=== PATIENT | male | born 1935 | race Caucasian/White ===

== ENCOUNTER 2018-02-06 12:35 | Inpatient (IN) | payer MEDICARE, OTHER ==
--- NOTE | 2018-02-06 12:55 | ED ---
HPI Chest Pain - HPI Summary HPI Summary: This patient is an 82 year old M brought in by ambulance with a chief complaint of non-radiating, mid-sternal CP since this morning following breakfast. Patient reports slight difficulties breathing, vomiting, nausea, SOB, and productive cough. When assisted into semi-fowlers by EMS, CP and SOB resolved, with O2Sat 89-92% on room air. 2L were applied via NC, O2 to 96%. The patient received 324 of ASA at home. The patient states that his CP lasted about 20 minutes. PMHX Diabetes, CO, and CVA. No PMHx COPD or other respiratory illness. SHX lives with at home. - History of Current Complaint Chief Complaint: EDChestPainROMI Time Seen by Provider: 02/06/18 12:43 Hx Obtained From: Patient, EMS Onset/Duration: Started Hours Ago Timing: Lasting Minutes - 20 Pain Intensity: 0 Chest Pain Location: Mid Sternal Chest Pain Radiates: No Associated Signs and Symptoms: Positive: Chest Pain, Shortness of Breath, Nausea , Cough, Productive Cough, Vomiting, Wheezing - Additional Pertinent History Primary Care Physician: [id number] - Allergy/Home Medications Allergies/Adverse Reactions: Allergies Allergy/AdvReac Type Severity Reaction Status Date / Time vancomycin Allergy Rash Verified 02/06/18 14:25 Home Medications: Home Medications Atorvastatin* [Lipitor 10 MG*] 10 mg PO BEDTIME 02/06/18 [History Confirmed 02/24] Metoprolol Succinate [Toprol Xl] 50 mg PO DAILY 02/06/18 [History Confirmed 02/24] Sertraline HCl [Zoloft] 25 mg PO DAILY 02/06/18 [History Confirmed 02/06/18] PMH/Surg Hx/FS Hx/Imm Hx Endocrine/Hematology History: Reports: Hx Diabetes Denies: Hx Thyroid Disease Cardiovascular History: Reports: Hx Angioplasty - several, Hx Coronary Artery Disease, Hx Hypertension, Hx Peripheral Vascular Disease, Hx Rheumatic Fever, Hx Valvular Heart Disease - Valve replacement, Other Cardiovascular Problems/ Disorders - PAD Denies: Hx Aneurysm, Hx Pacemaker/ICD Respiratory History: Denies: Hx Chronic Obstructive Pulmonary Disease (COPD) History: Reports: Other Problems/Disorders - baseline incontinence Denies: Hx Dialysis Musculoskeletal History: Reports: Hx Arthritis - KNEES, Other Musculoskeletal History - osteomyelitis Sensory History: Reports: Hx Contacts or Glasses - READING GLASSES Denies: Hx Hearing Aid Opthamlomology History: Reports: Hx Contacts or Glasses - READING GLASSES Neurological History: Reports: Hx Dementia, Hx Nerve Disease - peripheral neuropathy, Hx Transient Ischemic Attacks (TIA), Other Neuro Impairments/ Disorders - Parkinsons/dementia Denies: Hx Seizures Psychiatric History: Reports: Hx Substance Abuse - hx of alcoholism, not recent Denies: Hx Depression, Hx Panic Disorder - Cancer History Cancer Type, Location and Year: prostate - Surgical History Surgery Procedure, Year, and Place: 2-heart bypass, prostate, aortic valve replacement 2007, appy, left leg stent placed Hx Anesthesia Reactions: No Infectious Disease History: No Infectious Disease History: Reports: Hx of Known/Suspected MRSA Denies: Traveled Outside the [place] in Last 30 Days - Family History Known Family History: Positive: Cardiac Disease, Diabetes - Social History Alcohol Use: None Alcohol Amount: 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 Skin: The skin is warm and dry and skin color reflects adequate perfusion. HEENT: The head is normocephalic and atraumatic. The pupils are equal and reactive. The conjunctivae are clear and without drainage. Nares are patent and without drainage. Mouth reveals moist mucous membranes and the throat is without erythema and exudate. The external ears are intact. The ear canals are patent and without drainage. The tympanic membranes are intact. Neck: The neck is supple with full range of motion and non-tender. There are no carotid bruits. There is no neck vein distension. Respiratory: Chest is non-tender. Lungs are clear to auscultation. There are expiratory wheezes when coughing. Cardiovascular: Heart is regular rate and rhythm. There is no murmur or rub auscultated. There is no peripheral edema and pulses are symmetrical and equal. Abdomen: The abdomen is soft and non-tender. There are normal bowel sounds heard in all four quadrants and there is no organomegaly palpated. Musculoskeletal: There is no back tenderness noted. Extremities are non-tender with full range of motion. There is good capillary refill. There is no peripheral edema or calf tenderness elicited. There are amputations of his lower extremities. Neurological: Patient is alert and oriented to person, place and time. The patient has symmetrical motor strength in all four extremities. Cranial nerves are grossly intact. Deep tendon reflexes are symmetrical and equal in all four extremities. Psychiatric: The patient has an appropriate affect and does not exhibit any anxiety or depression. Triage Information Reviewed: Yes Vital Signs On Initial Exam: Initial Vitals Temp Pulse Resp BP Pulse Ox 97.5 F 89 18 150/80 96 02/06/18 12:36 02/06/18 12:36 02/06/18 12:36 02/06/18 12:36 02/06/18 12:36 Vital Signs Reviewed: Yes Diagnostics - Vital Signs Vital Signs Temp Pulse Resp BP Pulse Ox 02/06/18 12:36 97.5 F 89 18 150/80 96 - Laboratory Result Diagrams: 02/06/18 13:22 02/06/18 13:22 Lab Statement: Any lab studies that have been ordered have been reviewed, and results considered in the medical decision making process. - Radiology CXR Radiology Interpretation Completed By: Radiologist Summary of Radiographic Findings: NO ACTIVE CARDIOPULMONARY DISEASE. ED physician has reviewed this report - EKG 12:46 Cardiac Rate: NL - 88 bpm EKG Rhythm: Sinus Rhythm EKG Comparison: No Significant Change - 03/02/15 Summary of EKG Findings: left axis deviation Chest Pain Course/Dx - Course Course Of Treatment: Mr. Cedillo is a difficult historian secondary to dysphasia from Parkinson's disease. He had a short-lived episode of chest pain earlier today. He was accompanied by some shortness of breath and nausea. His initial workup including EKG, chest x-ray and labs with troponin and d-dimer were negative. He is awaiting a second troponin and I expect he would be discharged if this were negative. - Diagnoses Provider Diagnoses: Chest pain Discharge - Sign-Out/Discharge Documenting (check all that apply): Sign-Out Patient Signing out patient TO: Mihai Lyles - Discharge Plan Condition: Fair Disposition: ADMITTED TO [facility] Referrals: Jonny Gunn MD [Primary Care Provider] - - Billing Disposition and Condition Condition: FAIR Disposition: Admitted to [facility] - Attestation Statements Document Initiated by Socoibalice: Yes Documenting Scribe: Devan Cabrera Provider For Whom Sterling is Documenting (Include Credential): Mihai Chao MD Scribe Attestation: I, Devan Cabrera, scribed for Mihai Chao MD on 02/06/18 at 1745. Scribe Documentation Reviewed: Yes Provider Attestation: The documentation as recorded by the scribeDevan accurately reflects the service I personally performed and the decisions made by me, Mihai Chao MD Status of Scribe Document: Viewed
[2018-02-06 13:30] LABS: ABS Basophils 0.1 10^3/ul (0-0.2); ABS Eosinophils 0.5 10^3/ul (0-0.6); ABS Lymphocytes 1.2 10^3/ul (1.0-4.8); ABS Monocytes 0.6 10^3/ul (0-0.8); ABS Neutrophils 7.4 10^3/ul (1.5-7.7); ABS Nucleated RBC 0 10^3/ul; Eosinophil % 4.6 %; Hematocrit 40 % (42-52); Lymphocyte % 12.7 %; Mean Corpuscular HGB Conc 33 g/dl (31-36); Mean Corpuscular Hemoglobin 28 pg (27-31); Mean Corpuscular Volume 85 fL (80-94); Nucleated Red Blood Cells % 0; Platelet Count 211 10^3/ul (150-450); Red Blood Count 4.68 10^6/ul (4.00-5.40); Red Cell Distribution Width 14 % (10.5-15); White Blood Count 9.8 10^3/ul (3.5-10.8)
[2018-02-06 13:37] LABS: INR 0.93 (0.77-1.02)
[2018-02-06 13:48] LABS: Albumin 3.5 g/dL (3.2-5.2); Albumin/Globulin Ratio 1.3 (1-3); BUN/Creatinine Ratio 19.2 (8-20); Calcium 9.1 mg/dL (8.6-10.3); EGFR Non-African American 103.4 (>60); Globulin 2.6 g/dL (2-4); Potassium 4.4 mmol/L (3.5-5.0); Total Bilirubin 0.3 mg/dL (0.2-1.0); Total Protein 6.1 g/dL (6.4-8.9)
--- NOTE | 2018-02-06 14:11 | ED ---
Progress - Progress Note Progress Note: The patient was signed out by Dr. Chao to Dr. yLles, awaiting disposition. Course/Dx - Course Course Of Treatment: Test results with no significant abnormalities except for troponin .17 H and .167 H. In the ED course the patient was given Heparin. We discussed patient care with Dr. Kay and they recommended admission. - Diagnoses Provider Diagnoses: Chest pain, Non-ST elevation myocardial infarction (NSTEMI) - Provider Notifications Discussed Care Of Patient With: Aster Kay Time Discussed With Above Provider: 17:15 Instructed by Provider To: Admit As Inpatient - Critical Care Time Critical Care Time: 30-74 min - Elderly man with a bout of chest pain, positive troponins indicating non-STEMI, heparin ordered. Discharge - Sign-Out/Discharge Documenting (check all that apply): Patient Departure - admission, Receiving Sign-Out Receiving patient FROM: Mihai Chao - Discharge Plan Condition: Fair Disposition: ADMITTED TO [facility] - Billing Disposition and Condition Condition: FAIR Disposition: Admitted to [facility] - Attestation Statements Document Initiated by Sterling: Yes Documenting Socoibalice: Devan Cabrera Provider For Whom Sterling is Documenting (Include Credential): Mihai Lyles MD Scribe Attestation: Devan Sears, socoibed for Mihai Lyles MD on 02/06/18 at 1905. Scribe Documentation Reviewed: Yes Provider Attestation: The documentation as recorded by the Devan dodson accurately reflects the service I personally performed and the decisions made by me, Mihai Lyles MD Status of Scribe Document: Viewed
[2018-02-06 14:25] LABS: TSH (Thyroid Stimulating Horm) 0.77 mcIU/mL (0.34-5.60)
[2018-02-06] MEDS ORDERED: Al Hydrox/Mg Hydrox/Simet LIQ* 30 ML UDC PO PRN (17:54)
[2018-02-06] MEDS ORDERED: Aspirin EC TAB* 81 MG TAB.EC PO SCH (18:00)
[2018-02-06] MEDS: Heparin DRIP 25,000 UNITS(*) 25,000 UNITS/500 ML BAG IV SCH (18:25)
[2018-02-06] MEDS: Heparin VIAL(*) 5000 UNITS/ML VIAL (FIVE THOUSAND) IV SCH (18:25)
[2018-02-06] MEDS ORDERED: Nitroglycerin TAB 0.4 MG* 0.4 MG TAB SL PRN (18:26)
--- NOTE | 2018-02-06 19:44 | HP ---
ADDENDUM NOW INCLUDED ON THIS REPORT CC: Dr. Avendaño; Dr. Gunn * HISTORY AND PHYSICAL: DATE OF ADMISSION: 02/06/18 TIME OF ADMISSION: 6:00 p.m. CHIEF COMPLAINT: Chest pain. HISTORY OF PRESENT ILLNESS: This is an 82-year-old man with a significant history of coronary artery disease who has had 2 coronary artery bypass grafts in 2006 and 2011. He is a patient of Dr. Avendaño, but has not seen him for several years. He presents to the emergency department with an episode of chest pain that occurred after breakfast this morning. He states he had eaten a breakfast of Cheerios and was feeling in his usual state of health and after breakfast, was sitting at the table when he developed a sudden onset of midsternal chest pain. The pain was nonradiating. It was associated with nausea. He had no diaphoresis or shortness of breath. He does not walk, so he is unable to tell if the pain changed with exertion. He rested at the table until his called EMS approximately 1 hour later. He was instructed to take 325 mg of aspirin and he did so. In the ambulance, his chest pain resolved and he has had no further chest pain since that time. PAST MEDICAL HISTORY: 1. Parkinson's disease. 2. Vascular dementia. 3. Hypertension. 4. Coronary artery disease status post CABG. 5. Peripheral vascular disease status post right BKA and left TMA. 6. Type 2 diabetes. HOME MEDICATIONS: 1. Metformin 500 mg daily. 2. Vitamin C 500 mg daily. 3. Aspirin 81 mg daily. 4. Atorvastatin 10 mg q.h.s. 5. Baclofen 10 mg t.i.d. 6. Plavix 75 mg daily. 7. Aricept 5 mg q.h.s. 8. Toprol-XL 50 mg daily. 9. Zoloft 25 mg daily. SOCIAL HISTORY: He lives with his , Aaliyah at [place]. He does not smoke. He drinks alcohol, but is not forthcoming about how much he drinks. REVIEW OF SYSTEMS: He denies recent fevers, chills, cough, shortness of breath , palpitations, headache, weight loss or weight gain. Remainder of 14-point review of systems is negative except as per the HPI. PHYSICAL EXAMINATION GENERAL: Alert, nontoxic, elderly appearing man, in no distress. He is able to speak in full sentences. VITAL SIGNS: Temperature 97.5, heart rate 80, respiratory rate 21, pulse ox 96 % on 2 L, blood pressure 145/90. HEENT: Pupils equal, round and 2 mm bilaterally. Oral mucosa is moist. NECK: No JVP. No cervical adenopathy. LUNGS: Clear with no wheezes or rhonchi. CHEST: Regular rate and rhythm. PMI is nondisplaced. Old healed sternotomy incision is in place. ABDOMEN: Obese, soft, nontender, nondistended. A midline infrapubic incision is healed. He has no guarding or rebound. EXTREMITIES: He has a right lower extremity BKA and a left lower extremity TMA. He has no wounds, ulcers, or edema. LABORATORY DATA/DIAGNOSTIC STUDIES: Sodium 133, potassium 4.4, chloride 101, bicarb 26, creatinine 0.73, glucose 204. Troponin 0.17, 1.67. BNP 270. White blood cells 9.8, hemoglobin 13, platelets 211,000. Chest x-ray shows mild cardiomegaly, no edema, no effusions, no infiltrates, and sternotomy clips. EKG: Normal sinus rhythm with a first-degree A-V block, left axis deviation, ST elevation in lead 3 but not in 2 or aVF, no T wave changes. ASSESSMENT AND PLAN: This is an 82-year-old man with a long history of coronary artery disease who presents to the emergency room with chest pain and was found to have jei-EF-xtgmumemy myocardial infarction. 1. Acute coronary syndrome, stl-VG-yfovxkooz myocardial infarction. I am starting a heparin drip. He already took full dose aspirin prior to arrival. He is currently chest pain-free and needs to remain so. We will treat him with nitro p.r.n. in case he develops more chest pain. He is already on a beta- riccardo and I am continuing his Toprol. He is also already on atorvastatin; I am increasing the dose to make it a high potency statin. I am continuing his Plavix as recommended by Dr. De La Cruz. I have consulted with Dr. De La Cruz who agrees with trending his troponins, monitoring him on telemetry and he will evaluate him in the morning to consider further workup. 2. Parkinson's disease. He is not on any Parkinson's meds. He does take baclofen. 3. Diabetes. I am holding his metformin and putting him on a sliding scale. 4. Hypertension. I am continuing his metoprolol. He may benefit from an KARSON should his blood pressure needs improved control. 5. Peripheral vascular disease. Continue aspirin and statin and Plavix. 6. DVT prophylaxis. Contraindicated in the setting of therapeutic anticoagulation. 7. Diet. Carb control and n.p.o. after midnight for possible cardiology intervention. 8. Full code. TIME SPENT: 60 minutes were spent on this admission. ADDENDUM TO HISTORY AND PHYSICAL: A repeat troponin at 1807 is 2.36 and a repeat EKG shows new T-wave inversions in V5 and V6. Continue heparin drip and medical management as above with possible left heart cath in the morning. [id number]/[facility] #: [id number]/CPS #: [id number] WIL
--- NOTE | 2018-02-06 19:52 | HP ---
ADDENDUM TO HISTORY AND PHYSICAL: A repeat troponin at 1807 is 2.36 and a repeat EKG shows new T-wave inversions in V5 and V6. Continue heparin drip and medical management as above with possible left heart cath in the morning. [id number]/[facility] #: [id number] WIL
[2018-02-06] MEDS: Atorvastatin* 40 MG TAB PO SCH (21:24)
[2018-02-06] MEDS: Donepezil TAB* 5 MG PO SCH (21:24)
[2018-02-06] MEDS: Baclofen TAB* 10 MG PO SCH (21:24)
[2018-02-06] MEDS ORDERED: Dextrose 50% Syringe 50 ML* 25 GM/50 ML SYRINGE IV PUSH PRN (22:33)
[2018-02-07] MEDS: Heparin VIAL(*) 5000 UNITS/ML VIAL (FIVE THOUSAND) IV SCH (01:10)
[2018-02-07] MEDS: Acetaminophen TAB* 325 MG PO PRN (05:41)
[2018-02-07 07:02] LABS: ABS Basophils 0 10^3/ul (0-0.2); ABS Eosinophils 0.5 10^3/ul (0-0.6); ABS Lymphocytes 1.8 10^3/ul (1.0-4.8); ABS Monocytes 0.7 10^3/ul (0-0.8); ABS Neutrophils 5.8 10^3/ul (1.5-7.7); ABS Nucleated RBC 0 10^3/ul; Eosinophil % 5.4 %; Hematocrit 37 % (42-52); Hemoglobin 12.5 g/dl (14.0-18.0); Lymphocyte % 20.9 %; Mean Corpuscular HGB Conc 34 g/dl (31-36); Mean Corpuscular Hemoglobin 29 pg (27-31); Mean Corpuscular Volume 84 fL (80-94); Mean Platelet Volume 7.2 fL (7.4-10.4); Nucleated Red Blood Cells % 0.1; Platelet Count 199 10^3/ul (150-450); Red Blood Count 4.39 10^6/ul (4.00-5.40); Red Cell Distribution Width 14 % (10.5-15); White Blood Count 8.8 10^3/ul (3.5-10.8)
[2018-02-07] MEDS: Insulin LISPRO* 1 UNITS UNIT SUBCUT SCH ×3 (07:17→19:22)
[2018-02-07 07:36] LABS: BUN/Creatinine Ratio 17.6 (8-20); EGFR Non-African American 112.2 (>60); HDL Cholesterol 51.6 mg/dL; Potassium 4.4 mmol/L (3.5-5.0)
--- NOTE | 2018-02-07 07:54 | PN ---
Subjective Date of Service: 02/07/18 Interval History: No SOB, chest pain, cough. No new c/o. Objective Active Medications: Acetaminophen (Tylenol Tab*) 650 mg PO Q4H PRN PRN Reason: FEVER/PAIN Last Admin: 02/07/18 05:41 Dose: 650 mg Al Hydrox/Mg Hydrox/Simethicone (Maalox Plus*) 30 ml PO Q6H PRN PRN Reason: INDIGESTION Ascorbic Acid (Vitamin C Tab*) 500 mg PO DAILY [facility] Aspirin (Aspirin Ec Tab*) 81 mg PO DAILY [facility] Atorvastatin Calcium (Lipitor*) 40 mg PO BEDTIME [facility] Last Admin: 02/06/18 21:24 Dose: 40 mg Baclofen (Lioresal Tab*) 10 mg PO TID [facility] Last Admin: 02/06/18 21:24 Dose: 10 mg Clopidogrel Bisulfate (Plavix Tab*) 75 mg PO DAILY [facility] Dextrose (D50w Syringe 50 Ml*) 12.5 gm IV PUSH .FOR FS < 60 - SS PRN PRN Reason: FS < 60 Donepezil HCl (Aricept Tab*) 5 mg PO BEDTIME [facility] Last Admin: 02/06/18 21:24 Dose: 5 mg Heparin Sodium (Porcine) (Heparin Vial(*)) 0 units IV .PER PROTOCOL [facility] Last Admin: 02/07/18 01:10 Dose: 2,000 units Heparin Sodium/Dextrose (Heparin Drip 25,000 Units(*)) 25,000 units in 500 mls @ 0 mls/hr IV PER RATE [facility]; Protocol Last Admin: 02/06/18 18:25 Dose: 19 mls/hr Influenza Virus Vaccine (Fluarix *Quad* *) 0.5 ml IM .ONCE ONE Stop: 02/07/18 09:01 Insulin Human Lispro (Humalog*) 0 units SUBCUT AC [facility]; Protocol Last Admin: 02/07/18 07:17 Dose: Not Given Metoprolol Succinate (Toprol Xl Tab*) 50 mg PO DAILY [facility] Nitroglycerin (Nitroglycerin Tab 0.4 Mg*) 0.4 mg SL Q5M PRN PRN Reason: ANGINA Sertraline HCl (Zoloft*) 25 mg PO DAILY [facility] Vital Signs - 8 hr 02/07/18 02/07/18 02/07/18 03:14 07:19 07:40 Temperature 97.9 F 97.9 F Pulse Rate 83 82 Respiratory 16 20 20 Rate Blood Pressure 122/58 120/71 (mmHg) O2 Sat by Pulse 95 97 Oximetry Oxygen Devices in Use Now: Nasal Cannula Appearance: Alert, supine in bed. In good spirits. Looks comfortable. Eyes: No Scleral Icterus Neck: NL Appearance and Movements; NL JVP, No Thyroid Enlargement, Masses Respiratory: Clear to Auscultation, Clear to Percussion, Clear to Palpation Cardiovascular: NL Sounds; No Murmurs; No JVD, RRR, No Edema, - Extremities: No Edema, No Clubbing, Cyanosis, - - R BKA, L toes surgically absent Neurological: Alert and Oriented x 3, NL Sensation, - - Speech dysarthric, short sentences. Result Diagrams: 02/07/18 06:30 02/07/18 06:30 Microbiology and Other Data: Microbiology 02/06/18 19:54 Nasal Screen MRSA (PCR) - Final Nasal Mrsa Detected Assess/Plan/Problems-Billing Assessment: - Patient Problems (1) CAD (coronary artery disease) Current Visit: No Status: Chronic Code(s): I25.10 - ATHSCL HEART DISEASE OF [place] CORONARY ARTERY W/O ANG PCTRS SNOMED Code(s): 81590734 Comment: Acute non-ST elevation MN. Lateral wall T-wave inversions. Continue heparin, NPO. Dr. De La Cruz to see. Continue clopidogrel, ASA, metoprolol , increased dose atorvastatin. (2) Type 2 diabetes mellitus Current Visit: No Status: Chronic Comment: Continue lispro SSI coverage, hold metformin. (3) Dementia Current Visit: No Status: Chronic Code(s): F03.90 - UNSPECIFIED DEMENTIA WITHOUT BEHAVIORAL DISTURBANCE SNOMED Code(s): 34243117 Comment: Continue donepezil, sertraline. (4) Peripheral vascular disease Current Visit: No Status: Chronic Code(s): I73.9 - PERIPHERAL VASCULAR DISEASE, UNSPECIFIED SNOMED Code(s): 046591126 Comment: Unsuccessful angioplasty on 08/06/2015. Continue statin, clopidogrel , ASA.
[2018-02-07] MEDS: Ascorbic Acid TAB* 500 MG PO SCH (08:50)
[2018-02-07] MEDS: Clopidogrel TAB* 75 MG PO SCH (08:50)
[2018-02-07] MEDS: Sertraline* 25 MG TAB PO SCH (08:50)
[2018-02-07] MEDS: Baclofen TAB* 10 MG PO SCH ×4 (08:50→20:55)
[2018-02-07] MEDS: Metoprolol Succinate XL TAB* 50 MG PO SCH (08:50)
[2018-02-07] MEDS: Aspirin EC TAB* 81 MG TAB.EC PO SCH ×2 (08:50→09:01)
[2018-02-07] MEDS ORDERED: Perflutren Lipid Microsphere* 3 ML VIAL ONE (10:19)
--- NOTE | 2018-02-07 13:36 | ECHO ---
Patient: TYLER SOTO [facility] Rec#: [id number] : 1935 Date: 02/07/2018 Age: 82y Height: 180 cm / 70.9 in Weight: 89 kg / 196.2 lbs Sex: M BSA: 2.09 Room#: 431 Admit Date#: 02/06/2018 Type: Inpatient Referring: Laura Fowler Reading: Phoebe Reed MD [employer] Professional: Stacy Henderson RDCS,RDMS CC: Jonny Gunn Transthoracic Echocardiogram Indication: Myocardial Infarction BP: 120/71 HR: 64 Rhythm: NSR Findings History: CAD, CABG, AOV replacement, HTN, DM, PVD Technical Comments: The study is technically limited due to poor acoustic windows. Left Ventricle: The left ventricular chamber size is normal. Moderate to severe concentric left ventricular hypertrophy is observed. There is global hypokinesis of the left ventricle with minor regional variation. The estimated ejection fraction is 30-35%. Abnormal left ventricular diastolic filling is observed, consistent with impaired relaxation. The left ventricular diastolic filling pattern is consistent with elevated left ventricular end-diastolic pressure. Left Atrium: The left atrium is severely dilated. Right Ventricle: The right ventricular chamber size and systolic function are within normal limits. The right ventricle wall thickness is mildly increased. Right Atrium: The right atrium is mild to moderately dilated. Aortic Valve: The aortic valve structure is not well visualized. There is no evidence of aortic regurgitation. The mean gradient of the aortic valve is 14 mmHg. The aortic valve area, by VTI's, is calculated at 1 cm2. A bio-prosthetic aortic valve is present. Mitral Valve: The mitral valve structure is not well visualized. There is mitral annular calcification. The mitral valve leaflets are mildly thickened. There is a trace of mitral regurgitation. There is mild mitral stenosis. The mitral valve area, by pressure half time, is calculated at 2.1 cm2. Tricuspid Valve: The tricuspid valve leaflets are normal. There is no evidence of tricuspid valve regurgitation. Unable to estimate the right ventricular systolic pressure. Pulmonic Valve: There is no evidence of pulmonic valve thickening. There is no evidence of pulmonic regurgitation. Pericardium: There is no significant pericardial effusion. A pericardial fat pad is visualized. Aorta: The ascending aorta is not well visualized. There is no dilatation of the aortic arch. The aortic root is normal in size. Pulmonary Artery: The main pulmonary artery is not well visualized. Venous: The inferior vena cava is dilated. There is less than 50% respiratory change in the inferior vena cava dimension. Contrast: Definity was used to optimize study. A total of 4 ml was used. Conclusions Moderate to severe concentric left ventricular hypertrophy is observed. There is global hypokinesis of the left ventricle with minor regional variation. The estimated ejection fraction is 35%. Abnormal left ventricular diastolic filling is observed, consistent with impaired relaxation and with elevated left ventricular end-diastolic pressure. The right ventricular chamber size and systolic function are within normal limits with mild RVH. The left atrium is severely dilated. A bio-prosthetic aortic valve is present (#25 [place]). Mild to moderate prosthetic for type, size and location of AVR (low EF can lead to overestimation of valve area). -The mean gradient of the aortic valve is 14 mmHg, ROSEANNA 1.0 cm2, DI (VTI) 0.3, DI (peak adelina) is 0.34. There is mitral annular calcification. There is a trace of mitral regurgitation. There is mild mitral stenosis: MVA by pressure half time, is calculated at 2.1 cm2, mean gradient 3 mmHg. Unable to estimate the right ventricular systolic pressure. Compared with prior echo of 03/02/15, EF 50-55% previously, mean gradient previously 32 mmHg, ROSEANNA previously estimated at 1. cm2. MAC seen previosly, MVA previously estimated at 2.5 cm2. Measurements Name Value Normal Range RVIDd (AP) 2D 2.2 cm (0.9 - 2.6) RVDdMajor (2D) 3.5 cm (2.2 - 4.4) RAd ISD 4CH 5.8 cm (3.4 - 4.9) RA (A4C)W 4.7 cm (2.9 - 4.6) IVSd (2D) 1.9 cm (0.6 - 1) LVPWd (2D) 1.7 cm (0.6 - 1) LVIDd (2D) 4.9 cm (3.6 - 5.4) LVIDs (2D) 4.4 cm - LV FS (2D) 10 % (25 - 45) Aortic Annulus 2 cm (1.4 - 2.6) Ao root diameter (2D) 3.5 cm (2.1 - 3.5) Aortic arch 2.7 cm (1.8 - 3.4) LA dimension (AP) 2D 5.1 cm (2.3 - 3.8) LAd ISD 4CH 6.7 cm (2.9 - 5.3) LA ISD 4CH W 5.6 cm (2.5 - 4.5) Name Value Normal Range LA ESV BP (A/L) index 81 ml/m2 - Name Value Normal Range MV E-wave Vmax 1 m/sec - MV deceleration time 161 msec - MV A-wave Vmax 1.2 m/sec - MV E:A ratio 0.9 ratio - LV septal e' Vmax 0.03 m/sec - LV lateral e' Vmax 0.04 m/sec - LV E:e' septal ratio 33 ratio - LV E:e' lateral ratio 25 ratio - Name Value Normal Range AV Vmax 2.4 m/sec - AV VTI 55 cm - AV peak gradient 23 mmHg - AV mean gradient 14 mmHg - LVOT diameter 2 cm - LVOT Vmax 0.8 m/sec - LVOT VTI 17 cm - LVOT peak gradient 2.6 mmHg - LVOT mean gradient 2 mmHg - DOI (VTI) 0.3 ratio - ROSEANNA (continuity Vmax) 1 cm2 - ROSEANNA (continuity VTI) 1 cm2 - ALEXA Vmax 0.5 m/sec - Name Value Normal Range MV Vmax 1.2 m/sec - MV VTI 39 cm - MV peak gradient 6 mmHg - MV mean gradient 3 mmHg - MV PHT 106 msec - MVA (PHT) 2.1 cm2 - MVA (continuity VTI) 1.3 cm2 - Name Value Normal Range IVC diameter 2.3 cm - Name Value Normal Range PV Vmax 0.7 m/sec - PV peak gradient 2 mmHg -
--- NOTE | 2018-02-07 15:13 | CONS ---
CONSULTATION REPORT: DATE OF CONSULT: 02/07/18 ATTENDING PHYSICIAN: Dr. Phoebe Reed, Cardiology. PRIMARY TECHNICAL SERVICES REP: Formerly, Dr. Russ Avendaño. REASON FOR CONSULT: N-STEMI. CHIEF COMPLAINT: Substernal chest pain. HISTORY OF PRESENT ILLNESS: This is a pleasant 82-year-old male patient with a notable history of coronary artery disease, status post CABG x2 with bioprosthetic aortic valve replacement in 2006 in addition to peripheral arterial disease, type 2 diabetes, Parkinson's, and dysphagia. The patient presented to [facility] on 02/06/18 after developing substernal chest pain described as indigestion after eating breakfast at 11:00 yesterday morning. The patient states he became nauseous and vomited x1. Episode lasted 20 minutes. Pain did not radiate. He denies shortness of breath, dizziness, lightheadedness, palpitations, or sensation of heart racing. He denies taking medications to help alleviate pain such as nitroglycerin. His called 911. He was transferred to [facility] for further evaluation. On being evaluated in the emergency department, the patient had new lateral ST segment abnormalities compared to prior EKG. Initial troponin was elevated at 0.17. Subsequently, he was admitted to [address] [place] [address] for ACS and we were asked to see him in consultation. The patient denies any recurrent episodes of chest pain since yesterday, 11 a.m. He reports compliance with medications. He denies choking on breakfast or medications which he consumed at the time the chest pain developed. Unfortunately, he is not able to recall what his anginal equivalent is; however, he was able to state that he has not had any episodes of chest pain for the last 3 years. He was last seen in our practice on 03/02/14 and at that time, was doing well. He has otherwise been in his usual state of health. Denies any recent hospitalizations. Denies any recent cardiac stenting or intervention. PAST MEDICAL HISTORY: Includes: 1. Coronary artery disease. 2. Aortic valve disease. 3. Peripheral arterial disease. 4. Type 2 diabetes. 5. Parkinson's. 6. Dysphagia. 7. Carotid artery disease. PAST SURGICAL HISTORY: Includes: 1. Bioprosthetic aortic valve replacement, size 25 mosaic with CABG x2 in 2006 , THOMPSON to LAD, saphenous vein graft to OM. 2. Prostatectomy. 3. Right mkayg-dzy-befq amputation. 4. Left transmetatarsal amputation. 5. Right directional atherectomy and perineal artery. MEDICATIONS: Home medications include: 1. Sertraline 25 mg a day. 2. Toprol-XL 50 mg a day. 3. Metformin 500 mg p.o. daily. 4. Aricept 5 mg p.o. q.h.s. 5. Lipitor 10 mg p.o. q.h.s. 6. Vitamin C tablets as directed. 7. Plavix 75 mg p.o. daily. 8. Baclofen 10 mg p.o. t.i.d. 9. Aspirin 81 mg a day. ALLERGIES: No known drug allergies. Denies allergies to contrast dye or shellfish. FAMILY HISTORY: Noncontributory. SOCIAL HISTORY: The patient denies ever consuming tobacco products. He quit drinking alcohol a year ago. He states that he is wheelchair bound. He is . Lives at home with his . REVIEW OF SYSTEMS: All systems have been reviewed and otherwise negative except as above mentioned in the HPI. PHYSICAL EXAM: Temperature is 97.9, pulse 82, respirations 20, blood pressure 120/71, oxygenation 97% on 3 L nasal cannula. General: The patient is cooperative with exam, alert and oriented x3, appears in no apparent distress. He has difficulty articulating himself; however, his thought process is clear. HEENT: Head is atraumatic, normocephalic. Oral mucosa is moist. Tongue is midline. Neck: Supple. Trachea midline. No JVD. No thyromegaly. Cardiac: Normal S1, S2. Regular rate and rhythm. There is a grade 2/6 early systolic murmur auscultated across the left and right sternal border. No gallop or rub. Lungs: Auscultated posteriorly, clear throughout upon auscultation. Respirations are unlabored. Genitourinary/Gastrointestinal: Abdomen is soft, nontender, nondistended. Positive bowel sounds throughout. Extremities: No edema noted, 2+ right femoral pulse palpated, 2+ left posterior tibialis pulse palpated. Skin: Intact. No rashes, lesions, or ecchymosis appreciated. DIAGNOSTIC STUDIES/LAB DATA: Blood work obtained, 02/07/18, sodium 137, potassium 4.4, chloride 100, carbon dioxide 29, BUN is 12, creatinine 0.68, glucose of 103, white blood cell count is 8.8, hemoglobin 12.5, hematocrit 37, platelets 199. D- dimer was 221. Troponin plateaued at 2.3 today at 6:30 a.m. , LDL 49, triglycerides 72, cholesterol 115, BNP 270. EKG obtained 02/06/18, demonstrated normal sinus rhythm, rate [address] segment depression less than 1 mm with T-wave inversion noted in V4 through V6, aVL and in lead 1. Chest x-ray from 02/06/18, no apparent cardiopulmonary disease process. Echocardiogram pending. ASSESSMENT AND PLAN: 1. Non-ST segment elevation myocardial infarction: The patient had a 20- minute episode of substernal chest pain described as burning in nature, at 11 a.m. No provoking or relieving factors. Pain has not recurred. Troponin appears to have peaked at 2.3. Upon presentation, there was new lateral ST segment depression less than 1 mm with T-wave inversion noted in the V4 through 6, lead 1, and aVL. He is on IV heparin therapy, aspirin, Plavix, beta-riccardo, and statin therapy, which we would recommend to continue. He is currently agreeable to left heart catheterization after discussing it with his , whom I personally spoke with. His last cardiac catheterization was in 2011. At that time, he had patent left internal mammary artery to left anterior descending artery, saphenous vein to obtuse marginal graft. He had extensive 3-vessel coronary artery disease; however, nothing was absolutely amenable to angioplasty or stenting. Subsequently, medical therapy was recommended. Given this information, we will ask Dr. Gen Ewing, Interventional Cardiology, to review films and determine whether or not the patient would benefit from cardiac catheterization. We will make further recommendations after this occurs. 2. Bioprosthetic aortic valve: The patient has a 2/6 early systolic murmur present consistent with [id number] periprosthetic aortic stenosis. Echocardiogram was ordered to evaluate valve gradient. He is on aspirin therapy , appears compensated on exam. 3. History of mixed hyperlipidemia: LDL is at goal. Continue Lipitor therapy. 4. History of coronary artery disease: On aspirin, statin, beta-blockade therapy. Please refer to above #1. 5. Disposition: Pending course. The patient is full code. We will ask Dr. Ewing, Interventional Cardiology, to review prior cardiac catheterization films from 2011 to determine whether or not the patient would benefit from left heart catheterization. Given residual lesions at that time were not amenable to percutaneous coronary intervention. If left heart catheterization is recommended, he has extensive peripheral arterial disease, subsequently access will likely be radial. He does have a notable history of restless leg syndrome. Subsequently, he will need to be appropriately medicated for this if he does undergo left heart catheterization. Dr. Phoebe Reed agrees with the above assessment and plan. Thank you for this kind consultation. Please do not hesitate to contact our service for any future questions or concerns. RUBI JIMENEZ NP [id number]/[facility] #: [id number] WIL
--- NOTE | 2018-02-07 16:13 | CONSULT ---
Subjective Date of Service: 02/07/18 - CC: CP, n/v. Interval History: This note augments full consult done by Laura Moore GLASS INSTALLER TECHNICIAN. The patient presented to ED due to SS CP, N/V and diaphoresis after breakfast and meds 02/06/18. Preceding this the patient had been wheezy and coughing for several days. No history on increased activity, med changes, orthopnea or PND. PMHx: CABG THOMPSON to LAD and SVG to OM1) and AVR (tissue) 2006 Redo CABG 2011 (SVG to occluded RCA and SVG to OM2). see GLASS INSTALLER TECHNICIAN note Initial Vitals Temp Pulse Resp BP Pulse Ox 97.5 F 89 18 150/80 96 02/06/18 12:36 02/06/18 12:36 02/06/18 12:36 02/06/18 12:36 02/06/18 12:36 Obese, lying in bed 30 degrees, tachypnic talking. Audible wheezing talking to the patient. Diffusely diminished BS. S1S2 2/6 mid to late peaking SM RUSB with radiation. Midline sternotomy scar old, well healed. Posterior head and back sweaty. Very centripitally obese. No LE edema, L metatarsal amputation, R AKA amputation. Laboratory Last Values WBC 8.8 10^3/ul (3.5-10.8) 02/07/18 06:30 RBC 4.39 10^6/ul (4.00-5.40) 02/07/18 06:30 Hgb 12.5 g/dl (14.0-18.0) L 02/07/18 06:30 Hct 37 % (42-52) L 02/07/18 06:30 MCV 84 fL (80-94) 02/07/18 06:30 MCH 29 pg (27-31) 02/07/18 06:30 MCHC 34 g/dl (31-36) 02/07/18 06:30 RDW 14 % (10.5-15) 02/07/18 06:30 Plt Count 199 10^3/ul (150-450) 02/07/18 06:30 MPV 7.2 fL (7.4-10.4) L 02/07/18 06:30 Neut % (Auto) 65.4 % 02/07/18 06:30 Lymph % (Auto) 20.9 % 02/07/18 06:30 [place]igo % (Auto) 7.8 % 02/07/18 06:30 Eos % (Auto) 5.4 % 02/07/18 06:30 Baso % (Auto) 0.5 % 02/07/18 06:30 Absolute Neuts (auto) 5.8 10^3/ul (1.5-7.7) 02/07/18 06:30 Absolute Lymphs (auto) 1.8 10^3/ul (1.0-4.8) 02/07/18 06:30 Absolute Monos (auto) 0.7 10^3/ul (0-0.8) 02/07/18 06:30 Absolute Eos (auto) 0.5 10^3/ul (0-0.6) 02/07/18 06:30 Absolute Basos (auto) 0 10^3/ul (0-0.2) 02/07/18 06:30 Absolute Nucleated RBC 0 10^3/ul 02/07/18 06:30 Nucleated RBC % 0.1 02/07/18 06:30 INR (Anticoag Therapy) 0.93 (0.77-1.02) 02/06/18 13:22 APTT 51.7 seconds (26.0-36.3) H 02/07/18 12:39 D-Dimer, Quantitative 221 ng/mL (Less Than 230) 02/06/18 13:22 Sodium 137 mmol/L (135-145) 02/07/18 06:30 Potassium 4.4 mmol/L (3.5-5.0) 02/07/18 06:30 Chloride 100 mmol/L (101-111) L 02/07/18 06:30 Carbon Dioxide 29 mmol/L (22-32) 02/07/18 06:30 Anion Gap 8 mmol/L (2-11) 02/07/18 06:30 BUN 12 mg/dL (6-24) 02/07/18 06:30 Creatinine 0.68 mg/dL (0.67-1.17) 02/07/18 06:30 Est GFR ( Amer) 135.8 (>60) 02/07/18 06:30 Est GFR (Non-Af Amer) 112.2 (>60) 02/07/18 06:30 BUN/Creatinine Ratio 17.6 (8-20) 02/07/18 06:30 Glucose 133 mg/dL (70-100) H 02/07/18 06:30 POC Glucose (mg/dL) 137 mg/dL (70-100) H 02/07/18 11:38 Lactic Acid 1.5 mmol/L (0.5-2.0) 02/06/18 13:22 Calcium 9.0 mg/dL (8.6-10.3) 02/07/18 06:30 Total Bilirubin 0.30 mg/dL (0.2-1.0) 02/06/18 13:22 AST 16 U/L (13-39) 02/06/18 13:22 ALT 10 U/L (7-52) 02/06/18 13:22 Alkaline Phosphatase 75 U/L (34-104) 02/06/18 13:22 Troponin I 2.36 ng/mL (<0.04) H* 02/07/18 06:30 B-Natriuretic Peptide 270 pg/mL (<=100) H 02/06/18 13:22 Total Protein 6.1 g/dL (6.4-8.9) L 02/06/18 13:22 Albumin 3.5 g/dL (3.2-5.2) 02/06/18 13:22 Globulin 2.6 g/dL (2-4) 02/06/18 13:22 Albumin/Globulin Ratio 1.3 (1-3) 02/06/18 13:22 Triglycerides 72 mg/dL 02/07/18 06:30 Cholesterol 115 mg/dL 02/07/18 06:30 LDL Cholesterol 49 mg/dL 02/07/18 06:30 HDL Cholesterol 51.6 mg/dL 02/07/18 06:30 TSH 0.77 mcIU/mL (0.34-5.60) 02/06/18 13:22 ECG: NSR, mild ST depression lateral leads. CXR: NAD ECHO 02/07/18: EF 35%, marked LVH, prosthetic AV stenosis mild to moderate. Family History: Unchanged from Admission Social History: Unchanged from Admission Past Medical History: Unchanged from Admission - see my notes on redo CABG Medications Active Medications: Acetaminophen (Tylenol Tab*) 650 mg PO Q4H PRN PRN Reason: FEVER/PAIN Last Admin: 02/07/18 05:41 Dose: 650 mg Al Hydrox/Mg Hydrox/Simethicone (Maalox Plus*) 30 ml PO Q6H PRN PRN Reason: INDIGESTION Ascorbic Acid (Vitamin C Tab*) 500 mg PO DAILY [facility] Last Admin: 02/07/18 08:50 Dose: 500 mg Aspirin (Aspirin Ec Tab*) 81 mg PO DAILY [facility] Last Admin: 02/07/18 09:01 Dose: Not Given Atorvastatin Calcium (Lipitor*) 40 mg PO BEDTIME [facility] Last Admin: 02/06/18 21:24 Dose: 40 mg Baclofen (Lioresal Tab*) 10 mg PO TID [facility] Last Admin: 02/07/18 12:05 Dose: Not Given Clopidogrel Bisulfate (Plavix Tab*) 75 mg PO DAILY [facility] Last Admin: 02/07/18 08:50 Dose: 75 mg Dextrose (D50w Syringe 50 Ml*) 12.5 gm IV PUSH .FOR FS < 60 - SS PRN PRN Reason: FS < 60 Donepezil HCl (Aricept Tab*) 5 mg PO BEDTIME [facility] Last Admin: 02/06/18 21:24 Dose: 5 mg Heparin Sodium (Porcine) (Heparin Vial(*)) 0 units IV .PER PROTOCOL [facility] Last Admin: 02/07/18 01:10 Dose: 2,000 units Heparin Sodium/Dextrose (Heparin Drip 25,000 Units(*)) 25,000 units in 500 mls @ 0 mls/hr IV PER RATE [facility]; Protocol Last Admin: 02/06/18 18:25 Dose: 19 mls/hr Insulin Human Lispro (Humalog*) 0 units SUBCUT AC [facility]; Protocol Last Admin: 02/07/18 11:54 Dose: Not Given Metoprolol Succinate (Toprol Xl Tab*) 50 mg PO DAILY [facility] Last Admin: 02/07/18 08:50 Dose: 50 mg Nitroglycerin (Nitroglycerin Tab 0.4 Mg*) 0.4 mg SL Q5M PRN PRN Reason: ANGINA Ramipril (Altace Cap*) 5 mg PO DAILY [facility] Sertraline HCl (Zoloft*) 25 mg PO DAILY [facility] Last Admin: 02/07/18 08:50 Dose: 25 mg Home Medications: Aspirin EC TAB* [Ecotrin EC Low Dose 81 MG*] 81 mg PO DAILY 11/18/11 [History Confirmed 02/06/18] Donepezil TAB* [Aricept 5 MG TAB*] 5 mg PO BEDTIME 12/24/14 [History Confirmed 02/06/18] Clopidogrel TAB* [Plavix TAB*] 75 mg PO DAILY 05/06/15 [History Confirmed ] Metformin HCl [Metformin HCl ER] 500 mg PO DAILY 05/06/15 [History Confirmed 02/24] Baclofen TAB* [Lioresal TAB*] 10 mg PO TID tab 05/19/15 [Rx Confirmed 02/06/18] Ascorbic Acid TAB* [Vitamin C TAB*] 500 mg PO DAILY 06/12/15 [History Confirmed 02/06/18] Atorvastatin* [Lipitor 10 MG*] 10 mg PO BEDTIME 02/06/18 [History Confirmed 02/24] Metoprolol Succinate [Toprol Xl] 50 mg PO DAILY 02/06/18 [History Confirmed 02/24] Sertraline HCl [Zoloft] 25 mg PO DAILY 02/06/18 [History Confirmed 02/06/18] Review of Systems - Measurements Intake and Output: Intake and Output Last 24 Hours 02/05/18 02/06/18 02/07/18 02/08/18 04:59 04:59 04:59 04:59 Weight 173 lb - Review of Systems Review of Systems Statement: All other review of systems negative, unless stated above. Objective Vital Signs: Temp Pulse Resp BP Pulse Ox 96.8 F 65 16 95/58 99 02/07/18 15:18 02/07/18 15:18 02/07/18 15:18 02/07/18 15:18 02/07/18 15:18 Oxygen Devices in Use Now: Nasal Cannula Laboratory Results: 02/06/18 13:22 02/06/18 13:22 INR (Anticoag Therapy) 0.93 (0.77-1.02) 02/06/18 13:22 APTT 51.7 seconds (26.0-36.3) H 02/07/18 12:39 Total Bilirubin 0.30 mg/dL (0.2-1.0) 02/06/18 13:22 AST 16 U/L (13-39) 02/06/18 13:22 ALT 10 U/L (7-52) 02/06/18 13:22 Alkaline Phosphatase 75 U/L (34-104) 02/06/18 13:22 B-Natriuretic Peptide 270 pg/mL (<=100) H 02/06/18 13:22 Total Protein 6.1 g/dL (6.4-8.9) L 02/06/18 13:22 Albumin 3.5 g/dL (3.2-5.2) 02/06/18 13:22 Globulin 2.6 g/dL (2-4) 02/06/18 13:22 Albumin/Globulin Ratio 1.3 (1-3) 02/06/18 13:22 Triglycerides 72 mg/dL 02/07/18 06:30 Cholesterol 115 mg/dL 02/07/18 06:30 LDL Cholesterol 49 mg/dL 02/07/18 06:30 HDL Cholesterol 51.6 mg/dL 02/07/18 06:30 TSH 0.77 mcIU/mL (0.34-5.60) 02/06/18 13:22 02/06/18 02/06/18 13:22 16:34 Troponin I 0.17 H* 1.67 H* Assessment/Plan 82 yo with hx AVR 2006 and CABG, redo CABG 2011, lost to cardiology f/u since 2014, extensive PVD LE, orthopedic issues addressed [id number] now presenting with history c/w angina and preceding this several days of wheezing and coughing found to have ACS/NQMI with elevated troponins, a newly depressed EF, prosthetic (with low EF ROSEANNA could be overestimated), MS and his extensive problem list including HTN, DM, Obeisity, PVD LE with amputations, infections pre amputation. Hx excessive EtOH until a year ago. ACS/NQMI: I recommend catheterization in high risk individual unless felt to be too high risk by interventional cath. Differential of large vessel CAD/plaque destabilization vs. type 2/demand ischemia related to low EF. AVR+: Medical management for now, based on echo I don't feel redo AVR indicated at this time. Option of [place] in the future if better visualization of valves needed. Low EF: Differential of ischemic, EtOH, related to HTN/DM and more. Cath as above. Continue BB, added gentle ACEI, may need diuretic in the future. Home metformin has been held, agree. Consider replacing metformin with biologic DM med/ GLP This patient is high risk overall with extensive vascular disease and multiple commorbidities.
[2018-02-07] MEDS: Heparin DRIP 25,000 UNITS(*) 25,000 UNITS/500 ML BAG IV SCH (18:21)
[2018-02-07] MEDS: Donepezil TAB* 5 MG PO SCH (20:55)
[2018-02-07] MEDS: Atorvastatin* 40 MG TAB PO SCH (20:55)
[2018-02-08 06:50] LABS: ABS Basophils 0 10^3/ul (0-0.2); ABS Eosinophils 0.3 10^3/ul (0-0.6); ABS Lymphocytes 1.4 10^3/ul (1.0-4.8); ABS Monocytes 0.7 10^3/ul (0-0.8); ABS Neutrophils 7.5 10^3/ul (1.5-7.7); ABS Nucleated RBC 0 10^3/ul; Eosinophil % 2.8 %; Hematocrit 37 % (42-52); Hemoglobin 12.5 g/dl (14.0-18.0); Lymphocyte % 14.1 %; Mean Corpuscular HGB Conc 34 g/dl (31-36); Mean Corpuscular Hemoglobin 29 pg (27-31); Mean Corpuscular Volume 85 fL (80-94); Mean Platelet Volume 7.2 fL (7.4-10.4); Nucleated Red Blood Cells % 0; Platelet Count 195 10^3/ul (150-450); Red Blood Count 4.34 10^6/ul (4.00-5.40); Red Cell Distribution Width 14 % (10.5-15); White Blood Count 9.9 10^3/ul (3.5-10.8)
[2018-02-08] MEDS: Insulin LISPRO* 1 UNITS UNIT SUBCUT SCH ×3 (07:18→18:38)
[2018-02-08] MEDS: Heparin VIAL(*) 5000 UNITS/ML VIAL (FIVE THOUSAND) IV SCH (07:40)
[2018-02-08] MEDS: Ascorbic Acid TAB* 500 MG PO SCH (08:17)
[2018-02-08] MEDS: Baclofen TAB* 10 MG PO SCH ×3 (08:17→20:29)
[2018-02-08] MEDS: Sertraline* 25 MG TAB PO SCH (08:17)
[2018-02-08] MEDS: Aspirin EC TAB* 81 MG TAB.EC PO SCH (08:17)
[2018-02-08] MEDS: Clopidogrel TAB* 75 MG PO SCH (08:17)
[2018-02-08] MEDS ORDERED: Regadenoson* 0.4 MG/5 ML SYRINGE ONE (10:41)
[2018-02-08] MEDS ORDERED: Aminophylline IV* 25 MG/ML 10 ML VIAL ONE (10:41)
[2018-02-08] MEDS: Metoprolol Succinate XL TAB* 50 MG PO SCH (14:24)
--- NOTE | 2018-02-08 16:18 | PN ---
Subjective Date of Service: 02/08/18 Interval History: No chest pain, cough, SOB. No new c/o. Objective Active Medications: Acetaminophen (Tylenol Tab*) 650 mg PO Q4H PRN PRN Reason: FEVER/PAIN Last Admin: 02/07/18 05:41 Dose: 650 mg Al Hydrox/Mg Hydrox/Simethicone (Maalox Plus*) 30 ml PO Q6H PRN PRN Reason: INDIGESTION Ascorbic Acid (Vitamin C Tab*) 500 mg PO DAILY [facility] Last Admin: 02/08/18 08:17 Dose: 500 mg Aspirin (Aspirin Ec Tab*) 81 mg PO DAILY [facility] Last Admin: 02/08/18 08:17 Dose: 81 mg Atorvastatin Calcium (Lipitor*) 40 mg PO BEDTIME [facility] Last Admin: 02/07/18 20:55 Dose: 40 mg Baclofen (Lioresal Tab*) 10 mg PO TID [facility] Last Admin: 02/08/18 14:24 Dose: 10 mg Clopidogrel Bisulfate (Plavix Tab*) 75 mg PO DAILY [facility] Last Admin: 02/08/18 08:17 Dose: 75 mg Dextrose (D50w Syringe 50 Ml*) 12.5 gm IV PUSH .FOR FS < 60 - SS PRN PRN Reason: FS < 60 Donepezil HCl (Aricept Tab*) 5 mg PO BEDTIME [facility] Last Admin: 02/07/18 20:55 Dose: 5 mg Heparin Sodium (Porcine) (Heparin Vial(*)) 0 units IV .PER PROTOCOL [facility] Last Admin: 02/08/18 07:40 Dose: 4,000 units Heparin Sodium/Dextrose (Heparin Drip 25,000 Units(*)) 25,000 units in 500 mls @ 0 mls/hr IV PER RATE [facility]; Protocol Last Admin: 02/07/18 18:21 Dose: 22 mls/hr Insulin Human Lispro (Humalog*) 0 units SUBCUT AC [facility]; Protocol Last Admin: 02/08/18 11:44 Dose: Not Given Metoprolol Succinate (Toprol Xl Tab*) 50 mg PO DAILY [facility] Last Admin: 02/08/18 14:24 Dose: 50 mg Nitroglycerin (Nitroglycerin Tab 0.4 Mg*) 0.4 mg SL Q5M PRN PRN Reason: ANGINA Ramipril (Altace Cap*) 5 mg PO DAILY [facility] Sertraline HCl (Zoloft*) 25 mg PO DAILY [facility] Last Admin: 02/08/18 08:17 Dose: 25 mg Vital Signs - 8 hr 02/08/18 10:57 Temperature 98.1 F Pulse Rate 66 Respiratory 14 Rate Blood Pressure 119/64 (mmHg) O2 Sat by Pulse 98 Oximetry Oxygen Devices in Use Now: Nasal Cannula Appearance: Alert, sitting up in bed. In good spirits. Looks comfortable. Neck: NL Appearance and Movements; NL JVP, No Thyroid Enlargement, Masses Respiratory: Symmetrical Chest Expansion and Respiratory Effort, Clear to Auscultation, Clear to Percussion Cardiovascular: NL Sounds; No Murmurs; No JVD, RRR, No Edema, - Neurological: Alert and Oriented x 3, NL Sensation - mod expressive aphasia. cooperative. no tremor. Result Diagrams: 02/08/18 06:19 02/07/18 06:30 Microbiology and Other Data: Microbiology 02/06/18 19:54 Nasal Screen MRSA (PCR) - Final Nasal Mrsa Detected Assess/Plan/Problems-Billing Assessment: - Patient Problems (1) CAD (coronary artery disease) Current Visit: No Status: Chronic Code(s): I25.10 - ATHSCL HEART DISEASE OF [place] CORONARY ARTERY W/O ANG PCTRS SNOMED Code(s): 42715685 Comment: Acute non-ST elevation [place]. Lateral wall T-wave inversions. Continue heparin, NPO. Continue clopidogrel, ASA, metoprolol, increased dose atorvastatin. Discussed with Dr. Tiwari. Stress test showed LVEF 33%, large scar, minimal periinfarct ishcemia vs registaration artifact. Pt and will decide on invasive vs conservative management. (2) Type 2 diabetes mellitus Current Visit: No Status: Chronic Comment: Continue lispro SSI coverage, hold metformin. (3) Dementia Current Visit: No Status: Chronic Code(s): F03.90 - UNSPECIFIED DEMENTIA WITHOUT BEHAVIORAL DISTURBANCE SNOMED Code(s): 33693197 Comment: Continue donepezil, sertraline. (4) Peripheral vascular disease Current Visit: No Status: Chronic Code(s): I73.9 - PERIPHERAL VASCULAR DISEASE, UNSPECIFIED SNOMED Code(s): 098962629 Comment: Unsuccessful angioplasty on 08/06/2015. Continue statin, clopidogrel , ASA.
[2018-02-08] MEDS: Ramipril CAP* 5 MG PO SCH (20:29)
[2018-02-08] MEDS: Atorvastatin* 40 MG TAB PO SCH (20:29)
[2018-02-08] MEDS: Donepezil TAB* 5 MG PO SCH (20:29)
[2018-02-08] MEDS: Acetaminophen TAB* 325 MG PO PRN (20:29)
[2018-02-09 05:37] LABS: ABS Basophils 0 10^3/ul (0-0.2); ABS Eosinophils 0.3 10^3/ul (0-0.6); ABS Lymphocytes 1.7 10^3/ul (1.0-4.8); ABS Monocytes 0.7 10^3/ul (0-0.8); ABS Neutrophils 4.7 10^3/ul (1.5-7.7); ABS Nucleated RBC 0 10^3/ul; Eosinophil % 4.1 %; Hematocrit 35 % (42-52); Hemoglobin 11.8 g/dl (14.0-18.0); Mean Corpuscular HGB Conc 34 g/dl (31-36); Mean Corpuscular Hemoglobin 29 pg (27-31); Mean Corpuscular Volume 85 fL (80-94); Mean Platelet Volume 6.8 fL (7.4-10.4); Nucleated Red Blood Cells % 0; Platelet Count 186 10^3/ul (150-450); Red Blood Count 4.07 10^6/ul (4.00-5.40); Red Cell Distribution Width 14 % (10.5-15); White Blood Count 7.5 10^3/ul (3.5-10.8)
[2018-02-09] MEDS: Insulin LISPRO* 1 UNITS UNIT SUBCUT SCH ×3 (10:21→17:53)
[2018-02-09] MEDS: Ascorbic Acid TAB* 500 MG PO SCH (10:23)
[2018-02-09] MEDS: Aspirin EC TAB* 81 MG TAB.EC PO SCH (10:23)
[2018-02-09] MEDS: Ramipril CAP* 5 MG PO SCH (10:23)
[2018-02-09] MEDS: Metoprolol Succinate XL TAB* 50 MG PO SCH (10:23)
[2018-02-09] MEDS: Sertraline* 25 MG TAB PO SCH (10:23)
[2018-02-09] MEDS: Clopidogrel TAB* 75 MG PO SCH (10:23)
[2018-02-09] MEDS: Baclofen TAB* 10 MG PO SCH ×2 (10:26→14:29)
--- NOTE | 2018-02-09 12:14 | PN ---
Progress Note - Progress Note Date of Service: 02/09/18 Note: Time spent on discharge including exam of patient, discussion with patient, , nurse, CM, accepting physician, review of EMR and preparation of transfer documents 50 minutes.
--- NOTE | 2018-02-09 12:45 | TRS ---
CC: Dr. Jonny Gunn DATE OF ADMISSION: 02/06/2018. DATE OF TRANSFER: 02/09/2018. HISTORY: This 82-year-old man presented with chest pain. It occurred after breakfast on the day of admission. He is a very sedentary man with limited ability to ambulate. He was in the emergency room. He already had a slightly elevated troponin. He was felt to be having a eze-US-kxstcbatf myocardial infarction. He was started on a Heparin infusion. His home dose of M etoprolol Succinate was continued. His Atorvastatin dose was increased. Clopidogrel was added to his drug regimen. He was quite stable in this hospital. The chest pain went away. Transthoracic echocardiogram on 03/2018 showed an ejection fraction of 30 to 35 percent. There was global hypokinesis of the left simone tricle with minor regional variation. The bioprosthetic aortic valve was visualized. Calculated area was 1 cm2. Mean gradient was 14 mmHg. There was mild mitral stenosis. There was no evidence of tr icuspid regurgitation. The patient had a chemical stress test on 02/08/2018. It showed large fixed defects of the anterior and inferior natarajan. There is marginal reversibility of the polar maps which may reflect misregistrat ion artifact verses marginal ischemia. Cardiology consultation recommended catheterization at a high risk facility versus medical management . After discussion with the patient and the family, the patient has selected interventional therapy if indicated. He is being transferred to [facility] for high risk cardiac catheterizatio n if this is considered appropriate. FINAL DIAGNOSES: 1. Non-ST VA. 2. Vascular dementia. 3. Diabetes. 4. Peripheral vascular disease. MEDICATIONS ON TRANSFER: 1. Acetaminophen 650 mg every 4 hours prn. 2. Aluminum Hydroxide antacid 30 ml every 6 hours prn. 3. Ascorbic acid 500 mg daily. 4. Aspirin 81 mg daily. 5. Atorvastatin 40 mg at bedtime. 6. Baclofen 10 mg t.i.d. 7. Clopidogrel 75 mg daily. 8. Donepezil 5 mg at bedtime. 9. Heparin will be DC'd approximately 12:15 p.m. on the day of transfer. 10. Lispro by sliding scale. 11. Metoprolol Succinate 25 mg daily. Note: Patient received 50 mg on the day of discharge and was bradycardic and the dose was reduced subsequent to that. 12. Nitroglycerin 0.4 mg sublingual every 5 minutes prn. 13. Ramipril 5 mg daily. 14. Sertraline 25 mg daily. CONDITION ON DISCHARGE: Stable. DISPOSITION ON DISCHARGE: Transfer to [facility]. [id number]/[facility] #: [id number]
[2018-02-09 18:13] VITALS: BP 103/55
[2018-02-10] MEDS ORDERED: Metoprolol Succinate XL TAB* 25 MG PO SCH (09:00)
== END 2018-02-09 19:15 | disposition short-term general hospital (02) | DRG 281 ==
LOC: ED 12:35 → MEDTELE 17:54
PROVIDERS: ADMIT Internal Medicine; ATTEND Internal Medicine
PROC: 4A02XM4 Measurement of Cardiac Total Activity, External Approach (ICD-10-PCS; principal; 2018-02-08)
DX: I21.4 Non-ST elevation (NSTEMI) myocardial infarction (principal); T82.857A Stenosis of other cardiac prosthetic devices, implants and grafts, initial encounter; E11.42 Type 2 diabetes mellitus with diabetic polyneuropathy; I10 Essential (primary) hypertension; M17.0 Bilateral primary osteoarthritis of knee; G20 Parkinson's disease; I05.0 Rheumatic mitral stenosis; I44.0 Atrioventricular block, first degree; E66.9 Obesity, unspecified; Y71.2 Prosthetic and other implants, materials and accessory cardiovascular devices associated with adverse incidents; E78.2 Mixed hyperlipidemia; F02.80 Dementia in other diseases classified elsewhere, unspecified severity, without behavioral disturbance, psychotic disturbance, mood disturbance, and anxiety; F01.50 Vascular dementia, unspecified severity, without behavioral disturbance, psychotic disturbance, mood disturbance, and anxiety; E11.51 Type 2 diabetes mellitus with diabetic peripheral angiopathy without gangrene; I25.119 Atherosclerotic heart disease of native coronary artery with unspecified angina pectoris; Z95.1 Presence of aortocoronary bypass graft; Z82.49 Family history of ischemic heart disease and other diseases of the circulatory system; Z86.73 Personal history of transient ischemic attack (TIA), and cerebral infarction without residual deficits; Z88.1 Allergy status to other antibiotic agents; I25.2 Old myocardial infarction; Z95.2 Presence of prosthetic heart valve; Z86.14 Personal history of Methicillin resistant Staphylococcus aureus infection; Z85.46 Personal history of malignant neoplasm of prostate; Z83.3 Family history of diabetes mellitus; Z89.511 Acquired absence of right leg below knee; Z89.432 Acquired absence of left foot; Z23 Encounter for immunization; Z90.79 Acquired absence of other genital organ(s); Y92.9 Unspecified place or not applicable; Z68.27 Body mass index [BMI] 27.0-27.9, adult; Z79.82 Long term (current) use of aspirin; Z79.02 Long term (current) use of antithrombotics/antiplatelets
CPT/HCPCS: 36415; 71045; 78452; 80048; 80053; 80061; 83605; 83880; 84443; 84484; 85025; 85379; 85610; 85730; 87641; 90686; 93005; 93017; 93306; 99284; A9270-GY; A9502; C8929; J0280; J1644; J2785

== ENCOUNTER 2018-10-07 12:03 | Emergency (ER) | payer MEDICARE, OTHER ==
[2018-10-07 12:38] LABS: ABS Basophils 0.1 10^3/ul (0-0.2); ABS Eosinophils 0.4 10^3/ul (0-0.6); ABS Lymphocytes 1.1 10^3/ul (1.0-4.8); ABS Monocytes 0.6 10^3/ul (0-0.8); ABS Neutrophils 7.7 10^3/ul (1.5-7.7); Eosinophil % 4.1 %; Hematocrit 35 % (42-52); Hemoglobin 11.9 g/dL (14.0-18.0); Lymphocyte % 11.3 %; Mean Corpuscular HGB Conc 34 g/dL (31-36); Mean Corpuscular Hemoglobin 29 pg (27-31); Mean Corpuscular Volume 87 fL (80-94); Platelet Count 232 10^3/uL (150-450); Red Blood Count 4.07 10^6 /uL (4.18-5.48); Red Cell Distribution Width 14 % (10-15); White Blood Count 9.9 10^3/uL (3.5-10.8)
[2018-10-07 12:43] LABS: INR 1.03 (0.82-1.09)
--- NOTE | 2018-10-07 12:45 | ED ---
HPI Chest Pain - HPI Summary HPI Summary: This patient is an 83 year old M presenting to [facility] accompanied by with a chief complaint of resolved chest pain since 10:30 this morning. Pt had just finished eating breakfast, vomited and then the CP began. CP lasted 35-45 minutes. Patient reports nausea, vomiting, and fatigue. Patient denies diaphoresis. On night of 10/05/18 pt had coughing spells. Pt has a HX of DC, CABG x2, valve replacement, and strokes. No weakness due to strokes. Per triage , the patient rates the pain 3/10 in severity. - History of Current Complaint Chief Complaint: EDChestPainROMI Time Seen by Provider: 10/07/18 12:21 Hx Obtained From: Patient Onset/Duration: Started Hours Ago, Resolved Time of Onset: 10:30 Timing: Constant, Lasting Minutes Initial Severity: Mild Current Severity: Mild Pain Intensity: 3 Pain Scale Used: 0-10 Numeric Chest Pain Radiates: No Aggravating Factor(s): Nothing Alleviating Factor(s): Spontaneous Resolution Associated Signs and Symptoms: Positive: Chest Pain, Nausea, Cough, Vomiting, Other: - fatigue - Additional Pertinent History Primary Care Physician: ANILA - Allergy/Home Medications Allergies/Adverse Reactions: Allergies Allergy/AdvReac Type Severity Reaction Status Date / Time vancomycin Allergy Rash Verified 02/06/18 14:25 PMH/Surg Hx/FS Hx/Imm Hx Endocrine/Hematology History: Reports: Hx Diabetes Denies: Hx Thyroid Disease Cardiovascular History: Reports: Hx Angina, Hx Angioplasty - several, Hx Coronary Artery Disease, Hx Hypertension, Hx Peripheral Vascular Disease, Hx Rheumatic Fever, Hx Valvular Heart Disease - Valve replacement, Other Cardiovascular Problems/Disorders - PAD Denies: Hx Aneurysm, Hx Pacemaker/ICD Respiratory History: Denies: Hx Chronic Obstructive Pulmonary Disease (COPD) History: Reports: Other Problems/Disorders - baseline incontinence Denies: Hx Dialysis Musculoskeletal History: Reports: Hx Arthritis - KNEES, Other Musculoskeletal History - osteomyelitis Sensory History: Reports: Hx Contacts or Glasses Denies: Hx Hearing Aid Opthamlomology History: Reports: Hx Contacts or Glasses Neurological History: Reports: Hx Dementia, Hx Nerve Disease - peripheral neuropathy, Hx Transient Ischemic Attacks (TIA), Other Neuro Impairments/ Disorders - Parkinsons/dementia Denies: Hx Seizures Psychiatric History: Reports: Hx Substance Abuse - hx of alcoholism, not recent Denies: Hx Depression, Hx Panic Disorder - Cancer History Cancer Type, Location and Year: prostate - Surgical History Surgery Procedure, Year, and Place: 2-heart bypass, prostate, aortic valve replacement 2007, appy, left leg stent placed Hx Anesthesia Reactions: No Infectious Disease History: No Infectious Disease History: Reports: Hx of Known/Suspected MRSA Denies: Traveled Outside the [place] in Last 30 Days - Family History Known Family History: Positive: Cardiac Disease, Diabetes - Social History Alcohol Use: None Alcohol Amount: 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 Negative: Skin Diaphoresis Positive: Chest Pain Positive: Cough Positive: Vomiting, Nausea All Other Systems Reviewed And Are Negative: Yes Physical Exam - Summary Physical Exam Summary: Appearance: The patient is well-nourished in no acute distress and in no acute pain. Skin: The skin is warm and dry, and skin color reflects adequate perfusion. HEENT: The head is normocephalic and atraumatic. The pupils are equal and reactive. The conjunctivae are clear and without drainage. Nares are patent and without drainage. Mouth reveals moist mucous membranes, and the throat is without erythema and exudate. The external ears are intact. The ear canals are patent and without drainage. The tympanic membranes are intact. Neck: The neck is supple with full range of motion and non-tender. There are no carotid bruits. There is no neck vein distension. Respiratory: Chest is non-tender. Decreased breath sounds on the right. Cardiovascular: There is no peripheral edema and pulses are symmetrical and equal. Systolic ejection murmur Abdomen: The abdomen is soft and non-tender. There are normal bowel sounds heard in all four quadrants and there is no organomegaly palpated. Musculoskeletal: There is no back tenderness noted. Extremities are non-tender with full range of motion. There is good capillary refill. There is no peripheral edema or calf tenderness elicited. Neurological: Patient is alert and oriented to person, place and time. The patient has symmetrical motor strength in all four extremities. Cranial nerves are grossly intact. Deep tendon reflexes are symmetrical and equal in all four extremities. Psychiatric: The patient has an appropriate affect and does not exhibit any anxiety or depression. Triage Information Reviewed: Yes Vital Signs On Initial Exam: Initial Vitals Temp Pulse Resp BP Pulse Ox 97.4 F 81 16 114/44 91 10/07/18 12:11 10/07/18 12:11 10/07/18 12:11 10/07/18 12:11 10/07/18 12:11 Vital Signs Reviewed: Yes Diagnostics - Vital Signs Vital Signs Temp Pulse Resp BP Pulse Ox 10/07/18 12:11 97.4 F 81 16 114/44 91 - Laboratory Lab Results: Lab Results 10/07/18 Range/Units 12:25 WBC 9.9 (3.5-10.8) 10^3/uL RBC 4.07 L (4.18-5.48) 10^6 /uL Hgb 11.9 L (14.0-18.0) g/dL Hct 35 L (42-52) % MCV 87 (80-94) fL MCH 29 (27-31) pg MCHC 34 (31-36) g/dL RDW 14 (10-15) % Plt Count 232 (150-450) 10^3/uL MPV 7.0 L (7.4-10.4) fL Neut % (Auto) 77.6 % Lymph % (Auto) 11.3 % [place] % (Auto) 6.4 % Eos % (Auto) 4.1 % Baso % (Auto) 0.6 % Absolute Neuts (auto) 7.7 (1.5-7.7) 10^3/ul Absolute Lymphs (auto) 1.1 (1.0-4.8) 10^3/ul Absolute Monos (auto) 0.6 (0-0.8) 10^3/ul Absolute Eos (auto) 0.4 (0-0.6) 10^3/ul Absolute Basos (auto) 0.1 (0-0.2) 10^3/ul Absolute Nucleated RBC 0.0 10^3/ul Nucleated RBC % 0.0 Result Diagrams: 10/07/18 12:25 10/07/18 12:25 Lab Statement: Any lab studies that have been ordered have been reviewed, and results considered in the medical decision making process. - Radiology CXR Radiology Interpretation Completed By: Radiologist Summary of Radiographic Findings: CXR reveals, per radiologist, IMPRESSION: NO ACTIVE CARDIOPULMONARY DISEASE IS NOTED. ED physician has reviewed this radiology report. - EKG 1206 Cardiac Rate: NL - 82 bpm EKG Rhythm: Sinus Rhythm Summary of EKG Findings: An EKG at 1206 reveals normal sinus rhythm 82 bpm, left axis deviation probably secondary to old infarct. Chest Pain Course/Dx - Course Course Of Treatment: Mr. Cedillo presents with a history of significant coronary artery disease. He was eating dinner and got nauseated and vomited. Subsequent to the vomiting he had some anterior chest pain on accompanied by any other symptomatology. This gradually resolved over about 45 minutes. He has not had any pain since. He was kept on a monitor here and evaluated. His EKG was unchanged from previous. His initial troponin was 0.03, at 3 hours he was 0.04 and at 6 hours there was 0.05. This is now about 8 hours after he had pain. These values are within the margin of error of the test. This sounds like it was GI pain from the vomiting rather than a cardiac event. He is anxious to go home and also agrees that this was not like his previous cardiac episodes. - Diagnoses Provider Diagnoses: Chest pain Discharge ED - Sign-Out/Discharge Documenting (check all that apply): Patient Departure - Discharge Patient Received Moderate/Deep Sedation with Procedure: No - Discharge Plan Condition: Stable Disposition: HOME Patient Education Materials: Chest Pain (ED) Referrals: Jonny Gunn MD [Primary Care Provider] - 3 Days Additional Instructions: Follow up with Primary Care Physician in 2-3 days. RETURN TO THE ED FOR ANY NEW OR WORSENING SYMPTOMS. - Billing Disposition and Condition Condition: STABLE Disposition: Home - Attestation Statements Document Initiated by Sterling: Yes Documenting Scribe: Vera Arias Provider For Whom Sterling is Documenting (Include Credential): Dr. Mihai Chao MD Scribe Attestation: Vera Sears scribed for Dr. Mihai Chao MD on 10/08/18 at 0807. Scribe Documentation Reviewed: Yes Provider Attestation: The documentation as recorded by the Vera dodson accurately reflects the service I personally performed and the decisions made by me, Dr. Mihai Chao MD Status of Scribe Document: Viewed
[2018-10-07 12:50] LABS: Albumin 3.8 g/dL (3.2-5.2); Calcium 8.9 mg/dL (8.6-10.3); Potassium 4.3 mmol/L (3.5-5.0); Total Bilirubin 0.4 mg/dL (0.2-1.0)
[2018-10-07 12:53] LABS: Troponin I 0.03 ng/mL (<0.04)
[2018-10-07 12:56] LABS: Albumin/Globulin Ratio 1.5 (1-3); BUN/Creatinine Ratio 17.2 (8-20); EGFR African American 101.9 (>60); EGFR Non-African American 84.2 (>60); Globulin 2.6 g/dL (2-4); Total Protein 6.4 g/dL (6.4-8.9)
[2018-10-07 15:53] LABS: Troponin I 0.04 ng/mL (<0.04)
[2018-10-07 18:56] LABS: Troponin I 0.05 ng/mL (<0.04)
[2018-10-07 19:44] VITALS: BP 171/81
== END 2018-10-07 19:43 | disposition home or self-care (01) ==
LOC: ED 12:03
DX: R07.9 Chest pain, unspecified (principal); E11.9 Type 2 diabetes mellitus without complications; I25.10 Atherosclerotic heart disease of native coronary artery without angina pectoris; I10 Essential (primary) hypertension; I73.9 Peripheral vascular disease, unspecified; Z85.46 Personal history of malignant neoplasm of prostate; Z95.2 Presence of prosthetic heart valve; Z79.84 Long term (current) use of oral hypoglycemic drugs; Z79.01 Long term (current) use of anticoagulants; Z79.899 Other long term (current) drug therapy; Z86.73 Personal history of transient ischemic attack (TIA), and cerebral infarction without residual deficits
CPT/HCPCS: 36415; 71045; 80053; 83880; 84484; 85025; 85610; 93005; 99283

== ENCOUNTER 2018-11-28 11:47 | Inpatient (IN) | payer MEDICARE, OTHER ==
--- OUTSIDE RECORDS SUMMARY | 2018-11-28 12:18 | XMS REPORT | Continuity of Care Document ---
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 Onset: 06/20/2013 Pressure ulcer of left heel, stage 1 Maxwell Sheth M.D. Onset: 08/25/2015 Localized superficial swelling of skin Maxwell Sheth M.D. Onset: 12/08/2015 Social History Type Date Description Comments Sex Unknown Smokeless Tobacco Never Used Smokeless Tobacco ETOH Use Denies alcohol use Tobacco Use Start: Unknown Patient has never smoked Smoking Status Reviewed: 10/17/18 Patient has never smoked Exercise Type/Frequency Does not exercise Allergies, Adverse Reactions, Alerts Active Allergies Reaction Severity Comments Date NKDA 11/09/2011 "Anesthesia" Rash Severe 04/20/2015 Medications Active Medications SIG Qnty Indications Ordering Provider Date Wheelchair for daily use 1units Juliette Markham NP 11/21/2014 Misc Metoprolol Succinate 1 by mouth every 90tabs Russ Avendaño, 12/14/2012 ER day M.D. 50mg Tablets ER 24HR Aspirin 81 by mouth every Unknown 81mg Tablets day DR Multivitamins 1 capsule janessa;y 30caps Unknown Capsules Clopidogrel Bisulfate 1 by mouth every Unknown day 75mg Tablets Baclofen take 1 tab by Unknown 10mg Tablets mouth three times a day for muscle spasm Vitamin C 1 by mouth every Unknown 500mg Capsules day Vesicare 1 by mouth every Unknown 10mg Tablets day Aricept 1 by mouth every Unknown 5mg Tablets day Metformin HCL ER 1 by mouth every Unknown 500mg day Tablets ER 24HR Tylenol as needed Unknown 325mg Tablets Lipitor 1 by mouth every Unknown 10mg Tablets night at bedtime Ramipril 1 by mouth every Unknown 2.5mg Capsules day Medications Administered in Office Medication SIG Qnty Indications Ordering Provider Date Depomedrol 80MG Hilda Polk M.D. 06/21/2013 Injection Inj, Regadenoson, 0.1 MG Russ Avendaño M.D. 11/23/2011 Injection Technetium TC 99M Tetrofosmin, Russ Avendaño M.D. 11/23/2011 Per Unit Dose Up To 40 Millicuries Injection Immunizations CPT Code Status Date Vaccine Lot # [id number] Given 12/22/2014 Influenza Virus Vaccine, Quadrivalent, Split, Preservative Free Vital Signs Date Vital Result Comment 10/17/2018 2:21pm Height 72 inches 6'0" Weight 182.00 lb Heart Rate 78 /min BP Systolic Sitting 130 mmHg BP Diastolic Sitting 72 mmHg Respiratory Rate 18 /min BMI (Body Mass Index) 24.7 kg/m2 03/08/2017 2:12pm Height 72 inches 6'0" Weight 170.00 lb Heart Rate 74 /min BP Systolic Sitting 122 mmHg BP Diastolic Sitting 70 mmHg Respiratory Rate 16 /min BMI (Body Mass Index) 23.1 kg/m2 Results Description No Information Available Procedures Description No Information Available Medical Devices Description No Information Available Encounters Description No Information Available Assessments Date Code Description Provider 10/17/2018 I73.9 Peripheral vascular disease, unspecified Fabio Kurtz NP 10/17/2018 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 Fabio Kurtz NP Plan of Treatment Future Appointment(s):11/21/2018 2:30 pm - Fabio Kurtz NP at [facility]10/17/2018 - Fabio Kurtz, NPI73.9 Peripheral vascular disease, unspecifiedRecommendations:Discontinue Donepezil.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New Xrays:MRI Brain W/O, Ordered: 10/17/18Referral:Maxwell Donovan MA CCC/SP, Speech-Language PathFollow up:ONE MONTH Functional Status Description No Information Available Mental Status Description No Information Available Referrals Refer to Reason for Referral Status Appt Date Maxwell Donovan MA Has difficulty swallowing; episodes Created CCC/SP of dysphagia. [id number] [place] [phone]
[2018-11-28] MEDS ORDERED: Morphine 4 MG/ML VIAL (1 ml) 4 MG/ML VIAL IV ONE (15:16)
[2018-11-28] MEDS ORDERED: Clindamycin 600 MG/D5W BAG(*) 600 MG/50 ML BAG IV ONE (15:16)
[2018-11-28 15:52] LABS: ABS Basophils 0.1 10^3/ul (0-0.2); ABS Eosinophils 0.2 10^3/ul (0-0.6); ABS Lymphocytes 1.3 10^3/ul (1.0-4.8); ABS Monocytes 1.1 10^3/ul (0-0.8); ABS Neutrophils 12.5 10^3/ul (1.5-7.7); Eosinophil % 1.4 %; Hematocrit 35 % (42-52); Hemoglobin 11.5 g/dL (14.0-18.0); Lymphocyte % 8.6 %; Mean Corpuscular HGB Conc 33 g/dL (31-36); Mean Corpuscular Hemoglobin 29 pg (27-31); Mean Corpuscular Volume 86 fL (80-94); Mean Platelet Volume 7.1 fL (7.4-10.4); Platelet Count 252 10^3/uL (150-450); Red Cell Distribution Width 14 % (10-15); White Blood Count 15.2 10^3/uL (3.5-10.8)
[2018-11-28 16:02] LABS: Albumin 3.8 g/dL (3.2-5.2); Albumin/Globulin Ratio 1.1 (1-3); BUN/Creatinine Ratio 22.5 (8-20); C Reactive Protein 144.06 mg/L (<8.01); Calcium 9.1 mg/dL (8.6-10.3); EGFR African American 84.8 (>60); EGFR Non-African American 70.1 (>60); Globulin 3.6 g/dL (2-4); Total Bilirubin 0.4 mg/dL (0.2-1.0); Total Protein 7.4 g/dL (6.4-8.9)
[2018-11-28 16:07] LABS: Potassium 5.5 mmol/L (3.5-5.0)
--- NOTE | 2018-11-28 16:16 | ED ---
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 Patient is fairly bedbound, but gets along in a wheelchair during the day. is primary caregiver. says over the past 3 months, she has noticed a small ulcer to the left Achilles heel. She is been placing antibiotic ointment over the area and dressing the wound. Despite this, patient has been having an increase in size of the wound is now having exposing tendons. also endorses erythema and warmth to the dictated foot extending up the leg just below the knee. Patient has remained afebrile, and patient is denying any sweats or chills. - History of Current Complaint Chief Complaint: EDRashSkinAbscess Time Seen by Provider: 11/28/18 14:16 Stated Complaint: LEFT FOOT ULCER AND WOUND RIGHT LEG PER PT Hx Obtained From: Patient, Family/Relief Man Onset/Duration: Started Weeks Ago - 3 mos ago, Still Present, Worse Since - 1 week ago Skin Exposure Onset/Duration: Days Ago Timing: Constant Onset Severity: Moderate Current Severity: Moderate Pain Intensity: 3 Pain Scale Used: 0-10 Numeric Skin Location: Other: - achilles tendon Character: Pain, Redness, Painful Aggravating Symptom(s): Nothing Alleviating Symptom(s): Nothing Associated Signs & Symptoms: Tenderness, Red Streaks - Additional Pertinent History Primary Care Physician: [id number] - Allergy/Home Medications Allergies/Adverse Reactions: Allergies Allergy/AdvReac Type Severity Reaction Status Date / Time vancomycin Allergy Rash Verified 02/06/18 14:25 Home Medications: Home Medications Metoprolol Succinate XL TAB* [Toprol XL TAB*] 50 mg PO DAILY 11/28/18 [History Confirmed 11/28/18] Ramipril CAP* [Altace CAP*] 2.5 mg PO BID 11/28/18 [History Confirmed 11/28/18] Sertraline* [Zoloft*] 25 mg PO DAILY 11/28/18 [History Confirmed 11/28/18] metFORMIN* [Glucophage 500 MG TAB *] 500 mg PO DAILY 11/28/18 [History Confirmed 11/28/18] PMH/Surg Hx/FS Hx/Imm Hx Previously Healthy: No Endocrine/Hematology History: Reports: Hx Diabetes Denies: Hx Thyroid Disease Cardiovascular History: Reports: Hx Angina, Hx Angioplasty - several, Hx Coronary Artery Disease, Hx Hypertension, Hx Peripheral Vascular Disease, Hx Rheumatic Fever, Hx Valvular Heart Disease - Valve replacement, Other Cardiovascular Problems/Disorders - PAD Denies: Hx Aneurysm, Hx Pacemaker/ICD Respiratory History: Denies: Hx Chronic Obstructive Pulmonary Disease (COPD) History: Reports: Other Problems/Disorders - baseline incontinence Denies: Hx Dialysis Musculoskeletal History: Reports: Hx Arthritis - KNEES, Other Musculoskeletal History - osteomyelitis Sensory History: Reports: Hx Contacts or Glasses Denies: Hx Hearing Aid Opthamlomology History: Reports: Hx Contacts or Glasses Neurological History: Reports: Hx Dementia, Hx Nerve Disease - peripheral neuropathy, Hx Transient Ischemic Attacks (TIA), Other Neuro Impairments/ Disorders - Parkinsons/dementia Denies: Hx Seizures Psychiatric History: Reports: Hx Substance Abuse - hx of alcoholism, not recent Denies: Hx Depression, Hx Panic Disorder - Cancer History Cancer Type, Location and Year: prostate - Surgical History Surgery Procedure, Year, and Place: 2-heart bypass, prostate, aortic valve replacement 2006, appy, left leg stent [id number]-6 mm x 100 mm Terumo Misago self-expanding stent in the proximal to mid left superficial femoral artery ( CONDITIONAL 5- MUST BE SCANNED IN NORMAL MODE, MRI SAFETY INFO SCANNED INTO PT' S CHART), BELOW THE RT KNEE AMPUTATION, Hx Anesthesia Reactions: No - Immunization History Hx Pertussis Vaccination: No Immunizations Up to Date: Yes Infectious Disease History: No Infectious Disease History: Reports: Hx of Known/Suspected MRSA Denies: Traveled Outside the [place] in Last 30 Days - Family History Known Family History: Positive: Cardiac Disease, Diabetes - Social History Occupation: Unemployed Lives: With Family Alcohol Use: None Alcohol Amount: 6 YEARS AGO- RECOVERING ALCOHOLIC Hx Substance Use: No Substance Use Type: Reports: None Substance Use Comment - Amount & Last Used: Recovering Alcoholic Hx Tobacco Use: No Smoking Status (MU): Never Smoked Tobacco Review of Systems Negative: Fever, Chills, Fatigue, Skin Diaphoresis Negative: Palpitations, Chest Pain Negative: Abdominal Pain, Vomiting, Diarrhea, Nausea Genitourinary: Negative Positive: no symptoms reported, see HPI Negative: Arthralgia, Myalgia Positive: Other - large 2cm deep ulceration to the achilles -stage 4 ulcer Neurological: Negative All Other Systems Reviewed And Are Negative: Yes Physical Exam Triage Information Reviewed: Yes Vital Signs On Initial Exam: Initial Vitals Temp Pulse Resp BP Pulse Ox 97.9 F 74 14 132/72 94 11/28/18 11:53 11/28/18 11:53 11/28/18 11:53 11/28/18 11:53 11/28/18 11:53 Vital Signs Reviewed: Yes Appearance: Positive: Ill-Appearing Skin: Positive: Other - large 2cm deep ulceration to the achilles -stage 4 ulcer Head/Face: Positive: Normal Head/Face Inspection Eyes: Positive: EOMI, Conjunctiva Clear Neck: Positive: No Lymphadenopathy Respiratory/Lung Sounds: Positive: Clear to Auscultation, Breath Sounds Present Cardiovascular: Positive: RRR, Pulses are Symmetrical in both Upper and Lower Extremities Musculoskeletal: Positive: Pain @ - achilles Neurological: Positive: Speech Normal Psychiatric: Positive: Affect/Mood Appropriate AVPU Assessment: Alert Procedures - Sedation Patient Received Moderate/Deep Sedation with Procedure: No Diagnostics - Vital Signs Vital Signs Temp Pulse Resp BP Pulse Ox 11/28/18 16:00 77 20 94 11/28/18 15:52 16 11/28/18 15:51 79 25 95 11/28/18 15:23 86 29 146/86 95 11/28/18 13:32 99.2 F 71 16 122/71 96 11/28/18 11:53 97.9 F 74 14 132/72 94 - Laboratory Lab Results: Lab Results 11/28/18 11/28/18 11/28/18 Range/Units 15:28 15:28 15:29 WBC 15.2 H (3.5-10.8) 10^3/uL RBC 4.00 L (4.18-5.48) 10^6 /uL Hgb 11.5 L (14.0-18.0) g/dL Hct 35 L (42-52) % MCV 86 (80-94) fL MCH 29 (27-31) pg MCHC 33 (31-36) g/dL RDW 14 (10-15) % Plt Count 252 (150-450) 10^3/uL MPV 7.1 L (7.4-10.4) fL Neut % (Auto) 82.3 % Lymph % (Auto) 8.6 % [place] % (Auto) 7.2 % Eos % (Auto) 1.4 % Baso % (Auto) 0.5 % Absolute Neuts (auto) 12.5 H (1.5-7.7) 10^3/ul Absolute Lymphs (auto) 1.3 (1.0-4.8) 10^3/ul Absolute Monos (auto) 1.1 H (0-0.8) 10^3/ul Absolute Eos (auto) 0.2 (0-0.6) 10^3/ul Absolute Basos (auto) 0.1 (0-0.2) 10^3/ul Absolute Nucleated RBC 0.0 10^3/ul Nucleated RBC % 0.0 Sodium 136 (135-145) mmol/L Potassium 5.5 H (3.5-5.0) mmol/L Chloride 99 L (101-111) mmol/L Carbon Dioxide 31 (22-32) mmol/L Anion Gap 6 (2-11) mmol/L BUN 23 (6-24) mg/dL Creatinine 1.02 (0.67-1.17) mg/dL Est GFR ( Amer) 84.8 (>60) Est GFR (Non-Af Amer) 70.1 (>60) BUN/Creatinine Ratio 22.5 H (8-20) Glucose 225 H (70-100) mg/dL Lactic Acid 1.5 (0.5-2.0) mmol/L Calcium 9.1 (8.6-10.3) mg/dL Total Bilirubin 0.40 (0.2-1.0) mg/dL AST 18 (13-39) U/L ALT 17 (7-52) U/L Alkaline Phosphatase 82 (34-104) U/L C-Reactive Protein 144.06 H (<8.01) mg/L Total Protein 7.4 (6.4-8.9) g/dL Albumin 3.8 (3.2-5.2) g/dL Globulin 3.6 (2-4) g/dL Albumin/Globulin Ratio 1.1 (1-3) Result Diagrams: 11/28/18 15:28 11/28/18 15:29 Lab Statement: Any lab studies that have been ordered have been reviewed, and results considered in the medical decision making process. Course/Dx - Course Course Of Treatment: During his course of treatment, the patient is evaluated for Achilles ulcer. There is erythema just below the knee extending into the foot. There is a 2 cm in diameter stage IV ulcer to the Achilles tendon with tendon exposed. Labs obtained which show and 15,000 white count and a CRP of 122. He was placed on clindamycin 600 mg IV. Discussed this case with Dr. Conn who suggests admission for extensive ulceration and cellulitis. Discussed case with hospitalist who agrees to admit. Discussed this with patient who agrees for admission. - Diagnoses Provider Diagnoses: Stage 4 pressure ulcer, Cellulitis - Physician Notifications Discussed Care Of Patient With: Fransico Salazar Discharge ED - Sign-Out/Discharge Documenting (check all that apply): Patient Departure - Discharge Plan Condition: Fair Disposition: [facility] TO [facility] - Billing Disposition and Condition Condition: FAIR Disposition: [facility] - Attestation Statements Provider Attestation: I have seen the patient with the GERARD and agree with the plan and documentation below except as noted: 83-year-old male with deep ulceration of the ankle with exposed tendon, placed on clindamycin. Admit to hospital for wound care. Orthopedics consulted Lars Clinton MD
[2018-11-28] MEDS ORDERED: Albuterol 2.5 MG/3 ML NEB.SOL* (0.083%) INH PRN (17:00)
[2018-11-28] MEDS ORDERED: Ondansetron INJ* 2 MG/ML VIAL IV PRN (17:00)
[2018-11-28] MEDS ORDERED: Piperacillin/Tazobac ADVAN(*) 3.375 GM in NS 0.9% 100 ML* 100 ML IVPB ONE (17:06)
[2018-11-28] MEDS ORDERED: Dextrose 50% VIAL 50 ml IV PUSH PRN (17:10)
[2018-11-28] MEDS ORDERED: Zosyn per Pharmacy* NOTE FOLLOW UP SCH (18:00)
--- NOTE | 2018-11-28 19:08 | HP ---
CC: Dr. Jonny Gunn; Dr. Carlton * HISTORY AND PHYSICAL: DATE OF ADMISSION: 11/28/18 PRIMARY CARE PROVIDER: Dr. Jonny Gunn. NEUROLOGIST: Dr. Carlton. CHIEF COMPLAINT: Left foot ulcers and redness. SUBJECTIVE: This is an 83-year-old male with known pertinent past medical history significant for Parkinson disease; diabetes mellitus with peripheral vascular disease, status post right BKA and left transmetatarsal amputation; dementia; hypertension; coronary artery disease, who was brought into the emergency room accompanied by his secondary to left posterior heel ulcer started about 3 months ago, progressively getting worse. In the past few days, his noted increased redness and streaking into his mid leg with deep wound ulcers exposing down to his Achilles tendon. She decided to bring him to the ER to be evaluated. He has not seen any physician or he did not seek any medical attention for his ulcer in the past 3 months. The patient himself has severe advanced parkinsonism with old history of stroke and he follows with Dr. Carlton and the history was obtained mainly by his at bedside. She denies any documented fever. She did not take it, however. There was no nausea or vomiting and no change in his bowel habits. PAST MEDICAL HISTORY: 1. Parkinsonism. 2. Dementia. 3. Hypertension. 4. Coronary artery disease. 5. Peripheral vascular disease. 6. Right BKA. 7. Left transmetatarsal amputation. 8. Diabetes mellitus. MEDICATIONS: 1. Vitamin C. 2. Metformin 500 daily. 3. Ramipril 2.5 b.i.d. 4. Aspirin 81 daily. 5. Atorvastatin 10 at bedtime. 6. Baclofen 10 t.i.d. 7. Plavix 75 daily. 8. Aricept 5 at bedtime. 9. Toprol-XL 50 daily. 10. Zoloft 25 daily. ALLERGIES: VANCOMYCIN described as redness; whether it is red-man syndrome or true allergy, unable to further delineate. FAMILY HISTORY: Noncontributory. SOCIAL HISTORY: Does not smoke. Occasionally drinks. No drugs. Disabled. . REVIEW OF SYSTEMS: Limited to the HPI. PHYSICAL EXAMINATION GENERAL: He is awake, alert, oriented, follows simple commands. He does have profound dry oral mucosa and some mild expressive aphasia which is old and chronic as per his . VITAL SIGNS: Temperature 99.2, pulse 78, respiratory rate 20, saturation 93%. HEENT: Head and Neck: Normocephalic. Supple. Dry oral mucosa. Extraocular muscles intact. No carotid bruits appreciated. LUNGS: Clear to auscultation with exception of fine mild bibasilar expiratory wheezing. CARDIOVASCULAR: S1, S2. Regular rate and rhythm. ABDOMEN: Obese. Positive bowel sounds. Soft, nontender, nondistended. GENITALIA: Exam deferred. RECTAL: Exam deferred. EXTREMITIES: Right BKA. Lower extremities: Left heel ulcer, stage 4 with surrounding black eschar. DIAGNOSTIC STUDIES/LAB DATA: CBC shows white count 15,000, hemoglobin 11, hematocrit 35, platelets 252. Chemistry: Sodium 136, potassium 5.5, chloride 99, BUN 23, creatinine 1.0, glucose 225, lactic acid 1.5. CRP 144. AST 18, ALT 17. Imaging: Left foot x-ray shows no evidence of osteomyelitis, soft tissue edema. Chest x-ray: Cardiomegaly. IMPRESSION AND PLAN: This is an 83-year-old male comes in with left foot ulcer , with diabetes, will be admitted for diabetic foot ulcer which requires infectious disease consult, ortho consult and systemic antibiotics. 1. Left foot ulcer, with diabetes. He will be admitted. We will place him on Zosyn. We will do methicillin-resistant Staphylococcus aureus screen. If it comes back positive, we will put him on Zyvox as he is allergic to VANCOMYCIN. The patient will need ID consult in the morning. Orthopedic consult was already notified in the ER and Dr. Frederick will consult on the patient in the morning as per ER attending. Obtain blood cultures and hopefully we will have a specimen from the wound. 2. Hyperkalemia, potassium 5.5. I am going to hold his ramipril. Treat him with IV fluids. Repeat in the morning. 3. Diabetes mellitus. We will hold his metformin. Put him on insulin sliding scale. 4. Parkinsonism. The patient is on baclofen, we will continue. I do not see that he is on any Sinemet. 5. History of coronary artery disease. Continue his metoprolol and Plavix. [id number]/[facility] #: [id number] [facility]
[2018-11-28] MEDS: NS 0.9% 1000 ML** 1,000 ML IV SCH (20:35)
[2018-11-28] MEDS: ZOSYN 3.375 GM Q8H per EXTENDED INFUSION IVPB SCH ×2 (20:35)
[2018-11-28] MEDS: Baclofen TAB* 10 MG PO SCH (22:41)
[2018-11-28] MEDS: Donepezil TAB* 5 MG PO SCH (22:41)
[2018-11-28] MEDS: Atorvastatin* 10 MG TAB PO SCH (22:41)
[2018-11-28] MEDS: Insulin LISPRO* 1 UNITS UNIT SUBCUT SCH (22:42)
[2018-11-28] MEDS: Heparin VIAL(*) 5000 UNITS/ML VIAL (FIVE THOUSAND) SUBCUT SCH (22:44)
[2018-11-29] MEDS: ZOSYN 3.375 GM Q8H per EXTENDED INFUSION IVPB SCH ×6 (05:51→21:45)
[2018-11-29 06:24] LABS: ABS Basophils 0.1 10^3/ul (0-0.2); ABS Eosinophils 0.1 10^3/ul (0-0.6); ABS Lymphocytes 1.5 10^3/ul (1.0-4.8); ABS Monocytes 1.5 10^3/ul (0-0.8); ABS Neutrophils 19.6 10^3/ul (1.5-7.7); Eosinophil % 0.5 %; Hematocrit 32 % (42-52); Hemoglobin 10.5 g/dL (14.0-18.0); Lymphocyte % 6.5 %; Mean Corpuscular HGB Conc 33 g/dL (31-36); Mean Corpuscular Hemoglobin 29 pg (27-31); Mean Corpuscular Volume 87 fL (80-94); Mean Platelet Volume 7.2 fL (7.4-10.4); Platelet Count 225 10^3/uL (150-450); Red Blood Count 3.62 10^6 /uL (4.18-5.48); Red Cell Distribution Width 14 % (10-15); White Blood Count 22.7 10^3/uL (3.5-10.8)
[2018-11-29 06:44] LABS: BUN/Creatinine Ratio 21.4 (8-20); Calcium 8.4 mg/dL (8.6-10.3); EGFR African American 88.8 (>60); EGFR Non-African American 73.4 (>60); Phosphorus 3.2 mg/dL (2.5-5.0); Potassium 4.9 mmol/L (3.5-5.0)
[2018-11-29] MEDS: Heparin VIAL(*) 5000 UNITS/ML VIAL (FIVE THOUSAND) SUBCUT SCH ×3 (07:00→22:18)
[2018-11-29] MEDS ORDERED: Influenza VAC *QUAD* 2019-20* 0.5 ML SYRINGE IM ONE (09:00)
[2018-11-29] MEDS: NS 0.9% 1000 ML** 1,000 ML IV SCH (09:05)
[2018-11-29] MEDS: Aspirin EC TAB* 81 MG TAB.EC PO SCH (09:07)
[2018-11-29] MEDS: Insulin LISPRO* 1 UNITS UNIT SUBCUT SCH ×4 (09:10→22:14)
[2018-11-29] MEDS: Metoprolol Succinate XL TAB* 50 MG PO SCH (09:10)
[2018-11-29] MEDS: Baclofen TAB* 10 MG PO SCH ×3 (09:10→22:10)
[2018-11-29] MEDS: Clopidogrel TAB* 75 MG PO SCH (09:10)
[2018-11-29] MEDS: Sertraline* 25 MG TAB PO SCH (09:10)
--- NOTE | 2018-11-29 11:28 | CONS ---
CONSULTATION REPORT: DATE OF CONSULT: 11/29/18 REQUESTING PROVIDER: Shannon Fields NP CONSULTING SERVICE: Infectious Disease. REASON FOR CONSULTATION: Left foot ulcer and cellulitis. IMPRESSION: 1. Chronic left heel ulcer now with a cellulitis through the lower leg. He does not have pain with ankle range of motion or obvious effusion of the ankle. A wound culture on the calcaneus showed gram-positive cocci. A PCR is positive for Staph aureus, negative for MRSA. Cultures pending. 2. Leukocytosis of 22,000 up from 15,000 yesterday. He is afebrile. 3. Parkinson's dementia. 4. History of left transmetatarsal amputation and right below-knee amputation. 5. Vascular disease. 6. Diabetes with neuropathy. RECOMMENDATIONS: 1. Continue Zosyn for now. Once the culture is final, if there is no other organisms other than Staph aureus, we may switch to Ancef. 2. MRI to rule out osteomyelitis given the duration of the wound. HISTORY OF PRESENT ILLNESS: This is an 83-year-old man with Parkinson's dementia and a left foot wound, admitted for cellulitis. He cannot provide the history of his illness, which is obtained instead from review of the medical record. He was brought to the hospital by his with this wound which has been present for about 3 months and she had recently noticed redness spreading up his leg, so she brought him to the hospital. She did not note fevers or chills at home. On arrival yesterday, his white count was 15,000 and this morning was 22,000. His CRP is 144. He was started on Zosyn yesterday after a dose of clindamycin in the ER. He initially did have a swab of the left heel wound which showed a gram-positive cocci and a Gram stain and a PCR positive for Staph aureus. The culture is pending. Today, he denies fevers, chills, or sweats or diarrhea. Does not note any pain in his leg. PAST MEDICAL HISTORY: 1. Parkinson's disease with dementia. 2. Hypertension. 3. Coronary artery disease. 4. Peripheral vascular disease status post right [id number] amputation and left transmetatarsal amputation. 5. Diabetes with neuropathy. MEDICATIONS: 1. Tylenol. 2. Albuterol. 3. Aspirin. 4. Lipitor. 5. Baclofen. 6. Plavix. 7. Heparin subcutaneous injection. 8. Aricept. 9. Metoprolol. 10. Zosyn 3.375 grams every 8 hours by extended infusion. ALLERGIES: VANCOMYCIN caused rash. FAMILY HISTORY: Unobtainable. SOCIAL HISTORY: He is a nonsmoker. Rare alcohol. He is and lives with his . REVIEW OF SYSTEMS: All negative except as noted above to a 12-point review of systems. PHYSICAL EXAM: Vital Signs: Temperature is 37, heart rate 90, respiratory rate 20, blood pressure is 110/60, oxygen saturation is 95% on 2 L. General: He is awake, not in distress. Neurologic: He is oriented x2. Follows commands. Moves all extremities. Sensation is absent to light touch in his left foot. HEENT: There is no conjunctival hemorrhage. Oropharynx without lesions. Neck: Supple without mass. Heart: Regular rate and rhythm without murmurs, rubs, or gallops. Lungs are clear to auscultation bilaterally. Abdomen is soft, nontender, and nondistended. There is bowel sounds present. Skin: There is no rash or splinter hemorrhage. Musculoskeletal: The right [id number] amputation site has healed. There is a left transmetatarsal scar that is well healed. There is an ulcer over the left heel of about 1 cm with surrounding erythema extending up through his calf and anterior lower leg. There is no fluctuance or tenderness. There is no left ankle effusion or tenderness or pain with range of motion. DIAGNOSTIC STUDIES/LAB DATA: White blood cell count 22, hemoglobin 10, platelets 225, creatinine 0.9. Please see impressions and recommendations outlined above. Thanks for asking me to see Mr. Cedillo in consultation. [id number]/[facility] #: [id number] [facility]
[2018-11-29] MEDS: Acetaminophen TAB* 325 MG PO PRN (15:46)
--- NOTE | 2018-11-29 18:04 | PN ---
Subjective Date of Service: 11/29/18 Interval History: Patient seen and examined. Can answer most questions appropriately but is a poor historian. Denies pain, no SOB or chest pain. States he has had a cough "for months" but has no other complaints. Chart and labs reviewed. Objective Active Medications: Acetaminophen (Tylenol Tab*) 650 mg PO Q4H PRN PRN Reason: MILD PAIN or TEMP > 100.4 Last Admin: 11/29/18 15:46 Dose: 650 mg Albuterol (Ventolin 2.5 Mg/3 Ml Neb.Vale*) 2.5 mg INH [id number] AWAKE PRN PRN Reason: sob/wheezing Aspirin (Aspirin Ec Tab*) 81 mg PO DAILY [facility] Last Admin: 11/29/18 09:07 Dose: 81 mg Atorvastatin Calcium (Lipitor*) 10 mg PO BEDTIME [facility] Last Admin: 11/28/18 22:41 Dose: 10 mg Baclofen (Lioresal Tab*) 10 mg PO TID [facility] Last Admin: 11/29/18 13:05 Dose: 10 mg Clopidogrel Bisulfate (Plavix Tab*) 75 mg PO DAILY [facility] Last Admin: 11/29/18 09:10 Dose: 75 mg Dextrose (Dextrose 50% Vial 50 Ml*) 25 ml IV PUSH .FOR FS < 60 - SS PRN PRN Reason: FS < 60 Donepezil HCl (Aricept Tab*) 5 mg PO BEDTIME [facility] Last Admin: 11/28/18 22:41 Dose: 5 mg Heparin Sodium (Porcine) (Heparin Vial(*)) 5,000 units SUBCUT Q8HR [facility] Last Admin: 11/29/18 13:05 Dose: 5,000 units Piperacillin Sod/Tazobactam (Sod 3.375 gm/ Sodium Chloride) 100 mls @ 25 mls/ hr IVPB Q8H [facility] Last Admin: 11/29/18 14:59 Dose: 25 mls/hr Insulin Human Lispro (Humalog*) 0 units SUBCUT ACHS [facility]; Protocol Last Admin: 11/29/18 13:05 Dose: 6 units Metoprolol Succinate (Toprol Xl Tab*) 50 mg PO DAILY [facility] Last Admin: 11/29/18 09:10 Dose: 50 mg Ondansetron HCl (Zofran Inj*) 4 mg IV Q4H PRN PRN Reason: NAUSEA/VOMITING Pharmacy Consult (Zosyn Per Pharmacy*) 1 note FOLLOW UP .ZOSYN PER PHARMACY [facility] Sertraline HCl (Zoloft*) 25 mg PO DAILY [facility] Last Admin: 11/29/18 09:10 Dose: 25 mg Vital Signs - 8 hr 11/29/18 11/29/18 10:38 15:15 Temperature 98.9 F 100.1 F Pulse Rate 90 94 Respiratory 20 28 Rate Blood Pressure 100/45 108/57 (mmHg) O2 Sat by Pulse 93 100 Oximetry Oxygen Devices in Use Now: Nasal Cannula Appearance: alert, NAD Eyes: PERRLA Ears/Nose/Mouth/Throat: NL Teeth, Lips, Gums Neck: NL Appearance and Movements; NL JVP, Trachea Midline Respiratory: Symmetrical Chest Expansion and Respiratory Effort, - - mild scattered rhonchi, no wheeze Cardiovascular: NL Sounds; No Murmurs; No JVD, No Edema Abdominal: NL Sounds; No Tenderness; No Distention Extremities: - - left foot and heel dressing CDI, betadine with wet to dry Neurological: - - alert, confused at baseline Nutrition: Taking PO's Result Diagrams: 11/29/18 06:08 11/29/18 06:08 Additional Lab and Data: Lab Results 11/28/18 11/28/18 11/28/18 Range/Units 15:28 15:28 15:29 WBC 15.2 H (3.5-10.8) 10^3/uL RBC 4.00 L (4.18-5.48) 10^6 /uL Hgb 11.5 L (14.0-18.0) g/dL Hct 35 L (42-52) % MCV 86 (80-94) fL MCH 29 (27-31) pg MCHC 33 (31-36) g/dL RDW 14 (10-15) % Plt Count 252 (150-450) 10^3/uL MPV 7.1 L (7.4-10.4) fL Neut % (Auto) 82.3 % Lymph % (Auto) 8.6 % [place] % (Auto) 7.2 % Eos % (Auto) 1.4 % Baso % (Auto) 0.5 % Absolute Neuts (auto) 12.5 H (1.5-7.7) 10^3/ul Absolute Lymphs (auto) 1.3 (1.0-4.8) 10^3/ul Absolute Monos (auto) 1.1 H (0-0.8) 10^3/ul Absolute Eos (auto) 0.2 (0-0.6) 10^3/ul Absolute Basos (auto) 0.1 (0-0.2) 10^3/ul Absolute Nucleated RBC 0.0 10^3/ul Nucleated RBC % 0.0 Sodium 136 (135-145) mmol/L Potassium 5.5 H (3.5-5.0) mmol/L Chloride 99 L (101-111) mmol/L Carbon Dioxide 31 (22-32) mmol/L Anion Gap 6 (2-11) mmol/L BUN 23 (6-24) mg/dL Creatinine 1.02 (0.67-1.17) mg/dL Est GFR ( Amer) 84.8 (>60) Est GFR (Non-Af Amer) 70.1 (>60) BUN/Creatinine Ratio 22.5 H (8-20) Glucose 225 H (70-100) mg/dL Lactic Acid 1.5 (0.5-2.0) mmol/L Calcium 9.1 (8.6-10.3) mg/dL Total Bilirubin 0.40 (0.2-1.0) mg/dL AST 18 (13-39) U/L ALT 17 (7-52) U/L Alkaline Phosphatase 82 (34-104) U/L C-Reactive Protein 144.06 H (<8.01) mg/L Total Protein 7.4 (6.4-8.9) g/dL Albumin 3.8 (3.2-5.2) g/dL Globulin 3.6 (2-4) g/dL Albumin/Globulin Ratio 1.1 (1-3) Microbiology and Other Data: Microbiology 11/28/18 22:00 Skin and Soft Tissue MRSA/MSSA (PCR - Final Ankle Left Mrsa Not Detected S.aureus Positive Gram Stain - Final Wound Culture - Preliminary Staphylococcus Aureus 11/28/18 17:45 Nasal Screen MRSA (PCR) - Final Nasal Mrsa Detected Assess/Plan/Problems-Billing Assessment: This is an 83 year old male with history of parkinsons, dementia, PVD and non- healing wounds that presents to the ED with his with complaints of left heel ulcer. - Patient Problems (1) Non healing left heel wound Code(s): S91.302A - UNSPECIFIED OPEN WOUND, LEFT FOOT, INITIAL ENCOUNTER SNOMED Code(s): 188381456 Comment: - With exposure of left achilles tendon - Initial wound culture with staph - ID and ortho consulted - continue zosyn - DC IVF, chest with some mild congestion, does not appear septic - MRI pending (2) Peripheral vascular disease Code(s): I73.9 - PERIPHERAL VASCULAR DISEASE, UNSPECIFIED SNOMED Code(s): 164321968 Comment: - Hx of unsuccessful angioplasty on in 2016 - Continue statin, clopidogrel, ASA - Continues with non healing wounds (3) Dementia Code(s): F03.90 - UNSPECIFIED DEMENTIA WITHOUT BEHAVIORAL DISTURBANCE SNOMED Code(s): 44085272 Comment: - Continue donepezil, sertraline (4) Hypertension Code(s): I10 - ESSENTIAL (PRIMARY) HYPERTENSION SNOMED Code(s): 19654330 Comment: - BP low but stable, continue metoprolol with hold parameters (5) Parkinson disease Code(s): G20 - PARKINSON'S DISEASE SNOMED Code(s): 93937433 Comment: - On baclofen, no sinemet - Supportive care (6) Type 2 diabetes mellitus Comment: - Continue lispro SSI coverage, hold metformin. (7) DVT prophylaxis Code(s): DXE3045 - SNOMED Code(s): 343852450 Comment: - Heparin SQ (8) Full code status Code(s): Z78.9 - OTHER SPECIFIED HEALTH STATUS SNOMED Code(s): 067106793 Status and Disposition: Inpatient, dispo TBD.
--- NOTE | 2018-11-29 18:41 | CONSULT ---
Consult Consult: Orthopedic Surgery Consultation Date: 11/29/2018 Requesting Service: Hospitalist Chief Complaint: Achilles tendon ulceration History:This patient is an 83-year-old male with a history of gangrene, osteomyelitis, left metatarsal foot amputation, right BTK amputation as complications secondary to diabetes type 2 with severe stage IV achilles wound ulcer. Patient is fairly bedbound, but gets along in a wheelchair during the day. is primary caregiver. The pt today states that he has had this for a while. He is not able to give an amount of time but per the ED note it seems he has had this for about 3 months according to his . She is been placing antibiotic ointment over the area and dressing the wound. Despite this, patient has been having an increase in size of the wound is now having exposing tendons. There was erythema and warmth present on the leg to just below the knee.. Patient has remained afebrile, and patient is denying any sweats or chills. Review of Systems: Negative for fever, recent visual changes, difficulty swallowing, chest pain, shortness of breath, abdominal pain, hematuria, easy bruising, diffuse weakness or lack of coordination, and diffuse rash. PMH: 1.Diabetes 2.Angina 3.Coronary Artery Disease 4. Hypertension 5. Peripheral Vascular Disease 6.baseline incontinence 7. Dementia 8. peripheral neuropathy 9. Hx of TIA PSH: 1. 2-heart bypass 2. prostate 3.aortic valve replacement 2006 4. appendectomy 5. left leg stent [id number] mm x 100 mm Terumo Misago self-expanding stent in the proximal to mid left superficial femoral artery (CONDITIONAL 5- MUST BE SCANNED IN NORMAL MODE, MRI SAFETY INFO SCANNED INTO PT'S CHART) 6. BELOW THE RT KNEE AMPUTATION 7. Left transmetatarsal amputation Acetaminophen (Tylenol Tab*) 650 mg PO Q4H PRN PRN Reason: MILD PAIN or TEMP > 100.4 Last Admin: 11/29/18 15:46 Dose: 650 mg Albuterol (Ventolin 2.5 Mg/3 Ml Neb.Vale*) 2.5 mg INH [id number] AWAKE PRN PRN Reason: sob/wheezing Aspirin (Aspirin Ec Tab*) 81 mg PO DAILY [facility] Last Admin: 11/29/18 09:07 Dose: 81 mg Atorvastatin Calcium (Lipitor*) 10 mg PO BEDTIME [facility] Last Admin: 11/28/18 22:41 Dose: 10 mg Baclofen (Lioresal Tab*) 10 mg PO TID [facility] Last Admin: 11/29/18 13:05 Dose: 10 mg Clopidogrel Bisulfate (Plavix Tab*) 75 mg PO DAILY [facility] Last Admin: 11/29/18 09:10 Dose: 75 mg Dextrose (Dextrose 50% Vial 50 Ml*) 25 ml IV PUSH .FOR FS < 60 - SS PRN PRN Reason: FS < 60 Donepezil HCl (Aricept Tab*) 5 mg PO BEDTIME [facility] Last Admin: 11/28/18 22:41 Dose: 5 mg Heparin Sodium (Porcine) (Heparin Vial(*)) 5,000 units SUBCUT Q8HR [facility] Last Admin: 11/29/18 13:05 Dose: 5,000 units Piperacillin Sod/Tazobactam (Sod 3.375 gm/ Sodium Chloride) 100 mls @ 25 mls/ hr IVPB Q8H [facility] Last Admin: 11/29/18 14:59 Dose: 25 mls/hr Insulin Human Lispro (Humalog*) 0 units SUBCUT ACHS [facility]; Protocol Last Admin: 11/29/18 18:18 Dose: 6 units Metoprolol Succinate (Toprol Xl Tab*) 50 mg PO DAILY [facility] Last Admin: 11/29/18 09:10 Dose: 50 mg Ondansetron HCl (Zofran Inj*) 4 mg IV Q4H PRN PRN Reason: NAUSEA/VOMITING Pharmacy Consult (Zosyn Per Pharmacy*) 1 note FOLLOW UP .ZOSYN PER PHARMACY [facility] Sertraline HCl (Zoloft*) 25 mg PO DAILY [facility] Last Admin: 11/29/18 09:10 Dose: 25 mg Allergies Allergy/AdvReac Type Severity Reaction Status Date / Time vancomycin Allergy Rash Verified 02/06/18 14:25 SH:Lives with . 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 Physical Examination: Constitutional: General appearance is healthy and non-septic in no acute distress. Cardiovascular: Pulse examination demonstrates [ ] pedal pulses with brisk capillary refill. There are no varicosities. Heart with a regular rate and rhythm. Lung sounds clear bilaterally. Abdomen: Soft and nontender Lymphatic: No lymphadenopathy appreciated. Skin: Bilateral upper and lower extremity examination demonstrates no ulcerative lesions aside from those of the involved extremity detailed below, if present. Psychiatric / Neurological: Appropriate affect. Alert and oriented to person, place and time. There is no significant abnormality in coordination appreciated. Normoreflexive deep tendon reflex of the affected extremity. Musculoskeletal: Bilateral upper extremities and contralateral lower extremity show full range of motion with no evidence of instability and no tenderness with palpation and 5/5 strength. There is no gross deformity. There is a large 2cm deep ulceration present over the Achilles tendon insertion. The tendon is easily visible and dusky in appearance. There is no drainage present from the ulceration actively although there is dry drainage on the dressing. There is 5/5 motor strength and impaired light touch sensation. Swelling/edema - Mild swelling Associated erythema - present up the calf. There are markings present to show the extent of the erythema and it seems that the erythema has improved. Associated drainage - None. Labs: WBC: 22.7 HCT: 32 Platelets: 225 Cr:0.98 Impression and Plan: Deep ulcer of the Achilles tendon with visible tendon of the left heel. The plan at this point will be to obtain an MRI of the left ankle to further assess for infection. We will review the MRI, discuss surgical options with his when she is present and will plan on bringing him to the OR for a debridement, washout and wound vac placement on Monday with Dr. Garcia. Appreciate medical clearance.
[2018-11-29] MEDS: Atorvastatin* 10 MG TAB PO SCH (22:11)
[2018-11-29] MEDS: Donepezil TAB* 5 MG PO SCH (22:11)
[2018-11-30] MEDS: Acetaminophen TAB* 325 MG PO PRN ×2 (04:25→17:21)
[2018-11-30] MEDS: Heparin VIAL(*) 5000 UNITS/ML VIAL (FIVE THOUSAND) SUBCUT SCH ×3 (05:51→21:24)
[2018-11-30] MEDS: ZOSYN 3.375 GM Q8H per EXTENDED INFUSION IVPB SCH ×2 (05:51)
[2018-11-30] MEDS: Aspirin EC TAB* 81 MG TAB.EC PO SCH (08:37)
[2018-11-30] MEDS: Sertraline* 25 MG TAB PO SCH (08:37)
[2018-11-30] MEDS: Metoprolol Succinate XL TAB* 50 MG PO SCH (08:37)
[2018-11-30] MEDS: Clopidogrel TAB* 75 MG PO SCH (08:37)
[2018-11-30] MEDS: Baclofen TAB* 10 MG PO SCH ×3 (08:37→21:24)
[2018-11-30] MEDS: Insulin LISPRO* 1 UNITS UNIT SUBCUT SCH ×4 (08:38→21:18)
[2018-11-30] MEDS: Insulin GLARGINE(*) 1 UNITS UNIT SUBCUT SCH (11:08)
--- NOTE | 2018-11-30 11:55 | PN ---
Progress Note - Progress Note Date of Service: 11/30/18 SOAP: Subjective: CC: Left foot cellulitis and ulcer HPI: Ms. Cedillo is an 83 yo male with PMH significant for Parkinson's disease with dementia, HTN, CAD, PVD s/p right BKA and left TMA, DM2 with neuropathy; who was admitted to the hospital for left foot wound and cellulitis. Denies fever, chills, nausea, vomiting, or diarrhea. States his appetite is ok. Objective: Vital Signs - 8 hr 11/30/18 11/30/18 08:00 11:15 Temperature 97.3 F Pulse Rate 92 Respiratory 19 20 Rate Blood Pressure 111/70 (mmHg) O2 Sat by Pulse 95 Oximetry Physical Exam: General: NAD, laying in bed Neurological: Drowsy and oriented to self HEENT: Moist MM, no thrush Cardiovascular: Heart rate Respiratory: Lung sounds clear Abdominal: Bowel sounds; ABD soft, non tender, non distended, and soft MSK: No effusion in the left ankle and full ROM. Right BKA. Skin: Posterior left heel/ankle with an ulcer with black eschar, there is erythema extending up the leg. Laboratory Last Values WBC 22.7 10^3/uL (3.5-10.8) H 11/29/18 06:08 RBC 3.62 10^6 /uL (4.18-5.48) L 11/29/18 06:08 Hgb 10.5 g/dL (14.0-18.0) L 11/29/18 06:08 Hct 32 % (42-52) L 11/29/18 06:08 MCV 87 fL (80-94) 11/29/18 06:08 MCH 29 pg (27-31) 11/29/18 06:08 MCHC 33 g/dL (31-36) 11/29/18 06:08 RDW 14 % (10-15) 11/29/18 06:08 Plt Count 225 10^3/uL (150-450) 11/29/18 06:08 MPV 7.2 fL (7.4-10.4) L 11/29/18 06:08 Neut % (Auto) 86.2 % 11/29/18 06:08 Lymph % (Auto) 6.5 % 11/29/18 06:08 [place] % (Auto) 6.4 % 11/29/18 06:08 Eos % (Auto) 0.5 % 11/29/18 06:08 Baso % (Auto) 0.4 % 11/29/18 06:08 Absolute Neuts (auto) 19.6 10^3/ul (1.5-7.7) H 11/29/18 06:08 Absolute Lymphs (auto) 1.5 10^3/ul (1.0-4.8) 11/29/18 06:08 Absolute Monos (auto) 1.5 10^3/ul (0-0.8) H 11/29/18 06:08 Absolute Eos (auto) 0.1 10^3/ul (0-0.6) 11/29/18 06:08 Absolute Basos (auto) 0.1 10^3/ul (0-0.2) 11/29/18 06:08 Absolute Nucleated RBC 0.0 10^3/ul 11/29/18 06:08 Nucleated RBC % 0.0 11/29/18 06:08 Sodium 138 mmol/L (135-145) 11/29/18 06:08 Potassium 4.9 mmol/L (3.5-5.0) 11/29/18 06:08 Chloride 104 mmol/L (101-111) 11/29/18 06:08 Carbon Dioxide 26 mmol/L (22-32) 11/29/18 06:08 Anion Gap 8 mmol/L (2-11) 11/29/18 06:08 BUN 21 mg/dL (6-24) 11/29/18 06:08 Creatinine 0.98 mg/dL (0.67-1.17) 11/29/18 06:08 Est GFR ( Amer) 88.8 (>60) 11/29/18 06:08 Est GFR (Non-Af Amer) 73.4 (>60) 11/29/18 06:08 BUN/Creatinine Ratio 21.4 (8-20) H 11/29/18 06:08 Glucose 173 mg/dL (70-100) H 11/29/18 06:08 POC Glucose (mg/dL) 262 mg/dL (70-100) H 11/30/18 07:14 Lactic Acid 1.5 mmol/L (0.5-2.0) 11/28/18 15:28 Calcium 8.4 mg/dL (8.6-10.3) L 11/29/18 06:08 Phosphorus 3.2 mg/dL (2.5-5.0) 11/29/18 06:08 Magnesium 2.0 mg/dL (1.9-2.7) 11/29/18 06:08 Total Bilirubin 0.40 mg/dL (0.2-1.0) 11/28/18 15:29 AST 18 U/L (13-39) 11/28/18 15:29 ALT 17 U/L (7-52) 11/28/18 15:29 Alkaline Phosphatase 82 U/L (34-104) 11/28/18 15:29 C-Reactive Protein 144.06 mg/L (<8.01) H 11/28/18 15:29 Total Protein 7.4 g/dL (6.4-8.9) 11/28/18 15:29 Albumin 3.8 g/dL (3.2-5.2) 11/28/18 15:29 Globulin 3.6 g/dL (2-4) 11/28/18 15:29 Albumin/Globulin Ratio 1.1 (1-3) 11/28/18 15:29 Microbiology 11/28/18 18:20 Aerobic Blood Culture - Preliminary Blood Venous No Growth Day 1 Anaerobic Blood Culture - Preliminary No Growth Day 1 11/28/18 18:20 Aerobic Blood Culture - Preliminary Blood Venous No Growth Day 1 Anaerobic Blood Culture - Preliminary No Growth Day 1 11/28/18 22:00 Skin and Soft Tissue MRSA/MSSA (PCR - Final Ankle Left Mrsa Not Detected S.aureus Positive Gram Stain - Final Wound Culture - Preliminary Staphylococcus Aureus 11/28/18 17:45 Nasal Screen MRSA (PCR) - Final Nasal Mrsa Detected Assessment: 1. Chronic left heel ulcer and cellulitis. Wound culture with staph aureus. MRI with no signs of osteomyelitis. Fever 101.5 earlier today. Leukocytosis on labs from yesterday, not checked today. 2. Parkinson's disease with dementia. 3. DM2 with peripheral neuropathy. 4. 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 Plan: Discontinue Zosyn and change to Ancef 2gm IV Q8H.
[2018-11-30 12:33] LABS: Hematocrit 32 % (42-52); Hemoglobin 10.3 g/dL (14.0-18.0); Mean Corpuscular HGB Conc 32 g/dL (31-36); Mean Corpuscular Hemoglobin 28 pg (27-31); Mean Corpuscular Volume 88 fL (80-94); Mean Platelet Volume 7.1 fL (7.4-10.4); Platelet Count 221 10^3/uL (150-450); Red Blood Count 3.63 10^6 /uL (4.18-5.48); Red Cell Distribution Width 14 % (10-15); White Blood Count 24.7 10^3/uL (3.5-10.8)
[2018-11-30 12:51] LABS: BUN/Creatinine Ratio 22.6 (8-20); Calcium 8.7 mg/dL (8.6-10.3); EGFR African American 73.9 (>60); Potassium 4.8 mmol/L (3.5-5.0)
[2018-11-30 12:58] LABS: ABS Basophils 0.1 10^3/ul (0-0.2); ABS Lymphocytes 0.9 10^3/ul (1.0-4.8); ABS Monocytes 0.9 10^3/ul (0-0.8); ABS Neutrophils 22.7 10^3/ul (1.5-7.7); Eosinophil % 0.1 %; Lymphocyte % 3.8 %
[2018-11-30] MEDS ORDERED: Buffered Lidocaine 1% SYRIN* 1 ML/SYRINGE INTRADERM ONE (14:35)
--- NOTE | 2018-11-30 15:33 | PN ---
Progress Note - Progress Note Date of Service: 11/30/18 SOAP: Subjective: [The pt was seen in bed. He denies any chest pain, SOB, fevers, chills. He does not have any pain. ] Objective: [General: Pt is alert and oriented x 3. NAD. MSK, LLE: Inspection of the left foot reveals a TMA healed. There is a 2cm ulcer present over the insertion of the Achilles tendon. The tendon is visible and dusky. No pain when this area is manipulated. Erythema present up the leg extending to just below the previous markings. ] Vital Signs Temp 97.3 F 11/30/18 11:15 Pulse 92 11/30/18 11:15 Resp 20 11/30/18 11:15 BP 111/70 11/30/18 11:15 Pulse Ox 95 11/30/18 11:15 Intake & Output 11/29/18 11/30/18 11/30/18 18:59 06:59 18:59 Intake Total 2380 110 2780 Balance 2380 110 2780 Weight 207 lb Intake: IV Fluids 1000 1850 ABX - ZOSYN 100 NS (0.9%) 900 1850 IVPB 450 ABX - ZOSYN 450 Oral 1380 110 480 Other: Estimated Void Medium Medium Medium # Bowel Movements 0 Estimated Stool Amount Medium # Voids 1 Assessment: [Deep ulcer of the Achilles tendon with visible tendon of the left heel.] Plan: [To the OR on Monday for debridement and vac placement. Continue with current dressing changes daily. Pain meds as needed. Continue with abx.]
--- NOTE | 2018-11-30 18:33 | PN ---
Subjective Date of Service: 11/30/18 Interval History: Patient seen and examined. States he has no pain in his foot. Complaint of cough , but no fevers or chills today. Asked if his was here today and we discussed plans for surgery Monday. Objective Active Medications: Acetaminophen (Tylenol Tab*) 650 mg PO Q4H PRN PRN Reason: MILD PAIN or TEMP > 100.4 Last Admin: 11/30/18 17:21 Dose: 650 mg Albuterol (Ventolin 2.5 Mg/3 Ml Neb.Vael*) 2.5 mg INH [id number] AWAKE PRN PRN Reason: sob/wheezing Aspirin (Aspirin Ec Tab*) 81 mg PO DAILY [facility] Last Admin: 11/30/18 08:37 Dose: 81 mg Atorvastatin Calcium (Lipitor*) 10 mg PO BEDTIME [facility] Last Admin: 11/29/18 22:11 Dose: 10 mg Baclofen (Lioresal Tab*) 10 mg PO TID [facility] Last Admin: 11/30/18 13:02 Dose: 10 mg Clopidogrel Bisulfate (Plavix Tab*) 75 mg PO DAILY [facility] Last Admin: 11/30/18 08:37 Dose: 75 mg Dextrose (Dextrose 50% Vial 50 Ml*) 25 ml IV PUSH .FOR FS < 60 - SS PRN PRN Reason: FS < 60 Donepezil HCl (Aricept Tab*) 5 mg PO BEDTIME [facility] Last Admin: 11/29/18 22:11 Dose: 5 mg Heparin Sodium (Porcine) (Heparin Vial(*)) 5,000 units SUBCUT Q8HR [facility] Last Admin: 11/30/18 13:00 Dose: 5,000 units Cefazolin Sodium/Dextrose (Kefzol 2 Gm Premix In Ors(*)) 2 gm in 50 mls @ 100 mls/hr IVPB Q8H [facility] Lactated Ringer's (Lactated Ringers 1000 Ml Bag*) 1,000 mls @ 125 mls/hr IV PER RATE [facility] Insulin Glargine (Lantus(*)) 15 units SUBCUT Q24H [facility] Last Admin: 11/30/18 11:08 Dose: 15 units Insulin Human Lispro (Humalog*) 0 units SUBCUT ACHS [facility]; Protocol Last Admin: 11/30/18 17:18 Dose: 10 units Metoprolol Succinate (Toprol Xl Tab*) 50 mg PO DAILY [facility] Last Admin: 11/30/18 08:37 Dose: 50 mg Ondansetron HCl (Zofran Inj*) 4 mg IV Q4H PRN PRN Reason: NAUSEA/VOMITING Pharmacy Consult (Zosyn Per Pharmacy*) 1 note FOLLOW UP .ZOSYN PER PHARMACY [facility] Sertraline HCl (Zoloft*) 25 mg PO DAILY [facility] Last Admin: 11/30/18 08:37 Dose: 25 mg Vital Signs - 8 hr 11/30/18 11/30/18 11:15 15:15 Temperature 97.3 F 100.1 F Pulse Rate 92 114 Respiratory 20 24 Rate Blood Pressure 111/70 119/69 (mmHg) O2 Sat by Pulse 95 93 Oximetry Oxygen Devices in Use Now: Nasal Cannula Appearance: alert, NAD Eyes: PERRLA Ears/Nose/Mouth/Throat: NL Teeth, Lips, Gums, Mucous Membranes Moist Neck: NL Appearance and Movements; NL JVP, Trachea Midline Respiratory: Symmetrical Chest Expansion and Respiratory Effort, - - rhonchi that clears with cough Cardiovascular: NL Sounds; No Murmurs; No JVD, RRR, No Edema Abdominal: NL Sounds; No Tenderness; No Distention Extremities: No Edema, No Clubbing, Cyanosis Skin: - - left foot dressed, CDI Neurological: - - alert to person Nutrition: Taking PO's Result Diagrams: 11/30/18 12:26 11/30/18 12:26 Additional Lab and Data: Lab Results 11/28/18 11/28/18 11/28/18 Range/Units 15:28 15:28 15:29 WBC 15.2 H (3.5-10.8) 10^3/uL RBC 4.00 L (4.18-5.48) 10^6 /uL Hgb 11.5 L (14.0-18.0) g/dL Hct 35 L (42-52) % MCV 86 (80-94) fL MCH 29 (27-31) pg MCHC 33 (31-36) g/dL RDW 14 (10-15) % Plt Count 252 (150-450) 10^3/uL MPV 7.1 L (7.4-10.4) fL Neut % (Auto) 82.3 % Lymph % (Auto) 8.6 % [place] % (Auto) 7.2 % Eos % (Auto) 1.4 % Baso % (Auto) 0.5 % Absolute Neuts (auto) 12.5 H (1.5-7.7) 10^3/ul Absolute Lymphs (auto) 1.3 (1.0-4.8) 10^3/ul Absolute Monos (auto) 1.1 H (0-0.8) 10^3/ul Absolute Eos (auto) 0.2 (0-0.6) 10^3/ul Absolute Basos (auto) 0.1 (0-0.2) 10^3/ul Absolute Nucleated RBC 0.0 10^3/ul Nucleated RBC % 0.0 Sodium 136 (135-145) mmol/L Potassium 5.5 H (3.5-5.0) mmol/L Chloride 99 L (101-111) mmol/L Carbon Dioxide 31 (22-32) mmol/L Anion Gap 6 (2-11) mmol/L BUN 23 (6-24) mg/dL Creatinine 1.02 (0.67-1.17) mg/dL Est GFR ( Amer) 84.8 (>60) Est GFR (Non-Af Amer) 70.1 (>60) BUN/Creatinine Ratio 22.5 H (8-20) Glucose 225 H (70-100) mg/dL Lactic Acid 1.5 (0.5-2.0) mmol/L Calcium 9.1 (8.6-10.3) mg/dL Total Bilirubin 0.40 (0.2-1.0) mg/dL AST 18 (13-39) U/L ALT 17 (7-52) U/L Alkaline Phosphatase 82 (34-104) U/L C-Reactive Protein 144.06 H (<8.01) mg/L Total Protein 7.4 (6.4-8.9) g/dL Albumin 3.8 (3.2-5.2) g/dL Globulin 3.6 (2-4) g/dL Albumin/Globulin Ratio 1.1 (1-3) Microbiology and Other Data: Microbiology 11/28/18 22:00 Skin and Soft Tissue MRSA/MSSA (PCR - Final Ankle Left Mrsa Not Detected S.aureus Positive Gram Stain - Final Wound Culture - Preliminary Staphylococcus Aureus 11/28/18 17:45 Nasal Screen MRSA (PCR) - Final Nasal Mrsa Detected Assess/Plan/Problems-Billing Assessment: This is an 83 year old male with history of parkinsons, dementia, PVD and non- healing wounds that presents to the ED with his with complaints of left heel ulcer. - Patient Problems (1) Non healing left heel wound Code(s): S91.302A - UNSPECIFIED OPEN WOUND, LEFT FOOT, INITIAL ENCOUNTER SNOMED Code(s): 374923067 Comment: - With exposure of left achilles tendon - Initial wound culture with staph - ID and ortho following - Atbx changed to cefazolin as per ID - MRI without osteo, plan for debridement and wound vac on monday with orthopedics - continue wet to dry dressings (2) Peripheral vascular disease Code(s): I73.9 - PERIPHERAL VASCULAR DISEASE, UNSPECIFIED SNOMED Code(s): 519147526 Comment: - Hx of unsuccessful angioplasty on in 2015 - Continue statin, clopidogrel, ASA - Continues with non healing wounds (3) Dementia Code(s): F03.90 - UNSPECIFIED DEMENTIA WITHOUT BEHAVIORAL DISTURBANCE SNOMED Code(s): 36230662 Comment: - Continue donepezil, sertraline (4) Hypertension Code(s): I10 - ESSENTIAL (PRIMARY) HYPERTENSION SNOMED Code(s): 63033289 Comment: - BP low but stable, continue metoprolol with hold parameters (5) Parkinson disease Code(s): G20 - PARKINSON'S DISEASE SNOMED Code(s): 37129106 Comment: - On baclofen, no sinemet - Supportive care (6) Type 2 diabetes mellitus Comment: - Continue lispro SSI coverage, lantus added for elevated sugars - A1c 8.4 today, continue close monitoring while actively infected (7) DVT prophylaxis Code(s): EAU8120 - SNOMED Code(s): 419875457 Comment: - Heparin SQ (8) Full code status Code(s): Z78.9 - OTHER SPECIFIED HEALTH STATUS SNOMED Code(s): 509304760 Status and Disposition: Inpatient, dispo TBD.
[2018-11-30] MEDS: ceFAZolin 2 GM PREMIX in ORs 2 GM/50 ML BAG IVPB SCH (19:39)
[2018-11-30] MEDS: Donepezil TAB* 5 MG PO SCH (21:24)
[2018-11-30] MEDS: Atorvastatin* 10 MG TAB PO SCH (21:24)
[2018-12-01] MEDS: ceFAZolin 2 GM PREMIX in ORs 2 GM/50 ML BAG IVPB SCH ×2 (04:04→12:37)
[2018-12-01] MEDS: Heparin VIAL(*) 5000 UNITS/ML VIAL (FIVE THOUSAND) SUBCUT SCH ×3 (06:35→21:57)
[2018-12-01] MEDS: Insulin LISPRO* 1 UNITS UNIT SUBCUT SCH ×4 (07:46→19:49)
[2018-12-01] MEDS: Insulin GLARGINE(*) 1 UNITS UNIT SUBCUT SCH (07:48)
[2018-12-01] MEDS: Baclofen TAB* 10 MG PO SCH ×3 (07:49→19:49)
[2018-12-01] MEDS: Aspirin EC TAB* 81 MG TAB.EC PO SCH (07:49)
[2018-12-01] MEDS: Metoprolol Succinate XL TAB* 50 MG PO SCH (07:49)
[2018-12-01] MEDS: Clopidogrel TAB* 75 MG PO SCH (07:49)
[2018-12-01] MEDS: Sertraline* 25 MG TAB PO SCH (07:49)
--- NOTE | 2018-12-01 15:00 | PN ---
Subjective Date of Service: 12/01/18 Interval History: Mr. Cedillo denies complaint. He is tolerating oral intake well. He is aware that we are awaiting surgery for Monday. Objective Active Medications: Acetaminophen (Tylenol Tab*) 650 mg PO Q4H PRN Albuterol (Ventolin 2.5 Mg/3 Ml Neb.Vale*) 2.5 mg INH [id number] AWAKE PRN Aspirin (Aspirin Ec Tab*) 81 mg PO DAILY [facility] Atorvastatin Calcium (Lipitor*) 10 mg PO BEDTIME [facility] Baclofen (Lioresal Tab*) 10 mg PO TID [facility] Clopidogrel Bisulfate (Plavix Tab*) 75 mg PO DAILY [facility] Dextrose (Dextrose 50% Vial 50 Ml*) 25 ml IV PUSH .FOR FS < 60 - SS PRN Donepezil HCl (Aricept Tab*) 5 mg PO BEDTIME [facility] Heparin Sodium (Porcine) (Heparin Vial(*)) 5,000 units SUBCUT Q8HR [facility] Cefazolin Sodium/Dextrose (Kefzol 2 Gm Premix In Ors(*)) 2 gm in 50 mls @ 100 mls/hr IVPB Q8H [facility] Lactated Ringer's (Lactated Ringers 1000 Ml Bag*) 1,000 mls @ 125 mls/hr IV PER RATE [facility] Cefazolin Sodium 2 gm/ Sodium (Chloride) 100 mls @ 200 mls/hr IVPB Q8H [facility] Insulin Glargine (Lantus(*)) 15 units SUBCUT Q24H [facility] Insulin Human Lispro (Humalog*) 0 units SUBCUT ACHS [facility]; Protocol Metoprolol Succinate (Toprol Xl Tab*) 50 mg PO DAILY [facility] Ondansetron HCl (Zofran Inj*) 4 mg IV Q4H PRN Sertraline HCl (Zoloft*) 25 mg PO DAILY [facility] Vital Signs: Temp Pulse Resp BP Pulse Ox 98.0 F 93 22 109/58 93 12/01/18 11:15 12/01/18 11:15 12/01/18 11:15 12/01/18 11:15 12/01/18 11:15 Oxygen Devices in Use Now: Nasal Cannula Appearance: Male lying in bed in NAD Eyes: No Scleral Icterus Ears/Nose/Mouth/Throat: Mucous Membranes Moist Neck: Trachea Midline Respiratory: Symmetrical Chest Expansion and Respiratory Effort, Clear to Auscultation Cardiovascular: NL Sounds; No Murmurs; No JVD, No Edema Abdominal: NL Sounds; No Tenderness; No Distention Extremities: No Edema Skin: No Rash or Ulcers Neurological: - - Alert, speech mostly garbled, interacts appropriately Nutrition: Taking PO's Result Diagrams: 11/30/18 12:26 11/30/18 12:26 Additional Lab and Data: . Microbiology and Other Data: . Assess/Plan/Problems-Billing Assessment: Mr. Cedillo is an 83 year old male with history of Parkinsons, dementia, PVD and non- healing wounds that presents to the ED with his with complaints of left heel ulcer. - Patient Problems (1) Non healing left heel wound Comment: - With exposure of left achilles tendon - Initial wound culture with staph - ID and ortho following - Atbx changed to cefazolin as per ID - MRI without osteo, plan for debridement and wound vac on monday with orthopedics - continue wet to dry dressings (2) Type 2 diabetes mellitus Comment: - Complicated by hyperglycemia and foot ulcer - Continue lispro SSI coverage, lantus increased to 20 units daily for elevated sugars - A1c 8.4, continue close monitoring while actively infected (3) Peripheral vascular disease Comment: - Hx of unsuccessful angioplasty on in 2015 - Continue statin, clopidogrel, ASA - Continues with non healing wounds (4) CAD (coronary artery disease) Comment: - Asymptomatic - Acute NSTEMI in February - Continue metoprolol (5) Hypertension Comment: - BP stable, continue metoprolol with hold parameters (6) Parkinson disease Comment: - On baclofen, no sinemet - Supportive care (7) Dementia Comment: - Continue donepezil, sertraline (8) DVT prophylaxis Comment: - Heparin SQ (9) Full code status Comment: Status and Disposition: Inpatient, dispo TBD.
[2018-12-01] MEDS: ceFAZolin* 2 GM in NS 100 MLS Q8H (Pharmacy Admix) IVPB SCH (19:43)
[2018-12-01] MEDS: Donepezil TAB* 5 MG PO SCH (19:49)
[2018-12-01] MEDS: Atorvastatin* 10 MG TAB PO SCH (19:49)
[2018-12-02] MEDS: ceFAZolin* 2 GM in NS 100 MLS Q8H (Pharmacy Admix) IVPB SCH ×3 (03:42→20:25)
[2018-12-02] MEDS: Acetaminophen TAB* 325 MG PO PRN (03:43)
[2018-12-02] MEDS: Heparin VIAL(*) 5000 UNITS/ML VIAL (FIVE THOUSAND) SUBCUT SCH (05:38)
[2018-12-02] MEDS: Sertraline* 25 MG TAB PO SCH (09:34)
[2018-12-02] MEDS: Aspirin EC TAB* 81 MG TAB.EC PO SCH (09:34)
[2018-12-02] MEDS: Clopidogrel TAB* 75 MG PO SCH (09:34)
[2018-12-02] MEDS: Metoprolol Succinate XL TAB* 50 MG PO SCH (09:35)
[2018-12-02] MEDS: Insulin GLARGINE(*) 1 UNITS UNIT SUBCUT SCH ×2 (09:35→21:47)
[2018-12-02] MEDS: Insulin LISPRO* 1 UNITS UNIT SUBCUT SCH ×4 (09:35→21:47)
[2018-12-02] MEDS: Baclofen TAB* 10 MG PO SCH ×3 (09:35→21:47)
--- NOTE | 2018-12-02 09:58 | PN ---
Subjective Date of Service: 12/02/18 Interval History: Mr. Cedillo complains about his food but otherwise says that he is doing ok. Nursing staff called early in the morning to report an irregular heart rate. EKG found afib. Heparin gtt started. He is requiring 2L NC to maintiain an SpO2 > 90%. He has denied shortness of breath and cough. He was initially chest pain free but then later in the day, Mr. Cedillo complained of a brief bout of chest pain, now resolved. Trop checked and was elevated at 1.3. Patient already on heparin gtt, aspirin, statin, and beta riccardo. Ortho (Dr Polk) updated, surgery on hold. Objective Active Medications: Acetaminophen (Tylenol Tab*) 650 mg PO Q4H PRN Albuterol (Ventolin 2.5 Mg/3 Ml Neb.Vale*) 2.5 mg INH [id number] AWAKE PRN Aspirin (Aspirin Ec Tab*) 81 mg PO DAILY [facility] Atorvastatin Calcium (Lipitor*) 10 mg PO BEDTIME [facility] Baclofen (Lioresal Tab*) 10 mg PO TID [facility] Clopidogrel Bisulfate (Plavix Tab*) 75 mg PO DAILY [facility] Dextrose (Dextrose 50% Vial 50 Ml*) 25 ml IV PUSH .FOR FS < 60 - SS PRN Donepezil HCl (Aricept Tab*) 5 mg PO BEDTIME [facility] Heparin Sodium (Porcine) (Heparin Vial(*)) 5,000 units SUBCUT Q8HR [facility] Lactated Ringer's (Lactated Ringers 1000 Ml Bag*) 1,000 mls @ 125 mls/hr IV PER RATE [facility] Cefazolin Sodium 2 gm/ Sodium (Chloride) 100 mls @ 200 mls/hr IVPB Q8H [facility] Insulin Glargine (Lantus(*)) 20 units SUBCUT QAM [facility] Insulin Glargine (Lantus(*)) 10 units SUBCUT 2100 [facility] Insulin Human Lispro (Humalog*) 0 units SUBCUT ACHS [facility]; Protocol Metoprolol Succinate (Toprol Xl Tab*) 50 mg PO DAILY [facility] Ondansetron HCl (Zofran Inj*) 4 mg IV Q4H PRN Sertraline HCl (Zoloft*) 25 mg PO DAILY [facility] Vital Signs: Temp Pulse Resp BP Pulse Ox 97.3 F 81 20 114/68 91 12/02/18 07:15 12/02/18 07:15 12/02/18 08:00 12/02/18 07:15 12/02/18 07:15 Oxygen Devices in Use Now: Nasal Cannula Appearance: Male sitting up in bed in NAD Eyes: No Scleral Icterus Respiratory: Symmetrical Chest Expansion and Respiratory Effort, - - Crackles in bases Cardiovascular: NL Sounds; No Murmurs; No JVD, - - Irrregular Abdominal: NL Sounds; No Tenderness; No Distention Skin: - - Large dry ulcer to achilles tendon area, no erythema. Neurological: Alert and Oriented x 3, - - Dysphasia Nutrition: Taking PO's Result Diagrams: 12/02/18 13:08 12/02/18 13:08 Additional Lab and Data: . Microbiology and Other Data: . Assess/Plan/Problems-Billing Assessment: Mr. Cedillo is an 83 year old male with history of Parkinsons, dementia, PVD and non- healing wounds that presents to the ED with his with complaints of left heel ulcer, now with new onset afib, NSTEMI, and acute on chronic CHF. - Patient Problems (1) NSTEMI (non-ST elevated myocardial infarction) Comment: - Chest pain free - Trop 1.3, serial trops ordered - Initial EKG without evidence of acute ischemia, awaiting repeat. - Already on hep gtt, asa, statin, and beta riccardo - Had CABG 2006 and 2011. Had stress test in February 2018 showing large fixed defects only, transferred to [facility] for consideration of high risk catheterization, but plan ultimately for medical therapy only. Follows with Dr Sharp outpatient, consult from July 2018 in [facility]. (2) Acute on chronic systolic CHF (congestive heart failure) Comment: - Mild hypoxia, on 2L NC - Chest xray with mild interstitial edema - Plan to monitor for now given active infection, hyperglycemia, and elevated BUN (3) Afib Comment: - Rate controlled - No documented history of afib found - Started hep gtt (4) Non healing left heel wound Comment: - Recommending to hold surgery due to new onset afib, NSTEMI, and need for wash out of plavix (last dose 12/02), Dr Polk aware - With exposure of left achilles tendon, WBC down but CRP slightly increased - Initial wound culture with staph - Appreciate ID consult, continue cefazolin - Appreciate ortho consult - MRI without osteo - Continue wet to dry dressings (5) Type 2 diabetes mellitus Comment: - Complicated by hyperglycemia and foot ulcer - Increased lispro SSI coverage, lantus increased to 20 units AM, 10 units in PM for elevated sugars - A1c 8.4 (6) Peripheral vascular disease Comment: - Hx of unsuccessful angioplasty on in 2016 - Continue statin, ASA. Plavix stopped. On Hep gtt for afib - Continues with non healing wounds (7) Hypertension Comment: - BP stable, continue metoprolol with hold parameters (8) Parkinson disease Comment: - On baclofen, no sinemet - Supportive care (9) Dementia Comment: - Continue donepezil, sertraline (10) DVT prophylaxis Comment: - Heparin SQ (11) Full code status Comment: Status and Disposition: Inpatient, dispo TBD. Left a message with to discuss multiple updates. Have not heard back from her yet.
--- NOTE | 2018-12-02 10:10 | PN ---
Progress Note - Progress Note Date of Service: 12/02/18 SOAP: Subjective: [Pt reports minimal pain L heel while not moving/touched. Denies CP, SOB, CP. Per nursing - family would like surgeon other than Dr. Garcia to perform surgery. No family available this morning for me to discuss.] Objective: [A and O x 3, NAD LLE - L foot/heel dressing c/d/i - wet to dry dressing changes . wet to dry dressing changes being performed by nursing daily. Vital Signs: Temp Pulse Resp BP Pulse Ox 97.3 F 81 20 114/68 91 12/02/18 07:15 12/02/18 07:15 12/02/18 08:00 12/02/18 07:15 12/02/18 07:15 Laboratory Results - last 24 hr 12/01/18 12/01/18 12/01/18 11:30 17:16 19:31 POC Glucose (mg/dL) 281 H 349 H 371 H ] Assessment: [L heel ulcer, exposure of Achilles tendon] Plan: [To OR on Monday for I and D, placement of wound vac Con't IV cefazolin per ID Con't daily wet to dry dressing changes Monitor O2 sat - possible repeat CXR Medicine following]
[2018-12-02 13:25] LABS: ABS Eosinophils 0.4 10^3/ul (0-0.6); ABS Monocytes 0.7 10^3/ul (0-0.8); ABS Neutrophils 11.4 10^3/ul (1.5-7.7); Eosinophil % 2.6 %; Hematocrit 31 % (42-52); Hemoglobin 10.1 g/dL (14.0-18.0); Lymphocyte % 7.2 %; Mean Corpuscular HGB Conc 33 g/dL (31-36); Mean Corpuscular Hemoglobin 29 pg (27-31); Mean Corpuscular Volume 87 fL (80-94); Mean Platelet Volume 7.1 fL (7.4-10.4); Platelet Count 258 10^3/uL (150-450); Red Blood Count 3.49 10^6 /uL (4.18-5.48); Red Cell Distribution Width 15 % (10-15); White Blood Count 13.5 10^3/uL (3.5-10.8)
[2018-12-02 13:41] LABS: BUN/Creatinine Ratio 34.7 (8-20); C Reactive Protein 156.23 mg/L (<8.01); Calcium 8.8 mg/dL (8.6-10.3); EGFR African American 85.8 (>60); EGFR Non-African American 70.9 (>60); Potassium 4.7 mmol/L (3.5-5.0)
[2018-12-02] MEDS ORDERED: NS 0.9% 500 ML* 500 ML IV SCH (14:00)
[2018-12-02 14:54] LABS: Troponin I 1.35 ng/mL (<0.04)
[2018-12-02] MEDS: Heparin VIAL(*) 5000 UNITS/ML VIAL (FIVE THOUSAND) IV PRN (15:32)
[2018-12-02] MEDS: Heparin DRIP 25,000 UNITS(*) 25,000 UNITS/500 ML BAG IV SCH (15:32)
[2018-12-02 18:08] LABS: Troponin I 1.65 ng/mL (<0.04)
[2018-12-02] MEDS ORDERED: Metoprolol Tartrate TAB* 25 MG PO ONE (18:13)
[2018-12-02 20:54] LABS: Troponin I 1.45 ng/mL (<0.04)
[2018-12-02] MEDS: Atorvastatin* 10 MG TAB PO SCH (21:47)
[2018-12-02] MEDS: Donepezil TAB* 5 MG PO SCH (21:47)
--- NOTE | 2018-12-03 00:28 | PN ---
Hospitalist Progress Note Date of Service: 12/03/18 HOSPITALIST ADDENDUM Called by RN because patient had 5 beats of Vtach while lying in bed, asymptomatic. Admitted with NSTEMI, with known CAD, already on medical management. Potassium and magnesium are normal. Will give Metoprolol 25mg x 1 now, and will s/o to day team to consider increasing Metoprolol dose.
[2018-12-03 01:06] LABS: BUN/Creatinine Ratio 33.3 (8-20); Calcium 8.4 mg/dL (8.6-10.3); EGFR African American 84.8 (>60); EGFR Non-African American 70.1 (>60); Magnesium 2.3 mg/dL (1.9-2.7); Potassium 4.5 mmol/L (3.5-5.0)
[2018-12-03] MEDS ORDERED: Metoprolol Tartrate TAB* 25 MG PO ONE (01:40)
[2018-12-03] MEDS: ceFAZolin* 2 GM in NS 100 MLS Q8H (Pharmacy Admix) IVPB SCH (03:59)
[2018-12-03 05:05] LABS: ABS Basophils 0.1 10^3/ul (0-0.2); ABS Eosinophils 0.5 10^3/ul (0-0.6); ABS Lymphocytes 1.2 10^3/ul (1.0-4.8); ABS Monocytes 0.8 10^3/ul (0-0.8); ABS Neutrophils 10.7 10^3/ul (1.5-7.7); Eosinophil % 3.6 %; Hematocrit 28 % (42-52); Hemoglobin 9.3 g/dL (14.0-18.0); Lymphocyte % 9.1 %; Mean Corpuscular HGB Conc 33 g/dL (31-36); Mean Corpuscular Hemoglobin 29 pg (27-31); Mean Corpuscular Volume 88 fL (80-94); Mean Platelet Volume 7.2 fL (7.4-10.4); Platelet Count 241 10^3/uL (150-450); Red Blood Count 3.21 10^6 /uL (4.18-5.48); Red Cell Distribution Width 15 % (10-15); White Blood Count 13.2 10^3/uL (3.5-10.8)
[2018-12-03 05:21] LABS: BUN/Creatinine Ratio 32.7 (8-20); Calcium 8.5 mg/dL (8.6-10.3); EGFR African American 88.8 (>60); EGFR Non-African American 73.4 (>60); Potassium 4.5 mmol/L (3.5-5.0)
[2018-12-03] MEDS ORDERED: Lactated Ringers 1000 ML Bag* 1,000 ML IV SCH (06:00)
[2018-12-03] MEDS: Insulin LISPRO* 1 UNITS UNIT SUBCUT SCH ×4 (09:13→22:11)
[2018-12-03] MEDS: Baclofen TAB* 10 MG PO SCH ×3 (09:13→22:11)
[2018-12-03] MEDS: Sertraline* 25 MG TAB PO SCH (09:13)
[2018-12-03] MEDS: Insulin GLARGINE(*) 1 UNITS UNIT SUBCUT SCH ×2 (09:13→22:11)
[2018-12-03] MEDS: Aspirin EC TAB* 81 MG TAB.EC PO SCH (09:13)
[2018-12-03] MEDS: Metoprolol Tartrate TAB* 50 mg PO SCH ×2 (09:16→20:40)
[2018-12-03] MEDS ORDERED: Perflutren Lipid Microsphere* 3 ML VIAL ONE (09:46)
--- NOTE | 2018-12-03 10:08 | PN ---
Progress Note - Progress Note Date of Service: 12/03/18 SOAP: Subjective: CC: left foot ulcer HPI: 83 year old man with left heel ulcer and cellulitis; redness is improving. He has no pain. He otherwise feels ok, no fever, rash, or diarrhea. Appetite is fair. Objective: Vital Signs Temp 36.4 C 12/03/18 07:15 Pulse 73 12/03/18 07:15 Resp 20 12/03/18 07:15 BP 96/51 12/03/18 07:15 Pulse Ox 92 12/03/18 07:15 Intake & Output 12/02/18 12/03/18 12/03/18 18:59 06:59 18:59 Intake Total 605 900 480 Output Total 0 Balance 605 900 480 Intake: IV Fluids 30 420 NS (0.9%) 30 cefazolin 420 IVPB 100 cefazolin 100 Heparin 75 Oral 400 480 480 Output: Urine 0 Other: Estimated Void Large # Bowel Movements 1 Estimated Stool Amount Medium # Voids 1 Gen:awake, no distress HEENT: no thrush Heart:RRR no murmur Lungs:CTA BL Abd:+BS NTND soft Skin: no rash MSK: L heel ulcer, slight surrounding erythema and edema, no tenderness; TMA site healed Neuor: sensation absent to light touch in left foot Laboratory Results - last 24 hr 12/02/18 12/02/18 12/02/18 07:49 12:00 13:08 WBC 13.5 H RBC 3.49 L Hgb 10.1 L Hct 31 L MCV 87 MCH 29 MCHC 33 RDW 15 Plt Count 258 MPV 7.1 L Neut % (Auto) 84.5 Lymph % (Auto) 7.2 [place] % (Auto) 5.4 Eos % (Auto) 2.6 Baso % (Auto) 0.3 Absolute Neuts (auto) 11.4 H Absolute Lymphs (auto) 1.0 Absolute Monos (auto) 0.7 Absolute Eos (auto) 0.4 Absolute Basos (auto) 0.0 Absolute Nucleated RBC 0.0 Nucleated RBC % 0.0 APTT Sodium Potassium Chloride Carbon Dioxide Anion Gap BUN Creatinine Est GFR ( Amer) Est GFR (Non-Af Amer) BUN/Creatinine Ratio Glucose POC Glucose (mg/dL) 212 H 222 H Calcium Magnesium Troponin I C-Reactive Protein 12/02/18 12/02/18 12/02/18 13:08 14:23 14:23 WBC RBC Hgb Hct MCV MCH MCHC RDW Plt Count MPV Neut % (Auto) Lymph % (Auto) [place] % (Auto) Eos % (Auto) Baso % (Auto) Absolute Neuts (auto) Absolute Lymphs (auto) Absolute Monos (auto) Absolute Eos (auto) Absolute Basos (auto) Absolute Nucleated RBC Nucleated RBC % APTT 35.0 Sodium 136 Potassium 4.7 Chloride 105 Carbon Dioxide 26 Anion Gap 5 BUN 35 H Creatinine 1.01 Est GFR ( Amer) 85.8 Est GFR (Non-Af Amer) 70.9 BUN/Creatinine Ratio 34.7 H Glucose 257 H POC Glucose (mg/dL) Calcium 8.8 Magnesium Troponin I 1.35 H* C-Reactive Protein 156.23 H 12/02/18 12/02/18 12/02/18 16:48 17:37 20:24 WBC RBC Hgb Hct MCV MCH MCHC RDW Plt Count MPV Neut % (Auto) Lymph % (Auto) [place] % (Auto) Eos % (Auto) Baso % (Auto) Absolute Neuts (auto) Absolute Lymphs (auto) Absolute Monos (auto) Absolute Eos (auto) Absolute Basos (auto) Absolute Nucleated RBC Nucleated RBC % APTT Sodium Potassium Chloride Carbon Dioxide Anion Gap BUN Creatinine Est GFR ( Amer) Est GFR (Non-Af Amer) BUN/Creatinine Ratio Glucose POC Glucose (mg/dL) 218 H Calcium Magnesium Troponin I 1.65 H* 1.45 H* C-Reactive Protein 12/02/18 12/02/18 12/03/18 20:24 20:24 00:41 WBC RBC Hgb Hct MCV MCH MCHC RDW Plt Count MPV Neut % (Auto) Lymph % (Auto) [place] % (Auto) Eos % (Auto) Baso % (Auto) Absolute Neuts (auto) Absolute Lymphs (auto) Absolute Monos (auto) Absolute Eos (auto) Absolute Basos (auto) Absolute Nucleated RBC Nucleated RBC % APTT 80.7 H Sodium 139 Potassium 4.5 Chloride 107 Carbon Dioxide 26 Anion Gap 6 BUN 34 H Creatinine 1.02 Est GFR ( Amer) 84.8 Est GFR (Non-Af Amer) 70.1 BUN/Creatinine Ratio 33.3 H Glucose 112 H POC Glucose (mg/dL) 235 H Calcium 8.4 L Magnesium 2.3 Troponin I C-Reactive Protein 12/03/18 12/03/18 12/03/18 04:59 04:59 04:59 WBC 13.2 H RBC 3.21 L Hgb 9.3 L Hct 28 L MCV 88 MCH 29 MCHC 33 RDW 15 Plt Count 241 MPV 7.2 L Neut % (Auto) 80.7 Lymph % (Auto) 9.1 [place] % (Auto) 6.2 Eos % (Auto) 3.6 Baso % (Auto) 0.4 Absolute Neuts (auto) 10.7 H Absolute Lymphs (auto) 1.2 Absolute Monos (auto) 0.8 Absolute Eos (auto) 0.5 Absolute Basos (auto) 0.1 Absolute Nucleated RBC 0.0 Nucleated RBC % 0.0 APTT 57.1 H Sodium 139 Potassium 4.5 Chloride 108 Carbon Dioxide 26 Anion Gap 5 BUN 32 H Creatinine 0.98 Est GFR ( Amer) 88.8 Est GFR (Non-Af Amer) 73.4 BUN/Creatinine Ratio 32.7 H Glucose 116 H POC Glucose (mg/dL) Calcium 8.5 L Magnesium Troponin I C-Reactive Protein 12/03/18 07:20 WBC RBC Hgb Hct MCV MCH MCHC RDW Plt Count MPV Neut % (Auto) Lymph % (Auto) [place] % (Auto) Eos % (Auto) Baso % (Auto) Absolute Neuts (auto) Absolute Lymphs (auto) Absolute Monos (auto) Absolute Eos (auto) Absolute Basos (auto) Absolute Nucleated RBC Nucleated RBC % APTT Sodium Potassium Chloride Carbon Dioxide Anion Gap BUN Creatinine Est GFR ( Amer) Est GFR (Non-Af Amer) BUN/Creatinine Ratio Glucose POC Glucose (mg/dL) 143 H Calcium Magnesium Troponin I C-Reactive Protein Assessment: 1. Left foot wound with cellulitis; improving 2.PAD 3. Diabetes with neuropathy Plan: 1. will change ancef to keflex to complete 14 day course
--- NOTE | 2018-12-03 11:52 | ECHO ---
*[facility]* [place] [address] Fax #: [phone] Transthoracic Echocardiogram Patient: Jaime Cedillo : 1935 Study Date: 12/03/2018 Age: 83 Gender: M HR: 90 bpm Height: 69 in /175.3 cm BSA: 2.1 m^2 Weight: 206.6 lb /93.9 kg BMI: 30.6 kg/m^2 *Glost Tile Sorter: * Stacy Del Toro RDCS *Referring Physician: * Edith TheodoreReading Physician: * Russ Avendaño MD Indications: Myocardial Infarction (new). History: Coronary artery disease. Risk factors: Hypertension. Conclusions Summary: - Left ventricle: Systolic function is moderately reduced. The estimated ejection fraction is 30-35%. Moderate diffuse hypokinesis. - Mitral valve: The findings are consistent with mild stenosis. There is mild to moderate regurgitation. - Aortic valve: There is a bioprosthetic valve. The findings are consistent with mild stenosis. For this type to AVR. There is no significant regurgitation. - Tricuspid valve: There is mild regurgitation. - Compared to study of 02/07/18,there is little change. Study data: Transthoracic echocardiogram. Procedure: Transthoracic echocardiography was performed. Image quality was suboptimal. The study was technically limited due to restricted patient mobility and body habitus. Intravenous Definity , 4 mlswas administered. Image enhancement administered by Complete 2D, spectral Doppler, and color flow Doppler. Patient status: Inpatient. Patient room number: 433. Rhythm: Atrial fibrillation. Findings Left ventricle: The cavity size is mildly dilated. Wall thickness is mildly increased. Systolic function is moderately reduced. The estimated ejection fraction is 30-35%. Moderate diffuse hypokinesis. Left ventricular diastolic function parameters are normal for the patient's age. Right ventricle: Poorly visualized. Systolic function is mildly reduced. Ventricular septum: Well visualized. The ventricular septum is normal. Left atrium: Poorly visualized. The atrium is moderately dilated. Right atrium: Not well visualized. Atrial septum: Well visualized. Mitral valve: Not well visualized. The leaflets are mildly thickened. No echocardiographic evidence for prolapse. The findings are consistent with mild stenosis. There is mild to moderate regurgitation. Aortic valve: There is a bioprosthetic valve. The findings are consistent with mild stenosis. For this type to AVR. There is no significant regurgitation. Tricuspid valve: Not well visualized. There is mild regurgitation. Pulmonic valve: Not well visualized. There is no evidence of stenosis. There is no significant regurgitation. Aorta: The aorta is well visualized and normal size. Pericardium: There is no pericardial effusion. No evidence of pleural fluid accumulation. Pulmonary arteries: Not well visualized. Systemic veins: Not well visualized. Pulmonary veins: Visualization of the pulmonary venous anatomy is incomplete, but a significant abnormality is unlikely. Measurements Left ventricle Value Ref Aortic valve continued Value Ref IQRA, LAX 5.4 cm 4.2 - Silvestre diam/bsa, ED 1.1 cm/m^2 ----- 5.8 Peak v, S 2.87 m/sec ----- ESD, LAX (H) 5.0 cm 2.5 - VTI, S 59.0 cm ----- 4.0 Mean grad, S 19.0 mm Hg ----- FS, LAX (L) 7 % 25 - 43 Peak grad, S 33.0 mm Hg ----- PW, ED, LAX (H) 1.2 cm 0.6 - LVOT/AV, VTI ratio 0.2 ----- 1.0 ROSEANNA, VTI 0.50 cm^2 ----- FS (L) 7 % 25 - 43 ROSEANNA, Vmax 0.60 cm^2 ----- PW, ED (H) 1.2 cm 0.6 - 1.0 Mitral valve Value Ref PW/ID, ED 0.22 ------- Peak E 1.8 m/sec ----- E', lat silvestre, TDI (L) 7.7 cm/sec >=10.0 Decel time 275 ms ----- E/e', lat silvestre, 23 ------- PHT 65 ms --- -- TDI Mean grad, D 4.0 mm Hg ----- E', med silvestre, TDI (L) 4.3 cm/sec >=7.0 Peak grad, D 13.0 mm Hg ----- E/e', med silvestre, 42 ------- MVA, PHT 3.0 cm^2 --- -- TDI E', avg, TDI 6.0 cm/sec ------- Pulmonic valve Value Ref E/e', avg, TDI (H) 30 <=14 Peak v, S 0.77 m/sec ----- Peak grad, S 2.0 mm Hg ----- LVOT Value Ref Diam, S 1.80 cm ------- Tricuspid valve Value Ref Area 2.5 cm^2 ------- TR peak v (H) 2.83 m/sec <=2.8 Peak adelina, S 0.68 m/sec ------- Peak RV-RA grad, S 32 mm Hg ----- VTI, S 11.6 cm ------- Max TR adelina 2.84 m/sec ----- Mean grad, S 1 mm Hg ------- SV 29 ml ------- Aortic root Value Ref Root diam 3.1 cm <4.2 Ventricular septum Value Ref Root max diam, ED 3.1 cm <4.2 IVS, ED (H) 1.1 cm 0.6 - 1.0 Ascending aorta Value Ref AAo AP diam, S 3.3 cm ----- Right ventricle Value Ref AAo AP diam/bsa, S 1.6 cm/m^2 ----- IQRA, LAX 4.1 cm ------- Aortic arch Value Ref Left atrium Value Ref Arch diam 3.0 cm ----- ML dim, A4C 4.9 cm ------- SI dim, A4C 7.5 cm ------- Decending aorta Value Ref Martha peak adelina 0.4 m/sec ----- Right atrium Value Ref SI dim, ES (H) 7.5 cm 3.4 - 5.3 ML dim, ES, A4C (H) 4.9 cm 2.6 - 4.4 SI dim, ES, A4C (H) 7.5 cm 3.4 - 5.3 Aortic valve Value Ref Silvestre diam, ED 2.2 cm ------- Legend: (L) and (H) alli values outside specified reference range. Prepared and electronically signed by Russ Avendaño MD 12/03/2018 11:52
[2018-12-03] MEDS: Heparin DRIP 25,000 UNITS(*) 25,000 UNITS/500 ML BAG IV SCH (12:23)
--- NOTE | 2018-12-03 12:29 | PN ---
Subjective Date of Service: 12/03/18 Interval History: Episode of Vtach overnight as documented by Dr. Mckoy, asymptomatic. Tells me he feels tired today but overall has no complaints. is at bedside. Denies chest pain, neck/jaw/arm pain, difficulty breathing, fever/ chills, abd pain, nausea. Objective Active Medications: Acetaminophen (Tylenol Tab*) 650 mg PO Q4H PRN PRN Reason: MILD PAIN or TEMP > 100.4 Last Admin: 12/02/18 03:43 Dose: 650 mg Albuterol (Ventolin 2.5 Mg/3 Ml Neb.Vale*) 2.5 mg INH RT.[id number] AWAKE PRN PRN Reason: sob/wheezing Aspirin (Aspirin Ec Tab*) 81 mg PO DAILY [facility] Last Admin: 12/03/18 09:13 Dose: 81 mg Atorvastatin Calcium (Lipitor*) 10 mg PO BEDTIME [facility] Last Admin: 12/02/18 21:47 Dose: 10 mg Baclofen (Lioresal Tab*) 10 mg PO TID [facility] Last Admin: 12/03/18 09:13 Dose: 10 mg Cephalexin HCl (Keflex Cap*) 500 mg PO TID [facility] Dextrose (Dextrose 50% Vial 50 Ml*) 25 ml IV PUSH .FOR FS < 60 - SS PRN PRN Reason: FS < 60 Donepezil HCl (Aricept Tab*) 5 mg PO BEDTIME [facility] Last Admin: 12/02/18 21:47 Dose: 5 mg Heparin Sodium (Porcine) (Heparin Vial(*)) 0 units IV .BOLUS PRN PRN Reason: PER HEPARIN DRIP PROTOCOL Last Admin: 12/02/18 15:32 Dose: 6,600 units Heparin Sodium/Dextrose (Heparin Drip 25,000 Units(*)) 25,000 units in 500 mls @ 0 mls/hr IV PER RATE [facility]; Protocol Last Admin: 12/03/18 12:23 Dose: 24 mls/hr Insulin Glargine (Lantus(*)) 20 units SUBCUT QAM [facility] Last Admin: 12/03/18 09:13 Dose: 20 unit Insulin Glargine (Lantus(*)) 10 units SUBCUT 2100 [facility] Last Admin: 12/02/18 21:47 Dose: 10 unit Insulin Human Lispro (Humalog*) 0 units SUBCUT ACHS [facility]; Protocol Last Admin: 12/03/18 12:23 Dose: 9 units Metoprolol Tartrate (Lopressor Tab*) 50 mg PO BID [facility] Last Admin: 12/03/18 09:16 Dose: Not Given Ondansetron HCl (Zofran Inj*) 4 mg IV Q4H PRN PRN Reason: NAUSEA/VOMITING Sertraline HCl (Zoloft*) 25 mg PO DAILY [facility] Last Admin: 12/03/18 09:13 Dose: 25 mg Vital Signs - 8 hr 12/03/18 12/03/18 12/03/18 07:15 08:00 11:15 Temperature 97.5 F 98.3 F Pulse Rate 73 86 Respiratory 20 20 20 Rate Blood Pressure 96/51 112/64 (mmHg) O2 Sat by Pulse 92 99 Oximetry Oxygen Devices in Use Now: None Appearance: Elderly white male laying in bed, appearing in NAD Eyes: No Scleral Icterus, - - PERRL Ears/Nose/Mouth/Throat: Mucous Membranes Moist Neck: NL Appearance and Movements; NL JVP Respiratory: Symmetrical Chest Expansion and Respiratory Effort, Clear to Auscultation Cardiovascular: NL Sounds; No Murmurs; No JVD, - - irregularly irregular rhythm Abdominal: - - abd soft, nontender, nondistended Extremities: No Edema, No Clubbing, Cyanosis, - - 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 Microbiology and Other Data: . Assess/Plan/Problems-Billing Assessment: Mr. Cedillo is an 83 year old male with history of Parkinsons, dementia, PVD and non- healing wounds that presents to the ED with his with complaints of left heel ulcer, now with new onset afib, NSTEMI, and acute on chronic CHF. - Patient Problems (1) Non healing left heel wound Current Visit: Yes Status: Acute Code(s): S91.302A - UNSPECIFIED OPEN WOUND , LEFT FOOT, INITIAL ENCOUNTER SNOMED Code(s): 850026457 Comment: - Recommending to hold surgery due to new onset afib, NSTEMI, and need for wash out of plavix (last dose 12/02), Dr. Polk aware - With exposure of left achilles tendon, WBC down but CRP slightly increased - Initial wound culture with staph - Appreciate ID consult. Changed to po Keflex today - Appreciate ortho consult. Will discuss tomorrow about when is appropriate time to proceed with surgery considering heparin drip - MRI without osteo - Continue wet to dry dressings (2) NSTEMI (non-ST elevated myocardial infarction) Current Visit: Yes Status: Acute Code(s): I21.4 - NON-ST ELEVATION (NSTEMI) MYOCARDIAL INFARCTION SNOMED Code(s): 90004032 Comment: - Remains without anginal sxs today - Trop peaked 1.65, downtrended to 1.45, EKGs without ischemic changes - Continue hep gtt, asa, statin, and beta riccardo - TTE today without significant changes from echo in 2019 - Had CABG 2006 and 2011. Had stress test in February 2018 showing large fixed defects only, transferred to [facility] for consideration of high risk catheterization, but plan ultimately for medical therapy only. Follows with Dr. Sharp outpatient, consult from July 2018 in [facility]. - Appreciate cardiology consult (3) Afib Current Visit: Yes Status: Acute Code(s): I48.91 - UNSPECIFIED ATRIAL FIBRILLATION SNOMED Code(s): 55481152 Comment: - Prior history of mobitz II AV block - Overall rate controlled, though there was one episode of asymptomatic 5 beats Vtach overnight. Continue metoprolo at same dose per cardiology. - New diagnosis during this hospitalization. No previously documented history of afib found - Started hep gtt - [id number] score of 8. Will benefit from long-term AC on discharge (4) Acute on chronic systolic CHF (congestive heart failure) Current Visit: Yes Status: Acute Code(s): I50.23 - ACUTE ON CHRONIC SYSTOLIC (CONGESTIVE) HEART FAILURE SNOMED Code(s): 347750769 Comment: - Appears overall euvolemic today. Hypoxia resolved, no longer requiring oxygen - Chest xray with mild interstitial edema - Plan to monitor for now given active infection, hyperglycemia, and elevated BUN - EF 30-35% - Not on diuretics, continue metoprolol (5) Hypertension Current Visit: No Status: Chronic Code(s): I10 - ESSENTIAL (PRIMARY) HYPERTENSION SNOMED Code(s): 14845306 Comment: - BP stable, continue metoprolol with hold parameters (6) Type 2 diabetes mellitus Current Visit: No Status: Chronic Comment: - Complicated by hyperglycemia and foot ulcer - Increased lispro SSI coverage, lantus increased to 20 units AM, 10 units in PM for elevated sugars - A1c 8.4 (7) Peripheral vascular disease Current Visit: No Status: Chronic Code(s): I73.9 - PERIPHERAL VASCULAR DISEASE, UNSPECIFIED SNOMED Code(s): 881720280 Comment: - Hx of unsuccessful angioplasty on in 2015 - Continue statin, ASA. Plavix stopped. On Hep gtt for NSTEMI - Continues with non healing wounds (8) Parkinson disease Current Visit: No Status: Chronic Priority: Medium Onset Date: 01/29/15 Code(s): G20 - PARKINSON'S DISEASE SNOMED Code(s): 40299574 Comment: - On baclofen, no sinemet - Supportive care (9) Dementia Current Visit: No Status: Chronic Code(s): F03.90 - UNSPECIFIED DEMENTIA WITHOUT BEHAVIORAL DISTURBANCE SNOMED Code(s): 44315197 Comment: - Continue donepezil, sertraline (10) Full code status Current Visit: No Status: Acute Code(s): Z78.9 - OTHER SPECIFIED HEALTH STATUS SNOMED Code(s): 387914024 Comment: (11) DVT prophylaxis Current Visit: No Status: Acute Priority: Medium Code(s): PNB3951 - SNOMED Code(s): 367909050 Comment: - Heparin gtt Status and Disposition: Inpatient, dispo TBD. Hopeful for debridement possibly Monday
[2018-12-03] MEDS: Cephalexin CAP* 500 MG PO SCH ×2 (14:06→22:11)
--- NOTE | 2018-12-03 16:28 | CONS ---
CONSULTATION REPORT: DATE OF CONSULT: 12/03/18 ATTENDING PHYSICIAN: Dr. Russ Avendaño, Cardiology.* (DICTATED BY RUBI JIMENEZ NP) REASON FOR CONSULTATION: NSTEMI, newly diagnosed AFib. PRIMARY CERTIFIED NUCLEAR MEDICINE TECHNOLOGIST: Dr. Cihn Campbell. CHIEF COMPLIANT: According to emergency room medical record, non-healing left Achilles heel ulceration. HISTORY OF PRESENT ILLNESS: This is an 82-year-old male patient with a notable history of coronary artery disease status post CABG x2 with bioprosthetic aortic valve replacement in 2006 in addition to peripheral atrial disease, type 2 diabetes mellitus, Parkinson's and dysphagia. The patient presented to [facility] on 11/28/18 due to nonhealing left Achilles tendon ulceration. Basic blood work was updated. Troponin was noted to be elevated at 1.35 and peaked at 1.65 on 12/02/18. It was also noted that he was in AFib. Cardiology was asked to see the patient in consultation. He denies chest pain, shortness of breath, dizziness or palpitations. I spoke to his , Aaliyah, who is at his bedside, who states that he has otherwise been well, but she has noticing increased erythema and swelling involving the left lower extremity. The patient was recently admitted in February for an NSTEMI. He underwent Lexiscan nuclear stress test. At that time , LVEF had reduced from 45% to 30%, 35%. There was a large fixed defect involving anterior inferior wall suggestive of previous infarct. There was marginal reversibility on the polar maps which per report may reflect misregistration artifact versus marginal ischemia. He was sent to [facility] for possible cardiac catheterization. According to his , he did not undergo cardiac catheterization. We did request records from his primary housekeeping director and according to Dr. Harmeet Campbell on 08/02/18 because of no reversible ischemia, the patient opted for medical therapy. He apparently also suffered from intermittent Mobitz II heart block during his hospitalization, but it resolved prior to discharge at [facility]. It was recommended that he continue aspirin and Plavix therapy given NSTEMI in February for at least 12 months, but probably indefinitely if able to tolerate. At this current time, he is asymptomatic and offers no complaints. Last echocardiogram 02/07/18 per report; LVEF 30% to 35%, marked severe left ventricular hypertrophy, severe left atrial dilatation, mean aortic valve gradient is 14, ynin-dz-egcnempl right atrial dilatation, mild mitral stenosis, global hypokinesis of the left ventricle with minor regional variation. Last ischemic evaluation according to our medical records was via Lexiscan nuclear stress test, 02/08/18; per report LVEF 33%, TID 1.06. There was diffuse hypokinesis. Large fixed defect of the anterior and inferior wall. There was marginal reversibility on the polar maps, which per report may reflect misregistration artifact versus marginal ischemia. PAST MEDICAL HISTORY: 1. Coronary artery disease. 2. Aortic valve disease. 3. Peripheral arterial disease. 4. Type 2 diabetes. 5. Parkinson's. 6. Dysphagia. 7. Carotid artery disease. 8. Ischemic cardiomyopathy. 9. Intermittent Mobitz type II heart block from July [address] Campbell. 10. Vascular dementia. PAST SURGICAL HISTORY: Includes: 1. CABG x2 in 2006 which included THOMPSON to LAD, saphenous vein graft to OM. 2. Size 25 Mosaic aortic valve replacement, 2006. 3. 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 5. Right directional atherectomy of peroneal artery. MEDICATIONS: Home medications according to admission med rec: 1. Sertraline 25 mg a day. 2. Toprol 25 mg a day. 3. Metformin 500 mg p.o. daily. 4. Aricept 5 mg p.o. q.h.s. 5. Lipitor 10 mg p.o. q.h.s. 6. Vitamin C as directed. 7. Plavix 75 mg p.o. daily. 8. Aspirin 81 mg a day. 9. Ramipril 2.5 mg a day. ALLERGIES: No known drug allergies listed. SOCIAL HISTORY: The patient is , resides at home with his , Aaliyah. He is predominantly wheelchair bound. The patient's denies frequent falls at home. He quit drinking alcohol approximately 18 months ago. He denies ever consuming tobacco products. REVIEW OF SYSTEMS: All systems have been reviewed and otherwise negative except as above mentioned in the HPI. PHYSICAL EXAMINATION: Temperature is 97.5, pulse 73, respirations 20, oxygenation is 92% on 2 L nasal cannula, blood pressure 96/51. General: The patient is sitting up right in bed, eating breakfast upon on entering room. He is in no apparent distress. He is alert to self, not place or time. He is cooperative and pleasant. HEENT: Head is atraumatic, normocephalic. Oral mucosa is moist. Tongue is midline. Neck: Supple. Trachea midline. Positive left carotid bruits. No thyromegaly appreciated. Unable to assess JVD due to body habitus. Cardiac: Normal S1 and S2. Irregular rate and rhythm. Positive diastolic aortic murmur auscultated, otherwise no gallop or rub noted. Lungs: Auscultated anteriorly. Clear throughout. Upon auscultation, no evidence of adventitious breath sounds. Respirations are unlabored. /GI: Abdomen is obese. Nontender. Normoactive bowel sounds x4. Extremities: The patient's left foot and ankle is wrapped in an KARSON wrap. There is erythema extending to his pretibial surface that is warm to the touch and red. He has 2+ posterior tibialis pulse palpated, 2+ right femoral pulse palpated. The patient has had kclvb-[id number] amputation involving the right lower extremity. Skin: The patient appears to have erythematous rash involving his left foot extending to his pretibial surface, otherwise, appears intact. DIAGNOSTIC STUDIES/LAB DATA: Blood work white count is 13.2, hemoglobin 9.3, hematocrit 28, platelets are 241. Sodium 139, potassium 4.5, chloride 108, carbon dioxide 26, BUN is 32, creatinine 0.98, glucose is 116. Troponin peaked at 1.65 on 12/02/18. Microbiology: Culture of left ankle was S. aureus positive, MRSA was not detected. There was no growth involving aerobic blood culture. ECG from 12/02/18 reviewed, AFib, rate [address] segment depression or elevation appreciated. There is no specific intraventricular conduction delay noted. Echocardiogram from 12/03/18 is currently pending. Telemetry reviewed, AFib, rate 70 to 80. The patient had a 60 count of nonsustained VT last night at midnight, apparently was asymptomatic. ASSESSMENT AND PLAN: 1. Troponinemia. Troponin peaked at 1.65 and is trending down. The patient denies chest pain. No ischemic ECG changes appreciated. Echocardiogram is pending at this time. He most recently suffered from an NSTEMI, February 2018. There was no reversible defect noted on myocardial perfusion imaging. He was transferred to [facility] where medical therapy was recommended according to the patient's . His primary housekeeping director, Dr. Harmeet Campbell, had recommended 12 months of dual antiplatelet therapy for NSTEMI from February 2018. He is currently on aspirin therapy. Plavix was discontinued in preparation for orthopedic surgical intervention involving left Achilles tendon infection. Again, he is chest pain free. The patient will be high risk for any surgical procedure given his history of NSTEMI, coronary disease, transient ischemic attacks, atrial fibrillation. Would recommend continuing aspirin perioperatively, checking postoperative ECG and troponin, monitor fluid status closely if needed. We will follow the patient and await echocardiogram result to assess for wall motion abnormality and LVEF. 2. History of ischemic cardiomyopathy. LVEF 30% to 35% in February 2018. He appears compensated on physical examination. Echocardiogram is currently pending at this time. He is on Lopressor therapy. Blood pressure is currently 96/51, thus would not recommend KARSON inhibitor at this time. Monitor fluid status closely. 3. Newly diagnosed paroxysmal atrial fibrillation; the patient is asymptomatic , rates are controlled on Lopressor therapy. His CHADs VASC is 8. Thus recommend anticoagulation. He is currently on IV heparin therapy. Please note that according to Dr. Campbell's progress note from July 2018, prior to leaving [facility], the patient had Mobitz II heart block that resolved prior to discharge. Thus, we would monitor the patient closely on AV angelica agents. 4. History of bioprosthetic aortic valve replacement. Mean gradient on echocardiogram in February 2018 was 14. He is on aspirin therapy. Today's echocardiogram is pending. We will reassess gradients after echo report is complete. 5. Disposition: Pending course. 6. The patient is full code. Dr. Avendaño has personally seen and examined the patient and agrees with the above assessment and plan. Thank you for this kind consultation. Any future questions or concerns, please do not hesitate to contact our practice. We will await echocardiogram and follow closely. RUBI JIMENEZ NP [id number] #: [id number] [facility]
--- NOTE | 2018-12-03 16:34 | PN ---
Progress Note - Progress Note Date of Service: 12/03/18 SOAP: Subjective: []Pt seen at bedside. His L foot is not painful, has no complaints today. Objective: []Gen: NAD, nontoxic appearing LLE: s/p previous midfoot amp. dressing c/d/i. ulcer of posterior ankle with exposed achilles tendon, no purulence. Anterior ankle with blistering. Able to f /e ankle without pain. Minimal erythema of ankle and lower leg. Betadine wet to dry dressing changed. Assessment: []L heel ulcer, exposure of Achilles tendon] Plan: [] Discussed patient with medicine, due to NSTEMI, optimal to wait 3 days before OR and holding heparin drip. High risk for OR regardless IV abx per ID Con't daily wet to dry dressing changes Discussed with Dr Frederick who will see the patient tomorrow for surgical planning, anticipate OR if medically optimized Vital Signs Temp 98.3 F 12/03/18 11:15 Pulse 86 12/03/18 11:15 Resp 20 12/03/18 11:15 BP 112/64 12/03/18 11:15 Pulse Ox 99 12/03/18 11:15 Intake & Output 12/02/18 12/03/18 12/03/18 18:59 06:59 18:59 Intake Total 228 513 1954 Output Total 0 0 Balance 485 476 7980 Intake: IV Fluids 30 420 0 NS (0.9%) 30 0 cefazolin 420 IVPB 100 cefazolin 100 Heparin 75 401 Oral 400 480 720 Output: Urine 0 0 Other: Estimated Void Large # Bowel Movements 1 Estimated Stool Amount Medium # Voids 1 Laboratory Last Values WBC 13.2 10^3/uL (3.5-10.8) H 12/03/18 04:59 RBC 3.21 10^6 /uL (4.18-5.48) L 12/03/18 04:59 Hgb 9.3 g/dL (14.0-18.0) L 12/03/18 04:59 Hct 28 % (42-52) L 12/03/18 04:59 MCV 88 fL (80-94) 12/03/18 04:59 MCH 29 pg (27-31) 12/03/18 04:59 MCHC 33 g/dL (31-36) 12/03/18 04:59 RDW 15 % (10-15) 12/03/18 04:59 Plt Count 241 10^3/uL (150-450) 12/03/18 04:59 MPV 7.2 fL (7.4-10.4) L 12/03/18 04:59 Neut % (Auto) 80.7 % 12/03/18 04:59 Lymph % (Auto) 9.1 % 12/03/18 04:59 Gates % (Auto) 6.2 % 12/03/18 04:59 Eos % (Auto) 3.6 % 12/03/18 04:59 Baso % (Auto) 0.4 % 12/03/18 04:59 Absolute Neuts (auto) 10.7 10^3/ul (1.5-7.7) H 12/03/18 04:59 Absolute Lymphs (auto) 1.2 10^3/ul (1.0-4.8) 12/03/18 04:59 Absolute Monos (auto) 0.8 10^3/ul (0-0.8) 12/03/18 04:59 Absolute Eos (auto) 0.5 10^3/ul (0-0.6) 12/03/18 04:59 Absolute Basos (auto) 0.1 10^3/ul (0-0.2) 12/03/18 04:59 Absolute Nucleated RBC 0.0 10^3/ul 12/03/18 04:59 Nucleated RBC % 0.0 12/03/18 04:59 APTT 57.1 seconds (26.0-38.0) H 12/03/18 04:59 Sodium 139 mmol/L (135-145) 12/03/18 04:59 Potassium 4.5 mmol/L (3.5-5.0) 12/03/18 04:59 Chloride 108 mmol/L (101-111) 12/03/18 04:59 Carbon Dioxide 26 mmol/L (22-32) 12/03/18 04:59 Anion Gap 5 mmol/L (2-11) 12/03/18 04:59 BUN 32 mg/dL (6-24) H 12/03/18 04:59 Creatinine 0.98 mg/dL (0.67-1.17) 12/03/18 04:59 Est GFR ( Amer) 88.8 (>60) 12/03/18 04:59 Est GFR (Non-Af Amer) 73.4 (>60) 12/03/18 04:59 BUN/Creatinine Ratio 32.7 (8-20) H 12/03/18 04:59 Glucose 116 mg/dL (70-100) H 12/03/18 04:59 POC Glucose (mg/dL) 249 mg/dL (70-100) H 12/03/18 16:18 Glucose Meter Confirm 386 mg/dL (70-100) H 11/30/18 12:26 Hemoglobin A1c 8.4 % (4.0-5.6) H 11/30/18 12:26 Lactic Acid 1.5 mmol/L (0.5-2.0) 11/28/18 15:28 Calcium 8.5 mg/dL (8.6-10.3) L 12/03/18 04:59 Phosphorus 3.2 mg/dL (2.5-5.0) 11/29/18 06:08 Magnesium 2.3 mg/dL (1.9-2.7) 12/03/18 00:41 Total Bilirubin 0.40 mg/dL (0.2-1.0) 11/28/18 15:29 AST 18 U/L (13-39) 11/28/18 15:29 ALT 17 U/L (7-52) 11/28/18 15:29 Alkaline Phosphatase 82 U/L (34-104) 11/28/18 15:29 Troponin I 1.45 ng/mL (<0.04) H* 12/02/18 20:24 C-Reactive Protein 156.23 mg/L (<8.01) H 12/02/18 13:08 Total Protein 7.4 g/dL (6.4-8.9) 11/28/18 15:29 Albumin 3.8 g/dL (3.2-5.2) 11/28/18 15:29 Globulin 3.6 g/dL (2-4) 11/28/18 15:29 Albumin/Globulin Ratio 1.1 (1-3) 11/28/18 15:29
[2018-12-03] MEDS: Atorvastatin* 10 MG TAB PO SCH (22:11)
[2018-12-03] MEDS: Donepezil TAB* 5 MG PO SCH (22:11)
[2018-12-04] MEDS: Metoprolol Tartrate TAB* 50 mg PO SCH ×2 (09:17→21:42)
[2018-12-04] MEDS: Baclofen TAB* 10 MG PO SCH ×3 (09:17→21:44)
[2018-12-04] MEDS: Insulin LISPRO* 1 UNITS UNIT SUBCUT SCH ×4 (09:17→21:43)
[2018-12-04] MEDS: Sertraline* 25 MG TAB PO SCH (09:17)
[2018-12-04] MEDS: Cephalexin CAP* 500 MG PO SCH ×3 (09:17→21:41)
[2018-12-04] MEDS: Aspirin EC TAB* 81 MG TAB.EC PO SCH (09:17)
[2018-12-04] MEDS: Insulin GLARGINE(*) 1 UNITS UNIT SUBCUT SCH ×2 (09:17→21:43)
--- NOTE | 2018-12-04 09:55 | PN ---
Subjective Date of Service: 12/04/18 - Troponin elevation, CHF Interval History: No events last night. Patient currently getting labs drawn. Denies chest pain, sob, dizziness or palpitations. surgery planned for 12/05/2018 Medications Active Medications: Acetaminophen (Tylenol Tab*) 650 mg PO Q4H PRN PRN Reason: MILD PAIN or TEMP > 100.4 Last Admin: 12/02/18 03:43 Dose: 650 mg Albuterol (Ventolin 2.5 Mg/3 Ml Neb.Vale*) 2.5 mg INH [id number] AWAKE PRN PRN Reason: sob/wheezing Aspirin (Aspirin Ec Tab*) 81 mg PO DAILY [facility] Last Admin: 12/04/18 09:17 Dose: 81 mg Atorvastatin Calcium (Lipitor*) 10 mg PO BEDTIME [facility] Last Admin: 12/03/18 22:11 Dose: 10 mg Baclofen (Lioresal Tab*) 10 mg PO TID [facility] Last Admin: 12/04/18 09:17 Dose: 10 mg Cephalexin HCl (Keflex Cap*) 500 mg PO TID [facility] Last Admin: 12/04/18 09:17 Dose: 500 mg Dextrose (Dextrose 50% Vial 50 Ml*) 25 ml IV PUSH .FOR FS < 60 - SS PRN PRN Reason: FS < 60 Donepezil HCl (Aricept Tab*) 5 mg PO BEDTIME [facility] Last Admin: 12/03/18 22:11 Dose: 5 mg Heparin Sodium (Porcine) (Heparin Vial(*)) 0 units IV .BOLUS PRN PRN Reason: PER HEPARIN DRIP PROTOCOL Last Admin: 12/02/18 15:32 Dose: 6,600 units Heparin Sodium/Dextrose (Heparin Drip 25,000 Units(*)) 25,000 units in 500 mls @ 0 mls/hr IV PER RATE [facility]; Protocol Last Admin: 12/03/18 12:23 Dose: 24 mls/hr Insulin Glargine (Lantus(*)) 20 units SUBCUT QAM [facility] Last Admin: 12/04/18 09:17 Dose: 20 unit Insulin Glargine (Lantus(*)) 10 units SUBCUT 2100 [facility] Last Admin: 12/03/18 22:11 Dose: 10 unit Insulin Human Lispro (Humalog*) 0 units SUBCUT ACHS [facility]; Protocol Last Admin: 12/04/18 09:17 Dose: 2 units Metoprolol Tartrate (Lopressor Tab*) 50 mg PO BID [facility] Last Admin: 12/04/18 09:17 Dose: 50 mg Ondansetron HCl (Zofran Inj*) 4 mg IV Q4H PRN PRN Reason: NAUSEA/VOMITING Sertraline HCl (Zoloft*) 25 mg PO DAILY [facility] Last Admin: 12/04/18 09:17 Dose: 25 mg Objective Vital Signs: Temp Pulse Resp BP Pulse Ox 97.2 F 89 16 118/55 91 12/04/18 04:00 12/04/18 04:00 12/04/18 04:00 12/04/18 04:00 12/04/18 04:00 Oxygen Devices in Use Now: None Appearance: lying in bed, getting labs drawn, NAD, A+O x3 Ears/Nose/Mouth/Throat: NL Teeth, Lips, Gums, Clear Oropharnyx, Mucous Membranes Moist Neck: NL Appearance and Movements; NL JVP, Trachea Midline, - - not able to assess JVD due to neck girth. Respiratory: Symmetrical Chest Expansion and Respiratory Effort, Clear to Auscultation Cardiovascular: - - Normal S1, S2, irregular rate and rythm. 2/5 diastolic murmur auscultated at left sternal border. Extremities: No Edema Skin: - - + right BTK prior amputation. left foot wrapped in ivan wrap. + erythema noted on pretibial suface Neurological: Alert and Oriented x 3, - Lines/Tubes/Other Access: Clean, Dry and Intact Peripheral IV Laboratory Results: 12/03/18 04:59 12/03/18 04:59 APTT 44.6 seconds (26.0-38.0) H 12/04/18 05:22 Total Bilirubin 0.40 mg/dL (0.2-1.0) 11/28/18 15:29 AST 18 U/L (13-39) 11/28/18 15:29 ALT 17 U/L (7-52) 11/28/18 15:29 Alkaline Phosphatase 82 U/L (34-104) 11/28/18 15:29 Total Protein 7.4 g/dL (6.4-8.9) 11/28/18 15:29 Albumin 3.8 g/dL (3.2-5.2) 11/28/18 15:29 Globulin 3.6 g/dL (2-4) 11/28/18 15:29 Albumin/Globulin Ratio 1.1 (1-3) 11/28/18 15:29 12/02/18 12/02/18 12/02/18 14:23 17:37 20:24 Troponin I 1.35 H* 1.65 H* 1.45 H* Laboratory Results - last 24 hr 12/03/18 12/03/18 12/03/18 11:52 16:18 20:46 APTT POC Glucose (mg/dL) 252 H 249 H 236 H 12/04/18 12/04/18 05:22 07:26 APTT 44.6 H POC Glucose (mg/dL) 148 H Diagnostic Imaging: *[facility]* [place] [address] Fax #: [phone] Transthoracic Echocardiogram Patient: Jaime Cedillo : 1935 Study Date: 12/03/2018 Age: 83 Gender: M HR: 90 bpm Height: 69 in /175.3 cm BSA: 2.1 m^2 Weight: 206.6 lb /93.9 kg BMI: 30.6 kg/m^2 *Project Control Analyst: * Stacy Del Toro [facility] *Referring Physician: * Edith Theodroe *Reading Physician: * Russ Avendaño MD Indications: Myocardial Infarction (new). History: Coronary artery disease. Risk factors: Hypertension. Conclusions Summary: - Left ventricle: Systolic function is moderately reduced. The estimated ejection fraction is 30-35%. Moderate diffuse hypokinesis. - Mitral valve: The findings are consistent with mild stenosis. There is mild to moderate regurgitation. - Aortic valve: There is a bioprosthetic valve. The findings are consistent with mild stenosis. For this type to AVR. There is no significant regurgitation. - Tricuspid valve: There is mild regurgitation. - Compared to study of 02/07/18,there is little change. Study data: Transthoracic echocardiogram. Procedure: Transthoracic echocardiography was performed. Image quality was suboptimal. The study was technically limited due to restricted patient mobility and body habitus. Intravenous Definity , 4 mlswas administered. Image enhancement administered by Complete 2D, This report is only to be considered final once signed by the Provider(s) as displayed in the "<Electronically Signed by >" field (s). Absence of a signature indicates the report is in a draft status and still needs to be finalized. In the event this document was created by someone other than the signing Provider, the individual initiating the document will be listed in the "Entered by:" or "Dictated by:" evans. EKG Data: 12/02/2018 ECG; Afib rate [address] elevation or depression noted. telemetry reviewed; Afib rate 90-105 with rare PVCs. Assessment/Plan #1 Troponinemia; Troponin peaked at 1.65 12/02/2018. No WMA noted on yesterday' s echo. Denies chest pain. On ASA, statin and bblocker therapy. In the past he had no reversible ischemia on MPI report in 02/2018. Opted for medical therapy at that per primary hot box operator note from July 2018. No further evaluation at this time. #2 h/o ICM; LVEF 30-35%. Appears compensated on exam. On bblocker therapy. ACEI on hold due to periods of hypotension. would resume once able to do so. f/u with primary hot box operator for consideration of AICD outpatient. #3 Left heel ulcer; orhto following. He has known h/o extensive PAD. Im not sure when JOHANA was last updated however, patient may benefit from re evaluation to optimize would heeling. Surgery planned for 12/05/2018. Recommend checking post op troponin and ECG. Monitor fluid status closely. Continue ASA postoperatively and resume Plavix as soon as possible. #4 h/o bioprosthetic AVR; gradients stable with mild santi prosthetic . #5 Newly Diagnosed AF; Chads Vasc 8 on IV heparin. rates are labile however, he is not symptomatic and he has an underlying infection thus would not adjust bblocker. #6 disposition pending course, patient full code will d/w Dr. Avendaño. Attending: Russ Avendaño
[2018-12-04] MEDS: Heparin DRIP 25,000 UNITS(*) 25,000 UNITS/500 ML BAG IV SCH (10:17)
[2018-12-04 12:11] LABS: ABS Basophils 0.1 10^3/ul (0-0.2); ABS Eosinophils 0.3 10^3/ul (0-0.6); ABS Lymphocytes 0.6 10^3/ul (1.0-4.8); ABS Monocytes 0.7 10^3/ul (0-0.8); ABS Neutrophils 10.4 10^3/ul (1.5-7.7); Eosinophil % 2.8 %; Hematocrit 31 % (42-52); Hemoglobin 10.3 g/dL (14.0-18.0); Lymphocyte % 4.7 %; Mean Corpuscular HGB Conc 34 g/dL (31-36); Mean Corpuscular Hemoglobin 29 pg (27-31); Mean Corpuscular Volume 87 fL (80-94); Mean Platelet Volume 7.4 fL (7.4-10.4); Platelet Count 304 10^3/uL (150-450); Red Blood Count 3.54 10^6 /uL (4.18-5.48); Red Cell Distribution Width 15 % (10-15)
[2018-12-04] MEDS: Heparin VIAL(*) 5000 UNITS/ML VIAL (FIVE THOUSAND) IV PRN (13:37)
--- NOTE | 2018-12-04 14:59 | PN ---
Progress Note - Progress Note Date of Service: 12/04/18 SOAP: Subjective: Subjective: Pt seen at bedside with Dr. Frederick for his left posterior ankle ulcer. Foot is not painful, has no complaints today. Objective: Vital Signs: Temp Pulse Resp BP Pulse Ox 97.3 F 84 18 108/60 95 12/04/18 11:15 12/04/18 11:15 12/04/18 11:15 12/04/18 11:15 12/04/18 11:15 Gen: Alert, NAD, nontoxic appearing LLE: S/p previous midfoot amp. Ulcer of posterior ankle with exposed achilles tendon, no purulence. Anterior ankle with blistering. Able to f/e ankle without pain. Minimal erythema of ankle and lower leg. Assessment: Left heel ulcer, exposure of Achilles tendon Plan: Discussed plan with pt and at bedside, recommend at least wound debridment with VAC placement to help give wound a chance to heal. Possible that pt may need BKA in future if wound healing becomes too prolonged. Will plan to take to OR Continue IV abx per ID Xeroform dressing applied, will change daily
[2018-12-04] MEDS ORDERED: Furosemide IV* 10 MG/ML 2 ML VIAL (20 MG) IV ONE (15:23)
--- NOTE | 2018-12-04 16:08 | PN ---
Progress Note - Progress Note Date of Service: 12/04/18 Note: I saw and examined to Jaime today. Please see prior ortho notes for full history and details. He has a posterior left heel ulcer with exposed and necrotic Achilles tendon and other necrotic tissue. He has surrounding cellulitis. He is a brittle diabetic with peripheral neuropathy and peripheral vascular disease. We did discuss the diagnosis and treatment options. I think this wound is unlikely to heal with simple wound care, given the necrotic tissue and exposed tendon. We did discuss an I&D and wound VAC to try and get the wound to heal. We also discussed a below the knee amputation if he would like to try and avoid prolonged wound healing issues. 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 He would like to think about it further, but is leaning towards an I&D and wound VAC. If so, we will plan on doing this . All of their questions were answered. Delroy Frederick MD
--- NOTE | 2018-12-04 17:07 | PN ---
Subjective Date of Service: 12/04/18 Interval History: Patient tells me he feels short of breath today. He was hypoxic overnight and has been on 2L since that point. Does not require oxygen at home. He denies extremity pain, chest pain, fever/chills, abd pain. He endorses a cough. Discussed with WIRE TINNER, who is advancing liquid diet from nectar thick to thin liquid Objective Active Medications: Acetaminophen (Tylenol Tab*) 650 mg PO Q4H PRN PRN Reason: MILD PAIN or TEMP > 100.4 Last Admin: 12/02/18 03:43 Dose: 650 mg Albuterol (Ventolin 2.5 Mg/3 Ml Neb.Vale*) 2.5 mg INH RT.[id number] AWAKE PRN PRN Reason: sob/wheezing Aspirin (Aspirin Ec Tab*) 81 mg PO DAILY [facility] Last Admin: 12/04/18 09:17 Dose: 81 mg Atorvastatin Calcium (Lipitor*) 10 mg PO BEDTIME [facility] Last Admin: 12/03/18 22:11 Dose: 10 mg Baclofen (Lioresal Tab*) 10 mg PO TID [facility] Last Admin: 12/04/18 13:06 Dose: 10 mg Cephalexin HCl (Keflex Cap*) 500 mg PO TID [facility] Last Admin: 12/04/18 13:06 Dose: 500 mg Dextrose (Dextrose 50% Vial 50 Ml*) 25 ml IV PUSH .FOR FS < 60 - SS PRN PRN Reason: FS < 60 Donepezil HCl (Aricept Tab*) 5 mg PO BEDTIME [facility] Last Admin: 12/03/18 22:11 Dose: 5 mg Furosemide (Lasix Iv*) 20 mg IV DAILY ONE Stop: 12/05/18 06:01 Heparin Sodium (Porcine) (Heparin Vial(*)) 0 units IV .BOLUS PRN PRN Reason: PER HEPARIN DRIP PROTOCOL Last Admin: 12/04/18 13:37 Dose: 6,600 units Heparin Sodium/Dextrose (Heparin Drip 25,000 Units(*)) 25,000 units in 500 mls @ 0 mls/hr IV PER RATE [facility]; Protocol Last Admin: 12/04/18 10:17 Dose: 24 mls/hr Insulin Glargine (Lantus(*)) [facility] Last Admin: 12/04/18 09:17 Dose: 20 unit Insulin Glargine (Lantus(*)) 10 units SUBCUT 2100 [facility] Last Admin: 12/03/18 22:11 Dose: 10 unit Insulin Human Lispro (Humalog*) 0 units SUBCUT ACHS [facility]; Protocol Last Admin: 12/04/18 13:06 Dose: 6 units Metoprolol Tartrate (Lopressor Tab*) 50 mg PO BID [facility] Last Admin: 12/04/18 09:17 Dose: 50 mg Ondansetron HCl (Zofran Inj*) 4 mg IV Q4H PRN PRN Reason: NAUSEA/VOMITING Sertraline HCl (Zoloft*) 25 mg PO DAILY [facility] Last Admin: 12/04/18 09:17 Dose: 25 mg Vital Signs - 8 hr 12/04/18 12/04/18 11:15 15:15 Temperature 97.3 F 97.1 F Pulse Rate 84 83 Respiratory 18 16 Rate Blood Pressure 108/60 109/53 (mmHg) O2 Sat by Pulse 95 99 Oximetry Oxygen Devices in Use Now: None Appearance: Elderly white male, laying upright in bed, in NAD Eyes: No Scleral Icterus, - - PERRL Ears/Nose/Mouth/Throat: Mucous Membranes Moist Neck: NL Appearance and Movements; NL JVP Respiratory: Symmetrical Chest Expansion and Respiratory Effort, - - crackles in bilateral lower lung evans; minimally dyspneic at times Cardiovascular: NL Sounds; No Murmurs; No JVD, RRR Abdominal: - - abd soft, nontender, nondistended Extremities: No Edema, No Clubbing, Cyanosis, - - left foot with KARSON wrap to wound, ecchymosis to dorsum of left foot Skin: - - skin warm, dry Neurological: Alert and Oriented x 3, NL Muscle Strength and Tone Result Diagrams: 12/04/18 11:40 12/03/18 04:59 Additional Lab and Data: . Microbiology and Other Data: . Assess/Plan/Problems-Billing Assessment: Mr. Cedillo is an 83 year old male with history of Parkinsons, dementia, PVD and non- healing wounds that presents to the ED with his with complaints of left heel ulcer, now with new onset afib, NSTEMI, and acute on chronic CHF. - Patient Problems (1) Non healing left heel wound Current Visit: Yes Status: Acute Code(s): S91.302A - UNSPECIFIED OPEN WOUND , LEFT FOOT, INITIAL ENCOUNTER SNOMED Code(s): 287731163 Comment: - With exposure of left achilles tendon - Initial wound culture with staph - Appreciate ID consult. Changed to po Keflex - Appreciate ortho consult. Plan for I&D on (12/06/18). Will discontinue heparin gtt tomorrow and this will not be an issue intraoperatively per orthopedics - MRI without osteo - Continue wet to dry dressings (2) NSTEMI (non-ST elevated myocardial infarction) Current Visit: Yes Status: Acute Code(s): I21.4 - NON-ST ELEVATION (NSTEMI) MYOCARDIAL INFARCTION SNOMED Code(s): 49343121 Comment: - Remains without anginal sxs today - Trop peaked 1.65, downtrended to 1.45, EKGs without ischemic changes - Continue hep gtt, asa, statin, and beta riccardo - TTE without significant changes from echo in 2019 - Had CABG 2006 and 2011. Had stress test in February 2018 showing large fixed defects only, transferred to [facility] for consideration of high risk catheterization, but plan ultimately for medical therapy only. Follows with Dr. Sharp outpatient, consult from July 2018 in [facility]. - Appreciate cardiology consult - Discontinuing heparin drip tomorrow 1300, after total of 72 hours of tx (3) Afib Current Visit: Yes Status: Acute Code(s): I48.91 - UNSPECIFIED ATRIAL FIBRILLATION SNOMED Code(s): 54820617 Comment: - New diagnosis during this hospitalization. No previously documented history of afib found. Prior history of mobitz II AV block - Continue metoprolol - Continue hep gtt - [id number] score of 8. Will benefit from alf AC on discharge. Will discuss with orthopedics after wound I&D when is a good time to start, considering patient will possibly need amputation depending on how wound healing goes. Perhaps lovenox in the interim will be preferred. (4) Acute on chronic systolic CHF (congestive heart failure) Current Visit: Yes Status: Acute Code(s): I50.23 - ACUTE ON CHRONIC SYSTOLIC (CONGESTIVE) HEART FAILURE SNOMED Code(s): 882460967 Comment: - Lungs have crackles again and patient requiring oxygen again. - Chest xray with mild interstitial edema earlier in hospitalization - EF 30-35% - continue metoprolol - restarting IV lasix. Patient should be on po diuretics daily because without one day of diuretics he returned to this state. Awaiting BMP prior to administration (5) Hypertension Current Visit: No Status: Chronic Code(s): I10 - ESSENTIAL (PRIMARY) HYPERTENSION SNOMED Code(s): 33184930 Comment: - BP stable, continue metoprolol with hold parameters (6) Type 2 diabetes mellitus Current Visit: No Status: Chronic Comment: - Complicated by hyperglycemia and foot ulcer - Continue lispro SSI coverage, lantus 20 units AM. Increase PM lantus to 15 units - A1c 8.4 (7) Peripheral vascular disease Current Visit: No Status: Chronic Code(s): I73.9 - PERIPHERAL VASCULAR DISEASE, UNSPECIFIED SNOMED Code(s): 697097919 Comment: - Hx of unsuccessful angioplasty on in 2016 - Continue statin, ASA. Plavix stopped. On Hep gtt for NSTEMI - Continues with non healing wounds (8) Parkinson disease Current Visit: No Status: Chronic Priority: Medium Onset Date: 01/29/15 Code(s): G20 - PARKINSON'S DISEASE SNOMED Code(s): 69735131 Comment: - On baclofen, no sinemet - Supportive care (9) Dementia Current Visit: No Status: Chronic Code(s): F03.90 - UNSPECIFIED DEMENTIA WITHOUT BEHAVIORAL DISTURBANCE SNOMED Code(s): 21732998 Comment: - Continue donepezil, sertraline (10) Full code status Current Visit: No Status: Acute Code(s): Z78.9 - OTHER SPECIFIED HEALTH STATUS SNOMED Code(s): 920045746 Comment: (11) DVT prophylaxis Current Visit: No Status: Acute Priority: Medium Code(s): OKI8708 - SNOMED Code(s): 143605425 Comment: - Heparin gtt Status and Disposition: Inpatient, dispo TBD. Plan for OR 12/06/18
[2018-12-04] MEDS ORDERED: Labetalol IV* 5 MG/ML 20 ML VIAL IV PUSH PRN (17:13)
[2018-12-04 17:48] LABS: BUN/Creatinine Ratio 29.4 (8-20); Calcium 8.3 mg/dL (8.6-10.3); EGFR African American 104.7 (>60); EGFR Non-African American 86.5 (>60); Potassium 4.7 mmol/L (3.5-5.0)
[2018-12-04 18:45] LABS: Activated Partial Thrombo Time 111.1 seconds (26.0-38.0)
[2018-12-04 19:11] LABS: Albumin 3.1 g/dL (3.2-5.2); Albumin/Globulin Ratio 0.9 (1-3); Globulin 3.4 g/dL (2-4); Indirect Bilirubin 0.2 mg/dL (0.3-1.0); Total Bilirubin 0.3 mg/dL (0.2-1.0); Total Protein 6.5 g/dL (6.4-8.9)
[2018-12-04 19:23] LABS: INR 1.48 (0.82-1.09)
[2018-12-04] MEDS: Donepezil TAB* 5 MG PO SCH (21:41)
[2018-12-04] MEDS: Atorvastatin* 10 MG TAB PO SCH (21:42)
[2018-12-05] MEDS: Heparin VIAL(*) 5000 UNITS/ML VIAL (FIVE THOUSAND) IV PRN (01:25)
[2018-12-05] MEDS: Heparin DRIP 25,000 UNITS(*) 25,000 UNITS/500 ML BAG IV SCH (04:46)
[2018-12-05] MEDS ORDERED: Furosemide IV* 10 MG/ML 2 ML VIAL (20 MG) IV ONE (06:00)
[2018-12-05] MEDS ORDERED: Furosemide IV* 10 MG/ML VIAL (40 MG) IV ONE (09:16)
[2018-12-05] MEDS: Insulin LISPRO* 1 UNITS UNIT SUBCUT SCH ×4 (09:22→22:31)
[2018-12-05] MEDS: Aspirin EC TAB* 81 MG TAB.EC PO SCH (09:59)
[2018-12-05] MEDS: Cephalexin CAP* 500 MG PO SCH ×3 (10:01→22:26)
[2018-12-05] MEDS: Sertraline* 25 MG TAB PO SCH (10:06)
[2018-12-05] MEDS: Metoprolol Tartrate TAB* 50 mg PO SCH ×2 (10:06→22:24)
[2018-12-05] MEDS: Baclofen TAB* 10 MG PO SCH ×3 (10:07→22:25)
[2018-12-05] MEDS: guaiFENesin ER TAB 600 MG PO SCH ×2 (10:08→22:24)
--- NOTE | 2018-12-05 10:41 | PN ---
Progress Note - Progress Note Date of Service: 12/05/18 SOAP: Subjective: CC: Left foot cellulitis and ulcer HPI: Ms. 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 Denies fever, chills, nausea, vomiting, or diarrhea. Reports discomfort in the left ankle. Objective: Vital Signs - 8 hr 12/05/18 12/05/18 12/05/18 03:21 07:15 07:33 Temperature 97.9 F 97.2 F Pulse Rate 81 68 Respiratory 21 16 16 Rate Blood Pressure 116/61 108/56 (mmHg) O2 Sat by Pulse 94 95 Oximetry Physical Exam: General: NAD, sitting up in bed Neurological: Alert and Oriented to person and place HEENT: Moist MM, no thrush Cardiovascular: Heart rate regular Respiratory: Lung sounds Abdominal: Bowel sounds present; ABD soft, non tender and non distended MSK: Able to move left ankle. Right BKA Skin: There is a deep tissue injury to the left heel, there is an area of black eschar and tendon exposed to the achilles area. Slight erythema to the posterior ankle and heel on the left. Blister to the top of the left foot, ruptured Laboratory Results - last 24 hr 12/04/18 12/04/18 12/04/18 11:40 12:03 16:31 WBC 12.0 H RBC 3.54 L Hgb 10.3 L Hct 31 L MCV 87 MCH 29 MCHC 34 RDW 15 Plt Count 304 MPV 7.4 Neut % (Auto) 86.2 Lymph % (Auto) 4.7 [place] % (Auto) 5.7 Eos % (Auto) 2.8 Baso % (Auto) 0.6 Absolute Neuts (auto) 10.4 H Absolute Lymphs (auto) 0.6 L Absolute Monos (auto) 0.7 Absolute Eos (auto) 0.3 Absolute Basos (auto) 0.1 Absolute Nucleated RBC 0.0 Nucleated RBC % 0.0 BUN/Creatinine Ratio POC Glucose (mg/dL) 242 H 261 H 12/04/18 12/04/18 12/04/18 17:28 18:04 20:19 INR (Anticoag Therapy) 1.48 H APTT 111.1 H* Sodium 137 Potassium 4.7 Chloride 104 Carbon Dioxide 28 Anion Gap 5 BUN 25 H Creatinine 0.85 Est GFR ( Amer) 104.7 Est GFR (Non-Af Amer) 86.5 BUN/Creatinine Ratio 29.4 H Glucose 204 H POC Glucose (mg/dL) 184 H Calcium 8.3 L Total Bilirubin 0.30 Direct Bilirubin 0.10 Indirect Bilirubin 0.2 L AST 22 ALT 10 Alkaline Phosphatase 72 Total Protein 6.5 Albumin 3.1 L Globulin 3.4 Albumin/Globulin Ratio 0.9 L Microbiology 11/28/18 18:20 Aerobic Blood Culture - Final Blood Venous No Growth Day 5 Anaerobic Blood Culture - Final No Growth Day 5 11/28/18 18:20 Aerobic Blood Culture - Final Blood Venous No Growth Day 5 Anaerobic Blood Culture - Final No Growth Day 5 11/28/18 22:00 Skin and Soft Tissue MRSA/MSSA (PCR - Final Ankle Left Mrsa Not Detected S.aureus Positive Gram Stain - Final Wound Culture - Final Staphylococcus Aureus 11/28/18 17:45 Nasal Screen MRSA (PCR) - Final Nasal Mrsa Detected Assessment: 1. Chronic left heel ulcer with cellulitis. Blood cultures with no growth to date. Wound culture with staph aureus. MRI with no signs of osteomyelitis. Afebrile and continues to have leukocytosis, that is improving. 2. Parkinson's disease with dementia. 3. DM2 with peripheral neuropathy. 4. 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 Plan: Continue Ancef 2gm IV Q8H. Plan for him to go to the OR tomorrow. Further recommendation will be made based on the surgery and cultures/findings in the OR.
[2018-12-05] MEDS: Insulin GLARGINE(*) 1 UNITS UNIT SUBCUT SCH ×2 (11:07→22:30)
--- NOTE | 2018-12-05 14:47 | PN ---
Progress Note - Progress Note Date of Service: 12/05/18 SOAP: Subjective: []Pt seen at bedside today. He has no complaints. Expressed desires for I&D with vac placement of LLE as opposed to BKA which he does not desire at this time. Objective: []Gen: NAD, nontoxic appearing LLE: s/p previous midfoot amp. dressing c/d/i. ulcer of posterior ankle with exposed achilles tendon, no purulence. Anterior ankle with blistering. Able to f /e ankle without pain. Minimal erythema of ankle and lower leg. xeroform, 4x4s, kerlix, ivan placed. Assessment: []L heel ulcer, exposure of Achilles tendon] Plan: [] IV abx per ID OR tomorrow for I&D, wound vac placement LLE. Patient is agreeable to this as is his who I talked with by phone. She will be present for consent tomorrow as well. Tentative OR time 1500 NPO at midnight. Heparin drip was stopped already Vital Signs Temp 98.2 F 12/05/18 11:15 Pulse 77 12/05/18 11:15 Resp 20 12/05/18 11:15 BP 96/52 12/05/18 11:15 Pulse Ox 100 12/05/18 11:15 Intake & Output 12/04/18 12/05/18 12/05/18 18:59 06:59 18:59 Intake Total 475 793 166 Balance 475 793 166 Intake: Heparin 793 166 Oral 475 0 0 Other: Estimated Void Large Laboratory Last Values WBC 12.0 10^3/uL (3.5-10.8) H 12/04/18 11:40 RBC 3.54 10^6 /uL (4.18-5.48) L 12/04/18 11:40 Hgb 10.3 g/dL (14.0-18.0) L 12/04/18 11:40 Hct 31 % (42-52) L 12/04/18 11:40 MCV 87 fL (80-94) 12/04/18 11:40 MCH 29 pg (27-31) 12/04/18 11:40 MCHC 34 g/dL (31-36) 12/04/18 11:40 RDW 15 % (10-15) 12/04/18 11:40 Plt Count 304 10^3/uL (150-450) 12/04/18 11:40 MPV 7.4 fL (7.4-10.4) 12/04/18 11:40 Neut % (Auto) 86.2 % 12/04/18 11:40 Lymph % (Auto) 4.7 % 12/04/18 11:40 Bradley % (Auto) 5.7 % 12/04/18 11:40 Eos % (Auto) 2.8 % 12/04/18 11:40 Baso % (Auto) 0.6 % 12/04/18 11:40 Absolute Neuts (auto) 10.4 10^3/ul (1.5-7.7) H 12/04/18 11:40 Absolute Lymphs (auto) 0.6 10^3/ul (1.0-4.8) L 12/04/18 11:40 Absolute Monos (auto) 0.7 10^3/ul (0-0.8) 12/04/18 11:40 Absolute Eos (auto) 0.3 10^3/ul (0-0.6) 12/04/18 11:40 Absolute Basos (auto) 0.1 10^3/ul (0-0.2) 12/04/18 11:40 Absolute Nucleated RBC 0.0 10^3/ul 12/04/18 11:40 Nucleated RBC % 0.0 12/04/18 11:40 INR (Anticoag Therapy) 1.48 (0.82-1.09) H 12/04/18 18:04 APTT 107.7 seconds (26.0-38.0) H* 12/05/18 07:38 Sodium 137 mmol/L (135-145) 12/04/18 17:28 Potassium 4.7 mmol/L (3.5-5.0) 12/04/18 17:28 Chloride 104 mmol/L (101-111) 12/04/18 17:28 Carbon Dioxide 28 mmol/L (22-32) 12/04/18 17:28 Anion Gap 5 mmol/L (2-11) 12/04/18 17:28 BUN 25 mg/dL (6-24) H 12/04/18 17:28 Creatinine 0.85 mg/dL (0.67-1.17) 12/04/18 17:28 Est GFR ( Amer) 104.7 (>60) 12/04/18 17:28 Est GFR (Non-Af Amer) 86.5 (>60) 12/04/18 17:28 BUN/Creatinine Ratio 29.4 (8-20) H 12/04/18 17:28 Glucose 204 mg/dL (70-100) H 12/04/18 17:28 POC Glucose (mg/dL) 135 mg/dL (70-100) H 12/05/18 12:06 Glucose Meter Confirm 386 mg/dL (70-100) H 11/30/18 12:26 Hemoglobin A1c 8.4 % (4.0-5.6) H 11/30/18 12:26 Lactic Acid 1.5 mmol/L (0.5-2.0) 11/28/18 15:28 Calcium 8.3 mg/dL (8.6-10.3) L 12/04/18 17:28 Phosphorus 3.2 mg/dL (2.5-5.0) 11/29/18 06:08 Magnesium 2.3 mg/dL (1.9-2.7) 12/03/18 00:41 Total Bilirubin 0.30 mg/dL (0.2-1.0) 12/04/18 17:28 Direct Bilirubin 0.10 mg/dL (0.03-0.18) 12/04/18 17:28 Indirect Bilirubin 0.2 mg/dL (0.3-1.0) L 12/04/18 17:28 AST 22 U/L (13-39) 12/04/18 17:28 ALT 10 U/L (7-52) 12/04/18 17:28 Alkaline Phosphatase 72 U/L (34-104) 12/04/18 17:28 Troponin I 1.45 ng/mL (<0.04) H* 12/02/18 20:24 C-Reactive Protein 156.23 mg/L (<8.01) H 12/02/18 13:08 Total Protein 6.5 g/dL (6.4-8.9) 12/04/18 17:28 Albumin 3.1 g/dL (3.2-5.2) L 12/04/18 17:28 Globulin 3.4 g/dL (2-4) 12/04/18 17:28 Albumin/Globulin Ratio 0.9 (1-3) L 12/04/18 17:28
[2018-12-05] MEDS ORDERED: Atropine 1% (ORAL/SL)* 15 ML BTL SL PRN (16:57)
--- NOTE | 2018-12-05 17:08 | PN ---
Subjective Date of Service: 12/05/18 Interval History: Patient has had multiple episodes of coughing, appearing to be poorly maintaining oral secretions, per nursing. These episodes are not occurring while drinking/eating. Patient tells me his shortness of breath is unchanged from yesterday. Denies fever/chills, chest pain, leg pain, abd pain. Productive cough continues. Objective Active Medications: Acetaminophen (Tylenol Tab*) 650 mg PO Q4H PRN PRN Reason: MILD PAIN or TEMP > 100.4 Last Admin: 12/02/18 03:43 Dose: 650 mg Albuterol (Ventolin 2.5 Mg/3 Ml Neb.Vale*) 2.5 mg INH [id number] AWAKE PRN PRN Reason: sob/wheezing Aspirin (Aspirin Ec Tab*) 81 mg PO DAILY [facility] Last Admin: 12/05/18 09:59 Dose: 81 mg Atorvastatin Calcium (Lipitor*) 10 mg PO BEDTIME [facility] Last Admin: 12/04/18 21:42 Dose: 10 mg Atropine Sulfate (Atropine 1% (Oral/Sl)*) 2 drop SL Q2H PRN PRN Reason: unresolved airway secretion Baclofen (Lioresal Tab*) 10 mg PO TID [facility] Last Admin: 12/05/18 14:39 Dose: 10 mg Cephalexin HCl (Keflex Cap*) 500 mg PO TID [facility] Last Admin: 12/05/18 14:39 Dose: 500 mg Dextrose (Dextrose 50% Vial 50 Ml*) 25 ml IV PUSH .FOR FS < 60 - SS PRN PRN Reason: FS < 60 Donepezil HCl (Aricept Tab*) 5 mg PO BEDTIME [facility] Last Admin: 12/04/18 21:41 Dose: 5 mg Guaifenesin (Mucinex*) 1,200 mg PO BID [facility] Last Admin: 12/05/18 10:08 Dose: 1,200 mg Heparin Sodium (Porcine) (Heparin Vial(*)) 0 units IV .BOLUS PRN PRN Reason: PER HEPARIN DRIP PROTOCOL Last Admin: 12/05/18 01:25 Dose: 6,600 units Insulin Glargine (Lantus(*)) 20 units SUBCUT QAM [facility] Last Admin: 12/05/18 11:07 Dose: 20 unit Insulin Glargine (Lantus(*)) 15 units SUBCUT 2100 [facility] Last Admin: 12/04/18 21:43 Dose: 15 units Insulin Human Lispro (Humalog*) 0 units SUBCUT ACHS [facility]; Protocol Last Admin: 12/05/18 14:38 Dose: 2 units Metoprolol Tartrate (Lopressor Tab*) 50 mg PO BID [facility] Last Admin: 12/05/18 10:06 Dose: 50 mg Ondansetron HCl (Zofran Inj*) 4 mg IV Q4H PRN PRN Reason: NAUSEA/VOMITING Sertraline HCl (Zoloft*) 25 mg PO DAILY [facility] Last Admin: 12/05/18 10:06 Dose: 25 mg Vital Signs - 8 hr 12/05/18 11:15 Temperature 98.2 F Pulse Rate 77 Respiratory 20 Rate Blood Pressure 96/52 (mmHg) O2 Sat by Pulse 100 Oximetry Oxygen Devices in Use Now: Nasal Cannula Appearance: Elderly white male, laying upright in hospital bed, appearing in NAD Eyes: No Scleral Icterus, - - PERRL Ears/Nose/Mouth/Throat: Mucous Membranes Moist Neck: NL Appearance and Movements; NL JVP Respiratory: Symmetrical Chest Expansion and Respiratory Effort, Clear to Auscultation Cardiovascular: NL Sounds; No Murmurs; No JVD, - - irregularly irregular Abdominal: - - abd soft, nontender, nondistended Extremities: No Edema, No Clubbing, Cyanosis, - - left heel wound in KARSON wraps Skin: No Rash or Ulcers Neurological: - - alert and oriented to self and location Result Diagrams: 12/04/18 11:40 12/04/18 17:28 Additional Lab and Data: . Microbiology and Other Data: . Assess/Plan/Problems-Billing Assessment: Mr. Cedillo is an 83 year old male with history of Parkinsons, dementia, PVD and non- healing wounds that presents to the ED with his with complaints of left heel ulcer, now with new onset afib, NSTEMI, and acute on chronic CHF. - Patient Problems (1) Non healing left heel wound Current Visit: Yes Status: Acute Code(s): S91.302A - UNSPECIFIED OPEN WOUND , LEFT FOOT, INITIAL ENCOUNTER SNOMED Code(s): 713802849 Comment: - With exposure of left achilles tendon - Initial wound culture with staph - Appreciate ID consult. Changed to po Keflex - Appreciate ortho consult. Plan for I&D tomorrow (12/06/18). Heparin discontinued today - MRI without osteo - Continue wet to dry dressings (2) NSTEMI (non-ST elevated myocardial infarction) Current Visit: Yes Status: Acute Code(s): I21.4 - NON-ST ELEVATION (NSTEMI) MYOCARDIAL INFARCTION SNOMED Code(s): 03315944 Comment: - Remains without anginal sxs today - Trop peaked 1.65, downtrended to 1.45, EKGs without ischemic changes - Continue asa, statin, and beta riccardo - Heparin drip ran for 72 hours, d/c today - TTE without significant changes from echo in 2019 - Had CABG 2006 and 2011. Had stress test in February 2018 showing large fixed defects only, transferred to [facility] for consideration of high risk catheterization, but plan ultimately for medical therapy only. Follows with Dr. Sharp outpatient, consult from July 2018 in [facility]. - Appreciate cardiology consult (3) Afib Current Visit: Yes Status: Acute Code(s): I48.91 - UNSPECIFIED ATRIAL FIBRILLATION SNOMED Code(s): 71208249 Comment: - New diagnosis during this hospitalization. No previously documented history of afib found. Prior history of mobitz II AV block - Continue metoprolol - [id number] score of 8. Will benefit from half-way AC on discharge. Will discuss with orthopedics after wound I&D when is a good time to start, considering patient will possibly need amputation depending on how wound healing goes. Perhaps lovenox in the interim will be preferred. (4) Acute on chronic systolic CHF (congestive heart failure) Current Visit: Yes Status: Acute Code(s): I50.23 - ACUTE ON CHRONIC SYSTOLIC (CONGESTIVE) HEART FAILURE SNOMED Code(s): 982352005 Comment: - Lungs sound more clear but patient is garbling oral secretions and productive cough. Will attempt to wean O2. - Chest xray with mild interstitial edema earlier in hospitalization - EF 30-35% - continue metoprolol - Continue IV lasix. Starting prn atropine SL (5) Hypertension Current Visit: No Status: Chronic Code(s): I10 - ESSENTIAL (PRIMARY) HYPERTENSION SNOMED Code(s): 56842200 Comment: - somewhat hypotensive today but MAP >60 - continue metoprolol with hold parameters (6) Type 2 diabetes mellitus Current Visit: No Status: Chronic Comment: - Complicated by hyperglycemia and foot ulcer - Continue lispro SSI coverage, lantus 20 units AM, lantus 15 units PM - A1c 8.4 (7) Peripheral vascular disease Current Visit: No Status: Chronic Code(s): I73.9 - PERIPHERAL VASCULAR DISEASE, UNSPECIFIED SNOMED Code(s): 002603111 Comment: - Hx of unsuccessful angioplasty on in 2016 - Continue statin, ASA. - Continues with non healing wounds (8) Parkinson disease Current Visit: No Status: Chronic Priority: Medium Onset Date: 01/29/15 Code(s): G20 - PARKINSON'S DISEASE SNOMED Code(s): 89916079 Comment: - On baclofen, no sinemet - Supportive care (9) Dementia Current Visit: No Status: Chronic Code(s): F03.90 - UNSPECIFIED DEMENTIA WITHOUT BEHAVIORAL DISTURBANCE SNOMED Code(s): 00095375 Comment: - Continue donepezil, sertraline (10) Full code status Current Visit: No Status: Acute Code(s): Z78.9 - OTHER SPECIFIED HEALTH STATUS SNOMED Code(s): 662491937 Comment: (11) DVT prophylaxis Current Visit: No Status: Acute Priority: Medium Code(s): RLG8024 - SNOMED Code(s): 877209964 Comment: - Heparin gtt stopped today, will give one HSQ dose tonight Status and Disposition: Inpatient, dispo TBD. Plan for OR 12/06/18
[2018-12-05] MEDS ORDERED: Heparin VIAL(*) 5000 UNITS/ML VIAL (FIVE THOUSAND) SUBCUT ONE (21:00)
[2018-12-05] MEDS: Donepezil TAB* 5 MG PO SCH (22:23)
[2018-12-05] MEDS: Atorvastatin* 10 MG TAB PO SCH (22:25)
[2018-12-06 06:24] LABS: ABS Eosinophils 0.4 10^3/ul (0-0.6); ABS Lymphocytes 0.9 10^3/ul (1.0-4.8); ABS Monocytes 0.7 10^3/ul (0-0.8); ABS Neutrophils 8.7 10^3/ul (1.5-7.7); Eosinophil % 3.8 %; Hematocrit 28 % (42-52); Hemoglobin 9.5 g/dL (14.0-18.0); Lymphocyte % 8.1 %; Mean Corpuscular HGB Conc 34 g/dL (31-36); Mean Corpuscular Hemoglobin 30 pg (27-31); Mean Corpuscular Volume 88 fL (80-94); Mean Platelet Volume 7.2 fL (7.4-10.4); Nucleated Red Blood Cells % 0.1; Platelet Count 308 10^3/uL (150-450); Red Blood Count 3.21 10^6 /uL (4.18-5.48); Red Cell Distribution Width 15 % (10-15); White Blood Count 10.7 10^3/uL (3.5-10.8)
[2018-12-06 06:39] LABS: BUN/Creatinine Ratio 30.5 (8-20); Calcium 8.3 mg/dL (8.6-10.3); EGFR African American 109.1 (>60); EGFR Non-African American 90.2 (>60); Potassium 4.5 mmol/L (3.5-5.0)
[2018-12-06] MEDS ORDERED: Acetaminophen TAB* 325 MG PO ONE (07:12)
[2018-12-06] MEDS ORDERED: Buffered Lidocaine 1% SYRIN* 1 ML/SYRINGE INTRADERM ONE (07:12)
[2018-12-06] MEDS ORDERED: Lactated Ringers 1000 ML Bag* 1,000 ML IV SCH (08:00)
[2018-12-06] MEDS ORDERED: Furosemide IV* 10 MG/ML VIAL (40 MG) IV SCH (09:00)
[2018-12-06] MEDS: Insulin LISPRO* 1 UNITS UNIT SUBCUT SCH ×4 (09:36→21:31)
[2018-12-06] MEDS: Aspirin EC TAB* 81 MG TAB.EC PO SCH (10:30)
[2018-12-06] MEDS: Sertraline* 25 MG TAB PO SCH (10:30)
[2018-12-06] MEDS: Cephalexin CAP* 500 MG PO SCH ×3 (10:30→21:23)
[2018-12-06] MEDS: Metoprolol Tartrate TAB* 50 mg PO SCH ×2 (10:30→21:24)
[2018-12-06] MEDS: Baclofen TAB* 10 MG PO SCH ×3 (10:30→21:23)
[2018-12-06] MEDS: Insulin GLARGINE(*) 1 UNITS UNIT SUBCUT SCH ×2 (10:46→21:32)
--- NOTE | 2018-12-06 10:47 | PN ---
Subjective Date of Service: 12/06/18 Interval History: c/o back itching during exam. Cough improved per nursing. Able to handle oral secretions better. Otherwise denies difficulty breathing, chest pain, fever/ chills, pain in heel, abd pain. Objective Active Medications: Acetaminophen (Tylenol Tab*) 650 mg PO Q4H PRN PRN Reason: MILD PAIN or TEMP > 100.4 Last Admin: 12/02/18 03:43 Dose: 650 mg Albuterol (Ventolin 2.5 Mg/3 Ml Neb.Vale*) 2.5 mg INH [id number] AWAKE PRN PRN Reason: sob/wheezing Aspirin (Aspirin Ec Tab*) 81 mg PO DAILY [facility] Last Admin: 12/05/18 09:59 Dose: 81 mg Atorvastatin Calcium (Lipitor*) 10 mg PO BEDTIME [facility] Last Admin: 12/05/18 22:25 Dose: 10 mg Atropine Sulfate (Atropine 1% (Oral/Sl)*) 2 drop SL Q2H PRN PRN Reason: unresolved airway secretion Last Admin: 12/06/18 01:41 Dose: 2 drp Baclofen (Lioresal Tab*) 10 mg PO TID [facility] Last Admin: 12/05/18 22:25 Dose: 10 mg Cephalexin HCl (Keflex Cap*) 500 mg PO TID [facility] Last Admin: 12/05/18 22:26 Dose: 500 mg Dextrose (Dextrose 50% Vial 50 Ml*) 25 ml IV PUSH .FOR FS < 60 - SS PRN PRN Reason: FS < 60 Donepezil HCl (Aricept Tab*) 5 mg PO BEDTIME [facility] Last Admin: 12/05/18 22:23 Dose: 5 mg Furosemide (Lasix Tab*) 40 mg PO DAILY [facility] Guaifenesin (Mucinex*) 1,200 mg PO BID [facility] Last Admin: 12/05/18 22:24 Dose: 1,200 mg Hydrocortisone (Hytone Cream 1%*) 1 applic TOPICAL TID [facility] Lactated Ringer's (Lactated Ringers 1000 Ml Bag*) 1,000 mls @ 125 mls/hr IV PER RATE [facility] Insulin Glargine (Lantus(*)) 20 units SUBCUT QAM [facility] Last Admin: 12/05/18 11:07 Dose: 20 unit Insulin Glargine (Lantus(*)) 15 units SUBCUT 2100 [facility] Last Admin: 12/05/18 22:30 Dose: 15 units Insulin Human Lispro (Humalog*) 0 units SUBCUT ACHS [facility]; Protocol Last Admin: 12/06/18 09:36 Dose: Not Given Metoprolol Tartrate (Lopressor Tab*) 50 mg PO BID [facility] Last Admin: 12/05/18 22:24 Dose: 50 mg Ondansetron HCl (Zofran Inj*) 4 mg IV Q4H PRN PRN Reason: NAUSEA/VOMITING Sertraline HCl (Zoloft*) 25 mg PO DAILY [facility] Last Admin: 12/05/18 10:06 Dose: 25 mg Vital Signs - 8 hr 12/06/18 12/06/18 03:15 07:15 Temperature 97.9 F 97.5 F Pulse Rate 79 118 Respiratory 20 20 Rate Blood Pressure 116/60 118/51 (mmHg) O2 Sat by Pulse 95 94 Oximetry Oxygen Devices in Use Now: Nasal Cannula Appearance: Elderly white male, laying upright, appearing in NAD Eyes: No Scleral Icterus Neck: NL Appearance and Movements; NL JVP Respiratory: Symmetrical Chest Expansion and Respiratory Effort, Clear to Auscultation Cardiovascular: NL Sounds; No Murmurs; No JVD, - - irregularly irregular Abdominal: - - abd soft, nontender, nondistended Extremities: No Edema, No Clubbing, Cyanosis, - - R BKA; left heel wound with bandages Skin: - - large wheals disseminated through back, and not noted on other skin areas Neurological: NL Muscle Strength and Tone, - - alert and oriented to self Result Diagrams: 12/06/18 05:26 12/06/18 05:26 Additional Lab and Data: . Microbiology and Other Data: . Assess/Plan/Problems-Billing Assessment: Mr. Cedillo is an 83 year old male with history of Parkinsons, dementia, PVD and non- healing wounds that presents to the ED with his with complaints of left heel ulcer, now with new onset afib, NSTEMI, and acute on chronic CHF. - Patient Problems (1) Non healing left heel wound Current Visit: Yes Status: Acute Code(s): S91.302A - UNSPECIFIED OPEN WOUND , LEFT FOOT, INITIAL ENCOUNTER SNOMED Code(s): 696482493 Comment: - With exposure of left achilles tendon - Initial wound culture with staph - Appreciate ID consult. Changed to po Keflex - Appreciate ortho consult. S/p I&D today. Plan for wound vac change Monday (12/10/18) per ortho. Orthopedics may need to proceed with additional surgery at that point. - MRI without osteo - Continue wet to dry dressings (2) NSTEMI (non-ST elevated myocardial infarction) Current Visit: Yes Status: Acute Code(s): I21.4 - NON-ST ELEVATION (NSTEMI) MYOCARDIAL INFARCTION SNOMED Code(s): 67719744 Comment: - Remains without anginal sxs today - Trop peaked 1.65, downtrended to 1.45, EKGs without ischemic changes - Continue asa, statin, and beta riccardo - Heparin drip ran for 72 hours, has since been d/c - TTE without significant changes from echo in 2019 - Had CABG 2006 and 2011. Had stress test in February 2018 showing large fixed defects only, transferred to [facility] for consideration of high risk catheterization, but plan ultimately for medical therapy only. Follows with Dr. Sharp outpatient, consult from July 2018 in [facility]. - Appreciate cardiology consult (3) Afib Current Visit: Yes Status: Acute Code(s): I48.91 - UNSPECIFIED ATRIAL FIBRILLATION SNOMED Code(s): 78366498 Comment: - New diagnosis during this hospitalization. No previously documented history of afib found. Prior history of mobitz II AV block - Continue metoprolol - [id number] score of 8. Will benefit from halfway AC, but oral AC is not preferred at this point in hospital stay as further orthopedic surgery may be necessary. Starting BID lovenox in the interim. (4) Contact dermatitis Current Visit: Yes Status: Acute Code(s): L25.9 - UNSPECIFIED CONTACT DERMATITIS, UNSPECIFIED CAUSE SNOMED Code(s): 09719294 Comment: -c/o itching on back, noted scattered large wheals -likely contact dermatitis to bedsheets -linens are already triple washed, discussed additional linen change today with nursing -ordered TID hydrocoritsone cream (5) Acute on chronic systolic CHF (congestive heart failure) Current Visit: Yes Status: Acute Code(s): I50.23 - ACUTE ON CHRONIC SYSTOLIC (CONGESTIVE) HEART FAILURE SNOMED Code(s): 193463703 Comment: - Lungs sound clear today. Will attempt to wean O2. - Chest xray with mild interstitial edema earlier in hospitalization - EF 30-35% - continue metoprolol - starting po lasix 40mg daily (6) Hypertension Current Visit: No Status: Chronic Code(s): I10 - ESSENTIAL (PRIMARY) HYPERTENSION SNOMED Code(s): 69677918 Comment: - normotensive - continue metoprolol with hold parameters (7) Type 2 diabetes mellitus Current Visit: No Status: Chronic Comment: - Complicated by hyperglycemia and foot ulcer - Continue lispro SSI coverage, lantus 20 units AM, lantus 15 units PM - A1c 8.4 - will not adjust today due to NPO status for surgery (8) Peripheral vascular disease Current Visit: No Status: Chronic Code(s): I73.9 - PERIPHERAL VASCULAR DISEASE, UNSPECIFIED SNOMED Code(s): 531362367 Comment: - Hx of unsuccessful angioplasty on in 2015 - Continue statin, ASA. - Continues with non healing wounds (9) Parkinson disease Current Visit: No Status: Chronic Priority: Medium Onset Date: 01/29/15 Code(s): G20 - PARKINSON'S DISEASE SNOMED Code(s): 21677148 Comment: - On baclofen, no sinemet - Supportive care (10) Dementia Current Visit: No Status: Chronic Code(s): F03.90 - UNSPECIFIED DEMENTIA WITHOUT BEHAVIORAL DISTURBANCE SNOMED Code(s): 78451406 Comment: - Continue donepezil, sertraline (11) Full code status Current Visit: No Status: Acute Code(s): Z78.9 - OTHER SPECIFIED HEALTH STATUS SNOMED Code(s): 805850481 Comment: (12) DVT prophylaxis Current Visit: No Status: Acute Priority: Medium Code(s): OLO4396 - SNOMED Code(s): 457772082 Comment: - Heparin gtt stopped today, will give one HSQ dose tonight Status and Disposition: Inpatient, dispo TBD. Pending wound healing
[2018-12-06] MEDS: guaiFENesin ER TAB 600 MG PO SCH (11:54)
[2018-12-06] MEDS ORDERED: Midazolam* 1 MG/ML 2 ML VIAL (2 MG) ONE (15:52)
[2018-12-06] MEDS ORDERED: KETAMINE HCL* 50 MG/ML 10 ML VIAL ONE (16:04)
[2018-12-06] MEDS ORDERED: fentaNYL* 50 MCG/ML 2 ML VIAL (100 MCG VIAL) ONE (16:05)
[2018-12-06] MEDS ORDERED: fentaNYL* 50 MCG/ML 2 ML VIAL (100 MCG VIAL) IV PRN (16:19)
[2018-12-06] MEDS ORDERED: Naloxone* 0.4 MG/ML 1 ML VIAL IV PRN (16:19)
--- NOTE | 2018-12-06 16:40 | OP ---
Operative Report - Blank - Operative Report Date of Operation: 12/06/18 Note: PATIENT: Jaime Cedillo DATE OF : 1935 DATE OF SURGERY: 12/06/2018 SURGEON: Delroy Frederick MD ORGAN BUILDER: MADY Cox, whos assistance was necessary for positioning, retraction, help with instrumentation, and closure. ANESTHESIOLOGIST: Dr. Castaneda PREOPERATIVE DIAGNOSIS: Left necrotic posterior ankle and heel ulcer and cellulitis POSTOPERATIVE DIAGNOSIS: Left necrotic posterior ankle and heel ulcer and cellulitis OPERATION: Left lower extremity irrigation and debridement, saucerization of the calcaneus and placement of a wound VAC ANESTHESIA: MAC IMPLANTS: none TOURNIQUET TIME: Less than 1 hour with a well-padded thigh calf tourniquet at 225mmHg SPECIMENS: Culture swabs to micro ESTIMATED BLOOD LOSS: minimal COMPLICATIONS: none STATUS: Stable from the operating room to the recovery room. INDICATIONS FOR PROCEDURE: Jaime has a necrotic posterior ankle and heel ulcer and cellulitis. Both operative and non-operative treatment alternatives were reviewed. Surgically we did discuss I&D vs. BKA and they elected for I&D. Further, the nature and risks of surgery were reviewed in careful detail. Our discussions regarding the risks of surgery included, but were not limited to, persistent or worsening infection , wound problems, persistent symptoms, blood clot, need for further surgery, failure of the surgery, and even the remote chance of catastrophic complication. DESCRIPTION OF PROCEDURE: The patient was seen in the preoperative holding unit and informed written consent was obtained. The appropriate extremity was marked. The patient was then brought to the operating room and carefully positioned on the operating room table. Anesthesia was induced. All bony prominences were padded with great care. A chlorhexidine based pre-scrub was performed followed by a chloraprep prep and drape in standard sterile fashion. A surgical safety pause was then conducted in which we confirmed the appropriate patient, extremity, planned procedure, availability of equipment, indication and administration of prophylactic antibiotics, and DVT prophylaxis in the form of a compression boot on the non-surgical extremity. I began with a gravity exsanguination of the limb and inflated the tourniquet. A Jihan 15 blade scalpel to sharply excise the necrotic edges of the skin. I then excised the exposed and desiccated Achilles tendon. All other necrotic and nonviable appearing tissue was then sharply excised with a 15 blade scalpel. This included the skin, subcutaneous, tendon, fascial, muscle, periosteum, and down to the layer of bone. The posterior aspect of the calcaneus was resected with an osteotome. Deep culture swabs were taken. The wound was then thoroughly irrigated with sterile saline. The wound measured 11 cm in length by 3 cm in width by 1 cm in depth. I decided to place a wound VAC. This was placed with good suction. The patient was then awakened from anesthesia and transferred to the recovery room in stable condition. There were no complications. All needle and sponge counts were correct at the end of the case. ATTESTATION: I attest I was present and scrubbed and performed the critical portions of the procedure myself. POSTOPERATIVE PLAN: We will plan on VAC changes every 3 days. Antibiotics as guided by the infectious disease service.
[2018-12-06] MEDS: Hydrocortisone 1% CREAM* 30 GM TUBE TOPICAL SCH ×2 (18:55→21:36)
[2018-12-06] MEDS: Donepezil TAB* 5 MG PO SCH (21:23)
[2018-12-06] MEDS: Atorvastatin* 10 MG TAB PO SCH (21:24)
[2018-12-06] MEDS: Enoxaparin(*) 100 MG/ML SYR SUBCUT SCH (21:31)
[2018-12-07] MEDS: Acetaminophen TAB* 325 MG PO PRN ×2 (04:03→08:36)
[2018-12-07] MEDS: traMADol TAB* 50 MG PO PRN (06:16)
[2018-12-07] MEDS: ceFAZolin* 2 GM in NS 100 MLS Q8H (Pharmacy Admix) IVPB SCH ×3 (06:19→21:32)
[2018-12-07] MEDS: Insulin LISPRO* 1 UNITS UNIT SUBCUT SCH ×4 (07:51→21:26)
[2018-12-07] MEDS: Insulin GLARGINE(*) 1 UNITS UNIT SUBCUT SCH ×2 (08:33→21:26)
[2018-12-07] MEDS: Furosemide TAB* 40 MG PO SCH (08:38)
[2018-12-07] MEDS: Aspirin 81 mg CHEW TAB* 81 MG TAB.CHEW PO SCH (08:38)
[2018-12-07] MEDS: Baclofen TAB* 10 MG PO SCH ×3 (08:40→21:25)
[2018-12-07] MEDS: Sertraline* 25 MG TAB PO SCH (08:40)
[2018-12-07] MEDS: Metoprolol Tartrate TAB* 50 mg PO SCH ×2 (08:41→21:25)
[2018-12-07] MEDS: guaiFENesin ER TAB 600 MG PO SCH ×2 (08:41→21:24)
[2018-12-07 08:44] LABS: ABS Eosinophils 0.3 10^3/ul (0-0.6); ABS Lymphocytes 1.1 10^3/ul (1.0-4.8); ABS Monocytes 0.8 10^3/ul (0-0.8); ABS Neutrophils 6.8 10^3/ul (1.5-7.7); Eosinophil % 3.7 %; Hematocrit 29 % (42-52); Hemoglobin 9.4 g/dL (14.0-18.0); Lymphocyte % 12.1 %; Mean Corpuscular HGB Conc 33 g/dL (31-36); Mean Corpuscular Hemoglobin 29 pg (27-31); Mean Corpuscular Volume 88 fL (80-94); Mean Platelet Volume 7.3 fL (7.4-10.4); Platelet Count 351 10^3/uL (150-450); Red Blood Count 3.28 10^6 /uL (4.18-5.48); Red Cell Distribution Width 15 % (10-15); White Blood Count 9.1 10^3/uL (3.5-10.8)
[2018-12-07] MEDS: Enoxaparin(*) 100 MG/ML SYR SUBCUT SCH ×2 (08:44→21:25)
[2018-12-07 09:05] LABS: BUN/Creatinine Ratio 27.8 (8-20); Calcium 8.5 mg/dL (8.6-10.3); EGFR African American 113.9 (>60); EGFR Non-African American 94.1 (>60); Potassium 4.5 mmol/L (3.5-5.0)
--- NOTE | 2018-12-07 09:54 | PN ---
Progress Note - Progress Note Date of Service: 12/07/18 SOAP: Subjective: OOB to chair with Fawn lift, no complaints of calf pain/SOB; pain moderate Left foot Objective: Vital Signs Temp Pulse Resp BP Pulse Ox 97 F 64 20 116/53 94 12/07/18 07:15 12/07/18 07:15 12/07/18 08:35 12/07/18 07:15 12/07/18 08:00 Laboratory Last Values WBC 9.1 10^3/uL (3.5-10.8) 12/07/18 07:49 RBC 3.28 10^6 /uL (4.18-5.48) L 12/07/18 07:49 Hgb 9.4 g/dL (14.0-18.0) L 12/07/18 07:49 Hct 29 % (42-52) L 12/07/18 07:49 MCV 88 fL (80-94) 12/07/18 07:49 MCH 29 pg (27-31) 12/07/18 07:49 MCHC 33 g/dL (31-36) 12/07/18 07:49 RDW 15 % (10-15) 12/07/18 07:49 Plt Count 351 10^3/uL (150-450) 12/07/18 07:49 MPV 7.3 fL (7.4-10.4) L 12/07/18 07:49 Neut % (Auto) 74.7 % 12/07/18 07:49 Lymph % (Auto) 12.1 % 12/07/18 07:49 [place] % (Auto) 9.0 % 12/07/18 07:49 Eos % (Auto) 3.7 % 12/07/18 07:49 Baso % (Auto) 0.5 % 12/07/18 07:49 Absolute Neuts (auto) 6.8 10^3/ul (1.5-7.7) 12/07/18 07:49 Absolute Lymphs (auto) 1.1 10^3/ul (1.0-4.8) 12/07/18 07:49 Absolute Monos (auto) 0.8 10^3/ul (0-0.8) 12/07/18 07:49 Absolute Eos (auto) 0.3 10^3/ul (0-0.6) 12/07/18 07:49 Absolute Basos (auto) 0.0 10^3/ul (0-0.2) 12/07/18 07:49 Absolute Nucleated RBC 0.0 10^3/ul 12/07/18 07:49 Nucleated RBC % 0.0 12/07/18 07:49 INR (Anticoag Therapy) 1.48 (0.82-1.09) H 12/04/18 18:04 APTT 34.6 seconds (26.0-38.0) 12/06/18 05:26 Sodium 141 mmol/L (135-145) 12/07/18 07:49 Potassium 4.5 mmol/L (3.5-5.0) 12/07/18 07:49 Chloride 105 mmol/L (101-111) 12/07/18 07:49 Carbon Dioxide 30 mmol/L (22-32) 12/07/18 07:49 Anion Gap 6 mmol/L (2-11) 12/07/18 07:49 BUN 22 mg/dL (6-24) 12/07/18 07:49 Creatinine 0.79 mg/dL (0.67-1.17) 12/07/18 07:49 Est GFR ( Amer) 113.9 (>60) 12/07/18 07:49 Est GFR (Non-Af Amer) 94.1 (>60) 12/07/18 07:49 BUN/Creatinine Ratio 27.8 (8-20) H 12/07/18 07:49 Glucose 111 mg/dL (70-100) H 12/07/18 07:49 POC Glucose (mg/dL) 125 mg/dL (70-100) H 12/07/18 06:24 Glucose Meter Confirm 386 mg/dL (70-100) H 11/30/18 12:26 Hemoglobin A1c 8.4 % (4.0-5.6) H 11/30/18 12:26 Lactic Acid 1.5 mmol/L (0.5-2.0) 11/28/18 15:28 Calcium 8.5 mg/dL (8.6-10.3) L 12/07/18 07:49 Phosphorus 3.2 mg/dL (2.5-5.0) 11/29/18 06:08 Magnesium 2.3 mg/dL (1.9-2.7) 12/03/18 00:41 Total Bilirubin 0.30 mg/dL (0.2-1.0) 12/04/18 17:28 Direct Bilirubin 0.10 mg/dL (0.03-0.18) 12/04/18 17:28 Indirect Bilirubin 0.2 mg/dL (0.3-1.0) L 12/04/18 17:28 AST 22 U/L (13-39) 12/04/18 17:28 ALT 10 U/L (7-52) 12/04/18 17:28 Alkaline Phosphatase 72 U/L (34-104) 12/04/18 17:28 Troponin I 1.45 ng/mL (<0.04) H* 12/02/18 20:24 C-Reactive Protein 156.23 mg/L (<8.01) H 12/02/18 13:08 Total Protein 6.5 g/dL (6.4-8.9) 12/04/18 17:28 Albumin 3.1 g/dL (3.2-5.2) L 12/04/18 17:28 Globulin 3.4 g/dL (2-4) 12/04/18 17:28 Albumin/Globulin Ratio 0.9 (1-3) L 12/04/18 17:28 incision: wound vac in place with good suction PE: calf soft/NT/ND; NVI Assessment: s/p LLE I&D with wound vac placement Plan: 1) continue Lovenox/ASA for DVT prophylaxis 2) Hospitalist co-managing 3) will continue wound vac and watch closely to make sure it holds suction 4) Likely needs BKA next week
[2018-12-07] MEDS: Hydrocortisone 1% CREAM* 30 GM TUBE TOPICAL SCH (11:01)
--- NOTE | 2018-12-07 11:13 | PN ---
Subjective Date of Service: 12/07/18 Interval History: When asking patient how he feels, he says terrible. Then indicates that he wants the volume turned up on the TV. When probed further, he says he does not feel terrible and says he feels adequate. He endorses feeling tired. Denies fever/chills, difficulty breathing, chest pain, abd pain, nausea, pain at surgical site of left heel. Objective Active Medications: Acetaminophen (Tylenol Tab*) 650 mg PO Q4H PRN PRN Reason: MILD PAIN or TEMP > 100.4 Last Admin: 12/07/18 08:36 Dose: 650 mg Albuterol (Ventolin 2.5 Mg/3 Ml Neb.Vale*) 2.5 mg INH [id number] AWAKE PRN PRN Reason: sob/wheezing Aspirin (Aspirin 81 Mg Chew Tab*) 81 mg PO DAILY [facility] Last Admin: 12/07/18 08:38 Dose: 81 mg Atorvastatin Calcium (Lipitor*) 10 mg PO BEDTIME [facility] Last Admin: 12/06/18 21:24 Dose: 10 mg Atropine Sulfate (Atropine 1% (Oral/Sl)*) 2 drop SL Q2H PRN PRN Reason: unresolved airway secretion Last Admin: 12/06/18 01:41 Dose: 2 drp Baclofen (Lioresal Tab*) 10 mg PO TID [facility] Last Admin: 12/07/18 08:40 Dose: 10 mg Dextrose (Dextrose 50% Vial 50 Ml*) 25 ml IV PUSH .FOR FS < 60 - SS PRN PRN Reason: FS < 60 Donepezil HCl (Aricept Tab*) 5 mg PO BEDTIME [facility] Last Admin: 12/06/18 21:23 Dose: 5 mg Enoxaparin Sodium (Lovenox(*)) 90 mg SUBCUT Q12H [facility] Last Admin: 12/07/18 08:44 Dose: 90 mg Furosemide (Lasix Tab*) 40 mg PO DAILY [facility] Last Admin: 12/07/18 08:38 Dose: 40 mg Guaifenesin (Mucinex*) 1,200 mg PO BID [facility] Last Admin: 12/07/18 08:41 Dose: 1,200 mg Hydrocortisone (Hytone Cream 1%*) 1 applic TOPICAL TID [facility] Last Admin: 12/07/18 11:01 Dose: Not Given Cefazolin Sodium 2 gm/ Sodium (Chloride) 100 mls @ 200 mls/hr IVPB Q8H [facility] Last Admin: 12/07/18 06:19 Dose: 200 mls/hr Insulin Glargine (Lantus(*)) 20 units SUBCUT QAM [facility] Last Admin: 12/07/18 08:33 Dose: 20 unit Insulin Glargine (Lantus(*)) 15 units SUBCUT 2100 [facility] Last Admin: 12/06/18 21:32 Dose: 15 units Insulin Human Lispro (Humalog*) 0 units SUBCUT ACHS [facility]; Protocol Last Admin: 12/07/18 07:51 Dose: Not Given Metoprolol Tartrate (Lopressor Tab*) 50 mg PO BID [facility] Last Admin: 12/07/18 08:41 Dose: 50 mg Ondansetron HCl (Zofran Inj*) 4 mg IV Q4H PRN PRN Reason: NAUSEA/VOMITING Sertraline HCl (Zoloft*) 25 mg PO DAILY [facility] Last Admin: 12/07/18 08:40 Dose: 25 mg Tramadol HCl (Ultram*) 50 mg PO Q6H PRN PRN Reason: PAIN - MODERATE Last Admin: 12/07/18 06:16 Dose: 50 mg Vital Signs - 8 hr 12/07/18 12/07/18 12/07/18 03:15 06:05 06:16 Temperature 97.6 F 97.3 F Pulse Rate 60 65 Respiratory 20 20 20 Rate Blood Pressure 110/50 116/50 (mmHg) O2 Sat by Pulse 93 98 Oximetry 12/07/18 12/07/18 12/07/18 07:15 08:00 08:35 Temperature 97 F Pulse Rate 64 Respiratory 20 20 20 Rate Blood Pressure 116/53 (mmHg) O2 Sat by Pulse 94 94 Oximetry Oxygen Devices in Use Now: Nasal Cannula Appearance: Elderly white male, sitting in chair, in NAD Eyes: No Scleral Icterus, - - PERRL Ears/Nose/Mouth/Throat: Mucous Membranes Moist Neck: - - neck supple Respiratory: Symmetrical Chest Expansion and Respiratory Effort, Clear to Auscultation, - - no cough during exam Cardiovascular: NL Sounds; No Murmurs; No JVD, - - irregularly irregular rhythm consistent with afib Abdominal: - - abd soft ,nontender, nondistended Extremities: No Clubbing, Cyanosis, - - trace edema to left hindfoot at TMA stump; wound vac in place on left heel Skin: No Rash or Ulcers, - - wheals on back no longer present Neurological: NL Muscle Strength and Tone, - - alert and oriented x3, tells me he is in the hospital but unsure of which, but knows he is in [place], [place] Result Diagrams: 12/07/18 07:49 12/07/18 07:49 Additional Lab and Data: . Microbiology and Other Data: . Assess/Plan/Problems-Billing Assessment: Mr. Cedillo is an 83 year old male with history of Parkinsons, dementia, PVD and non- healing wounds that presents to the ED with his with complaints of left heel ulcer, now with new onset afib, NSTEMI, and acute on chronic CHF. - Patient Problems (1) Non healing left heel wound Current Visit: Yes Status: Acute Code(s): S91.302A - UNSPECIFIED OPEN WOUND , LEFT FOOT, INITIAL ENCOUNTER SNOMED Code(s): 116726528 Comment: - With exposure of left achilles tendon at presentation - Initial wound culture with staph - Appreciate ID consult. Previously changed to po keflex per ID rec. Now on IV cefazolin - Appreciate ortho consult. S/p I&D and calcaneous saucerization with Dr. Frederick 12/06/18. Plan for wound vac change Monday (12/10/18) per ortho. Orthopedics may need to proceed with additional surgery at that point depending on progression, would likely need BKA - MRI without osteo - Wound VAC in place (2) NSTEMI (non-ST elevated myocardial infarction) Current Visit: Yes Status: Acute Code(s): I21.4 - NON-ST ELEVATION (NSTEMI) MYOCARDIAL INFARCTION SNOMED Code(s): 11904522 Comment: - Remains without anginal sxs today - Trop peaked 1.65, downtrended to 1.45, EKGs without ischemic changes - Continue asa, statin, and beta riccardo - Heparin drip ran for 72 hours, has since been d/c - TTE without significant changes from echo in 2019 - Had CABG 2006 and 2011. Had stress test in February 2018 showing large fixed defects only, transferred to [facility] for consideration of high risk catheterization, but plan ultimately for medical therapy only. Follows with Dr. Sharp outpatient, consult from July 2018 in [facility]. - Appreciate cardiology consult (3) Afib Current Visit: Yes Status: Acute Code(s): I48.91 - UNSPECIFIED ATRIAL FIBRILLATION SNOMED Code(s): 97211364 Comment: - New diagnosis during this hospitalization. No previously documented history of afib found. Prior history of mobitz II AV block - Continue metoprolol - [id number] score of 8. Will benefit from fci AC, but oral AC is not preferred at this point in hospital stay as further orthopedic surgery may be necessary. Starting BID lovenox in the interim. (4) Contact dermatitis Current Visit: Yes Status: Acute Code(s): L25.9 - UNSPECIFIED CONTACT DERMATITIS, UNSPECIFIED CAUSE SNOMED Code(s): 62061985 Comment: -c/o itching on back, noted scattered large wheals. Resolved today -likely contact dermatitis to bedsheets -linens are already triple washed, discussed additional linen change today with nursing -ordered TID hydrocoritsone cream, changing to prn (5) Acute on chronic systolic CHF (congestive heart failure) Current Visit: Yes Status: Acute Code(s): I50.23 - ACUTE ON CHRONIC SYSTOLIC (CONGESTIVE) HEART FAILURE SNOMED Code(s): 810095732 Comment: - Lungs sound clear today. Will attempt to wean O2. - Chest xray with mild interstitial edema earlier in hospitalization - EF 30-35% - continue metoprolol, lasix (6) Hypertension Current Visit: No Status: Chronic Code(s): I10 - ESSENTIAL (PRIMARY) HYPERTENSION SNOMED Code(s): 13940967 Comment: - normotensive - continue metoprolol with hold parameters (7) Type 2 diabetes mellitus Current Visit: No Status: Chronic Comment: - Complicated by hyperglycemia and foot ulcer - Continue lispro SSI coverage, lantus 20 units AM, lantus 15 units PM - A1c 8.4 - will monitor BGs today and perhaps adjust insulin dosing (8) Peripheral vascular disease Current Visit: No Status: Chronic Code(s): I73.9 - PERIPHERAL VASCULAR DISEASE, UNSPECIFIED SNOMED Code(s): 464378525 Comment: - Hx of unsuccessful angioplasty on in 2016 - Continue statin, ASA. (9) Parkinson disease Current Visit: No Status: Chronic Priority: Medium Onset Date: 01/29/15 Code(s): G20 - PARKINSON'S DISEASE SNOMED Code(s): 37914243 Comment: - On baclofen, no sinemet - Supportive care (10) Dementia Current Visit: No Status: Chronic Code(s): F03.90 - UNSPECIFIED DEMENTIA WITHOUT BEHAVIORAL DISTURBANCE SNOMED Code(s): 32488398 Comment: - Continue donepezil, sertraline (11) Full code status Current Visit: No Status: Acute Code(s): Z78.9 - OTHER SPECIFIED HEALTH STATUS SNOMED Code(s): 014658232 Comment: (12) DVT prophylaxis Current Visit: No Status: Acute Priority: Medium Code(s): LZE7374 - SNOMED Code(s): 275764687 Comment: - BID lovenox for afib Status and Disposition: Inpatient, dispo TBD. Pending wound healing and may need amputation
[2018-12-07] MEDS ORDERED: Hydrocortisone 1% CREAM* 30 GM TUBE TOPICAL PRN (11:16)
[2018-12-07] MEDS: Donepezil TAB* 5 MG PO SCH (21:25)
[2018-12-07] MEDS: Atorvastatin* 10 MG TAB PO SCH (21:25)
[2018-12-08] MEDS: ceFAZolin* 2 GM in NS 100 MLS Q8H (Pharmacy Admix) IVPB SCH ×3 (05:33→22:50)
--- NOTE | 2018-12-08 08:59 | PN ---
Progress Note - Progress Note Date of Service: 12/08/18 SOAP: Subjective: no complaints, pain well controlled Objective: Vital Signs Temp Pulse Resp BP Pulse Ox 96.9 F 65 16 110/52 94 12/08/18 07:15 12/08/18 07:15 12/08/18 07:15 12/08/18 07:15 12/08/18 07:15 Laboratory Last Values WBC 9.1 10^3/uL (3.5-10.8) 12/07/18 07:49 RBC 3.28 10^6 /uL (4.18-5.48) L 12/07/18 07:49 Hgb 9.4 g/dL (14.0-18.0) L 12/07/18 07:49 Hct 29 % (42-52) L 12/07/18 07:49 MCV 88 fL (80-94) 12/07/18 07:49 MCH 29 pg (27-31) 12/07/18 07:49 MCHC 33 g/dL (31-36) 12/07/18 07:49 RDW 15 % (10-15) 12/07/18 07:49 Plt Count 351 10^3/uL (150-450) 12/07/18 07:49 MPV 7.3 fL (7.4-10.4) L 12/07/18 07:49 Neut % (Auto) 74.7 % 12/07/18 07:49 Lymph % (Auto) 12.1 % 12/07/18 07:49 [place] % (Auto) 9.0 % 12/07/18 07:49 Eos % (Auto) 3.7 % 12/07/18 07:49 Baso % (Auto) 0.5 % 12/07/18 07:49 Absolute Neuts (auto) 6.8 10^3/ul (1.5-7.7) 12/07/18 07:49 Absolute Lymphs (auto) 1.1 10^3/ul (1.0-4.8) 12/07/18 07:49 Absolute Monos (auto) 0.8 10^3/ul (0-0.8) 12/07/18 07:49 Absolute Eos (auto) 0.3 10^3/ul (0-0.6) 12/07/18 07:49 Absolute Basos (auto) 0.0 10^3/ul (0-0.2) 12/07/18 07:49 Absolute Nucleated RBC 0.0 10^3/ul 12/07/18 07:49 Nucleated RBC % 0.0 12/07/18 07:49 INR (Anticoag Therapy) 1.48 (0.82-1.09) H 12/04/18 18:04 APTT 34.6 seconds (26.0-38.0) 12/06/18 05:26 Sodium 141 mmol/L (135-145) 12/07/18 07:49 Potassium 4.5 mmol/L (3.5-5.0) 12/07/18 07:49 Chloride 105 mmol/L (101-111) 12/07/18 07:49 Carbon Dioxide 30 mmol/L (22-32) 12/07/18 07:49 Anion Gap 6 mmol/L (2-11) 12/07/18 07:49 BUN 22 mg/dL (6-24) 12/07/18 07:49 Creatinine 0.79 mg/dL (0.67-1.17) 12/07/18 07:49 Est GFR ( Amer) 113.9 (>60) 12/07/18 07:49 Est GFR (Non-Af Amer) 94.1 (>60) 12/07/18 07:49 BUN/Creatinine Ratio 27.8 (8-20) H 12/07/18 07:49 Glucose 111 mg/dL (70-100) H 12/07/18 07:49 POC Glucose (mg/dL) 231 mg/dL (70-100) H 12/07/18 19:46 Glucose Meter Confirm 386 mg/dL (70-100) H 11/30/18 12:26 Hemoglobin A1c 8.4 % (4.0-5.6) H 11/30/18 12:26 Lactic Acid 1.5 mmol/L (0.5-2.0) 11/28/18 15:28 Calcium 8.5 mg/dL (8.6-10.3) L 12/07/18 07:49 Ionized Calcium 1.19 mmol/L (1.16-1.32) 12/07/18 11:40 Phosphorus 3.2 mg/dL (2.5-5.0) 11/29/18 06:08 Magnesium 2.3 mg/dL (1.9-2.7) 12/03/18 00:41 Total Bilirubin 0.30 mg/dL (0.2-1.0) 12/04/18 17:28 Direct Bilirubin 0.10 mg/dL (0.03-0.18) 12/04/18 17:28 Indirect Bilirubin 0.2 mg/dL (0.3-1.0) L 12/04/18 17:28 AST 22 U/L (13-39) 12/04/18 17:28 ALT 10 U/L (7-52) 12/04/18 17:28 Alkaline Phosphatase 72 U/L (34-104) 12/04/18 17:28 Troponin I 1.45 ng/mL (<0.04) H* 12/02/18 20:24 C-Reactive Protein 156.23 mg/L (<8.01) H 12/02/18 13:08 Total Protein 6.5 g/dL (6.4-8.9) 12/04/18 17:28 Albumin 3.1 g/dL (3.2-5.2) L 12/04/18 17:28 Globulin 3.4 g/dL (2-4) 12/04/18 17:28 Albumin/Globulin Ratio 0.9 (1-3) L 12/04/18 17:[address] with good suction Assessment: LLE I&D with wound vac placement Plan: 1) continue Abx 2) continue wound vac- will continue to monitor closely 3) NWB LLE 4)hospitalist co-managing
[2018-12-08] MEDS: Insulin GLARGINE(*) 1 UNITS UNIT SUBCUT SCH ×2 (09:15→21:57)
[2018-12-08] MEDS: Insulin LISPRO* 1 UNITS UNIT SUBCUT SCH ×4 (09:16→21:57)
[2018-12-08] MEDS: Furosemide TAB* 40 MG PO SCH (09:16)
[2018-12-08] MEDS: Baclofen TAB* 10 MG PO SCH ×3 (09:16→21:57)
[2018-12-08] MEDS: guaiFENesin ER TAB 600 MG PO SCH ×2 (09:16→21:57)
[2018-12-08] MEDS: Sertraline* 25 MG TAB PO SCH (09:16)
[2018-12-08] MEDS: Aspirin 81 mg CHEW TAB* 81 MG TAB.CHEW PO SCH (09:16)
[2018-12-08] MEDS: Metoprolol Tartrate TAB* 50 mg PO SCH ×3 (09:17→21:57)
[2018-12-08] MEDS: Enoxaparin(*) 100 MG/ML SYR SUBCUT SCH ×2 (15:10→22:50)
--- NOTE | 2018-12-08 15:40 | PN ---
Subjective Date of Service: 12/08/18 Interval History: Patient c/o feeling tired but otherwise says he feels good. Denies cough, difficulty breathing, chest pain, abd pain, LE pain, fever/chills. Objective Active Medications: Acetaminophen (Tylenol Tab*) 650 mg PO Q4H PRN PRN Reason: MILD PAIN or TEMP > 100.4 Last Admin: 12/07/18 08:36 Dose: 650 mg Albuterol (Ventolin 2.5 Mg/3 Ml Neb.Vale*) 2.5 mg INH [id number] AWAKE PRN PRN Reason: sob/wheezing Aspirin (Aspirin 81 Mg Chew Tab*) 81 mg PO DAILY [facility] Last Admin: 12/08/18 09:16 Dose: 81 mg Atorvastatin Calcium (Lipitor*) 10 mg PO BEDTIME [facility] Last Admin: 12/07/18 21:25 Dose: 10 mg Atropine Sulfate (Atropine 1% (Oral/Sl)*) 2 drop SL Q2H PRN PRN Reason: unresolved airway secretion Last Admin: 12/06/18 01:41 Dose: 2 drp Baclofen (Lioresal Tab*) 10 mg PO TID [facility] Last Admin: 12/08/18 15:10 Dose: 10 mg Dextrose (Dextrose 50% Vial 50 Ml*) 25 ml IV PUSH .FOR FS < 60 - SS PRN PRN Reason: FS < 60 Donepezil HCl (Aricept Tab*) 5 mg PO BEDTIME [facility] Last Admin: 12/07/18 21:25 Dose: 5 mg Enoxaparin Sodium (Lovenox(*)) 90 mg SUBCUT Q12H [facility] Last Admin: 12/08/18 15:10 Dose: 90 mg Furosemide (Lasix Tab*) 40 mg PO DAILY [facility] Last Admin: 12/08/18 09:16 Dose: 40 mg Guaifenesin (Mucinex*) 1,200 mg PO BID [facility] Last Admin: 12/08/18 09:16 Dose: 600 mg Hydrocortisone (Hytone Cream 1%*) 1 applic TOPICAL TID PRN PRN Reason: RASH Cefazolin Sodium 2 gm/ Sodium (Chloride) 100 mls @ 200 mls/hr IVPB Q8H [facility] Last Admin: 12/08/18 15:10 Dose: 200 mls/hr Insulin Glargine (Lantus(*)) 20 units SUBCUT QAM [facility] Last Admin: 12/08/18 09:15 Dose: 20 unit Insulin Glargine (Lantus(*)) 15 units SUBCUT 2100 [facility] Last Admin: 12/07/18 21:26 Dose: 15 units Insulin Human Lispro (Humalog*) 0 units SUBCUT ACHS [facility]; Protocol Last Admin: 12/08/18 12:59 Dose: Not Given Metoprolol Tartrate (Lopressor Tab*) 50 mg PO BID [facility] Last Admin: 12/08/18 09:20 Dose: 50 mg Ondansetron HCl (Zofran Inj*) 4 mg IV Q4H PRN PRN Reason: NAUSEA/VOMITING Sertraline HCl (Zoloft*) 25 mg PO DAILY [facility] Last Admin: 12/08/18 09:16 Dose: 25 mg Tramadol HCl (Ultram*) 50 mg PO Q6H PRN PRN Reason: PAIN - MODERATE Last Admin: 12/07/18 06:16 Dose: 50 mg Vital Signs - 8 hr 12/08/18 11:15 Temperature 98 F Pulse Rate 61 Respiratory 20 Rate Blood Pressure 94/57 (mmHg) O2 Sat by Pulse 98 Oximetry Oxygen Devices in Use Now: Nasal Cannula Appearance: Elderly white male, laying upright in bed, appearing in NAD; at bedside Eyes: No Scleral Icterus, - - PERRL Ears/Nose/Mouth/Throat: Mucous Membranes Moist Neck: - - neck supple Respiratory: Symmetrical Chest Expansion and Respiratory Effort, Clear to Auscultation Cardiovascular: NL Sounds; No Murmurs; No JVD, - - irregularly irregular rhythm consistent with afib Abdominal: - - abd soft, nontender, nondistended Extremities: No Edema, No Clubbing, Cyanosis, - - left heel with wound vac; R BKA, left TMA Skin: No Rash or Ulcers Neurological: - - alert and oriented to self Result Diagrams: 12/07/18 07:49 12/07/18 07:49 Additional Lab and Data: . Microbiology and Other Data: . Assess/Plan/Problems-Billing Assessment: Mr. Cedillo is an 83 year old male with history of Parkinsons, dementia, PVD and non- healing wounds that presents to the ED with his with complaints of left heel ulcer, now with new onset afib, NSTEMI, and acute on chronic CHF. - Patient Problems (1) Non healing left heel wound Current Visit: Yes Status: Acute Code(s): S91.302A - UNSPECIFIED OPEN WOUND , LEFT FOOT, INITIAL ENCOUNTER SNOMED Code(s): 097704662 Comment: - With exposure of left achilles tendon at presentation - Initial wound culture with staph - Appreciate ID consult. Previously changed to po keflex per ID rec. Now on IV cefazolin - Appreciate ortho consult. S/p I&D and calcaneous saucerization with Dr. Frederick 12/06/18. Plan for wound vac change Monday (12/10/18) per ortho. Orthopedics may need to proceed with additional surgery at that point depending on progression, would likely need BKA - MRI without osteo - Wound VAC in place (2) NSTEMI (non-ST elevated myocardial infarction) Current Visit: Yes Status: Acute Code(s): I21.4 - NON-ST ELEVATION (NSTEMI) MYOCARDIAL INFARCTION SNOMED Code(s): 45993356 Comment: - Remains without anginal sxs today - Trop peaked 1.65, downtrended to 1.45, EKGs without ischemic changes - Continue asa, statin, and beta riccardo - Heparin drip ran for 72 hours, has since been d/c - TTE without significant changes from echo in 2019 - Had CABG 2006 and 2011. Had stress test in February 2018 showing large fixed defects only, transferred to [facility] for consideration of high risk catheterization, but plan ultimately for medical therapy only. Follows with Dr. Sharp outpatient, consult from July 2018 in [facility]. - Appreciate cardiology consult (3) Afib Current Visit: Yes Status: Acute Code(s): I48.91 - UNSPECIFIED ATRIAL FIBRILLATION SNOMED Code(s): 13646063 Comment: - New diagnosis during this hospitalization. No previously documented history of afib found. Prior history of mobitz II AV block - Continue metoprolol - [id number] score of 8. Will benefit from senior living AC, but oral AC is not preferred at this point in hospital stay as further orthopedic surgery may be necessary. Starting BID lovenox in the interim. Discussed risk/benefits with so she can consider AC on discharge. He may be a greater fall risk by end of this hospitalization of L BKA is needed (4) Acute on chronic systolic CHF (congestive heart failure) Current Visit: Yes Status: Acute Code(s): I50.23 - ACUTE ON CHRONIC SYSTOLIC (CONGESTIVE) HEART FAILURE SNOMED Code(s): 129287064 Comment: - Lungs sound clear today. Will attempt to wean O2. - Chest xray today with worsened interstitial edema compared to CXR earlier in hospitalization. - EF 30-35% - continue metoprolol - changing po lasix to IV as hypoxia has persisted and given CXR findings (5) Hypertension Current Visit: No Status: Chronic Code(s): I10 - ESSENTIAL (PRIMARY) HYPERTENSION SNOMED Code(s): 09315207 Comment: - normotensive - continue metoprolol with hold parameters (6) Type 2 diabetes mellitus Current Visit: No Status: Chronic Comment: - Complicated by hyperglycemia and foot ulcer - Continue lispro SSI coverage, lantus 20 units AM, lantus 15 units PM - A1c 8.4 - BGs overall in good range today - holding home metformin (7) Contact dermatitis Current Visit: Yes Status: Acute Code(s): L25.9 - UNSPECIFIED CONTACT DERMATITIS, UNSPECIFIED CAUSE SNOMED Code(s): 70427435 Comment: -c/o itching on back, noted scattered large wheals. Resolved today -likely contact dermatitis to bedsheets -linens are already triple washed -ordered TID hydrocoritsone cream, will only need prn (8) Peripheral vascular disease Current Visit: No Status: Chronic Code(s): I73.9 - PERIPHERAL VASCULAR DISEASE, UNSPECIFIED SNOMED Code(s): 503048397 Comment: - Hx of unsuccessful angioplasty on in 2016 - Continue statin, ASA. (9) Parkinson disease Current Visit: No Status: Chronic Priority: Medium Onset Date: 01/29/15 Code(s): G20 - PARKINSON'S DISEASE SNOMED Code(s): 58835559 Comment: - On baclofen, no sinemet - Supportive care (10) Dementia Current Visit: No Status: Chronic Code(s): F03.90 - UNSPECIFIED DEMENTIA WITHOUT BEHAVIORAL DISTURBANCE SNOMED Code(s): 04353110 Comment: - Continue donepezil, sertraline (11) Full code status Current Visit: No Status: Acute Code(s): Z78.9 - OTHER SPECIFIED HEALTH STATUS SNOMED Code(s): 262637167 Comment: (12) DVT prophylaxis Current Visit: No Status: Acute Priority: Medium Code(s): QDZ9374 - SNOMED Code(s): 190932231 Comment: - BID lovenox for afib Status and Disposition: Inpatient, dispo TBD. Pending wound healing and may need amputation, depends on progress at wound vac change Monday
[2018-12-08] MEDS: Donepezil TAB* 5 MG PO SCH (21:57)
[2018-12-08] MEDS: Atorvastatin* 10 MG TAB PO SCH (21:57)
[2018-12-08] MEDS: traMADol TAB* 50 MG PO PRN (21:58)
[2018-12-09] MEDS ORDERED: Haloperidol INJ IV/IM* 5 MG/ML AMP IV SLOW PU ONE (01:33)
[2018-12-09] MEDS: ceFAZolin* 2 GM in NS 100 MLS Q8H (Pharmacy Admix) IVPB SCH ×3 (05:34→21:44)
[2018-12-09 06:03] LABS: ABS Basophils 0.1 10^3/ul (0-0.2); ABS Eosinophils 0.3 10^3/ul (0-0.6); ABS Lymphocytes 1.7 10^3/ul (1.0-4.8); ABS Monocytes 0.9 10^3/ul (0-0.8); ABS Neutrophils 6.8 10^3/ul (1.5-7.7); Hematocrit 28 % (42-52); Hemoglobin 8.8 g/dL (14.0-18.0); Lymphocyte % 17.1 %; Mean Corpuscular HGB Conc 32 g/dL (31-36); Mean Corpuscular Hemoglobin 28 pg (27-31); Mean Corpuscular Volume 89 fL (80-94); Mean Platelet Volume 7.2 fL (7.4-10.4); Nucleated Red Blood Cells % 0.3; Platelet Count 336 10^3/uL (150-450); Red Blood Count 3.12 10^6 /uL (4.18-5.48); Red Cell Distribution Width 15 % (10-15); White Blood Count 9.8 10^3/uL (3.5-10.8)
[2018-12-09 06:18] LABS: BUN/Creatinine Ratio 21.6 (8-20); Calcium 8.4 mg/dL (8.6-10.3); EGFR African American 122.8 (>60); EGFR Non-African American 101.5 (>60); Potassium 4.5 mmol/L (3.5-5.0)
[2018-12-09] MEDS: Insulin LISPRO* 1 UNITS UNIT SUBCUT SCH ×4 (07:36→21:43)
[2018-12-09] MEDS: Sertraline* 25 MG TAB PO SCH (08:58)
[2018-12-09] MEDS: Baclofen TAB* 10 MG PO SCH ×3 (08:58→21:43)
[2018-12-09] MEDS: Metoprolol Tartrate TAB* 50 mg PO SCH (08:58)
[2018-12-09] MEDS: guaiFENesin ER TAB 600 MG PO SCH ×2 (08:58→21:43)
[2018-12-09] MEDS: Insulin GLARGINE(*) 1 UNITS UNIT SUBCUT SCH ×2 (08:58→21:43)
[2018-12-09] MEDS: Aspirin 81 mg CHEW TAB* 81 MG TAB.CHEW PO SCH (08:58)
[2018-12-09] MEDS: Enoxaparin(*) 100 MG/ML SYR SUBCUT SCH ×2 (08:59→21:43)
[2018-12-09] MEDS ORDERED: Furosemide IV* 10 MG/ML VIAL (40 MG) IV SCH (09:00)
--- NOTE | 2018-12-09 09:45 | PN ---
Progress Note - Progress Note Date of Service: 12/09/18 SOAP: Subjective: OOB to chair, confused, no complaints or pain Objective: Vital Signs Temp Pulse Resp BP Pulse Ox 97.2 F 64 18 129/61 93 12/09/18 07:56 12/09/18 07:56 12/09/18 08:00 12/09/18 07:56 12/09/18 07:56 Laboratory Last Values WBC 9.8 10^3/uL (3.5-10.8) 12/09/18 05:16 RBC 3.12 10^6 /uL (4.18-5.48) L 12/09/18 05:16 Hgb 8.8 g/dL (14.0-18.0) L 12/09/18 05:16 Hct 28 % (42-52) L 12/09/18 05:16 MCV 89 fL (80-94) 12/09/18 05:16 MCH 28 pg (27-31) 12/09/18 05:16 MCHC 32 g/dL (31-36) 12/09/18 05:16 RDW 15 % (10-15) 12/09/18 05:16 Plt Count 336 10^3/uL (150-450) 12/09/18 05:16 MPV 7.2 fL (7.4-10.4) L 12/09/18 05:16 Neut % (Auto) 69.8 % 12/09/18 05:16 Lymph % (Auto) 17.1 % 12/09/18 05:16 [place] % (Auto) 9.5 % 12/09/18 05:16 Eos % (Auto) 3.0 % 12/09/18 05:16 Baso % (Auto) 0.6 % 12/09/18 05:16 Absolute Neuts (auto) 6.8 10^3/ul (1.5-7.7) 12/09/18 05:16 Absolute Lymphs (auto) 1.7 10^3/ul (1.0-4.8) 12/09/18 05:16 Absolute Monos (auto) 0.9 10^3/ul (0-0.8) H 12/09/18 05:16 Absolute Eos (auto) 0.3 10^3/ul (0-0.6) 12/09/18 05:16 Absolute Basos (auto) 0.1 10^3/ul (0-0.2) 12/09/18 05:16 Absolute Nucleated RBC 0.0 10^3/ul 12/09/18 05:16 Nucleated RBC % 0.3 12/09/18 05:16 INR (Anticoag Therapy) 1.48 (0.82-1.09) H 12/04/18 18:04 APTT 34.6 seconds (26.0-38.0) 12/06/18 05:26 Sodium 141 mmol/L (135-145) 12/09/18 05:16 Potassium 4.5 mmol/L (3.5-5.0) 12/09/18 05:16 Chloride 105 mmol/L (101-111) 12/09/18 05:16 Carbon Dioxide 33 mmol/L (22-32) H 12/09/18 05:16 Anion Gap 3 mmol/L (2-11) 12/09/18 05:16 BUN 16 mg/dL (6-24) 12/09/18 05:16 Creatinine 0.74 mg/dL (0.67-1.17) 12/09/18 05:16 Est GFR ( Amer) 122.8 (>60) 12/09/18 05:16 Est GFR (Non-Af Amer) 101.5 (>60) 12/09/18 05:16 BUN/Creatinine Ratio 21.6 (8-20) H 12/09/18 05:16 Glucose 92 mg/dL (70-100) 12/09/18 05:16 POC Glucose (mg/dL) 108 mg/dL (70-100) H 12/09/18 07:19 Glucose Meter Confirm 386 mg/dL (70-100) H 11/30/18 12:26 Hemoglobin A1c 8.4 % (4.0-5.6) H 11/30/18 12:26 Lactic Acid 1.5 mmol/L (0.5-2.0) 11/28/18 15:28 Calcium 8.4 mg/dL (8.6-10.3) L 12/09/18 05:16 Ionized Calcium 1.19 mmol/L (1.16-1.32) 12/07/18 11:40 Phosphorus 3.2 mg/dL (2.5-5.0) 11/29/18 06:08 Magnesium 2.3 mg/dL (1.9-2.7) 12/03/18 00:41 Total Bilirubin 0.30 mg/dL (0.2-1.0) 12/04/18 17:28 Direct Bilirubin 0.10 mg/dL (0.03-0.18) 12/04/18 17:28 Indirect Bilirubin 0.2 mg/dL (0.3-1.0) L 12/04/18 17:28 AST 22 U/L (13-39) 12/04/18 17:28 ALT 10 U/L (7-52) 12/04/18 17:28 Alkaline Phosphatase 72 U/L (34-104) 12/04/18 17:28 Troponin I 1.45 ng/mL (<0.04) H* 12/02/18 20:24 C-Reactive Protein 156.23 mg/L (<8.01) H 12/02/18 13:08 Total Protein 6.5 g/dL (6.4-8.9) 12/04/18 17:28 Albumin 3.1 g/dL (3.2-5.2) L 12/04/18 17:28 Globulin 3.4 g/dL (2-4) 12/04/18 17:28 Albumin/Globulin Ratio 0.9 (1-3) L 12/04/18 17:28 dressing c/d/i, wound vac in place with good suction Assessment: s/p I&D LLE with wound vac placement Plan: 1) NWB LLE 2) IV abx 3) hospitalist co-managing 4) may need additional sx this week, ortho to follow closely
--- NOTE | 2018-12-09 15:14 | PN ---
Subjective Date of Service: 12/09/18 Interval History: Mr. Cedillo denies pain in the L leg. He notes he had some pain at admission, etc., but none today. He states he is eating, drinking well, had a BM today. He denies CP, palpitations, shortness of breath, cough, fever, chills. He is requiring 2L supplemental O2 per NC, which is his baseline. He has no complaints today. Objective Active Medications: Acetaminophen (Tylenol Tab*) 650 mg PO Q4H PRN PRN Reason: MILD PAIN or TEMP > 100.4 Last Admin: 12/07/18 08:36 Dose: 650 mg Albuterol (Ventolin 2.5 Mg/3 Ml Neb.Vale*) 2.5 mg INH [id number] AWAKE PRN PRN Reason: sob/wheezing Aspirin (Aspirin 81 Mg Chew Tab*) 81 mg PO DAILY [facility] Last Admin: 12/09/18 08:58 Dose: 81 mg Atorvastatin Calcium (Lipitor*) 10 mg PO BEDTIME [facility] Last Admin: 12/08/18 21:57 Dose: 10 mg Atropine Sulfate (Atropine 1% (Oral/Sl)*) 2 drop SL Q2H PRN PRN Reason: unresolved airway secretion Last Admin: 12/06/18 01:41 Dose: 2 drp Baclofen (Lioresal Tab*) 10 mg PO TID [facility] Last Admin: 12/09/18 14:30 Dose: 10 mg Dextrose (Dextrose 50% Vial 50 Ml*) 25 ml IV PUSH .FOR FS < 60 - SS PRN PRN Reason: FS < 60 Donepezil HCl (Aricept Tab*) 5 mg PO BEDTIME [facility] Last Admin: 12/08/18 21:57 Dose: 5 mg Enoxaparin Sodium (Lovenox(*)) 90 mg SUBCUT Q12H [facility] Last Admin: 12/09/18 08:59 Dose: 90 mg Furosemide (Lasix Iv*) 40 mg IV DAILY [facility] Last Admin: 12/09/18 08:58 Dose: 40 mg Guaifenesin (Mucinex*) 1,200 mg PO BID [facility] Last Admin: 12/09/18 08:58 Dose: 1,200 mg Hydrocortisone (Hytone Cream 1%*) 1 applic TOPICAL TID PRN PRN Reason: RASH Cefazolin Sodium 2 gm/ Sodium (Chloride) 100 mls @ 200 mls/hr IVPB Q8H [facility] Last Admin: 12/09/18 14:30 Dose: 200 mls/hr Insulin Glargine (Lantus(*)) 20 units SUBCUT QAM [facility] Last Admin: 12/09/18 08:58 Dose: 20 unit Insulin Glargine (Lantus(*)) 15 units SUBCUT 2100 [facility] Last Admin: 12/08/18 21:57 Dose: 15 units Insulin Human Lispro (Humalog*) 0 units SUBCUT ACHS [facility]; Protocol Last Admin: 12/09/18 11:55 Dose: 3 units Metoprolol Tartrate (Lopressor Tab*) 25 mg PO BID [facility] Ondansetron HCl (Zofran Inj*) 4 mg IV Q4H PRN PRN Reason: NAUSEA/VOMITING Sertraline HCl (Zoloft*) 25 mg PO DAILY [facility] Last Admin: 12/09/18 08:58 Dose: 25 mg Tramadol HCl (Ultram*) 50 mg PO Q6H PRN PRN Reason: PAIN - MODERATE Last Admin: 12/08/18 21:58 Dose: 50 mg Vital Signs: Temp Pulse Resp BP Pulse Ox 98.2 F 58 17 106/53 92 12/09/18 15:43 12/09/18 15:43 12/09/18 15:43 12/09/18 15:43 12/09/18 15:43 Oxygen Devices in Use Now: Nasal Cannula Appearance: Mr. Cedillo is an obese older white male who is sitting up in a chair with b/l LE elevated. He responds to questions with minimal words, but is appropriate, cooperative. He appears to be in no acute distress. Eyes: No Scleral Icterus, PERRLA Ears/Nose/Mouth/Throat: NL Teeth, Lips, Gums, Clear Oropharnyx, Mucous Membranes Moist Neck: NL Appearance and Movements; NL JVP, Trachea Midline Respiratory: Symmetrical Chest Expansion and Respiratory Effort, Clear to Auscultation Cardiovascular: NL Sounds; No Murmurs; No JVD, No Edema, - - Irregular Abdominal: NL Sounds; No Tenderness; No Distention, No Hepatosplenomegaly Extremities: No Clubbing, Cyanosis, - - R BKA. L transmetatarsal amputation noted; L stump with CDI dressing in place; wound vac in place with moderate amount of black and blood-tinged material in canister. Neurological: - - Alert. Oriented to person, place, year; does not know month Result Diagrams: 12/09/18 05:16 12/09/18 05:16 Additional Lab and Data: . Microbiology and Other Data: . Assess/Plan/Problems-Billing Assessment: Mr. Cedillo is an 83 year old male with history of Parkinsons, dementia, PVD and non- healing wounds that presents to the ED with his with complaints of left heel ulcer, now with new onset afib, NSTEMI, and acute on chronic CHF. - Patient Problems (1) Non healing left heel wound Comment: - With exposure of left achilles tendon at presentation - Initial wound culture with staph; BC NGTD, repeat wound culture NGTD - Appreciate ID consult. Previously changed to po keflex per ID rec. Now on IV cefazolin - Appreciate ortho consult. S/p I&D and calcaneous saucerization with Dr. Frederick 12/06/18. - Plan for wound vac change Monday (12/10/18) per ortho. Orthopedics may need to proceed with additional surgery at that point depending on progression, would likely need BKA - MRI without osteo - Wound VAC in place (2) NSTEMI (non-ST elevated myocardial infarction) Comment: - Remains without anginal sx - Trop peaked 1.65, downtrended to 1.45, EKGs without ischemic changes - Continue asa, statin, and beta riccardo - Heparin drip ran for 72 hours, has since been d/c - TTE without significant changes from echo in 2019 - Had CABG 2006 and 2011. Had stress test in February 2018 showing large fixed defects only, transferred to [facility] for consideration of high risk catheterization, but plan ultimately for medical therapy only. Follows with Dr. Sharp outpatient, consult from July 2018 in [facility]. - Appreciate cardiology consult (3) Afib Comment: - New diagnosis during this hospitalization. No previously documented history of afib found. Prior history of mobitz II AV block - Continue metoprolol - [id number] score of 8. Will benefit from half-way AC, but oral AC is not preferred at this point in hospital stay as further orthopedic surgery may be necessary. - Continue BID lovenox in the interim. - Discussed risk/benefits with so she can consider AC on discharge. He may be a greater fall risk by end of this hospitalization if L BKA is needed (4) Acute on chronic systolic CHF (congestive heart failure) Comment: - Lungs sound clear today; patient is on home dose of supplemental O2 at 2L; appears euvolemic - Chest xray 12/08 showed worsening interstitial edema - EF 30-35% - will convert to PO lasix 40mg daily and continue to monitor - continue metoprolol at 25mg BID (decreased from 50mg BID due to mild hypotension) (5) Type 2 diabetes mellitus Comment: - Complicated by hyperglycemia and foot ulcer - BGs with relatively good control - Continue lispro SSI coverage, lantus 20 units AM, lantus 15 units PM - A1c 8.4 - holding home metformin (6) Hypertension Comment: - low-normal BP - metoprolol from 50 to 25 BID and monitor - continue metoprolol with hold parameters (7) Peripheral vascular disease Comment: - Hx of unsuccessful angioplasty on in 2015 - Continue statin, ASA. (8) Parkinson disease Comment: - On baclofen, no sinemet - Supportive care (9) Dementia Comment: - Continue donepezil, sertraline (10) DVT prophylaxis Comment: - BID lovenox for afib (11) Full code status Comment: Status and Disposition: Inpatient, dispo TBD. Pending wound healing and may need amputation, depends on progress at wound vac change Monday.
[2018-12-09] MEDS: Atorvastatin* 10 MG TAB PO SCH (21:43)
[2018-12-09] MEDS: Donepezil TAB* 5 MG PO SCH (21:43)
[2018-12-09] MEDS: Metoprolol Tartrate TAB* 25 MG PO SCH (21:43)
[2018-12-10] MEDS: ceFAZolin* 2 GM in NS 100 MLS Q8H (Pharmacy Admix) IVPB SCH ×3 (05:28→22:36)
[2018-12-10 06:22] LABS: ABS Basophils 0.1 10^3/ul (0-0.2); ABS Eosinophils 0.3 10^3/ul (0-0.6); ABS Lymphocytes 1.7 10^3/ul (1.0-4.8); ABS Monocytes 0.8 10^3/ul (0-0.8); ABS Neutrophils 7.4 10^3/ul (1.5-7.7); Eosinophil % 2.6 %; Hematocrit 28 % (42-52); Hemoglobin 9.1 g/dL (14.0-18.0); Lymphocyte % 16.5 %; Mean Corpuscular HGB Conc 32 g/dL (31-36); Mean Corpuscular Hemoglobin 29 pg (27-31); Mean Corpuscular Volume 90 fL (80-94); Mean Platelet Volume 7.6 fL (7.4-10.4); Platelet Count 337 10^3/uL (150-450); Red Blood Count 3.15 10^6 /uL (4.18-5.48); Red Cell Distribution Width 15 % (10-15); White Blood Count 10.3 10^3/uL (3.5-10.8)
[2018-12-10 06:46] LABS: BUN/Creatinine Ratio 19.7 (8-20); C Reactive Protein 15.34 mg/L (<8.01); Calcium 8.5 mg/dL (8.6-10.3); EGFR African American 119.1 (>60); EGFR Non-African American 98.4 (>60); Potassium 4.5 mmol/L (3.5-5.0)
[2018-12-10] MEDS: Insulin LISPRO* 1 UNITS UNIT SUBCUT SCH ×4 (07:53→21:54)
[2018-12-10] MEDS: guaiFENesin ER TAB 600 MG PO SCH ×2 (09:14→21:57)
[2018-12-10] MEDS: Aspirin 81 mg CHEW TAB* 81 MG TAB.CHEW PO SCH (09:14)
[2018-12-10] MEDS: Baclofen TAB* 10 MG PO SCH ×3 (09:14→21:57)
[2018-12-10] MEDS: Furosemide TAB* 40 MG PO SCH (09:14)
[2018-12-10] MEDS: Sertraline* 25 MG TAB PO SCH (09:15)
[2018-12-10] MEDS: Enoxaparin(*) 100 MG/ML SYR SUBCUT SCH ×2 (09:15→21:52)
[2018-12-10] MEDS: Insulin GLARGINE(*) 1 UNITS UNIT SUBCUT SCH ×2 (09:15→21:54)
[2018-12-10] MEDS: Metoprolol Tartrate TAB* 25 MG PO SCH ×2 (09:15→21:57)
--- NOTE | 2018-12-10 09:52 | PN ---
Progress Note - Progress Note Date of Service: 12/10/18 SOAP: Subjective: CC: left foot ulcer HPI: 83 year old man with left heel ulcer and cellulitis; had debridement and vac. He has no pain. Hungry, no abd pain or diarrhea, no fever. Objective: Vital Signs Temp 36.6 C 12/10/18 04:09 Pulse 72 12/10/18 04:09 Resp 20 12/10/18 04:09 BP 115/64 12/10/18 04:09 Pulse Ox 97 12/10/18 04:09 Intake & Output 12/09/18 12/10/18 12/10/18 18:59 06:59 18:59 Intake Total 835 0 Balance 835 0 Weight 211 lb 12.8 oz Intake: IV Fluids 15 cefazolin 15 IVPB 100 cefazolin 100 Oral 720 0 Other: Estimated Void Medium Small # Bowel Movements 1 Estimated Stool Amount Medium # Voids 1 1 Gen:awake, no distress HEENT: no thrush Heart:RRR no murmur Lungs:CTA BL Abd:+BS NTND soft Skin: no rash MSK: L heel ulcer, vac present no surrounding erythema Laboratory Results - last 24 hr 12/09/18 12/09/18 12/09/18 11:28 16:52 20:05 WBC RBC Hgb Hct MCV MCH MCHC RDW Plt Count MPV Neut % (Auto) Lymph % (Auto) [place] % (Auto) Eos % (Auto) Baso % (Auto) Absolute Neuts (auto) Absolute Lymphs (auto) Absolute Monos (auto) Absolute Eos (auto) Absolute Basos (auto) Absolute Nucleated RBC Nucleated RBC % Sodium Potassium Chloride Carbon Dioxide Anion Gap BUN Creatinine Est GFR ( Amer) Est GFR (Non-Af Amer) BUN/Creatinine Ratio Glucose POC Glucose (mg/dL) 173 H 142 H 252 H Calcium C-Reactive Protein 12/10/18 12/10/18 12/10/18 05:17 05:17 07:40 WBC 10.3 RBC 3.15 L Hgb 9.1 L Hct 28 L MCV 90 MCH 29 MCHC 32 RDW 15 Plt Count 337 MPV 7.6 Neut % (Auto) 72.1 Lymph % (Auto) 16.5 [place] % (Auto) 8.2 Eos % (Auto) 2.6 Baso % (Auto) 0.6 Absolute Neuts (auto) 7.4 Absolute Lymphs (auto) 1.7 Absolute Monos (auto) 0.8 Absolute Eos (auto) 0.3 Absolute Basos (auto) 0.1 Absolute Nucleated RBC 0.0 Nucleated RBC % 0.0 Sodium 141 Potassium 4.5 Chloride 104 Carbon Dioxide 32 Anion Gap 5 BUN 15 Creatinine 0.76 Est GFR ( Amer) 119.1 Est GFR (Non-Af Amer) 98.4 BUN/Creatinine Ratio 19.7 Glucose 70 POC Glucose (mg/dL) 97 Calcium 8.5 L C-Reactive Protein 15.34 H Assessment: 1. Left foot wound with cellulitis and abscess, exposed tendon; concern for need for BKA 2.PAD 3. Diabetes with neuropathy Plan: 1. continue ancef 2 gm IV Q8hrs day 11, duration pending course here
[2018-12-10 10:04] LABS: Magnesium 1.9 mg/dL (1.9-2.7)
--- NOTE | 2018-12-10 15:14 | PN ---
Subjective Date of Service: 12/10/18 Interval History: Mr. Cedillo states that he is doing well today. He has no complaints of pain in the L calcaneous/achiles area. He does note that he has had an intermittent headache for approximately 3 days. He has had some mild diarrhea x2 daily for the last 2-3 days. He has no other complaints today. Objective Active Medications: Acetaminophen (Tylenol Tab*) 650 mg PO Q4H PRN PRN Reason: MILD PAIN or TEMP > 100.4 Last Admin: 12/07/18 08:36 Dose: 650 mg Albuterol (Ventolin 2.5 Mg/3 Ml Neb.Vale*) 2.5 mg INH [id number] AWAKE PRN PRN Reason: sob/wheezing Aspirin (Aspirin 81 Mg Chew Tab*) 81 mg PO DAILY [facility] Last Admin: 12/10/18 09:14 Dose: 81 mg Atorvastatin Calcium (Lipitor*) 10 mg PO BEDTIME [facility] Last Admin: 12/09/18 21:43 Dose: 10 mg Baclofen (Lioresal Tab*) 10 mg PO TID [facility] Last Admin: 12/10/18 14:45 Dose: 10 mg Dextrose (Dextrose 50% Vial 50 Ml*) 25 ml IV PUSH .FOR FS < 60 - SS PRN PRN Reason: FS < 60 Donepezil HCl (Aricept Tab*) 5 mg PO BEDTIME [facility] Last Admin: 12/09/18 21:43 Dose: 5 mg Enoxaparin Sodium (Lovenox(*)) 90 mg SUBCUT Q12H [facility] Last Admin: 12/10/18 09:15 Dose: 90 mg Furosemide (Lasix Tab*) 40 mg PO DAILY [facility] Last Admin: 12/10/18 09:14 Dose: 40 mg Guaifenesin (Mucinex*) 1,200 mg PO BID [facility] Last Admin: 12/10/18 09:14 Dose: 1,200 mg Hydrocortisone (Hytone Cream 1%*) 1 applic TOPICAL TID PRN PRN Reason: RASH Cefazolin Sodium 2 gm/ Sodium (Chloride) 100 mls @ 200 mls/hr IVPB Q8H [facility] Last Admin: 12/10/18 14:45 Dose: 200 mls/hr Insulin Glargine (Lantus(*)) 20 units SUBCUT QAM [facility] Last Admin: 12/10/18 09:15 Dose: 20 unit Insulin Glargine (Lantus(*)) 15 units SUBCUT 2100 [facility] Last Admin: 12/09/18 21:43 Dose: 15 units Insulin Human Lispro (Humalog*) 0 units SUBCUT ACHS [facility]; Protocol Last Admin: 12/10/18 12:19 Dose: 2 units Metoprolol Tartrate (Lopressor Tab*) 25 mg PO BID [facility] Last Admin: 12/10/18 09:15 Dose: 25 mg Ondansetron HCl (Zofran Inj*) 4 mg IV Q4H PRN PRN Reason: NAUSEA/VOMITING Sertraline HCl (Zoloft*) 25 mg PO DAILY [facility] Last Admin: 12/10/18 09:15 Dose: 25 mg Tramadol HCl (Ultram*) 50 mg PO Q6H PRN PRN Reason: PAIN - MODERATE Last Admin: 12/08/18 21:58 Dose: 50 mg Vital Signs: Temp Pulse Resp BP Pulse Ox 97.4 F 72 20 105/50 91 12/10/18 15:30 12/10/18 15:30 12/10/18 15:30 12/10/18 15:30 12/10/18 15:30 Oxygen Devices in Use Now: Nasal Cannula Appearance: Mr. Cedillo is an older white male who is sitting up in chair with b/ l LE elevated. He appears comfortable, in no acute distress. Eyes: No Scleral Icterus, PERRLA Ears/Nose/Mouth/Throat: NL Teeth, Lips, Gums, Clear Oropharnyx, Mucous Membranes Moist Neck: NL Appearance and Movements; NL JVP, Trachea Midline Respiratory: Symmetrical Chest Expansion and Respiratory Effort, Clear to Auscultation Cardiovascular: NL Sounds; No Murmurs; No JVD, No Edema, - - Irregular Abdominal: NL Sounds; No Tenderness; No Distention, No Hepatosplenomegaly Extremities: No Clubbing, Cyanosis, - - L BKA noted. R transmetatarsal amputation; dorsal wound on foot without surrounding erythema; posterior ankle with wound vac in place; wound vac with bloody drainage in canister Result Diagrams: 12/10/18 05:17 12/10/18 05:17 Additional Lab and Data: . Microbiology and Other Data: . Assess/Plan/Problems-Billing Assessment: Mr. Cedillo is an 83 year old male with history of Parkinsons, dementia, PVD and non- healing wounds that presents to the ED with his with complaints of left heel ulcer, now with new onset afib, NSTEMI, and acute on chronic CHF. - Patient Problems (1) Non healing left heel wound Comment: - With exposure of left achilles tendon at presentation - Initial wound culture with staph; BC NGTD, repeat wound culture NGTD - Appreciate ID consult. Previously on Keflex; now on cefazolin - Continue IV cefazolin - Appreciate ortho consult. S/p I&D and calcaneous saucerization with Dr. Frederick 12/06/18. - Plan for wound vac change Monday (12/10/18) per ortho. Orthopedics may need to proceed with additional surgery at that point depending on progression, would likely need BKA - MRI without osteo - Wound VAC in place - CRP improving (2) NSTEMI (non-ST elevated myocardial infarction) Comment: - Remains without anginal sx - Trop peaked 1.65, downtrended to 1.45, EKGs without ischemic changes - Continue asa, statin, and beta riccardo - Heparin drip ran for 72 hours, has since been d/c - TTE without significant changes from echo in 2019 - Had CABG 2006 and 2011. Had stress test in February 2018 showing large fixed defects only, transferred to [facility] for consideration of high risk catheterization, but plan ultimately for medical therapy only. Follows with Dr. Sharp outpatient, consult from July 2018 in [facility]. - Appreciate cardiology consult (3) Afib Comment: - New diagnosis during this hospitalization. No previously documented history of afib found. Prior history of mobitz II AV block - Continue metoprolol - [id number] score of 8. Will benefit from skilled nursing AC, but oral AC is not preferred at this point in hospital stay as further orthopedic surgery may be necessary. - Continue BID lovenox in the interim. - Discussed risk/benefits with so she can consider AC on discharge. He may be a greater fall risk by end of this hospitalization if L BKA is needed (4) Acute on chronic systolic CHF (congestive heart failure) Comment: - Lungs sound clear today; patient is on home dose of supplemental O2 at 2L; appears euvolemic - Chest xray 12/08 showed worsening interstitial edema - EF 30-35% - will convert to PO lasix 40mg daily and continue to monitor - continue metoprolol at 25mg BID (decreased from 50mg BID due to mild hypotension) (5) Type 2 diabetes mellitus Comment: - Complicated by hyperglycemia and foot ulcer - BGs with relatively good control - Continue lispro SSI coverage, lantus 20 units AM, lantus 15 units PM - A1c 8.4 - holding home metformin (6) Hypertension Comment: - low-normal BP - metoprolol from 50 to 25 BID and monitor - continue metoprolol with hold parameters (7) Peripheral vascular disease Comment: - Hx of unsuccessful angioplasty on in 2015 - Continue statin, ASA. (8) Parkinson disease Comment: - On baclofen, no sinemet - Supportive care (9) Dementia Comment: - Continue donepezil, sertraline (10) DVT prophylaxis Comment: - BID lovenox for afib (11) Full code status Comment: Status and Disposition: Inpatient, dispo TBD. Pending wound healing and may need amputation, depends on progress at wound vac change Monday.
--- NOTE | 2018-12-10 16:28 | PN ---
Progress Note - Progress Note Date of Service: 12/10/18 SOAP: Subjective: []Pt seen OOB in chair. He has no LLE pain. Patient confirms he desires to trial wound vac changes rather than proceed with a BKA, his is present and agrees with this. Objective: [] NAD Vac changed, good suction achieved. Posterior ankle wound bed clean with moderate bleeding and no purulence, no necrotic tissue. Anterior ankle superficial wound clean, no purulence. No erythema. Ankle f/e nonpainful. Assessment: s/p I&D LLE with wound vac placement Plan: 1) NWB LLE 2) IV abx per medicine 3) hospitalist co-managing 4) rec BKA, patient and would prefer to try wound vac change to see if LLE wound heals before considering BKA Vital Signs Temp 97.7 F 12/10/18 12:04 Pulse 63 12/10/18 12:04 Resp 20 12/10/18 12:04 BP 92/48 12/10/18 12:04 Pulse Ox 96 12/10/18 12:33 Intake & Output 12/09/18 12/10/18 12/10/18 18:59 06:59 18:59 Intake Total 835 0 740 Balance 835 0 740 Weight 211 lb 12.8 oz Intake: IV Fluids 15 cefazolin 15 IVPB 100 cefazolin 100 Oral 720 0 740 Other: Estimated Void Medium Small Large # Bowel Movements 1 Estimated Stool Amount Medium # Voids 1 1 2 Laboratory Last Values WBC 10.3 10^3/uL (3.5-10.8) 12/10/18 05:17 RBC 3.15 10^6 /uL (4.18-5.48) L 12/10/18 05:17 Hgb 9.1 g/dL (14.0-18.0) L 12/10/18 05:17 Hct 28 % (42-52) L 12/10/18 05:17 MCV 90 fL (80-94) 12/10/18 05:17 MCH 29 pg (27-31) 12/10/18 05:17 MCHC 32 g/dL (31-36) 12/10/18 05:17 RDW 15 % (10-15) 12/10/18 05:17 Plt Count 337 10^3/uL (150-450) 12/10/18 05:17 MPV 7.6 fL (7.4-10.4) 12/10/18 05:17 Neut % (Auto) 72.1 % 12/10/18 05:17 Lymph % (Auto) 16.5 % 12/10/18 05:17 [place] % (Auto) 8.2 % 12/10/18 05:17 Eos % (Auto) 2.6 % 12/10/18 05:17 Baso % (Auto) 0.6 % 12/10/18 05:17 Absolute Neuts (auto) 7.4 10^3/ul (1.5-7.7) 12/10/18 05:17 Absolute Lymphs (auto) 1.7 10^3/ul (1.0-4.8) 12/10/18 05:17 Absolute Monos (auto) 0.8 10^3/ul (0-0.8) 12/10/18 05:17 Absolute Eos (auto) 0.3 10^3/ul (0-0.6) 12/10/18 05:17 Absolute Basos (auto) 0.1 10^3/ul (0-0.2) 12/10/18 05:17 Absolute Nucleated RBC 0.0 10^3/ul 12/10/18 05:17 Nucleated RBC % 0.0 12/10/18 05:17 INR (Anticoag Therapy) 1.48 (0.82-1.09) H 12/04/18 18:04 APTT 34.6 seconds (26.0-38.0) 12/06/18 05:26 Sodium 141 mmol/L (135-145) 12/10/18 05:17 Potassium 4.5 mmol/L (3.5-5.0) 12/10/18 05:17 Chloride 104 mmol/L (101-111) 12/10/18 05:17 Carbon Dioxide 32 mmol/L (22-32) 12/10/18 05:17 Anion Gap 5 mmol/L (2-11) 12/10/18 05:17 BUN 15 mg/dL (6-24) 12/10/18 05:17 Creatinine 0.76 mg/dL (0.67-1.17) 12/10/18 05:17 Est GFR ( Amer) 119.1 (>60) 12/10/18 05:17 Est GFR (Non-Af Amer) 98.4 (>60) 12/10/18 05:17 BUN/Creatinine Ratio 19.7 (8-20) 12/10/18 05:17 Glucose 70 mg/dL (70-100) 12/10/18 05:17 POC Glucose (mg/dL) 158 mg/dL (70-100) H 12/10/18 11:41 Glucose Meter Confirm 386 mg/dL (70-100) H 11/30/18 12:26 Hemoglobin A1c 8.4 % (4.0-5.6) H 11/30/18 12:26 Lactic Acid 1.5 mmol/L (0.5-2.0) 11/28/18 15:28 Calcium 8.5 mg/dL (8.6-10.3) L 12/10/18 05:17 Ionized Calcium 1.19 mmol/L (1.16-1.32) 12/07/18 11:40 Phosphorus 3.2 mg/dL (2.5-5.0) 11/29/18 06:08 Magnesium 1.9 mg/dL (1.9-2.7) 12/10/18 05:17 Total Bilirubin 0.30 mg/dL (0.2-1.0) 12/04/18 17:28 Direct Bilirubin 0.10 mg/dL (0.03-0.18) 12/04/18 17:28 Indirect Bilirubin 0.2 mg/dL (0.3-1.0) L 12/04/18 17:28 AST 22 U/L (13-39) 12/04/18 17:28 ALT 10 U/L (7-52) 12/04/18 17:28 Alkaline Phosphatase 72 U/L (34-104) 12/04/18 17:28 Troponin I 1.45 ng/mL (<0.04) H* 12/02/18 20:24 C-Reactive Protein 15.34 mg/L (<8.01) H 12/10/18 05:17 Total Protein 6.5 g/dL (6.4-8.9) 12/04/18 17:28 Albumin 3.1 g/dL (3.2-5.2) L 12/04/18 17:28 Globulin 3.4 g/dL (2-4) 12/04/18 17:28 Albumin/Globulin Ratio 0.9 (1-3) L 12/04/18 17:28
--- NOTE | 2018-12-10 19:52 | CONSULT ---
Palliative / Hospice Consult Ordering Provider: Tanika Ding - PCPOfelia Referal Reason: Goals of care & information on palliative care/no bowel meds/no narcotics - Subjective Code Status: Full Code Advance Directives Location: No Advance Directives - History or Present Illness History or Present Illness: 83yo male with multiple medical problems presents to ER with L foot ulcer and redness. 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 PSHx , non smoker, occ etoh, no drug use. Studies L foot xray soft tissue swelling, CXR cardiomegaly, ankle MRI no arthritis and no osteomyelitis, CXR#2 mild cardiopulmonary edema, EKG afib, CXR#3 cardiomegaly with pulmonary edema, ECHO EF 30-35% mod MR, biprostethic valve, CXR#4 pulmonary vasculature congestion and pulmonary interstitial edema increased from previou exam, L lung base with atelectasis vs infiltrate, H/H 9.03/05, BUN/Cr 15/.76, egfr 98.4, CRP 15.34, alb 3.1, troponin 1.45, INR 1.48, L ankle grew staph and BC neg. Pt was admitted for L foot ulcer and cellulitis, treatd with IV antibiotics, developed STEMI on 12/02, paroxsymal atrial tachycardia and V tach went to OR on 12/06 for I&D & vac of L foot ulcer. Pt was admitted 02/06-02/09/2018 for NSTEMI and 10/07 for CP and was sent to [facility]. All history is from and medical records. Lab Values: Abnormal Lab Results 12/09/18 12/10/18 12/10/18 20:05 05:17 05:17 WBC 10.3 RBC 3.15 L Hgb 9.1 L Hct 28 L MCV 90 MCH 29 MCHC 32 RDW 15 Plt Count 337 MPV 7.6 Neut % (Auto) 72.1 Lymph % (Auto) 16.5 [place] % (Auto) 8.2 Eos % (Auto) 2.6 Baso % (Auto) 0.6 Absolute Neuts (auto) 7.4 Absolute Lymphs (auto) 1.7 Absolute Monos (auto) 0.8 Absolute Eos (auto) 0.3 Absolute Basos (auto) 0.1 Absolute Nucleated RBC 0.0 Nucleated RBC % 0.0 Sodium 141 Potassium 4.5 Chloride 104 Carbon Dioxide 32 Anion Gap 5 BUN 15 Creatinine 0.76 Est GFR ( Amer) 119.1 Est GFR (Non-Af Amer) 98.4 BUN/Creatinine Ratio 19.7 Glucose 70 POC Glucose (mg/dL) 252 H Calcium 8.5 L Magnesium 1.9 C-Reactive Protein 15.34 H 12/10/18 12/10/18 12/10/18 07:40 11:41 16:32 WBC RBC Hgb Hct MCV MCH MCHC RDW Plt Count MPV Neut % (Auto) Lymph % (Auto) [place] % (Auto) Eos % (Auto) Baso % (Auto) Absolute Neuts (auto) Absolute Lymphs (auto) Absolute Monos (auto) Absolute Eos (auto) Absolute Basos (auto) Absolute Nucleated RBC Nucleated RBC % Sodium Potassium Chloride Carbon Dioxide Anion Gap BUN Creatinine Est GFR ( Amer) Est GFR (Non-Af Amer) BUN/Creatinine Ratio Glucose POC Glucose (mg/dL) 97 158 H 223 H Calcium Magnesium C-Reactive Protein Laboratory Last Values WBC 10.3 10^3/uL (3.5-10.8) 12/10/18 05:17 RBC 3.15 10^6 /uL (4.18-5.48) L 12/10/18 05:17 Hgb 9.1 g/dL (14.0-18.0) L 12/10/18 05:17 Hct 28 % (42-52) L 12/10/18 05:17 MCV 90 fL (80-94) 12/10/18 05:17 MCH 29 pg (27-31) 12/10/18 05:17 MCHC 32 g/dL (31-36) 12/10/18 05:17 RDW 15 % (10-15) 12/10/18 05:17 Plt Count 337 10^3/uL (150-450) 12/10/18 05:17 MPV 7.6 fL (7.4-10.4) 12/10/18 05:17 Neut % (Auto) 72.1 % 12/10/18 05:17 Lymph % (Auto) 16.5 % 12/10/18 05:17 [place] % (Auto) 8.2 % 12/10/18 05:17 Eos % (Auto) 2.6 % 12/10/18 05:17 Baso % (Auto) 0.6 % 12/10/18 05:17 Absolute Neuts (auto) 7.4 10^3/ul (1.5-7.7) 12/10/18 05:17 Absolute Lymphs (auto) 1.7 10^3/ul (1.0-4.8) 12/10/18 05:17 Absolute Monos (auto) 0.8 10^3/ul (0-0.8) 12/10/18 05:17 Absolute Eos (auto) 0.3 10^3/ul (0-0.6) 12/10/18 05:17 Absolute Basos (auto) 0.1 10^3/ul (0-0.2) 12/10/18 05:17 Absolute Nucleated RBC 0.0 10^3/ul 12/10/18 05:17 Nucleated RBC % 0.0 12/10/18 05:17 INR (Anticoag Therapy) 1.48 (0.82-1.09) H 12/04/18 18:04 APTT 34.6 seconds (26.0-38.0) 12/06/18 05:26 Sodium 141 mmol/L (135-145) 12/10/18 05:17 Potassium 4.5 mmol/L (3.5-5.0) 12/10/18 05:17 Chloride 104 mmol/L (101-111) 12/10/18 05:17 Carbon Dioxide 32 mmol/L (22-32) 12/10/18 05:17 Anion Gap 5 mmol/L (2-11) 12/10/18 05:17 BUN 15 mg/dL (6-24) 12/10/18 05:17 Creatinine 0.76 mg/dL (0.67-1.17) 12/10/18 05:17 Est GFR ( Amer) 119.1 (>60) 12/10/18 05:17 Est GFR (Non-Af Amer) 98.4 (>60) 12/10/18 05:17 BUN/Creatinine Ratio 19.7 (8-20) 12/10/18 05:17 Glucose 70 mg/dL (70-100) 12/10/18 05:17 POC Glucose (mg/dL) 223 mg/dL (70-100) H 12/10/18 16:32 Glucose Meter Confirm 386 mg/dL (70-100) H 11/30/18 12:26 Hemoglobin A1c 8.4 % (4.0-5.6) H 11/30/18 12:26 Lactic Acid 1.5 mmol/L (0.5-2.0) 11/28/18 15:28 Calcium 8.5 mg/dL (8.6-10.3) L 12/10/18 05:17 Ionized Calcium 1.19 mmol/L (1.16-1.32) 12/07/18 11:40 Phosphorus 3.2 mg/dL (2.5-5.0) 11/29/18 06:08 Magnesium 1.9 mg/dL (1.9-2.7) 12/10/18 05:17 Total Bilirubin 0.30 mg/dL (0.2-1.0) 12/04/18 17:28 Direct Bilirubin 0.10 mg/dL (0.03-0.18) 12/04/18 17:28 Indirect Bilirubin 0.2 mg/dL (0.3-1.0) L 12/04/18 17:28 AST 22 U/L (13-39) 12/04/18 17:28 ALT 10 U/L (7-52) 12/04/18 17:28 Alkaline Phosphatase 72 U/L (34-104) 12/04/18 17:28 Troponin I 1.45 ng/mL (<0.04) H* 12/02/18 20:24 C-Reactive Protein 15.34 mg/L (<8.01) H 12/10/18 05:17 Total Protein 6.5 g/dL (6.4-8.9) 12/04/18 17:28 Albumin 3.1 g/dL (3.2-5.2) L 12/04/18 17:28 Globulin 3.4 g/dL (2-4) 12/04/18 17:28 Albumin/Globulin Ratio 0.9 (1-3) L 12/04/18 17:28 - Objective Active Medications: Acetaminophen (Tylenol Tab*) 650 mg PO Q4H PRN PRN Reason: MILD PAIN or TEMP > 100.4 Last Admin: 12/07/18 08:36 Dose: 650 mg Albuterol (Ventolin 2.5 Mg/3 Ml Neb.Vale*) 2.5 mg INH [id number] AWAKE PRN PRN Reason: sob/wheezing Aspirin (Aspirin 81 Mg Chew Tab*) 81 mg PO DAILY [facility] Last Admin: 12/10/18 09:14 Dose: 81 mg Atorvastatin Calcium (Lipitor*) 10 mg PO BEDTIME [facility] Last Admin: 12/09/18 21:43 Dose: 10 mg Baclofen (Lioresal Tab*) 10 mg PO TID [facility] Last Admin: 12/10/18 14:45 Dose: 10 mg Dextrose (Dextrose 50% Vial 50 Ml*) 25 ml IV PUSH .FOR FS < 60 - SS PRN PRN Reason: FS < 60 Donepezil HCl (Aricept Tab*) 5 mg PO BEDTIME [facility] Last Admin: 12/09/18 21:43 Dose: 5 mg Enoxaparin Sodium (Lovenox(*)) 90 mg SUBCUT Q12H [facility] Last Admin: 12/10/18 09:15 Dose: 90 mg Furosemide (Lasix Tab*) 40 mg PO DAILY [facility] Last Admin: 12/10/18 09:14 Dose: 40 mg Guaifenesin (Mucinex*) 1,200 mg PO BID [facility] Last Admin: 12/10/18 09:14 Dose: 1,200 mg Hydrocortisone (Hytone Cream 1%*) 1 applic TOPICAL TID PRN PRN Reason: RASH Cefazolin Sodium 2 gm/ Sodium (Chloride) 100 mls @ 200 mls/hr IVPB Q8H [facility] Last Admin: 12/10/18 14:45 Dose: 200 mls/hr Insulin Glargine (Lantus(*)) 20 units SUBCUT QAM [facility] Last Admin: 12/10/18 09:15 Dose: 20 unit Insulin Glargine (Lantus(*)) 15 units SUBCUT 2100 [facility] Last Admin: 12/09/18 21:43 Dose: 15 units Insulin Human Lispro (Humalog*) 0 units SUBCUT ACHS [facility]; Protocol Last Admin: 12/10/18 17:30 Dose: 6 units Metoprolol Tartrate (Lopressor Tab*) 25 mg PO BID [facility] Last Admin: 12/10/18 09:15 Dose: 25 mg Ondansetron HCl (Zofran Inj*) 4 mg IV Q4H PRN PRN Reason: NAUSEA/VOMITING Sertraline HCl (Zoloft*) 25 mg PO DAILY [facility] Last Admin: 12/10/18 09:15 Dose: 25 mg Tramadol HCl (Ultram*) 50 mg PO Q6H PRN PRN Reason: PAIN - MODERATE Last Admin: 12/08/18 21:58 Dose: 50 mg Vital Signs: Vital Signs: Temp Pulse Resp BP Pulse Ox 97.4 F 72 20 105/50 91 12/10/18 15:30 12/10/18 15:30 12/10/18 15:30 12/10/18 15:30 12/10/18 15:30 Patient Weight: Weight 96.071 kg Intake and Output: Intake & Output 12/08/18 12/09/18 12/10/18 12/11/18 07:59 06:59 06:59 06:59 Intake Total 835 855 Output Total Balance 835 855 Weight 96.071 kg Intake: IV Fluids 15 10 NS (0.9%) cefazolin 15 10 IVPB 100 105 cefazolin 100 105 Oral 720 740 Output: Urine Other: Estimated Void Small Large # Bowel Movements 1 Estimated Stool Amount Medium # Voids 1 2 ADLs: Meal Record Start: 11/28/18 18: 39 Freq: DAILY@0900,1400,1800 Status: Active Protocol: Created 11/28/18 18:39 System (Rec: 11/28/18 18:39 System MED-M18) Document 11/29/18 09:00 [id number] (Rec: 11/29/18 12:26 [id number] MED-C09) Document 11/29/18 14:00 MUJ3586 (Rec: 11/29/18 14:11 BGZ8853 MED-C11) Document 11/29/18 18:00 AQZ5136 (Rec: 11/29/18 20:30 OEZ8161 MED-C11) Document 11/30/18 09:00 PCE1805 (Rec: 11/30/18 11:10 JKJ7831 MED-C09) Document 11/30/18 14:00 EPV7777 (Rec: 11/30/18 14:27 PLJ9175 MED-C09) Document 11/30/18 18:00 TPN4302 (Rec: 11/30/18 18:29 PWR7794 MED-C11) Document 12/01/18 09:00 JAV5657 (Rec: 12/01/18 10:03 VHY6908 MED-C11) Document 12/01/18 14:00 JWD4191 (Rec: 12/01/18 15:06 VYH2582 MED-C11) Document 12/01/18 18:00 PHP4341 (Rec: 12/01/18 22:05 OHN3007 MED-C11) Document 12/02/18 09:00 RPC8255 (Rec: 12/02/18 12:31 ERW9763 MED-C09) Document 12/02/18 14:00 ECC0019 (Rec: 12/02/18 14:28 PWT2717 MED-C09) Document 12/02/18 18:00 MYI0149 (Rec: 12/02/18 18:24 WLY4548 MED-C11) Document 12/03/18 09:00 FTD5860 (Rec: 12/03/18 09:56 XFB4119 TELE-C01) Document 12/03/18 14:00 AHZ5758 (Rec: 12/03/18 15:01 XKI4072 TELE-C01) Document 12/03/18 18:00 FMO9836 (Rec: 12/03/18 20:53 NVJ3074 TELE-C11) Document 12/03/18 21:05 WUT2211 (Rec: 12/03/18 21:05 GDK1412 TELE-C11) Document 12/04/18 09:00 GIQ7473 (Rec: 12/04/18 09:09 XZL6383 TELE-C02) Document 12/04/18 14:00 TIY0366 (Rec: 12/04/18 14:29 LVA2577 TELE-C11) Document 12/04/18 18:00 KOO5455 (Rec: 12/04/18 20:08 BPA4703 TELE-C11) Document 12/05/18 09:00 ZXB5129 (Rec: 12/05/18 10:12 UYR9412 TELE-C10) Document 12/05/18 14:00 EVG9329 (Rec: 12/05/18 14:27 MXY2616 TELE-C10) Document 12/05/18 18:00 GEV4449 (Rec: 12/05/18 21:33 PYO5136 TELE-C07) Document 12/06/18 09:00 VDZ2258 (Rec: 12/06/18 10:49 KLV3803 TELE-C09) Document 12/06/18 14:00 JQQ2209 (Rec: 12/06/18 14:05 XWF7528 TELE-C11) Document 12/07/18 09:00 BEX1262 (Rec: 12/07/18 09:01 CAK1559 TELE-M18) Document 12/07/18 14:00 QDH5742 (Rec: 12/07/18 14:04 LLZ9455 TELE-C11) Document 12/07/18 18:00 PPC4176 (Rec: 12/07/18 18:22 KRN9304 TELE-C11) Document 12/08/18 09:00 YDD0061 (Rec: 12/08/18 09:57 JFS6916 TELE-C10) Document 12/08/18 14:00 UYV3566 (Rec: 12/08/18 14:58 UQX5268 TELE-C10) Document 12/09/18 09:00 GQS7874 (Rec: 12/09/18 09:06 WEI2805 TELE-C09) Document 12/09/18 14:00 GAB1884 (Rec: 12/09/18 14:11 QAL3220 TELE-C09) Document 12/09/18 18:00 AOJ9776 (Rec: 12/09/18 20:27 WYN1948 TELE-C10) Document 12/10/18 09:00 ZPH7924 (Rec: 12/10/18 10:48 WTX6291 TELE-C10) Document 12/10/18 14:00 YOA0126 (Rec: 12/10/18 14:48 PQL3862 TELE-C10) Intake and Output Start: 11/28/18 11: 58 Freq: Status: Complete Protocol: Created 11/28/18 11:58 System (Rec: 11/28/18 11:58 System ED-C24) Intake and Output Start: 11/28/18 18: 39 Freq: DAILY@0600,1400,2200 Status: Active Protocol: Created 11/28/18 18:39 System (Rec: 11/28/18 18:39 System MED-M18) Document 11/28/18 22:00 CNF1113 (Rec: 11/29/18 00:31 TCP3313 MED-C13) Document 11/29/18 05:53 UFL6968 (Rec: 11/29/18 05:53 PTK7526 MED-C13) Document 11/29/18 14:00 QOZ0833 (Rec: 11/29/18 14:02 TME7081 MED-C11) Document 11/29/18 22:00 DMX2672 (Rec: 11/29/18 22:25 TYI0618 MED-C02) Document 11/30/18 04:13 RHO3462 (Rec: 11/30/18 04:13 NZQ6613 MED-C09) Document 11/30/18 14:00 OUR6216 (Rec: 11/30/18 14:27 BEA9935 MED-C09) Document 11/30/18 20:50 NJS9889 (Rec: 11/30/18 20:51 CFJ6636 MED-C09) Document 12/01/18 05:13 XUO6054 (Rec: 12/01/18 05:14 VAY0797 MED-C09) Document 12/01/18 14:00 VLL8391 (Rec: 12/01/18 15:08 DSX5590 MED-C11) Document 12/01/18 22:00 LSR2997 (Rec: 12/01/18 22:05 KZZ6881 MED-C11) Document 12/02/18 06:00 OID7333 (Rec: 12/02/18 06:16 DHX2624 MED-C02) Document 12/02/18 14:55 TPC0431 (Rec: 12/02/18 14:55 WWA9438 MED-C09) Document 12/02/18 22:00 PQD8215 (Rec: 12/03/18 00:36 EQB6785 TELE-C07) Document 12/03/18 06:00 OST6008 (Rec: 12/03/18 06:04 DYG4274 TELE-C01) Document 12/03/18 14:00 JDR0000 (Rec: 12/03/18 15:01 MKY0571 TELE-C01) Document 12/03/18 21:40 OLY1657 (Rec: 12/03/18 21:42 TVH3797 TELE-C10) Document 12/04/18 06:00 ZOW5785 (Rec: 12/04/18 06:13 YQV7669 TELE-C11) Document 12/04/18 13:52 BZX6596 (Rec: 12/04/18 13:52 LVK2857 TELE-C13) Document 12/04/18 21:52 MNS7844 (Rec: 12/04/18 21:54 SOG1780 MED-M27) Document 12/05/18 14:00 ZWT8276 (Rec: 12/05/18 14:28 PNF2214 TELE-C10) Document 12/05/18 22:00 VKB7131 (Rec: 12/05/18 22:15 CSP9301 TELE-C07) Document 12/06/18 05:31 LVZ0416 (Rec: 12/06/18 05:32 HSV1629 TELE-C08) Document 12/06/18 14:00 YZH5909 (Rec: 12/06/18 14:05 DIX8991 TELE-C11) Document 12/06/18 21:33 DCA8860 (Rec: 12/06/18 21:33 FWY2434 TELE-C11) Document 12/07/18 05:57 VPA9926 (Rec: 12/07/18 06:01 KAE0687 TELE-C07) Document 12/07/18 09:24 JTF0016 (Rec: 12/07/18 09:25 GPC2022 TELE-C11) Document 12/07/18 14:00 XMQ7396 (Rec: 12/07/18 14:11 TLU2832 TELE-C11) Document 12/07/18 22:00 CYO0163 (Rec: 12/08/18 01:52 GCY0742 TELE-C13) Document 12/08/18 06:00 PWE0564 (Rec: 12/08/18 07:04 ESK7688 TELE-C13) Document 12/08/18 14:00 NVL7828 (Rec: 12/08/18 14:58 WWS8991 TELE-C10) Document 12/08/18 22:00 OHG8005 (Rec: 12/08/18 22:26 PYP1304 TELE-C11) Document 12/09/18 06:00 TKS6621 (Rec: 12/09/18 06:47 KUX6117 TELE-C03) Document 12/09/18 14:00 EBT4693 (Rec: 12/09/18 14:11 SIF5517 TELE-C09) Document 12/09/18 22:00 IST0023 (Rec: 12/09/18 22:05 TZA3705 TELE-C10) Document 12/10/18 04:30 LLY6111 (Rec: 12/10/18 04:31 YWC9506 TELE-C06) Document 12/10/18 14:00 VFY2310 (Rec: 12/10/18 14:48 YND9869 TELE-C10) Eyes: No Scleral Icterus, PERRLA Ears/Nose/Mouth/Throat: NL Teeth, Lips, Gums, Clear Oropharnyx, Mucous Membranes Moist Neck: NL Appearance and Movements; NL JVP, Trachea Midline Cardiovascular: NL Sounds; No Murmurs; No JVD, No Edema, - - Irregular Abdominal: NL Sounds; No Tenderness; No Distention, No Hepatosplenomegaly Extremities: No Clubbing, Cyanosis, - - L BKA noted. R transmetatarsal amputation; dorsal wound on foot without surrounding erythema; posterior ankle with wound vac in place; wound vac with bloody drainage in canister Neurological: - - Alert. Oriented to person, place, year; does not know month - Assessment Assessment: 83yo male with multiple medical problems admitted with L foot ulcer with cellulitis and STEMI - Plan Consult Plan (MU): Palliative Plan: Long discussion with pt's about goals of care and outpatient palliative care. Gave information about PATH and [facility] programs and how they work. She is getting overwhelmed caring for him and would like to know different care options. We discussed hospice for when pt just wants symptom management and not to return to the hospital which can be delivered at their home, at the hospice residence or at a long term. We discussed SNF(nursing home facility) rehab vs placement. Pt will most likely go for rehab to help with transferring but she thinks he may have used all his medicare days. She is also worried about finances inquiring about medicaid. I gave her Juli's number our medicaid rn ostomy and also told her hospital social worker at a SNF will also help her enroll. She wants to care for him at home but not sure she will be able. I also suggested she look into getting some home health aides. With each hospitalization he will get weaker and less independent. She did say she doesn' t think they are ready for hospice but she is interested in PATH program. Plan to follow up with them tomorrow to discuss MOLST form. Not sure he will qualify for hospice yet but I did stress to her that she can self refer at anytime. KPS 50%, PPS 50% - Time On Unit Date of Evaluation: 12/10/18 Hospice Consult Time in: 16:45 Hospice Consult Time Out: 18:15 Hospice Consult Time Total: 90 > 50% of Time Spend In Counseling or Coordinating Care: Yes
--- NOTE | 2018-12-10 20:29 | PN ---
Progress Note - Progress Note Date of Service: 12/10/18 SOAP: Subjective: Called to see patient because of saturation of dressing around VAC sponge and draining of blood onto chair and floor. Objective: LLE: - VAC system not draining well. Blood pooled under plastic wrap against skin. - Removed VAC dressing. Some minimal bloody drainage from heel wound. Selected Entries 12/10/18 15:30 Temperature 97.4 F Pulse Rate 72 Respiratory 20 Rate Blood Pressure 105/50 (mmHg) O2 Sat by Pulse 91 Oximetry Laboratory Tests 12/06/18 12/07/18 12/09/18 05:26 07:49 05:16 WBC 10.7 9.1 9.8 Hct 28 L 29 L 28 L POC Glucose (mg/dL) C-Reactive Protein 12/09/18 12/09/18 12/10/18 16:52 20:05 05:17 WBC 10.3 Hct 28 L POC Glucose (mg/dL) 142 H 252 H C-Reactive Protein 12/10/18 12/10/18 12/10/18 05:17 07:40 11:41 WBC Hct POC Glucose (mg/dL) 97 158 H C-Reactive Protein 15.34 H 12/10/18 16:32 WBC Hct POC Glucose (mg/dL) 223 H C-Reactive Protein Assessment: Left heel ulcer/wound Plan: - Applied a non-adherent dressing to heel followed by bulky DSD - Overnight, dressing can be reinforced if it gets saturated with blood. Call hospitalist or ortho if patient vitals unstable. - Tomorrow, formal re-assessment of wound with possible re-application of VAC dressing - Patient prefers VAC dressing to BKA at this time - Amount of wound bleeding is impressive despite VAC or DSD. Vitals are stable. Compressive wrap on now. Ortho will re-eval in the AM.
[2018-12-10] MEDS ORDERED: NS 0.9% 100 ML* 100 ML ONE (21:46)
[2018-12-10] MEDS: Donepezil TAB* 5 MG PO SCH (21:57)
[2018-12-10] MEDS: Atorvastatin* 10 MG TAB PO SCH (21:57)
[2018-12-10] MEDS: traMADol TAB* 50 MG PO PRN (21:58)
[2018-12-10] MEDS: Acetaminophen TAB* 325 MG PO PRN (23:47)
[2018-12-10] MEDS: Morphine INJ* 2 MG/ML 1 ML SYRINGE (TWO MG - NEW SYRINGE VERSION) IV PRN (23:56)
[2018-12-11] MEDS ORDERED: Morphine INJ* 4 MG/ML 1 ML SYRINGE (NEW SYRINGE VERSION) IV ONE (02:35)
[2018-12-11 05:38] LABS: ABS Basophils 0.1 10^3/ul (0-0.2); ABS Eosinophils 0.2 10^3/ul (0-0.6); ABS Neutrophils 11.5 10^3/ul (1.5-7.7); Eosinophil % 1.5 %; Hematocrit 26 % (42-52); Hemoglobin 8.4 g/dL (14.0-18.0); Lymphocyte % 13.7 %; Mean Corpuscular HGB Conc 33 g/dL (31-36); Mean Corpuscular Hemoglobin 29 pg (27-31); Mean Corpuscular Volume 89 fL (80-94); Mean Platelet Volume 7.2 fL (7.4-10.4); Platelet Count 336 10^3/uL (150-450); Red Blood Count 2.89 10^6 /uL (4.18-5.48); Red Cell Distribution Width 15 % (10-15); White Blood Count 14.9 10^3/uL (3.5-10.8)
[2018-12-11] MEDS: ceFAZolin* 2 GM in NS 100 MLS Q8H (Pharmacy Admix) IVPB SCH ×3 (05:45→21:44)
[2018-12-11] MEDS: Insulin LISPRO* 1 UNITS UNIT SUBCUT SCH ×4 (08:13→21:39)
[2018-12-11] MEDS: guaiFENesin ER TAB 600 MG PO SCH ×2 (09:47→21:19)
[2018-12-11] MEDS: Aspirin 81 mg CHEW TAB* 81 MG TAB.CHEW PO SCH (09:47)
[2018-12-11] MEDS: Insulin GLARGINE(*) 1 UNITS UNIT SUBCUT SCH ×2 (09:47→21:19)
[2018-12-11] MEDS: Baclofen TAB* 10 MG PO SCH ×3 (09:47→21:19)
[2018-12-11] MEDS: Furosemide TAB* 40 MG PO SCH (09:47)
[2018-12-11] MEDS: Metoprolol Tartrate TAB* 25 MG PO SCH ×2 (09:48→21:19)
[2018-12-11] MEDS: Enoxaparin(*) 100 MG/ML SYR SUBCUT SCH (09:48)
[2018-12-11] MEDS: Sertraline* 25 MG TAB PO SCH (09:48)
--- NOTE | 2018-12-11 09:49 | PN ---
Progress Note - Progress Note Date of Service: 12/11/18 SOAP: Subjective: CC: Left foot cellulitis and ulcer HPI: Ms. 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 Denies fever, chills, nausea, vomiting, or diarrhea. Objective: Vital Signs - 8 hr 12/11/18 07:15 Temperature 97.2 F Pulse Rate 77 Respiratory 20 Rate Blood Pressure 110/58 (mmHg) O2 Sat by Pulse 96 Oximetry Physical Exam: General: NAD, sitting up in bed Neurological: Alert and Oriented to self HEENT: No thrush, moist MM Cardiovascular: Heart rate regular Respiratory: Lung sounds clear Abdominal: Bowel sounds present; ABD soft, non tender and non distended Skin: No rash, KARSON wrap to the right LE intact Laboratory Results - last 24 hr 12/10/18 12/11/18 12/11/18 21:01 05:18 07:26 WBC 14.9 H RBC 2.89 L Hgb 8.4 L Hct 26 L MCV 89 MCH 29 MCHC 33 RDW 15 Plt Count 336 MPV 7.2 L Neut % (Auto) 77.5 Lymph % (Auto) 13.7 [place] % (Auto) 7.0 Eos % (Auto) 1.5 Baso % (Auto) 0.3 Absolute Neuts (auto) 11.5 H Absolute Lymphs (auto) 2.0 Absolute Monos (auto) 1.0 H Absolute Eos (auto) 0.2 Absolute Basos (auto) 0.1 Absolute Nucleated RBC 0.0 Nucleated RBC % 0.0 POC Glucose (mg/dL) 251 H 99 Magnesium Microbiology 12/06/18 16:08 Anaerobic Culture - Final Wound No Growth Day 4 Gram Stain - Final Wound Culture - Final No Growth Day 4 11/28/18 18:20 Aerobic Blood Culture - Final Blood Venous No Growth Day 5 Anaerobic Blood Culture - Final No Growth Day 5 11/28/18 18:20 Aerobic Blood Culture - Final Blood Venous No Growth Day 5 Anaerobic Blood Culture - Final No Growth Day 5 11/28/18 22:00 Skin and Soft Tissue MRSA/MSSA (PCR - Final Ankle Left Mrsa Not Detected S.aureus Positive Gram Stain - Final Wound Culture - Final Staphylococcus Aureus 10/23/19 17:45 Nasal Screen MRSA (PCR) - Final Nasal Mrsa Detected Assessment: 1. 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 Blood cultures with no growth to date. Initial wound culture with staph aureus. MRI with no signs of osteomyelitis. Afebrile and continues to have leukocytosis, that is improving. S/P I+D, saucerization of the calcaneus and placement of wound vac, POD #5. Cultures from the OR with no growth. 2. Parkinson's disease with dementia. 3. DM2 with peripheral neuropathy. 4. 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 Plan: Continue Ancef 2gm IV Q8H, day 12. Duration pending course here
[2018-12-11] MEDS: Morphine INJ* 2 MG/ML 1 ML SYRINGE (TWO MG - NEW SYRINGE VERSION) IV PRN ×2 (11:02→15:53)
--- NOTE | 2018-12-11 13:47 | PN ---
Progress Note - Progress Note Date of Service: 12/11/18 SOAP: Subjective: []Pt seen at bedside with Dr Frederick. He does not verbalize complaints today. He had significant bleeding overnight and vac was removed, pressure dressing applied. This morning he was made NPO and lovenox morning dose was held until eval of wound Objective: []NAD Posterior ankle wound bed clean with no active bleeding and no purulence, no necrotic tissue. Anterior ankle superficial wound clean, no purulence. No erythema. Redressed with betadine soaked guaze to posterior wound, xeroform anteriorly, 4x4s, abds, kerlix and ivan Assessment: s/p I&D LLE Plan: 1) NWB LLE 2) IV abx per medicine 3) hospitalist co-managing 4) Can resume PO intake. 5) rec heparin rather than full strength lovenox if possible 6) will wound check daily Vital Signs Temp 97.2 F 12/11/18 07:15 Pulse 77 12/11/18 07:15 Resp 18 12/11/18 12:25 BP 110/58 12/11/18 07:15 Pulse Ox 96 12/11/18 07:15 Intake & Output 12/10/18 12/11/18 12/11/18 18:59 06:59 18:59 Intake Total 855 870 0 Output Total 0 Balance 855 870 0 Weight 206 lb 6.4 oz Intake: IV Fluids 10 100 cefazolin 10 100 IVPB 105 100 cefazolin 105 100 Oral 740 670 0 Output: Urine 0 Other: Estimated Void Large Large # Voids 2 1 Laboratory Last Values WBC 14.9 10^3/uL (3.5-10.8) H 12/11/18 05:18 RBC 2.89 10^6 /uL (4.18-5.48) L 12/11/18 05:18 Hgb 8.4 g/dL (14.0-18.0) L 12/11/18 05:18 Hct 26 % (42-52) L 12/11/18 05:18 MCV 89 fL (80-94) 12/11/18 05:18 MCH 29 pg (27-31) 12/11/18 05:18 MCHC 33 g/dL (31-36) 12/11/18 05:18 RDW 15 % (10-15) 12/11/18 05:18 Plt Count 336 10^3/uL (150-450) 12/11/18 05:18 MPV 7.2 fL (7.4-10.4) L 12/11/18 05:18 Neut % (Auto) 77.5 % 12/11/18 05:18 Lymph % (Auto) 13.7 % 12/11/18 05:18 Citrus % (Auto) 7.0 % 12/11/18 05:18 Eos % (Auto) 1.5 % 12/11/18 05:18 Baso % (Auto) 0.3 % 12/11/18 05:18 Absolute Neuts (auto) 11.5 10^3/ul (1.5-7.7) H 12/11/18 05:18 Absolute Lymphs (auto) 2.0 10^3/ul (1.0-4.8) 12/11/18 05:18 Absolute Monos (auto) 1.0 10^3/ul (0-0.8) H 12/11/18 05:18 Absolute Eos (auto) 0.2 10^3/ul (0-0.6) 12/11/18 05:18 Absolute Basos (auto) 0.1 10^3/ul (0-0.2) 12/11/18 05:18 Absolute Nucleated RBC 0.0 10^3/ul 12/11/18 05:18 Nucleated RBC % 0.0 12/11/18 05:18 INR (Anticoag Therapy) 1.48 (0.82-1.09) H 12/04/18 18:04 APTT 34.6 seconds (26.0-38.0) 12/06/18 05:26 Sodium 141 mmol/L (135-145) 12/10/18 05:17 Potassium 4.5 mmol/L (3.5-5.0) 12/10/18 05:17 Chloride 104 mmol/L (101-111) 12/10/18 05:17 Carbon Dioxide 32 mmol/L (22-32) 12/10/18 05:17 Anion Gap 5 mmol/L (2-11) 12/10/18 05:17 BUN 15 mg/dL (6-24) 12/10/18 05:17 Creatinine 0.76 mg/dL (0.67-1.17) 12/10/18 05:17 Est GFR ( Amer) 119.1 (>60) 12/10/18 05:17 Est GFR (Non-Af Amer) 98.4 (>60) 12/10/18 05:17 BUN/Creatinine Ratio 19.7 (8-20) 12/10/18 05:17 Glucose 70 mg/dL (70-100) 12/10/18 05:17 POC Glucose (mg/dL) 94 mg/dL (70-100) 12/11/18 12:05 Glucose Meter Confirm 386 mg/dL (70-100) H 11/30/18 12:26 Hemoglobin A1c 8.4 % (4.0-5.6) H 11/30/18 12:26 Lactic Acid 1.5 mmol/L (0.5-2.0) 11/28/18 15:28 Calcium 8.5 mg/dL (8.6-10.3) L 12/10/18 05:17 Ionized Calcium 1.19 mmol/L (1.16-1.32) 12/07/18 11:40 Phosphorus 3.2 mg/dL (2.5-5.0) 11/29/18 06:08 Magnesium 1.9 mg/dL (1.9-2.7) 12/10/18 05:17 Total Bilirubin 0.30 mg/dL (0.2-1.0) 12/04/18 17:28 Direct Bilirubin 0.10 mg/dL (0.03-0.18) 12/04/18 17:28 Indirect Bilirubin 0.2 mg/dL (0.3-1.0) L 12/04/18 17:28 AST 22 U/L (13-39) 12/04/18 17:28 ALT 10 U/L (7-52) 12/04/18 17:28 Alkaline Phosphatase 72 U/L (34-104) 12/04/18 17:28 Troponin I 1.45 ng/mL (<0.04) H* 12/02/18 20:24 C-Reactive Protein 15.34 mg/L (<8.01) H 12/10/18 05:17 Total Protein 6.5 g/dL (6.4-8.9) 12/04/18 17:28 Albumin 3.1 g/dL (3.2-5.2) L 12/04/18 17:28 Globulin 3.4 g/dL (2-4) 12/04/18 17:28 Albumin/Globulin Ratio 0.9 (1-3) L 12/04/18 17:28
[2018-12-11] MEDS: traMADol TAB* 50 MG PO PRN (14:03)
--- NOTE | 2018-12-11 15:11 | PN ---
Subjective Date of Service: 12/11/18 Interval History: Mr. Cedillo is somewhat groggy today. He states that he feels "good" and denies pain in L foot wound site. He states he is eating and drinking well. He has no complaints today. Objective Active Medications: Acetaminophen (Tylenol Tab*) 650 mg PO Q4H PRN PRN Reason: MILD PAIN or TEMP > 100.4 Last Admin: 12/10/18 23:47 Dose: 650 mg Albuterol (Ventolin 2.5 Mg/3 Ml Neb.Vale*) 2.5 mg INH [id number] AWAKE PRN PRN Reason: sob/wheezing Aspirin (Aspirin 81 Mg Chew Tab*) 81 mg PO DAILY [facility] Last Admin: 12/11/18 09:47 Dose: Not Given Atorvastatin Calcium (Lipitor*) 10 mg PO BEDTIME [facility] Last Admin: 12/10/18 21:57 Dose: 10 mg Baclofen (Lioresal Tab*) 10 mg PO TID [facility] Last Admin: 12/11/18 14:03 Dose: 10 mg Dextrose (Dextrose 50% Vial 50 Ml*) 25 ml IV PUSH .FOR FS < 60 - SS PRN PRN Reason: FS < 60 Donepezil HCl (Aricept Tab*) 5 mg PO BEDTIME [facility] Last Admin: 12/10/18 21:57 Dose: 5 mg Enoxaparin Sodium (Lovenox(*)) 90 mg SUBCUT Q12H [facility] Last Admin: 12/11/18 09:48 Dose: Not Given Furosemide (Lasix Tab*) 40 mg PO DAILY [facility] Last Admin: 12/11/18 09:47 Dose: Not Given Guaifenesin (Mucinex*) 1,200 mg PO BID [facility] Last Admin: 12/11/18 09:47 Dose: Not Given Hydrocortisone (Hytone Cream 1%*) 1 applic TOPICAL TID PRN PRN Reason: RASH Cefazolin Sodium 2 gm/ Sodium (Chloride) 100 mls @ 200 mls/hr IVPB Q8H [facility] Last Admin: 12/11/18 14:05 Dose: 200 mls/hr Insulin Glargine (Lantus(*)) 20 units SUBCUT QAM [facility] Last Admin: 12/11/18 09:47 Dose: Not Given Insulin Glargine (Lantus(*)) 15 units SUBCUT 2100 [facility] Last Admin: 12/10/18 21:54 Dose: 15 units Insulin Human Lispro (Humalog*) 0 units SUBCUT ACHS [facility]; Protocol Last Admin: 12/11/18 12:25 Dose: Not Given Metoprolol Tartrate (Lopressor Tab*) 25 mg PO BID [facility] Last Admin: 12/11/18 09:48 Dose: Not Given Morphine Sulfate (Morphine Inj (Syringe))*) 2 mg IV Q4H PRN PRN Reason: PAIN - SEVERE Last Admin: 12/11/18 11:02 Dose: 2 mg Ondansetron HCl (Zofran Inj*) 4 mg IV Q4H PRN PRN Reason: NAUSEA/VOMITING Sertraline HCl (Zoloft*) 25 mg PO DAILY [facility] Last Admin: 12/11/18 09:48 Dose: Not Given Tramadol HCl (Ultram*) 50 mg PO Q6H PRN PRN Reason: PAIN - MODERATE Last Admin: 12/11/18 14:03 Dose: 50 mg Vital Signs: Temp Pulse Resp BP Pulse Ox 97.0 F 77 24 119/42 98 12/11/18 15:32 12/11/18 15:32 12/11/18 15:32 12/11/18 15:32 12/11/18 15:32 Oxygen Devices in Use Now: Nasal Cannula Appearance: Mr. Cedillo is an older white male who is sitting in chair with LE elevated. He appears to be in no acute distress, but is somewhat groggy. Eyes: No Scleral Icterus, PERRLA Ears/Nose/Mouth/Throat: NL Teeth, Lips, Gums, Clear Oropharnyx, Mucous Membranes Moist Neck: NL Appearance and Movements; NL JVP, Trachea Midline Respiratory: Symmetrical Chest Expansion and Respiratory Effort, Clear to Auscultation Cardiovascular: NL Sounds; No Murmurs; No JVD, No Edema, - - Irregular Extremities: No Edema, No Clubbing, Cyanosis, - - LLE with CDI dressing in place. Neurological: - - Alert; oriented to person, place Result Diagrams: 12/11/18 05:18 12/10/18 05:17 Additional Lab and Data: . Microbiology and Other Data: . Assess/Plan/Problems-Billing Assessment: Mr. Cedillo is an 83 year old male with history of Parkinsons, dementia, PVD and non- healing wounds that presents to the ED with his with complaints of left heel ulcer, now with new onset afib, NSTEMI, and acute on chronic CHF. - Patient Problems (1) Non healing left heel wound Comment: - With exposure of left achilles tendon at presentation - Initial wound culture with staph; BC NGTD, repeat wound culture NGTD - MRI without osteo - Appreciate ID consult; previously on Keflex; now on cefazolin - Continue IV cefazolin (started 12/07) - Appreciate ortho consult. S/p I&D and calcaneous saucerization with Dr. Frederick 12/06/18. - Wound vac change 12/10 failed due to extensive bleeding, likely in setting of lovenox - Ortho offered BKA, but patient declined - CRP improving (2) NSTEMI (non-ST elevated myocardial infarction) Comment: - Remains without anginal sx - Trop peaked 1.65, downtrended to 1.45, EKGs without ischemic changes - Continue asa, statin, and beta riccardo - Heparin drip ran for 72 hours, has since been d/c - TTE without significant changes from echo in 2019 - Had CABG 2006 and 2011. Had stress test in February 2018 showing large fixed defects only, transferred to [facility] for consideration of high risk catheterization, but plan ultimately for medical therapy only. Follows with Dr. Sharp outpatient, consult from July 2018 in [facility]. - Appreciate cardiology consult (3) Afib Comment: - New diagnosis during this hospitalization. No previously documented history of afib found. Prior history of mobitz II AV block - Continue metoprolol - [id number] score of 8. Will benefit from [facility] AC, but oral AC is not preferred at this point in hospital stay as further orthopedic surgery may be necessary. - Lovenox held due to increased bleeding; will monitor for restart - Discussed risk/benefits with so she can consider AC on discharge. He may be a greater fall risk by end of this hospitalization if L BKA is needed (4) Acute on chronic systolic CHF (congestive heart failure) Comment: - CTAB; patient is NOT on O2 at home, per - Chest xray 12/08 showed worsening interstitial edema - EF 30-35% - will convert to PO lasix 40mg daily and continue to monitor - continue metoprolol at 25mg BID (decreased from 50mg BID due to mild hypotension) (5) Type 2 diabetes mellitus Comment: - Complicated by hyperglycemia and foot ulcer - BGs with relatively good control - Continue lispro SSI coverage, lantus 20 units AM, lantus 15 units PM - A1c 8.4 - holding home metformin (6) Hypertension Comment: - BP well controlled - metoprolol from 50 to 25 BID and monitor - continue metoprolol with hold parameters (7) Peripheral vascular disease Comment: - Hx of unsuccessful angioplasty on in 2015 - Continue statin, ASA. (8) Parkinson disease Comment: - On baclofen, no sinemet - Supportive care (9) Dementia Comment: - Continue donepezil, sertraline (10) DVT prophylaxis Comment: -Holding in setting of increased wound bleeding on lovenox (11) Full code status Comment: Status and Disposition: Inpatient, dispo TBD. Pending wound healing and may need amputation, depends on progress at wound vac change Monday.
[2018-12-11] MEDS: Acetaminophen TAB* 325 MG PO PRN (16:37)
[2018-12-11] MEDS: Atorvastatin* 10 MG TAB PO SCH (21:19)
[2018-12-11] MEDS: Donepezil TAB* 5 MG PO SCH (21:19)
[2018-12-12] MEDS: Acetaminophen TAB* 325 MG PO PRN (00:24)
[2018-12-12 06:05] LABS: ABS Eosinophils 0.2 10^3/ul (0-0.6); ABS Lymphocytes 1.6 10^3/ul (1.0-4.8); ABS Neutrophils 9.5 10^3/ul (1.5-7.7); Hematocrit 25 % (42-52); Hemoglobin 8.4 g/dL (14.0-18.0); Lymphocyte % 13.3 %; Mean Corpuscular HGB Conc 33 g/dL (31-36); Mean Corpuscular Hemoglobin 29 pg (27-31); Mean Corpuscular Volume 88 fL (80-94); Mean Platelet Volume 7.2 fL (7.4-10.4); Platelet Count 315 10^3/uL (150-450); Red Blood Count 2.85 10^6 /uL (4.18-5.48); Red Cell Distribution Width 15 % (10-15); White Blood Count 12.4 10^3/uL (3.5-10.8)
[2018-12-12] MEDS: ceFAZolin* 2 GM in NS 100 MLS Q8H (Pharmacy Admix) IVPB SCH ×3 (06:13→20:53)
[2018-12-12] MEDS: Insulin LISPRO* 1 UNITS UNIT SUBCUT SCH ×4 (07:38→20:53)
[2018-12-12] MEDS: Baclofen TAB* 10 MG PO SCH ×3 (09:28→20:52)
[2018-12-12] MEDS: Metoprolol Tartrate TAB* 25 MG PO SCH ×2 (09:28→20:52)
[2018-12-12] MEDS: Furosemide TAB* 40 MG PO SCH (09:28)
[2018-12-12] MEDS: guaiFENesin ER TAB 600 MG PO SCH ×2 (09:28→20:52)
[2018-12-12] MEDS: Sertraline* 25 MG TAB PO SCH (09:28)
[2018-12-12] MEDS: Aspirin 81 mg CHEW TAB* 81 MG TAB.CHEW PO SCH (09:28)
[2018-12-12] MEDS: Insulin GLARGINE(*) 1 UNITS UNIT SUBCUT SCH ×2 (10:03→20:53)
--- NOTE | 2018-12-12 12:42 | PN ---
Progress Note - Progress Note Date of Service: 12/12/18 SOAP: Subjective: []Pt seen at bedside. He Has no LLE pain today. Confirms he desires to have continued daily wound care of LLE to attempt healing without BKA. Objective: []NAD LLE: Dressing without any drainage. Posterior ankle wound bed clean with no bleeding and no purulence, no erythema. Anterior ankle superficial wound clean, no purulence. No erythema. Redressed with betadine soaked gauze to posterior wound, xeroform anteriorly, 4x4s, abds, kerlix and ivan Assessment: s/p I&D LLE Plan: 1) NWB LLE 2) IV abx per ID: Ancef 3) hospitalist co-managing 4) rec heparin rather than full strength lovenox if possible as uncontrolled bleeding from LLE wound with lovenox. 5) will wound check daily Vital Signs Temp 97.9 F 12/12/18 11:56 Pulse 68 12/12/18 11:56 Resp 16 12/12/18 11:56 BP 113/50 12/12/18 11:56 Pulse Ox 96 12/12/18 08:00 Intake & Output 12/11/18 12/12/18 12/12/18 18:59 06:59 18:59 Intake Total 360 353 120 Output Total 0 Balance 360 353 120 Weight 206 lb 8 oz Intake: IV Fluids 20 cefazolin 20 IVPB 113 cefazolin 113 Oral 360 220 120 Output: Urine 0 Other: Estimated Void Large Estimated Stool Amount Large # Voids 1 Laboratory Last Values WBC 12.4 10^3/uL (3.5-10.8) H 12/12/18 05:36 RBC 2.85 10^6 /uL (4.18-5.48) L 12/12/18 05:36 Hgb 8.4 g/dL (14.0-18.0) L 12/12/18 05:36 Hct 25 % (42-52) L 12/12/18 05:36 MCV 88 fL (80-94) 12/12/18 05:36 MCH 29 pg (27-31) 12/12/18 05:36 MCHC 33 g/dL (31-36) 12/12/18 05:36 RDW 15 % (10-15) 12/12/18 05:36 Plt Count 315 10^3/uL (150-450) 12/12/18 05:36 MPV 7.2 fL (7.4-10.4) L 12/12/18 05:36 Neut % (Auto) 76.3 % 12/12/18 05:36 Lymph % (Auto) 13.3 % 12/12/18 05:36 [place] % (Auto) 8.0 % 12/12/18 05:36 Eos % (Auto) 2.0 % 12/12/18 05:36 Baso % (Auto) 0.4 % 12/12/18 05:36 Absolute Neuts (auto) 9.5 10^3/ul (1.5-7.7) H 12/12/18 05:36 Absolute Lymphs (auto) 1.6 10^3/ul (1.0-4.8) 12/12/18 05:36 Absolute Monos (auto) 1.0 10^3/ul (0-0.8) H 12/12/18 05:36 Absolute Eos (auto) 0.2 10^3/ul (0-0.6) 12/12/18 05:36 Absolute Basos (auto) 0.0 10^3/ul (0-0.2) 12/12/18 05:36 Absolute Nucleated RBC 0.0 10^3/ul 12/12/18 05:36 Nucleated RBC % 0.0 12/12/18 05:36 INR (Anticoag Therapy) 1.48 (0.82-1.09) H 12/04/18 18:04 APTT 34.6 seconds (26.0-38.0) 12/06/18 05:26 Sodium 141 mmol/L (135-145) 12/10/18 05:17 Potassium 4.5 mmol/L (3.5-5.0) 12/10/18 05:17 Chloride 104 mmol/L (101-111) 12/10/18 05:17 Carbon Dioxide 32 mmol/L (22-32) 12/10/18 05:17 Anion Gap 5 mmol/L (2-11) 12/10/18 05:17 BUN 15 mg/dL (6-24) 12/10/18 05:17 Creatinine 0.76 mg/dL (0.67-1.17) 12/10/18 05:17 Est GFR ( Amer) 119.1 (>60) 12/10/18 05:17 Est GFR (Non-Af Amer) 98.4 (>60) 12/10/18 05:17 BUN/Creatinine Ratio 19.7 (8-20) 12/10/18 05:17 Glucose 70 mg/dL (70-100) 12/10/18 05:17 POC Glucose (mg/dL) 182 mg/dL (70-100) H 12/12/18 11:21 Glucose Meter Confirm 386 mg/dL (70-100) H 11/30/18 12:26 Hemoglobin A1c 8.4 % (4.0-5.6) H 11/30/18 12:26 Lactic Acid 1.5 mmol/L (0.5-2.0) 11/28/18 15:28 Calcium 8.5 mg/dL (8.6-10.3) L 12/10/18 05:17 Ionized Calcium 1.19 mmol/L (1.16-1.32) 12/07/18 11:40 Phosphorus 3.2 mg/dL (2.5-5.0) 11/29/18 06:08 Magnesium 1.9 mg/dL (1.9-2.7) 12/10/18 05:17 Total Bilirubin 0.30 mg/dL (0.2-1.0) 12/04/18 17:28 Direct Bilirubin 0.10 mg/dL (0.03-0.18) 12/04/18 17:28 Indirect Bilirubin 0.2 mg/dL (0.3-1.0) L 12/04/18 17:28 AST 22 U/L (13-39) 12/04/18 17:28 ALT 10 U/L (7-52) 12/04/18 17:28 Alkaline Phosphatase 72 U/L (34-104) 12/04/18 17:28 Troponin I 1.45 ng/mL (<0.04) H* 12/02/18 20:24 C-Reactive Protein 15.34 mg/L (<8.01) H 12/10/18 05:17 Total Protein 6.5 g/dL (6.4-8.9) 12/04/18 17:28 Albumin 3.1 g/dL (3.2-5.2) L 12/04/18 17:28 Globulin 3.4 g/dL (2-4) 12/04/18 17:28 Albumin/Globulin Ratio 0.9 (1-3) L 12/04/18 17:28
--- NOTE | 2018-12-12 15:53 | PN ---
Subjective Date of Service: 12/12/18 Interval History: Mr. Cedillo states he is feeling "fine" today. He denies pain in the LLE, and denies headache. He does c/o some shortness of breath, but denies cough, fever , chills. He states he had a BM today; he is eating, drinking well. No other complaints today. Objective Active Medications: Acetaminophen (Tylenol Tab*) 650 mg PO Q4H PRN PRN Reason: MILD PAIN or TEMP > 100.4 Last Admin: 12/12/18 00:24 Dose: 650 mg Albuterol (Ventolin 2.5 Mg/3 Ml Neb.Vale*) 2.5 mg INH [id number] AWAKE PRN PRN Reason: sob/wheezing Aspirin (Aspirin 81 Mg Chew Tab*) 81 mg PO DAILY [facility] Last Admin: 12/12/18 09:28 Dose: 81 mg Atorvastatin Calcium (Lipitor*) 10 mg PO BEDTIME [facility] Last Admin: 12/11/18 21:19 Dose: 10 mg Baclofen (Lioresal Tab*) 10 mg PO TID [facility] Last Admin: 12/12/18 14:15 Dose: 10 mg Dextrose (Dextrose 50% Vial 50 Ml*) 25 ml IV PUSH .FOR FS < 60 - SS PRN PRN Reason: FS < 60 Donepezil HCl (Aricept Tab*) 5 mg PO BEDTIME [facility] Last Admin: 12/11/18 21:19 Dose: 5 mg Furosemide (Lasix Tab*) 40 mg PO DAILY [facility] Last Admin: 12/12/18 09:28 Dose: 40 mg Guaifenesin (Mucinex*) 1,200 mg PO BID [facility] Last Admin: 12/12/18 09:28 Dose: 1,200 mg Hydrocortisone (Hytone Cream 1%*) 1 applic TOPICAL TID PRN PRN Reason: RASH Cefazolin Sodium 2 gm/ Sodium (Chloride) 100 mls @ 200 mls/hr IVPB Q8H [facility] Last Admin: 12/12/18 14:17 Dose: 200 mls/hr Insulin Glargine (Lantus(*)) 20 units SUBCUT QAM [facility] Last Admin: 12/12/18 10:03 Dose: Not Given Insulin Glargine (Lantus(*)) 15 units SUBCUT 2100 [facility] Last Admin: 12/11/18 21:19 Dose: 15 units Insulin Human Lispro (Humalog*) 0 units SUBCUT ACHS [facility]; Protocol Last Admin: 12/12/18 12:11 Dose: 3 units Metoprolol Tartrate (Lopressor Tab*) 25 mg PO BID [facility] Last Admin: 12/12/18 09:28 Dose: 25 mg Morphine Sulfate (Morphine Inj (Syringe))*) 2 mg IV Q4H PRN PRN Reason: PAIN - SEVERE Last Admin: 12/11/18 15:53 Dose: 2 mg Ondansetron HCl (Zofran Inj*) 4 mg IV Q4H PRN PRN Reason: NAUSEA/VOMITING Sertraline HCl (Zoloft*) 25 mg PO DAILY [facility] Last Admin: 12/12/18 09:28 Dose: 25 mg Tramadol HCl (Ultram*) 50 mg PO Q6H PRN PRN Reason: PAIN - MODERATE Last Admin: 12/11/18 14:03 Dose: 50 mg Vital Signs: Temp Pulse Resp BP Pulse Ox 97.9 F 68 16 113/50 96 12/12/18 11:56 12/12/18 11:56 12/12/18 11:56 12/12/18 11:56 12/12/18 08:00 Oxygen Devices in Use Now: Nasal Cannula Appearance: Mr. Cedillo is an obese older white male who is laying in bed with HOB , LE elevated. He appears comfortable, no increased work of breathing ( although with 2L NC in place), no acute distress. Eyes: No Scleral Icterus, PERRLA Ears/Nose/Mouth/Throat: NL Teeth, Lips, Gums, Clear Oropharnyx, Mucous Membranes Moist Neck: NL Appearance and Movements; NL JVP, Trachea Midline Respiratory: Symmetrical Chest Expansion and Respiratory Effort Cardiovascular: NL Sounds; No Murmurs; No JVD, No Edema, - - Irregular Abdominal: NL Sounds; No Tenderness; No Distention Extremities: No Edema, No Clubbing, Cyanosis, - - R BKA noted. CDI dressing in place to LLE. Neurological: - - Alert; oriented to person, place. Result Diagrams: 12/12/18 05:36 12/10/18 05:17 Additional Lab and Data: . Microbiology and Other Data: . Assess/Plan/Problems-Billing Assessment: Mr. Cedillo is an 83 year old male with history of Parkinsons, dementia, PVD and non- healing wounds that presents to the ED with his with complaints of left heel ulcer, now with new onset afib, NSTEMI, and acute on chronic CHF. - Patient Problems (1) Non healing left heel wound Comment: - With exposure of left achilles tendon at presentation - Initial wound culture with staph; BC NGTD, repeat wound culture NGTD - MRI without osteo; CRP improving - Appreciate ID consult; previously on Keflex; now on cefazolin - Continue IV cefazolin (started 12/07) - Appreciate ortho consult. S/p I&D and calcaneous saucerization with Dr. Frederick 12/06/18. - Wound vac change 12/10 failed due to extensive bleeding, likely in setting of lovenox - Ortho offered BKA, but patient declined - Continue daily dressing changes (2) NSTEMI (non-ST elevated myocardial infarction) Comment: - Remains without anginal sx - Trop peaked 1.65, downtrended to 1.45, EKGs without ischemic changes - Continue asa, statin, and beta riccardo - Heparin drip ran for 72 hours, has since been d/c - TTE without significant changes from echo in 2019 - Had CABG 2006 and 2011. Had stress test in February 2018 showing large fixed defects only, transferred to [facility] for consideration of high risk catheterization, but plan ultimately for medical therapy only. Follows with Dr. Sharp outpatient, consult from July 2018 in [facility]. - Appreciate cardiology consult (3) Afib Comment: - New diagnosis during this hospitalization. No previously documented history of afib found. Prior history of mobitz II AV block - Continue metoprolol - [id number] score of 8. Will benefit from [facility] AC, but oral AC is not preferred at this point in hospital stay as further orthopedic surgery may be necessary. - Discussed risk/benefits with so she can consider AC on discharge. He may be a greater fall risk by end of this hospitalization if L BKA is needed - Pt would like to discuss with his prior to start AC inpatient or outpatient (4) Acute on chronic systolic CHF (congestive heart failure) Comment: - CTAB; patient is NOT on O2 at home, per - Chest xray 12/08 showed worsening interstitial edema - EF 30-35% - continue PO lasix 40mg daily and continue to monitor - 1 additional dose lasiv IV 20 today due to continued need for O2 and c/o SOB - attempt to wean O2 - continue metoprolol at 25mg BID (decreased from 50mg BID due to mild hypotension) (5) Type 2 diabetes mellitus Comment: - Complicated by hyperglycemia and foot ulcer - BGs with relatively good control - Continue lispro SSI coverage, lantus 20 units AM, lantus 15 units PM - A1c 8.4 - holding home metformin (6) Hypertension Comment: - BP well controlled - metoprolol from 50 to 25 BID and monitor - continue metoprolol with hold parameters (7) Peripheral vascular disease Comment: - Hx of unsuccessful angioplasty on in 2016 - Continue statin, ASA. (8) Parkinson disease Comment: - On baclofen, no sinemet - Supportive care (9) Dementia Comment: - Continue donepezil, sertraline (10) DVT prophylaxis Comment: -Holding in setting of increased wound bleeding on lovenox -Would like to discuss restarting AC with (11) Full code status Comment: Status and Disposition: Inpatient, dispo TBD. Pending wound healing and may need amputation, depends on progress at wound vac change Monday.
[2018-12-12] MEDS ORDERED: Furosemide IV* 10 MG/ML 2 ML VIAL (20 MG) IV ONE (16:00)
[2018-12-12] MEDS: Donepezil TAB* 5 MG PO SCH (20:52)
[2018-12-12] MEDS: Atorvastatin* 10 MG TAB PO SCH (20:52)
[2018-12-13] MEDS: Acetaminophen TAB* 325 MG PO PRN (00:49)
[2018-12-13 04:24] LABS: ABS Basophils 0.1 10^3/ul (0-0.2); ABS Eosinophils 0.3 10^3/ul (0-0.6); ABS Lymphocytes 1.7 10^3/ul (1.0-4.8); ABS Monocytes 0.9 10^3/ul (0-0.8); ABS Neutrophils 8.9 10^3/ul (1.5-7.7); Eosinophil % 2.3 %; Hematocrit 24 % (42-52); Hemoglobin 7.9 g/dL (14.0-18.0); Lymphocyte % 14.7 %; Mean Corpuscular HGB Conc 32 g/dL (31-36); Mean Corpuscular Hemoglobin 29 pg (27-31); Mean Corpuscular Volume 88 fL (80-94); Mean Platelet Volume 7.2 fL (7.4-10.4); Platelet Count 302 10^3/uL (150-450); Red Blood Count 2.76 10^6 /uL (4.18-5.48); Red Cell Distribution Width 15 % (10-15); White Blood Count 11.9 10^3/uL (3.5-10.8)
[2018-12-13 04:45] LABS: BUN/Creatinine Ratio 18.8 (8-20); Calcium 8.2 mg/dL (8.6-10.3); EGFR African American 133.2 (>60); Potassium 4.2 mmol/L (3.5-5.0)
[2018-12-13] MEDS: ceFAZolin* 2 GM in NS 100 MLS Q8H (Pharmacy Admix) IVPB SCH ×3 (05:15→22:01)
[2018-12-13] MEDS: Insulin LISPRO* 1 UNITS UNIT SUBCUT SCH ×4 (08:20→22:01)
[2018-12-13] MEDS: Baclofen TAB* 10 MG PO SCH ×3 (09:07→22:01)
[2018-12-13] MEDS: Aspirin 81 mg CHEW TAB* 81 MG TAB.CHEW PO SCH (09:07)
[2018-12-13] MEDS: guaiFENesin ER TAB 600 MG PO SCH ×2 (09:07→22:01)
[2018-12-13] MEDS: Insulin GLARGINE(*) 1 UNITS UNIT SUBCUT SCH ×2 (09:08→22:01)
[2018-12-13] MEDS: Sertraline* 25 MG TAB PO SCH (09:08)
[2018-12-13] MEDS: Furosemide TAB* 40 MG PO SCH (09:08)
[2018-12-13] MEDS: Metoprolol Tartrate TAB* 25 MG PO SCH ×2 (09:22→22:01)
--- NOTE | 2018-12-13 11:34 | PN ---
Progress Note - Progress Note Date of Service: 12/13/18 SOAP: Subjective: []Pt seen and examined at bedside. He has no complaints today, LLE extremity is not painful. Objective: []Gen: NAD LLE: Posterior ankle wound bed clean, no bleeding, no purulence, no necrotic tissue, no surrounding erythema, redressed with betadine soaked gauze, 4x4s, abd. There is the start of a pressure wound at the heel medial and lateral to the wound distally. Anterior wound no purulence or erythema, redressed with xeroform. Assessment: s/p I&D LLE Plan: 1) NWB LLE 2) IV abx per ID: Ancef 3) hospitalist co-managing 4) bleeding has stopped with discontinuation of lovenox. Currently on aspirin 81 mg. No further surgical plans at this time. 5) Will continue to wound check daily while in house 6) float heels 7) Follow up with Dr Frederick next week. Call orthopedic office for appointment 8) daily dressing change. Dressing instruction: betadine soaked gauze in posterior wound with 4x4s overlying. xeroform over anterior wound with 4x4s overlying. Use ABDs over both anterior and posterior wound and for padding. Gently wrap kerlix and ivan, careful to avoid tight wrap as skin is very fragile Vital Signs Temp 97.9 F 12/13/18 11:32 Pulse 65 12/13/18 11:32 Resp 17 12/13/18 11:32 BP 117/64 12/13/18 11:32 Pulse Ox 91 12/13/18 11:32 Intake & Output 12/12/18 12/13/18 12/13/18 18:59 06:59 18:59 Intake Total 480 222 600 Output Total 300 Balance 480 -78 600 Weight 206 lb Intake: IV Fluids 222 ABX - ZOSYN 100 NS (0.9%) 22 cefazolin 100 Oral 480 0 600 Output: Urine 300 Other: Estimated Void Large # Bowel Movements 1 Estimated Stool Amount Large Small Small # Voids 3 Laboratory Last Values WBC 11.9 10^3/uL (3.5-10.8) H 12/13/18 03:58 RBC 2.76 10^6 /uL (4.18-5.48) L 12/13/18 03:58 Hgb 7.9 g/dL (14.0-18.0) L 12/13/18 03:58 Hct 24 % (42-52) L 12/13/18 03:58 MCV 88 fL (80-94) 12/13/18 03:58 MCH 29 pg (27-31) 12/13/18 03:58 MCHC 32 g/dL (31-36) 12/13/18 03:58 RDW 15 % (10-15) 12/13/18 03:58 Plt Count 302 10^3/uL (150-450) 12/13/18 03:58 MPV 7.2 fL (7.4-10.4) L 12/13/18 03:58 Neut % (Auto) 75.2 % 12/13/18 03:58 Lymph % (Auto) 14.7 % 12/13/18 03:58 [place] % (Auto) 7.4 % 12/13/18 03:58 Eos % (Auto) 2.3 % 12/13/18 03:58 Baso % (Auto) 0.4 % 12/13/18 03:58 Absolute Neuts (auto) 8.9 10^3/ul (1.5-7.7) H 12/13/18 03:58 Absolute Lymphs (auto) 1.7 10^3/ul (1.0-4.8) 12/13/18 03:58 Absolute Monos (auto) 0.9 10^3/ul (0-0.8) H 12/13/18 03:58 Absolute Eos (auto) 0.3 10^3/ul (0-0.6) 12/13/18 03:58 Absolute Basos (auto) 0.1 10^3/ul (0-0.2) 12/13/18 03:58 Absolute Nucleated RBC 0.0 10^3/ul 12/13/18 03:58 Nucleated RBC % 0.0 12/13/18 03:58 INR (Anticoag Therapy) 1.48 (0.82-1.09) H 12/04/18 18:04 APTT 34.6 seconds (26.0-38.0) 12/06/18 05:26 Sodium 137 mmol/L (135-145) 12/13/18 04:00 Potassium 4.2 mmol/L (3.5-5.0) 12/13/18 04:00 Chloride 100 mmol/L (101-111) L 12/13/18 04:00 Carbon Dioxide 33 mmol/L (22-32) H 12/13/18 04:00 Anion Gap 4 mmol/L (2-11) 12/13/18 04:00 BUN 13 mg/dL (6-24) 12/13/18 04:00 Creatinine 0.69 mg/dL (0.67-1.17) 12/13/18 04:00 Est GFR ( Amer) 133.2 (>60) 12/13/18 04:00 Est GFR (Non-Af Amer) 110.0 (>60) 12/13/18 04:00 BUN/Creatinine Ratio 18.8 (8-20) 12/13/18 04:00 Glucose 104 mg/dL (70-100) H 12/13/18 04:00 POC Glucose (mg/dL) 265 mg/dL (70-100) H 12/13/18 11:24 Glucose Meter Confirm 386 mg/dL (70-100) H 11/30/18 12:26 Hemoglobin A1c 8.4 % (4.0-5.6) H 11/30/18 12:26 Lactic Acid 1.5 mmol/L (0.5-2.0) 11/28/18 15:28 Calcium 8.2 mg/dL (8.6-10.3) L 12/13/18 04:00 Ionized Calcium 1.19 mmol/L (1.16-1.32) 12/07/18 11:40 Phosphorus 3.2 mg/dL (2.5-5.0) 11/29/18 06:08 Magnesium 1.9 mg/dL (1.9-2.7) 12/10/18 05:17 Total Bilirubin 0.30 mg/dL (0.2-1.0) 12/04/18 17:28 Direct Bilirubin 0.10 mg/dL (0.03-0.18) 12/04/18 17:28 Indirect Bilirubin 0.2 mg/dL (0.3-1.0) L 12/04/18 17:28 AST 22 U/L (13-39) 12/04/18 17:28 ALT 10 U/L (7-52) 12/04/18 17:28 Alkaline Phosphatase 72 U/L (34-104) 12/04/18 17:28 Troponin I 1.45 ng/mL (<0.04) H* 12/02/18 20:24 C-Reactive Protein 15.34 mg/L (<8.01) H 12/10/18 05:17 Total Protein 6.5 g/dL (6.4-8.9) 12/04/18 17:28 Albumin 3.1 g/dL (3.2-5.2) L 12/04/18 17:28 Globulin 3.4 g/dL (2-4) 12/04/18 17:28 Albumin/Globulin Ratio 0.9 (1-3) L 12/04/18 17:28
[2018-12-13] MEDS ORDERED: Polyethylene Glycol 3350* 17 GM PACKET PO PRN (14:15)
[2018-12-13] MEDS: Senna TAB 8.6 mg* TAB PO PRN (14:31)
--- NOTE | 2018-12-13 18:18 | PN ---
Subjective Date of Service: 12/13/18 Interval History: Patient denies leg pain, chest pain, difficulty breathing, abd pain. States he sometimes feels cold but denies overt chills and symptomatic fever. Denies pain during dressing change. Objective Active Medications: Acetaminophen (Tylenol Tab*) 650 mg PO Q4H PRN PRN Reason: MILD PAIN or TEMP > 100.4 Last Admin: 12/13/18 00:49 Dose: 650 mg Albuterol (Ventolin 2.5 Mg/3 Ml Neb.Vale*) 2.5 mg INH [id number] AWAKE PRN PRN Reason: sob/wheezing Aspirin (Aspirin 81 Mg Chew Tab*) 81 mg PO DAILY [facility] Last Admin: 12/13/18 09:07 Dose: 81 mg Atorvastatin Calcium (Lipitor*) 10 mg PO BEDTIME [facility] Last Admin: 12/12/18 20:52 Dose: 10 mg Baclofen (Lioresal Tab*) 10 mg PO TID [facility] Last Admin: 12/13/18 14:32 Dose: 10 mg Dextrose (Dextrose 50% Vial 50 Ml*) 25 ml IV PUSH .FOR FS < 60 - SS PRN PRN Reason: FS < 60 Donepezil HCl (Aricept Tab*) 5 mg PO BEDTIME [facility] Last Admin: 12/12/18 20:52 Dose: 5 mg Furosemide (Lasix Tab*) 40 mg PO DAILY [facility] Last Admin: 12/13/18 09:08 Dose: 40 mg Guaifenesin (Mucinex*) 1,200 mg PO BID [facility] Last Admin: 12/13/18 09:07 Dose: 1,200 mg Hydrocortisone (Hytone Cream 1%*) 1 applic TOPICAL TID PRN PRN Reason: RASH Cefazolin Sodium 2 gm/ Sodium (Chloride) 100 mls @ 200 mls/hr IVPB Q8H [facility] Last Admin: 12/13/18 14:31 Dose: 200 mls/hr Insulin Glargine (Lantus(*)) 20 units SUBCUT QAM [facility] Last Admin: 12/13/18 09:08 Dose: 20 unit Insulin Glargine (Lantus(*)) 15 units SUBCUT 2100 [facility] Last Admin: 12/12/18 20:53 Dose: 15 units Insulin Human Lispro (Humalog*) 0 units SUBCUT ACHS [facility]; Protocol Last Admin: 12/13/18 17:49 Dose: Not Given Metoprolol Tartrate (Lopressor Tab*) 25 mg PO BID [facility] Last Admin: 12/13/18 09:22 Dose: 25 mg Morphine Sulfate (Morphine Inj (Syringe))*) 2 mg IV Q4H PRN PRN Reason: PAIN - SEVERE Last Admin: 12/11/18 15:53 Dose: 2 mg Ondansetron HCl (Zofran Inj*) 4 mg IV Q4H PRN PRN Reason: NAUSEA/VOMITING Polyethylene Glycol/Electrolytes (Miralax*) 17 gm PO DAILY PRN PRN Reason: CONSTIPATION Senna (Senokot 8.6 Mg Tab*) 1 tab PO BEDTIME PRN PRN Reason: CONSTIPATION Last Admin: 12/13/18 14:31 Dose: 1 tab Sertraline HCl (Zoloft*) 25 mg PO DAILY [facility] Last Admin: 12/13/18 09:08 Dose: 25 mg Vital Signs - 8 hr 12/13/18 12/13/18 12/13/18 11:32 15:00 16:11 Temperature 97.9 F 98.1 F 97.8 F Pulse Rate 65 91 62 Respiratory 17 18 20 Rate Blood Pressure 117/64 115/67 112/52 (mmHg) O2 Sat by Pulse 91 98 94 Oximetry Oxygen Devices in Use Now: Nasal Cannula Appearance: Elderly white male, laying upright in bed, in NAD Eyes: No Scleral Icterus, - - PERRL Ears/Nose/Mouth/Throat: Mucous Membranes Moist Neck: - - supple Respiratory: Symmetrical Chest Expansion and Respiratory Effort, Clear to Auscultation Cardiovascular: NL Sounds; No Murmurs; No JVD, - - irregularly irregular rhythm Abdominal: - - abd soft, nontender, nondistended Extremities: No Edema, No Clubbing, Cyanosis Skin: - - left heel wound s/p debridement without drainage; left dorsum of foot s/p debridement with region of black tissue distally, consistent with unstageable pressure ulcer Neurological: Alert and Oriented x 3 Result Diagrams: 12/13/18 03:58 12/13/18 04:00 Additional Lab and Data: . Microbiology and Other Data: . Assess/Plan/Problems-Billing Assessment: Mr. Cedillo is an 83 year old male with history of Parkinsons, dementia, PVD and non- healing wounds that presents to the ED with his with complaints of left heel ulcer, now with new onset afib, NSTEMI, and acute on chronic CHF. - Patient Problems (1) Non healing left heel wound Current Visit: Yes Status: Acute Code(s): S91.302A - UNSPECIFIED OPEN WOUND , LEFT FOOT, INITIAL ENCOUNTER SNOMED Code(s): 996283147 Comment: - With exposure of left achilles tendon at presentation - Initial wound culture with staph; BC NGTD, repeat wound culture NGTD - MRI without osteo; CRP improving - Appreciate ID consult; previously on Keflex; now on cefazolin - Continue IV cefazolin (started 12/07) - Appreciate ortho consult. S/p I&D and calcaneous saucerization with Dr. Frederick 12/06/18. - Wound vac change 12/10 failed due to extensive bleeding, likely in setting of lovenox - Ortho offered BKA, but patient declined - Continue daily dressing changes (2) NSTEMI (non-ST elevated myocardial infarction) Current Visit: Yes Status: Acute Code(s): I21.4 - NON-ST ELEVATION (NSTEMI) MYOCARDIAL INFARCTION SNOMED Code(s): 72915727 Comment: - Remains without anginal sx - Trop peaked 1.65, downtrended to 1.45, EKGs without ischemic changes - Continue asa, statin, and beta riccardo - Medical management per cardiology consult. Heparin drip ran for 72 hours, has since been d/c. - TTE without significant changes from echo in 2019 - Had CABG 2006 and 2011. Had stress test in February 2018 showing large fixed defects only, transferred to [facility] for consideration of high risk catheterization, but plan ultimately for medical therapy only. Follows with Dr. Sharp outpatient, consult from July 2018 in [facility]. (3) Afib Current Visit: Yes Status: Acute Code(s): I48.91 - UNSPECIFIED ATRIAL FIBRILLATION SNOMED Code(s): 55778888 Comment: - New diagnosis during this hospitalization. No previously documented history of afib found. Prior history of mobitz II AV block - Continue metoprolol - [id number] score of 8. Will benefit from care home AC. However, while patient was on therapeutic lovenox he had extensive bleeding from the heel at the debridement site. Concern that the risk for bleeding outweighs the benefit of stroke prevention. Will discuss further with who is health proxy (4) Acute on chronic systolic CHF (congestive heart failure) Current Visit: Yes Status: Acute Code(s): I50.23 - ACUTE ON CHRONIC SYSTOLIC (CONGESTIVE) HEART FAILURE SNOMED Code(s): 554462227 Comment: - CTAB; patient is NOT on O2 at home, per - Chest xray 12/08 showed worsening interstitial edema - EF 30-35% - continue PO lasix 40mg daily and continue to monitor - attempt to wean O2 - continue metoprolol at 25mg BID (decreased from 50mg BID due to mild hypotension) (5) Hypertension Current Visit: No Status: Chronic Code(s): I10 - ESSENTIAL (PRIMARY) HYPERTENSION SNOMED Code(s): 60695199 Comment: - BP well controlled - metoprolol from 50 to 25 BID and monitor - continue metoprolol with hold parameters (6) Type 2 diabetes mellitus Current Visit: No Status: Chronic Comment: - Complicated by hyperglycemia and foot ulcer - BGs with relatively good control - Continue lispro SSI coverage, lantus 20 units AM, lantus 15 units PM - A1c 8.4 - holding home metformin (7) Peripheral vascular disease Current Visit: No Status: Chronic Code(s): I73.9 - PERIPHERAL VASCULAR DISEASE, UNSPECIFIED SNOMED Code(s): 393436808 Comment: - Hx of unsuccessful angioplasty on in 2016 - Continue statin, ASA. (8) Parkinson disease Current Visit: No Status: Chronic Priority: Medium Onset Date: 01/29/15 Code(s): G20 - PARKINSON'S DISEASE SNOMED Code(s): 78633564 Comment: - On baclofen, no sinemet - Supportive care (9) Dementia Current Visit: No Status: Chronic Code(s): F03.90 - UNSPECIFIED DEMENTIA WITHOUT BEHAVIORAL DISTURBANCE SNOMED Code(s): 94006492 Comment: - Continue donepezil, sertraline (10) Full code status Current Visit: No Status: Acute Code(s): Z78.9 - OTHER SPECIFIED HEALTH STATUS SNOMED Code(s): 272897026 Comment: (11) DVT prophylaxis Current Visit: No Status: Acute Priority: Medium Code(s): FHI6830 - SNOMED Code(s): 977964219 Comment: -Holding in setting of increased wound bleeding on lovenox -Would like to discuss restarting AC with Status and Disposition: Pending CASSIE placement
[2018-12-13] MEDS: Atorvastatin* 10 MG TAB PO SCH (22:01)
[2018-12-13] MEDS: Donepezil TAB* 5 MG PO SCH (22:01)
[2018-12-14] MEDS: ceFAZolin* 2 GM in NS 100 MLS Q8H (Pharmacy Admix) IVPB SCH (05:19)
[2018-12-14] MEDS: Insulin GLARGINE(*) 1 UNITS UNIT SUBCUT SCH ×2 (08:00→20:58)
[2018-12-14] MEDS: guaiFENesin ER TAB 600 MG PO SCH ×2 (08:00→20:58)
[2018-12-14] MEDS: Aspirin 81 mg CHEW TAB* 81 MG TAB.CHEW PO SCH (08:00)
[2018-12-14] MEDS: Sertraline* 25 MG TAB PO SCH (08:00)
[2018-12-14] MEDS: Baclofen TAB* 10 MG PO SCH ×3 (08:01→20:58)
[2018-12-14] MEDS: Insulin LISPRO* 1 UNITS UNIT SUBCUT SCH ×4 (08:05→20:32)
[2018-12-14] MEDS: Metoprolol Tartrate TAB* 25 MG PO SCH ×2 (08:09→20:58)
[2018-12-14] MEDS: Furosemide TAB* 40 MG PO SCH (08:09)
--- NOTE | 2018-12-14 10:08 | PN ---
Subjective Date of Service: 12/14/18 Interval History: Patient tells me he feels "terrible" today. When asked why, he indicates to piece of plastic gown on the floor. He denies fever/chills, chest pain, abd pain leg pain. When asked how his breathing feels he says "breathing feels confused." Approx 1730, alerted by nursing staff patient complaining of chest pain 5/10, EKG troponin pending Objective Active Medications: Acetaminophen (Tylenol Tab*) 650 mg PO Q4H PRN PRN Reason: MILD PAIN or TEMP > 100.4 Last Admin: 12/13/18 00:49 Dose: 650 mg Albuterol (Ventolin 2.5 Mg/3 Ml Neb.Vale*) 2.5 mg INH [id number] AWAKE PRN PRN Reason: sob/wheezing Aspirin (Aspirin 81 Mg Chew Tab*) 81 mg PO DAILY [facility] Last Admin: 12/14/18 08:00 Dose: 81 mg Atorvastatin Calcium (Lipitor*) 10 mg PO BEDTIME [facility] Last Admin: 12/13/18 22:01 Dose: 10 mg Baclofen (Lioresal Tab*) 10 mg PO TID [facility] Last Admin: 12/14/18 08:01 Dose: 10 mg Dextrose (Dextrose 50% Vial 50 Ml*) 25 ml IV PUSH .FOR FS < 60 - SS PRN PRN Reason: FS < 60 Donepezil HCl (Aricept Tab*) 5 mg PO BEDTIME [facility] Last Admin: 12/13/18 22:01 Dose: 5 mg Furosemide (Lasix Tab*) 40 mg PO DAILY [facility] Last Admin: 12/14/18 08:09 Dose: 40 mg Guaifenesin (Mucinex*) 1,200 mg PO BID [facility] Last Admin: 12/14/18 08:00 Dose: 1,200 mg Hydrocortisone (Hytone Cream 1%*) 1 applic TOPICAL TID PRN PRN Reason: RASH Cefazolin Sodium 2 gm/ Sodium (Chloride) 100 mls @ 200 mls/hr IVPB Q8H [facility] Last Admin: 12/14/18 05:19 Dose: 200 mls/hr Insulin Glargine (Lantus(*)) 20 units SUBCUT QAM [facility] Last Admin: 12/14/18 08:00 Dose: 20 unit Insulin Glargine (Lantus(*)) 15 units SUBCUT 2100 [facility] Last Admin: 12/13/18 22:01 Dose: 15 units Insulin Human Lispro (Humalog*) 0 units SUBCUT ACHS [facility]; Protocol Last Admin: 12/14/18 08:05 Dose: Not Given Metoprolol Tartrate (Lopressor Tab*) 25 mg PO BID [facility] Last Admin: 12/14/18 08:09 Dose: 25 mg Morphine Sulfate (Morphine Inj (Syringe))*) 2 mg IV Q4H PRN PRN Reason: PAIN - SEVERE Last Admin: 12/11/18 15:53 Dose: 2 mg Ondansetron HCl (Zofran Inj*) 4 mg IV Q4H PRN PRN Reason: NAUSEA/VOMITING Polyethylene Glycol/Electrolytes (Miralax*) 17 gm PO DAILY PRN PRN Reason: CONSTIPATION Senna (Senokot 8.6 Mg Tab*) 1 tab PO BEDTIME PRN PRN Reason: CONSTIPATION Last Admin: 12/13/18 14:31 Dose: 1 tab Sertraline HCl (Zoloft*) 25 mg PO DAILY [facility] Last Admin: 12/14/18 08:00 Dose: 25 mg Vital Signs - 8 hr 12/14/18 12/14/18 12/14/18 03:30 03:48 07:15 Temperature 97.8 F 97.7 F Pulse Rate 65 69 Respiratory 16 16 Rate Blood Pressure 120/58 130/54 (mmHg) O2 Sat by Pulse 94 93 94 Oximetry Oxygen Devices in Use Now: Nasal Cannula Appearance: Elderly white male, sitting upright in chair, appearing in NAD Eyes: No Scleral Icterus, - - PERRL Ears/Nose/Mouth/Throat: Mucous Membranes Moist Neck: - - neck supple Respiratory: Symmetrical Chest Expansion and Respiratory Effort, Clear to Auscultation Cardiovascular: NL Sounds; No Murmurs; No JVD, - - irregularly irregular rhythm Abdominal: - - abd soft, nontender, nondistended Extremities: No Edema, No Clubbing, Cyanosis, - - left foot in dressing, clean Neurological: Alert and Oriented x 3 Result Diagrams: 12/15/18 04:17 12/16/18 05:14 Additional Lab and Data: . Microbiology and Other Data: . Assess/Plan/Problems-Billing Assessment: Mr. Cedillo is an 83 year old male with history of Parkinsons, dementia, PVD and non- healing wounds that presents to the ED with his with complaints of left heel ulcer, now with new onset afib, NSTEMI, and acute on chronic CHF. - Patient Problems (1) Non healing left heel wound Current Visit: Yes Status: Acute Code(s): S91.302A - UNSPECIFIED OPEN WOUND , LEFT FOOT, INITIAL ENCOUNTER SNOMED Code(s): 070733840 Comment: - With exposure of left achilles tendon at presentation - Initial wound culture with staph; BC NGTD, repeat wound culture NGTD - MRI without osteo; CRP improving - Appreciate ID consult; continue keflex 500mg TID, will get an additional 2 weeks - Appreciate ortho consult. S/p I&D and calcaneous saucerization with Dr. Frederick 12/06/18. Offered BKA and patient declined - Wound vac change 12/10 failed due to extensive bleeding, in setting of lovenox - Continue daily dressing changes (2) NSTEMI (non-ST elevated myocardial infarction) Current Visit: Yes Status: Acute Code(s): I21.4 - NON-ST ELEVATION (NSTEMI) MYOCARDIAL INFARCTION SNOMED Code(s): 77531619 Comment: - Trop peaked 1.65, downtrended to 1.45, EKGs without ischemic changes - Continue asa, statin, and beta riccardo - Medical management per cardiology consult. Heparin drip ran for 72 hours, has since been d/c. - TTE without significant changes from echo in 2019 - Had CABG 2006 and 2011. Had stress test in February 2018 showing large fixed defects only, transferred to [facility] for consideration of high risk catheterization, but plan ultimately for medical therapy only. Follows with Dr. Sharp outpatient, consult from July 2018 in [facility]. (3) Afib Current Visit: Yes Status: Acute Code(s): I48.91 - UNSPECIFIED ATRIAL FIBRILLATION SNOMED Code(s): 05481834 Comment: - New diagnosis during this hospitalization. No previously documented history of afib found. Prior history of mobitz II AV block - Continue metoprolol - [id number] score of 8. Would benefit from [facility] AC. However, while patient was on therapeutic lovenox he had extensive bleeding from the heel at the debridement site. Concern that the risk for bleeding outweighs the benefit of stroke prevention. Will discuss further with who is health proxy (4) Acute on chronic systolic CHF (congestive heart failure) Current Visit: Yes Status: Acute Code(s): I50.23 - ACUTE ON CHRONIC SYSTOLIC (CONGESTIVE) HEART FAILURE SNOMED Code(s): 058317944 Comment: - EF 30-35%; patient is NOT on O2 at home, per - Chest xray 12/08 showed worsening interstitial edema; CXR 12/14/18 does not appear much improved - will change lasix 40mg IV back to po due to low BP today - continue metoprolol at 25mg BID (decreased from 50mg BID due to mild hypotension) (5) Hypertension Current Visit: No Status: Chronic Code(s): I10 - ESSENTIAL (PRIMARY) HYPERTENSION SNOMED Code(s): 15504839 Comment: - BP low today, see lasix above - metoprolol from 50 to 25 BID and monitor - continue metoprolol with hold parameters (6) Type 2 diabetes mellitus Current Visit: No Status: Chronic Comment: - Complicated by hyperglycemia and foot ulcer - BGs with relatively good control - Continue lispro SSI coverage, lantus 20 units AM, lantus 15 units PM - A1c 8.4 - holding home metformin (7) Peripheral vascular disease Current Visit: No Status: Chronic Code(s): I73.9 - PERIPHERAL VASCULAR DISEASE, UNSPECIFIED SNOMED Code(s): 176412155 Comment: - Hx of unsuccessful angioplasty on in 2016 - Continue statin, ASA. (8) Parkinson disease Current Visit: No Status: Chronic Priority: Medium Onset Date: 01/29/15 Code(s): G20 - PARKINSON'S DISEASE SNOMED Code(s): 22884216 Comment: - On baclofen, no sinemet - Supportive care (9) Dementia Current Visit: No Status: Chronic Code(s): F03.90 - UNSPECIFIED DEMENTIA WITHOUT BEHAVIORAL DISTURBANCE SNOMED Code(s): 61241283 Comment: - Continue donepezil, sertraline (10) Full code status Current Visit: No Status: Acute Code(s): Z78.9 - OTHER SPECIFIED HEALTH STATUS SNOMED Code(s): 084647860 Comment: (11) DVT prophylaxis Current Visit: No Status: Acute Priority: Medium Code(s): LZV2977 - SNOMED Code(s): 259460439 Comment: -Holding in setting of increased wound bleeding on lovenox -Would like to discuss restarting AC with Status and Disposition: Pending CASSIE placement
--- NOTE | 2018-12-14 11:35 | PN ---
Progress Note - Progress Note Date of Service: 12/14/18 SOAP: Subjective: CC: left foot ulcer HPI: 83 year old man with left heel ulcer and cellulitis; had debridement of that wound and foot wound. He has no pain, fever, rash, or diarrhea. Objective: Vital Signs Temp 36.5 C 12/14/18 07:15 Pulse 69 12/14/18 07:15 Resp 16 12/14/18 07:15 BP 130/54 12/14/18 07:15 Pulse Ox 94 12/14/18 07:15 Intake & Output 12/13/18 12/14/18 12/14/18 18:59 06:59 18:59 Intake Total 960 0 Output Total 0 Balance 960 0 Weight 211 lb 6.4 oz Intake: Oral 960 0 Output: Urine 0 Other: Estimated Stool Amount Small Medium Gen:awake, no distress HEENT: no thrush Heart:RRR no murmur Lungs:CTA BL Abd:+BS NTND soft Skin: no rash MSK: L heel ulcer, slight surrounding erythema and edema, dorsal ulcer without erythema Laboratory Results - last 24 hr 12/13/18 12/13/18 12/13/18 11:24 16:30 21:24 POC Glucose (mg/dL) 265 H 91 249 H 12/14/18 12/14/18 07:44 10:54 POC Glucose (mg/dL) 111 H 191 H Assessment: 1. Left foot wound with cellulitis; improving 2. PAD 3. Diabetes with neuropathy Plan: 1. has had 2 weeks antibiotics, will change to keflex 500 mg po TID for 2 more weeks. Wound care per orthopedics. Discussed with Brenden EARL
[2018-12-14] MEDS ORDERED: Cephalexin CAP* 500 MG PO SCH (13:00)
[2018-12-14] MEDS: Cephalexin CAP* 500 MG PO SCH ×2 (13:43→20:58)
[2018-12-14] MEDS: Senna TAB 8.6 mg* TAB PO PRN (13:43)
[2018-12-14] MEDS: Acetaminophen TAB* 325 MG PO PRN (17:22)
[2018-12-14] MEDS ORDERED: LORazepam TAB(*) 0.5 MG PO PRN (17:30)
[2018-12-14 18:25] LABS: Troponin I 0.04 ng/mL (<0.04)
[2018-12-14] MEDS: Atorvastatin* 10 MG TAB PO SCH (20:58)
[2018-12-14] MEDS: Donepezil TAB* 5 MG PO SCH (20:58)
[2018-12-15 04:47] LABS: ABS Basophils 0.1 10^3/ul (0-0.2); ABS Lymphocytes 0.6 10^3/ul (1.0-4.8); ABS Monocytes 0.7 10^3/ul (0-0.8); ABS Neutrophils 11.1 10^3/ul (1.5-7.7); Eosinophil % 0.3 %; Hematocrit 26 % (42-52); Hemoglobin 8.5 g/dL (14.0-18.0); Lymphocyte % 4.7 %; Mean Corpuscular HGB Conc 33 g/dL (31-36); Mean Corpuscular Hemoglobin 29 pg (27-31); Mean Corpuscular Volume 88 fL (80-94); Mean Platelet Volume 7.2 fL (7.4-10.4); Platelet Count 311 10^3/uL (150-450); Red Blood Count 2.91 10^6 /uL (4.18-5.48); Red Cell Distribution Width 15 % (10-15); White Blood Count 12.5 10^3/uL (3.5-10.8)
[2018-12-15 05:08] LABS: BUN/Creatinine Ratio 16.4 (8-20); Calcium 8.3 mg/dL (8.6-10.3); EGFR African American 124.8 (>60); EGFR Non-African American 103.1 (>60); Potassium 4.4 mmol/L (3.5-5.0)
[2018-12-15] MEDS ORDERED: Furosemide IV* 10 MG/ML VIAL (40 MG) IV SCH (09:00)
[2018-12-15] MEDS ORDERED: Furosemide TAB* 40 MG PO SCH (09:00)
--- NOTE | 2018-12-15 09:29 | PN ---
Progress Note - Progress Note Date of Service: 12/15/18 SOAP: Subjective: POD #9 left leg wound debridement. Pt sleeping on exam, not answering questions. Objective: Vital Signs: Temp Pulse Resp BP Pulse Ox 97.4 F 64 20 116/56 94 12/15/18 07:50 12/15/18 07:50 12/15/18 07:50 12/15/18 07:50 12/15/18 08:12 Gen: Sleeping, NAD LLE: Posterior ankle wound bed clean, no bleeding, no purulence, no necrotic tissue, no surrounding erythema. Redressed with betadine soaked gauze, 4x4s, abd. There is the start of a pressure wound at the heel medial and lateral to the wound distally. Anterior wound no purulence or erythema, redressed with vaseline gauze. Labs: Laboratory Results - last 24 hr 12/14/18 12/14/18 12/14/18 10:54 16:11 17:58 WBC RBC Hgb Hct MCV MCH MCHC RDW Plt Count MPV Neut % (Auto) Lymph % (Auto) Gray % (Auto) Eos % (Auto) Baso % (Auto) Absolute Neuts (auto) Absolute Lymphs (auto) Absolute Monos (auto) Absolute Eos (auto) Absolute Basos (auto) Absolute Nucleated RBC Nucleated RBC % Sodium Potassium Chloride Carbon Dioxide Anion Gap BUN Creatinine Est GFR ( Amer) Est GFR (Non-Af Amer) BUN/Creatinine Ratio Glucose POC Glucose (mg/dL) 191 H 160 H Calcium Troponin I 0.04 H* 12/14/18 12/14/18 12/15/18 20:30 20:36 04:17 WBC 12.5 H RBC 2.91 L Hgb 8.5 L Hct 26 L MCV 88 MCH 29 MCHC 33 RDW 15 Plt Count 311 MPV 7.2 L Neut % (Auto) 88.9 Lymph % (Auto) 4.7 Gray % (Auto) 5.7 Eos % (Auto) 0.3 Baso % (Auto) 0.4 Absolute Neuts (auto) 11.1 H Absolute Lymphs (auto) 0.6 L Absolute Monos (auto) 0.7 Absolute Eos (auto) 0.0 Absolute Basos (auto) 0.1 Absolute Nucleated RBC 0.0 Nucleated RBC % 0.0 Sodium Potassium Chloride Carbon Dioxide Anion Gap BUN Creatinine Est GFR ( Amer) Est GFR (Non-Af Amer) BUN/Creatinine Ratio Glucose POC Glucose (mg/dL) 103 H Calcium Troponin I 0.03 12/15/18 12/15/18 04:17 07:37 WBC RBC Hgb Hct MCV MCH MCHC RDW Plt Count MPV Neut % (Auto) Lymph % (Auto) Gray % (Auto) Eos % (Auto) Baso % (Auto) Absolute Neuts (auto) Absolute Lymphs (auto) Absolute Monos (auto) Absolute Eos (auto) Absolute Basos (auto) Absolute Nucleated RBC Nucleated RBC % Sodium 137 Potassium 4.4 Chloride 100 L Carbon Dioxide 35 H Anion Gap 2 BUN 12 Creatinine 0.73 Est GFR ( Amer) 124.8 Est GFR (Non-Af Amer) 103.1 BUN/Creatinine Ratio 16.4 Glucose 76 POC Glucose (mg/dL) 144 H Calcium 8.3 L Troponin I Assessment: POD #9 Left leg wound I&D Plan: Continue daily betadine dressings to posterior heel wound Xeroform or vaseline gauze to anterior wound IV abx per ID Hospitalist co-management for medical conditions
[2018-12-15] MEDS: Cephalexin CAP* 500 MG PO SCH ×3 (10:14→21:00)
[2018-12-15] MEDS: Insulin LISPRO* 1 UNITS UNIT SUBCUT SCH ×4 (10:15→20:58)
[2018-12-15] MEDS: Sertraline* 25 MG TAB PO SCH (10:15)
[2018-12-15] MEDS: Metoprolol Tartrate TAB* 25 MG PO SCH ×2 (10:15→20:59)
[2018-12-15] MEDS: Baclofen TAB* 10 MG PO SCH ×3 (10:15→21:00)
[2018-12-15] MEDS: Insulin GLARGINE(*) 1 UNITS UNIT SUBCUT SCH ×2 (10:15→20:59)
[2018-12-15] MEDS: Aspirin 81 mg CHEW TAB* 81 MG TAB.CHEW PO SCH (10:15)
[2018-12-15] MEDS: guaiFENesin ER TAB 600 MG PO SCH ×2 (10:15→21:00)
--- NOTE | 2018-12-15 14:32 | PN ---
Subjective Date of Service: 12/15/18 Interval History: Patient was asleep at start of exam and awakened easily. Tells me he feels tired. He doesn't recall c/o chest pain yesterday evening and denies chest pain today. Denies difficulty breathing, fever/chills, LE pain, abd pain. Objective Active Medications: Acetaminophen (Tylenol Tab*) 650 mg PO Q4H PRN PRN Reason: MILD PAIN or TEMP > 100.4 Last Admin: 12/14/18 17:22 Dose: 650 mg Albuterol (Ventolin 2.5 Mg/3 Ml Neb.Vale*) 2.5 mg INH [id number] AWAKE PRN PRN Reason: sob/wheezing Aspirin (Aspirin 81 Mg Chew Tab*) 81 mg PO DAILY [facility] Last Admin: 12/15/18 10:15 Dose: 81 mg Atorvastatin Calcium (Lipitor*) 10 mg PO BEDTIME [facility] Last Admin: 12/14/18 20:58 Dose: 10 mg Baclofen (Lioresal Tab*) 10 mg PO TID [facility] Last Admin: 12/15/18 13:45 Dose: 10 mg Cephalexin HCl (Keflex Cap*) 500 mg PO TID [facility] Last Admin: 12/15/18 13:45 Dose: 500 mg Dextrose (Dextrose 50% Vial 50 Ml*) 25 ml IV PUSH .FOR FS < 60 - SS PRN PRN Reason: FS < 60 Donepezil HCl (Aricept Tab*) 5 mg PO BEDTIME [facility] Last Admin: 12/14/18 20:58 Dose: 5 mg Furosemide (Lasix Iv*) 40 mg IV DAILY [facility] Last Admin: 12/15/18 10:14 Dose: 40 mg Guaifenesin (Mucinex*) 1,200 mg PO BID [facility] Last Admin: 12/15/18 10:15 Dose: 1,200 mg Hydrocortisone (Hytone Cream 1%*) 1 applic TOPICAL TID PRN PRN Reason: RASH Insulin Glargine (Lantus(*)) 20 units SUBCUT QAM [facility] Last Admin: 12/15/18 10:15 Dose: 20 unit Insulin Glargine (Lantus(*)) 15 units SUBCUT 2100 [facility] Last Admin: 12/14/18 20:58 Dose: 15 units Insulin Human Lispro (Humalog*) 0 units SUBCUT ACHS [facility]; Protocol Last Admin: 12/15/18 13:45 Dose: 3 units Lorazepam (Ativan Tab(*)) 0.5 mg PO Q6H PRN PRN Reason: AGITATION Last Admin: 12/14/18 17:38 Dose: 0.5 mg Metoprolol Tartrate (Lopressor Tab*) 25 mg PO BID [facility] Last Admin: 12/15/18 10:15 Dose: 25 mg Morphine Sulfate (Morphine Inj (Syringe))*) 2 mg IV Q4H PRN PRN Reason: PAIN - SEVERE Last Admin: 12/11/18 15:53 Dose: 2 mg Ondansetron HCl (Zofran Inj*) 4 mg IV Q4H PRN PRN Reason: NAUSEA/VOMITING Polyethylene Glycol/Electrolytes (Miralax*) 17 gm PO DAILY PRN PRN Reason: CONSTIPATION Senna (Senokot 8.6 Mg Tab*) 1 tab PO BEDTIME PRN PRN Reason: CONSTIPATION Last Admin: 12/14/18 13:43 Dose: 1 tab Sertraline HCl (Zoloft*) 25 mg PO DAILY [facility] Last Admin: 12/15/18 10:15 Dose: 25 mg Vital Signs - 8 hr 12/15/18 12/15/18 12/15/18 07:50 08:12 10:30 Temperature 97.4 F Pulse Rate 64 Respiratory 20 20 Rate Blood Pressure 116/56 (mmHg) O2 Sat by Pulse 94 94 Oximetry 12/15/18 11:40 Temperature 97.2 F Pulse Rate 71 Respiratory 20 Rate Blood Pressure 95/46 (mmHg) O2 Sat by Pulse 99 Oximetry Oxygen Devices in Use Now: Nasal Cannula Appearance: Elderly white male, sitting in recliner, appearing in NAD Eyes: No Scleral Icterus, - - PERRL Ears/Nose/Mouth/Throat: Mucous Membranes Moist Neck: Trachea Midline Respiratory: Symmetrical Chest Expansion and Respiratory Effort, Clear to Auscultation Cardiovascular: NL Sounds; No Murmurs; No JVD, - - irregularly irregular rhythm Abdominal: - - abd soft, nontender, nondistended Extremities: No Edema, No Clubbing, Cyanosis, - - RBKA; left LE in clean dressings Skin: No Rash or Ulcers Neurological: Alert and Oriented x 3 Result Diagrams: 12/15/18 04:17 12/15/18 04:17 Additional Lab and Data: . Microbiology and Other Data: . Assess/Plan/Problems-Billing Assessment: Mr. Cedillo is an 83 year old male with history of Parkinsons, dementia, PVD and non- healing wounds that presents to the ED with his with complaints of left heel ulcer, now with new onset afib, NSTEMI, and acute on chronic CHF. - Patient Problems (1) Non healing left heel wound Current Visit: Yes Status: Acute Code(s): S91.302A - UNSPECIFIED OPEN WOUND , LEFT FOOT, INITIAL ENCOUNTER SNOMED Code(s): 045336416 Comment: - With exposure of left achilles tendon at presentation - Initial wound culture with staph; BC NGTD, repeat wound culture NGTD - MRI without osteo; CRP improving - Appreciate ID consult; continue keflex 500mg TID, will get an additional 2 weeks - Appreciate ortho consult. S/p I&D and calcaneous saucerization with Dr. Frederick 12/06/18. Offered BKA and patient declined - Wound vac change 12/10 failed due to extensive bleeding, in setting of lovenox - Continue daily dressing changes (2) NSTEMI (non-ST elevated myocardial infarction) Current Visit: Yes Status: Acute Code(s): I21.4 - NON-ST ELEVATION (NSTEMI) MYOCARDIAL INFARCTION SNOMED Code(s): 57224510 Comment: - Trop peaked 1.65, downtrended to 1.45, EKGs without ischemic changes - Continue asa, statin, and beta riccardo - Medical management per cardiology consult. Heparin drip ran for 72 hours, has since been d/c. - TTE without significant changes from echo in 2018 - Had CABG 2006 and 2011. Had stress test in February 2018 showing large fixed defects only, transferred to [facility] for consideration of high risk catheterization, but plan ultimately for medical therapy only. Follows with Dr. Sharp outpatient, consult from July 2018 in [facility]. - Complained of chest pain 12/14/18, without new EKG changes, trop 0.04-->0.03. No complaints today (3) Afib Current Visit: Yes Status: Acute Code(s): I48.91 - UNSPECIFIED ATRIAL FIBRILLATION SNOMED Code(s): 68959825 Comment: - New diagnosis during this hospitalization. No previously documented history of afib found. Prior history of mobitz II AV block - Continue metoprolol - [id number] score of 8. Would benefit from correction AC. However, while patient was on therapeutic lovenox he had extensive bleeding from the heel at the debridement site. Concern that the risk for bleeding outweighs the benefit of stroke prevention. Will discuss further with who is health proxy (4) Acute on chronic systolic CHF (congestive heart failure) Current Visit: Yes Status: Acute Code(s): I50.23 - ACUTE ON CHRONIC SYSTOLIC (CONGESTIVE) HEART FAILURE SNOMED Code(s): 435757540 Comment: - EF 30-35%; patient is NOT on O2 at home, per - Chest xray 12/08 showed worsening interstitial edema; CXR 12/14/18 does not appear much improved - will change lasix 40mg IV back to po due to low BP today - continue metoprolol at 25mg BID (decreased from 50mg BID due to mild hypotension) (5) Hypertension Current Visit: No Status: Chronic Code(s): I10 - ESSENTIAL (PRIMARY) HYPERTENSION SNOMED Code(s): 82674601 Comment: - BP low today, see lasix above - metoprolol from 50 to 25 BID and monitor - continue metoprolol with hold parameters (6) Type 2 diabetes mellitus Current Visit: No Status: Chronic Comment: - Complicated by hyperglycemia and foot ulcer - BGs with relatively good control - Continue lispro SSI coverage, lantus 20 units AM, lantus 15 units PM - A1c 8.4 - holding home metformin (7) Peripheral vascular disease Current Visit: No Status: Chronic Code(s): I73.9 - PERIPHERAL VASCULAR DISEASE, UNSPECIFIED SNOMED Code(s): 544011463 Comment: - Hx of unsuccessful angioplasty on in 2016 - Continue statin, ASA. (8) Parkinson disease Current Visit: No Status: Chronic Priority: Medium Onset Date: 01/29/15 Code(s): G20 - PARKINSON'S DISEASE SNOMED Code(s): 37154993 Comment: - On baclofen, no sinemet - Supportive care (9) Dementia Current Visit: No Status: Chronic Code(s): F03.90 - UNSPECIFIED DEMENTIA WITHOUT BEHAVIORAL DISTURBANCE SNOMED Code(s): 72709743 Comment: - Continue donepezil, sertraline (10) Full code status Current Visit: No Status: Acute Code(s): Z78.9 - OTHER SPECIFIED HEALTH STATUS SNOMED Code(s): 678099961 Comment: (11) DVT prophylaxis Current Visit: No Status: Acute Priority: Medium Code(s): LPS0344 - SNOMED Code(s): 932782084 Comment: -Holding in setting of increased wound bleeding on lovenox -Would like to discuss restarting AC with Status and Disposition: Likely d/c Monday (12/17/18), accepted to [facility]
[2018-12-15] MEDS: Atorvastatin* 10 MG TAB PO SCH (21:00)
[2018-12-15] MEDS: Donepezil TAB* 5 MG PO SCH (21:00)
[2018-12-16] MEDS ORDERED: Saline NASAL SPRAY 0.65%* BTL BOTH NARES PRN (04:34)
[2018-12-16 05:46] LABS: BUN/Creatinine Ratio 24.7 (8-20); Calcium 8.1 mg/dL (8.6-10.3); EGFR African American 124.8 (>60); EGFR Non-African American 103.1 (>60); Potassium 4.1 mmol/L (3.5-5.0)
--- NOTE | 2018-12-16 08:55 | PN ---
Progress Note - Progress Note Date of Service: 12/16/18 SOAP: Subjective: POD #10 left leg wound debridement. Pt denies pain. Objective: Vital Signs: Temp Pulse Resp BP Pulse Ox 97.7 F 79 18 97/59 94 12/16/18 03:48 12/16/18 03:48 12/16/18 07:36 12/16/18 03:48 12/16/18 03:48 Gen: Alert, oriented to self and place. NAD at rest. LLE: Posterior ankle wound bed clean, no bleeding, no purulence, no necrotic tissue, no surrounding erythema. Redressed with betadine soaked gauze, 4x4s, abd. There is the start of a pressure wound at the heel medial and lateral to the wound distally. Anterior wound no purulence or erythema, redressed with xeroform gauze. Laboratory Results - last 24 hr 12/15/18 12/15/18 12/15/18 12:11 17:19 20:34 Sodium Potassium Chloride Carbon Dioxide Anion Gap BUN Creatinine Est GFR ( Amer) Est GFR (Non-Af Amer) BUN/Creatinine Ratio Glucose POC Glucose (mg/dL) 164 H 119 H 242 H Calcium 12/16/18 05:14 Sodium 138 Potassium 4.1 Chloride 99 L Carbon Dioxide 35 H Anion Gap 4 BUN 18 Creatinine 0.73 Est GFR ( Amer) 124.8 Est GFR (Non-Af Amer) 103.1 BUN/Creatinine Ratio 24.7 H Glucose 88 POC Glucose (mg/dL) Calcium 8.1 L Assessment: POD #10 Left leg wound I&D Plan: Continue daily betadine dressings to posterior heel wound Xeroform or vaseline gauze to anterior wound IV abx per ID Hospitalist co-management for medical conditions
[2018-12-16] MEDS: Insulin LISPRO* 1 UNITS UNIT SUBCUT SCH ×4 (09:38→21:26)
[2018-12-16] MEDS: guaiFENesin ER TAB 600 MG PO SCH ×2 (09:45→21:25)
[2018-12-16] MEDS: Baclofen TAB* 10 MG PO SCH ×3 (09:45→21:26)
[2018-12-16] MEDS: Cephalexin CAP* 500 MG PO SCH ×3 (09:45→21:25)
[2018-12-16] MEDS: Insulin GLARGINE(*) 1 UNITS UNIT SUBCUT SCH ×2 (09:46→21:26)
[2018-12-16] MEDS: Aspirin 81 mg CHEW TAB* 81 MG TAB.CHEW PO SCH (09:46)
[2018-12-16] MEDS: Sertraline* 25 MG TAB PO SCH (09:46)
[2018-12-16] MEDS: Furosemide TAB* 40 MG PO SCH (09:46)
[2018-12-16] MEDS: Metoprolol Tartrate TAB* 25 MG PO SCH ×2 (09:49→21:25)
[2018-12-16] MEDS: Acetaminophen TAB* 325 MG PO PRN (12:02)
--- NOTE | 2018-12-16 18:39 | PN ---
Subjective Date of Service: 12/16/18 Interval History: Patient calling out for help when this bid writer was walking by room. He was asking for the elementary reading tutor the table to be opened. Once opened and there was nothing inside, he was settled. He expressed pain in left lower extremity at time of evaluation. Denies chest pain, difficulty breathing, fever/chills, abd pain. Objective Active Medications: Acetaminophen (Tylenol Tab*) 650 mg PO Q4H PRN PRN Reason: MILD PAIN or TEMP > 100.4 Last Admin: 12/16/18 12:02 Dose: 650 mg Albuterol (Ventolin 2.5 Mg/3 Ml Neb.Vale*) 2.5 mg INH [id number] AWAKE PRN PRN Reason: sob/wheezing Aspirin (Aspirin 81 Mg Chew Tab*) 81 mg PO DAILY [facility] Last Admin: 12/16/18 09:46 Dose: 81 mg Atorvastatin Calcium (Lipitor*) 10 mg PO BEDTIME [facility] Last Admin: 12/15/18 21:00 Dose: 10 mg Baclofen (Lioresal Tab*) 10 mg PO TID [facility] Last Admin: 12/16/18 14:25 Dose: 10 mg Cephalexin HCl (Keflex Cap*) 500 mg PO TID [facility] Last Admin: 12/16/18 14:25 Dose: 500 mg Dextrose (Dextrose 50% Vial 50 Ml*) 25 ml IV PUSH .FOR FS < 60 - SS PRN PRN Reason: FS < 60 Donepezil HCl (Aricept Tab*) 5 mg PO BEDTIME [facility] Last Admin: 12/15/18 21:00 Dose: 5 mg Furosemide (Lasix Tab*) 40 mg PO DAILY [facility] Last Admin: 12/16/18 09:46 Dose: 40 mg Guaifenesin (Mucinex*) 1,200 mg PO BID [facility] Last Admin: 12/16/18 09:45 Dose: 1,200 mg Hydrocortisone (Hytone Cream 1%*) 1 applic TOPICAL TID PRN PRN Reason: RASH Insulin Glargine (Lantus(*)) 20 units SUBCUT QAM [facility] Last Admin: 12/16/18 09:46 Dose: 20 unit Insulin Glargine (Lantus(*)) 15 units SUBCUT 2100 [facility] Last Admin: 12/15/18 20:59 Dose: 15 units Insulin Human Lispro (Humalog*) 0 units SUBCUT [facility]; Protocol Last Admin: 12/16/18 17:46 Dose: 6 units Lorazepam (Ativan Tab(*)) 0.5 mg PO Q6H PRN PRN Reason: AGITATION Last Admin: 12/14/18 17:38 Dose: 0.5 mg Metoprolol Tartrate (Lopressor Tab*) 25 mg PO BID [facility] Last Admin: 12/16/18 09:49 Dose: 25 mg Morphine Sulfate (Morphine Inj (Syringe))*) 2 mg IV Q4H PRN PRN Reason: PAIN - SEVERE Last Admin: 12/11/18 15:53 Dose: 2 mg Ondansetron HCl (Zofran Inj*) 4 mg IV Q4H PRN PRN Reason: NAUSEA/VOMITING Polyethylene Glycol/Electrolytes (Miralax*) 17 gm PO DAILY PRN PRN Reason: CONSTIPATION Senna (Senokot 8.6 Mg Tab*) 1 tab PO BEDTIME PRN PRN Reason: CONSTIPATION Last Admin: 12/14/18 13:43 Dose: 1 tab Sertraline HCl (Zoloft*) 25 mg PO DAILY [facility] Last Admin: 12/16/18 09:46 Dose: 25 mg Sodium Chloride (Sodium Chloride 0.65% Nasal [place]*) 1 spray BOTH NARES Q4H PRN PRN Reason: CONGESTION Last Admin: 12/16/18 04:44 Dose: 1 spray Vital Signs - 8 hr 12/16/18 12/16/18 12/16/18 11:41 16:00 16:06 Temperature 97.5 F 97 F Pulse Rate 76 76 Respiratory 20 20 Rate Blood Pressure 98/43 95/52 (mmHg) O2 Sat by Pulse 98 98 98 Oximetry Oxygen Devices in Use Now: Nasal Cannula Appearance: Elderly white male, sitting in chair, appearing comfortable and in NAD after drawer demonstrated to be empty Eyes: No Scleral Icterus, - - PERRL Ears/Nose/Mouth/Throat: Mucous Membranes Moist Neck: Trachea Midline Respiratory: Symmetrical Chest Expansion and Respiratory Effort, Clear to Auscultation Cardiovascular: NL Sounds; No Murmurs; No JVD, - - irregularly irregular rhythm Abdominal: - - abd soft, nontender, nondistended Extremities: No Edema, No Clubbing, Cyanosis, - - left foot in gauze which are clean and dry; right BKA Neurological: Alert and Oriented x 3, NL Muscle Strength and Tone Result Diagrams: 12/15/18 04:17 12/16/18 05:14 Additional Lab and Data: . Microbiology and Other Data: . Assess/Plan/Problems-Billing Assessment: Mr. Cedillo is an 83 year old male with history of Parkinsons, dementia, PVD and non- healing wounds that presents to the ED with his with complaints of left heel ulcer, now with new onset afib, NSTEMI, and acute on chronic CHF. - Patient Problems (1) Non healing left heel wound Current Visit: Yes Status: Acute Code(s): S91.302A - UNSPECIFIED OPEN WOUND , LEFT FOOT, INITIAL ENCOUNTER SNOMED Code(s): 201927940 Comment: - With exposure of left achilles tendon at presentation - Initial wound culture with staph; BC NGTD, repeat wound culture NGTD - MRI without osteo; CRP improving - Appreciate ID consult; continue keflex 500mg TID, will get an additional 2 weeks - Appreciate ortho consult. S/p I&D and calcaneous saucerization with Dr. Frederick 12/06/18. Offered BKA and patient declined - Wound vac change 12/10 failed due to extensive bleeding, in setting of lovenox - Continue daily dressing changes (2) NSTEMI (non-ST elevated myocardial infarction) Current Visit: Yes Status: Acute Code(s): I21.4 - NON-ST ELEVATION (NSTEMI) MYOCARDIAL INFARCTION SNOMED Code(s): 39543546 Comment: - Trop peaked 1.65, downtrended to 1.45, EKGs without ischemic changes - Continue asa, statin, and beta riccardo - Medical management per cardiology consult. Heparin drip ran for 72 hours, has since been d/c. - TTE without significant changes from echo in 2019 - Had CABG 2006 and 2011. Had stress test in February 2018 showing large fixed defects only, transferred to [facility] for consideration of high risk catheterization, but plan ultimately for medical therapy only. Follows with Dr. Sharp outpatient, consult from July 2018 in [facility]. (3) Afib Current Visit: Yes Status: Acute Code(s): I48.91 - UNSPECIFIED ATRIAL FIBRILLATION SNOMED Code(s): 86583104 Comment: - New diagnosis during this hospitalization. No previously documented history of afib found. Prior history of mobitz II AV block - Continue metoprolol - [id number] score of 8. Would benefit from chcf AC. However, while patient was on therapeutic lovenox he had extensive bleeding from the heel at the debridement site. Concern that the risk for bleeding outweighs the benefit of stroke prevention. Patient's , his healthcare proxy, is agreeable to no AC at this time given bleed risk (4) Acute on chronic systolic CHF (congestive heart failure) Current Visit: Yes Status: Acute Code(s): I50.23 - ACUTE ON CHRONIC SYSTOLIC (CONGESTIVE) HEART FAILURE SNOMED Code(s): 855957995 Comment: - EF 30-35%; patient is NOT on O2 at home, per - Chest xray 12/08 showed worsening interstitial edema; CXR 12/14/18 does not appear much improved - continue lasix 40mg po; suspect use if IV lasix yesterday contributing to hypotension - continue metoprolol at 25mg BID (5) Hypertension Current Visit: No Status: Chronic Code(s): I10 - ESSENTIAL (PRIMARY) HYPERTENSION SNOMED Code(s): 76080722 Comment: - BP frequently low today - Will not give IVF given pulmonary edema - Patient is asymptomatic - metoprolol has already been decreased to 25 mg BID during this hospital stay - continue metoprolol with hold parameters - will continue to monitor (6) Type 2 diabetes mellitus Current Visit: No Status: Chronic Comment: - Complicated by hyperglycemia and foot ulcer - BGs with relatively good control - Continue lispro SSI coverage, lantus 20 units AM, lantus 15 units PM - A1c 8.4 - holding home metformin (7) Peripheral vascular disease Current Visit: No Status: Chronic Code(s): I73.9 - PERIPHERAL VASCULAR DISEASE, UNSPECIFIED SNOMED Code(s): 790121435 Comment: - Hx of unsuccessful angioplasty on in 2016 - Continue statin, ASA. (8) Parkinson disease Current Visit: No Status: Chronic Priority: Medium Onset Date: 01/29/15 Code(s): G20 - PARKINSON'S DISEASE SNOMED Code(s): 95662756 Comment: - On baclofen, no sinemet - Supportive care (9) Dementia Current Visit: No Status: Chronic Code(s): F03.90 - UNSPECIFIED DEMENTIA WITHOUT BEHAVIORAL DISTURBANCE SNOMED Code(s): 29990798 Comment: - Continue donepezil, sertraline (10) Full code status Current Visit: No Status: Acute Code(s): Z78.9 - OTHER SPECIFIED HEALTH STATUS SNOMED Code(s): 182490083 Comment: (11) DVT prophylaxis Current Visit: No Status: Acute Priority: Medium Code(s): KWD0536 - SNOMED Code(s): 353709529 Comment: -Holding in setting of increased wound bleeding on lovenox Status and Disposition: anticipate d/c to [facility] tomorrow
[2018-12-16] MEDS: Atorvastatin* 10 MG TAB PO SCH (21:25)
[2018-12-16] MEDS: Donepezil TAB* 5 MG PO SCH (21:25)
[2018-12-17] MEDS: Acetaminophen TAB* 325 MG PO PRN (00:22)
--- NOTE | 2018-12-17 00:38 | DS ---
CC: Dr. Gunn; Dr. Avendaño; Dr. Frederick; Dr. Cuba Taylor * DISCHARGE SUMMARY: DATE OF ADMISSION: 11/28/18 ANTICIPATED DATE OF DISCHARGE: 12/17/18 ATTENDING PHYSICIAN WHILE IN THE HOSPITAL: Dr. Sadia Crews * (dictated by MADY Ogden). PRIMARY CARE PROVIDER: Dr. Gunn. CONSULTING SEAMLESS TUBE DRAWER: Dr. Avendaño. CONSULTING ORTHOPEDIST: Dr. Frederick. CONSULTING INFECTIOUS DISEASE SPECIALIST: Dr. Cuba Taylor. CONSULTING PALLIATIVE CARE PHYSICIAN: Dr. Medina. PRIMARY DIAGNOSES: 1. Necrotic left posterior ankle with exposed Achilles tendon and associated cellulitis, status post debridement. 2. Non-ST elevation myocardial infarction. 3. New onset atrial fibrillation, persistent; no anticoagulation due to persistent bleeding after wound VAC change. SECONDARY DIAGNOSES: 1. Parkinsonism. 2. Dementia. 3. Hypertension. 4. Coronary artery disease. 5. 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 6. Diabetes mellitus type 2. 7. History of stroke. PERTINENT LAB DATA: Left ankle wound culture positive for MSSA. White blood cell count on 11/28/18 was 15.2, white blood cell count on 12/10/18 was 10.3, white blood cell count on 12/15/18 was 12.5. HISTORY OF PRESENT ILLNESS/HOSPITAL COURSE: Jaime Cedillo is an 83-year-old white male with past medical history significant for peripheral arterial disease , diabetes mellitus type 2, coronary artery disease, Parkinsonism, and dementia , who presented to emergency department on 12/29/18 due to left foot ulcers with increasing redness and streaking into his left leg, and exposure of the left Achilles tendon. Please see admitting history and physical written by Dr. Fransico Salazar for further details. This is a brief summary of a long hospitalization, please see detailed medical records for further information in the complete EMR. When the patient was admitted to the hospital from the emergency department, he was initially started on Zosyn. This was later changed to Ancef when wound culture demonstrated MSSA. He had an MRI of the left lower extremity, which did not have findings consistent with osteomyelitis. However, during his hospital stay, Orthopedic Surgery was anticipating likelihood of amputation for this wound and the patient and his healthcare proxy, his , were declining. In anticipation of wound debridement, his Plavix was held and during that time he had a troponin elevation which peaked to 1.65 and later downtrended to 1.45. There were no associated EKG changes. Cardiology was consulted and recommended medical management. This was found to be an NSTEMI and he was treated for 72 hours with heparin. Additionally, at this time, new onset AFib was discovered. He was rate controlled during the entirety of his hospital stay. An echocardiogram did not have any change and his ejection fraction remained at 30 % to 35%, which is consistent with prior. Anticoagulation after heparin drip was avoided in anticipation of the I and D. On 12/06/18, Dr. Frederick performed I and D of the left heel wound, I and D to the dorsum of the left foot and into the anterior ankle, and left calcaneal saucerization. Wound VAC was placed. The patient was started on b.i.d. Lovenox for anticoagulation for his atrial fibrillation and used as a short term agent considering possibility of further surgery needed. When his wound VAC was changed 3 days after surgery, there was extensive bleeding to the point where Orthopedics was quite concerned that there would be need to go to the OR. However, this was avoided by discontinuing anticoagulation and extensive dressings and pressure with Jorge wraps. Given his coronary artery disease, his very recent NSTEMI, and this risk of bleeding, it was determined that the risk of stroke did not outweigh these other risks and further anticoagulation was avoided. Ultimately, his (the patient's healthcare proxy) did agree with avoiding anticoagulation given these risks and did understand the stroke risk involved with no anticoagulation with persistent atrial fibrillation, and accepted these risks. Ultimately, the patient was continued on a cephalosporin during the entirety of his hospital stay. Dr. Taylor was following. After the procedure he was switched back to oral Keflex. It was evident that there was very poor wound healing. Orthopedic Surgery continue to perform dressing changes and there were, unfortunately, new unstageable ulcers forming around the site of debridement. The orthopedic team discussed the option of BKA and the patient's , who is his healthcare proxy , was declining at this time. The patient was seen in consultation with Dr. Medina, who did not believe the patient qualified for hospice and further discussed these treatment therapy options with the patient and his . Ultimately, the patient and his were agreeable to subacute rehab for routine wound care and physical therapy. The patient's does understand the risk of osteomyelitis given his poor wound healing and did express that she will consider the possibility of a BKA in the future with further followup. During the patient's hospital stay he was requiring oxygen, and ultimately requiring only 1 L. There were frequent attempts to wean the patient and he was hypoxic, less than 85%. There were frequent attempts to continue to diurese the patient given that this appeared related to pulmonary edema. There was great improvement, which was represented by him only needing 1 L of oxygen. However, with more aggressive IV diuresis he did become hypotensive even after decreasing his home metoprolol to 25 mg b.i.d., which was previously 50 mg b.i.d. His lungs sounded clear and were quite stable on 1 L and the patient was comfortable and in no respiratory distress. Additionally, during his hospital stay, his blood glucose was difficult to control. Ultimately, he had acceptable blood glucose ranges with sliding scale insulin use, Lantus 20 units in the morning and Lantus 15 units in the evening. His home metformin was held during his hospital stay. DISCHARGE PLAN: Diet: Heart-healthy diet, carbohydrate consistent diet. Activity: Non-weightbearing to left lower extremity. The patient will be discharged to [facility] for further daily wound dressing changes and physical therapy for subacute rehab. The orthopedic team has provided specific directions for daily dressing changes to the nursing staff at [facility] as follows: Dressing instruction: betadine soaked gauze in posterior wound with 4x4s overlying. xeroform over anterior wound with 4x4s overlying. Use ABDs over both anterior and posterior wound and for padding. Gently wrap kerlix and jorge, careful to avoid tight wrap as skin is very fragile. Float heel to avoid pressure. The patient will be continued on oral antibiotics and will be following up with Orthopedics. At time of follow-up, further discussion regarding possible BKA will likely occur and the patient's , who is his healthcare proxy, is aware of this. In 1 week the patient should have repeat CRP, CMP, and CBC. The patient should have followup with his ceramic tiler regarding his new onset atrial fibrillation and within 1 week of discharge from [facility] he should have followup with his primary care provider. Patient needs 1L continuous oxygen via nasal cannula at discharge. DISCHARGE MEDICATIONS: 1. Tylenol 650 mg p.o. q.4 hours p.r.n. pain or fever. 2. Aspirin 81 mg p.o. daily. 3. Lipitor 10 mg p.o. daily. 4. Baclofen 10 mg p.o. t.i.d. 5. Keflex 500 mg p.o. t.i.d., to be discontinued on the evening of 12/28/18. 6. Donepezil 5 mg p.o. at bedtime. 7. Lasix 40 mg p.o. daily. 8. Insulin glargine 20 units subcu q.a.m. 9. Insulin glargine 15 units subcu q.p.m. 10. Metoprolol tartrate 25 mg p.o. b.i.d. 11. Senna 1 tab p.o. at bedtime p.r.n. constipation. 12. Vitamin C 500 mg p.o. daily. 13. Metformin 500 mg p.o. daily. 14. Zoloft 25 mg p.o. daily. 15. Plavix 75 mg p.o. daily x 1 month. CONDITION ON DISCHARGE: Stable. DISPOSITION: [facility] for subacute rehab. TIME SPENT: Approximately 40 minutes were spent on this discharge. MADY OGDEN [id number]/CPS #: [id number] WIL
[2018-12-17] MEDS: Insulin LISPRO* 1 UNITS UNIT SUBCUT SCH (08:45)
[2018-12-17] MEDS: Metoprolol Tartrate TAB* 25 MG PO SCH ×2 (08:46→09:01)
[2018-12-17] MEDS: guaiFENesin ER TAB 600 MG PO SCH (08:46)
[2018-12-17] MEDS: Aspirin 81 mg CHEW TAB* 81 MG TAB.CHEW PO SCH (08:46)
[2018-12-17] MEDS: Sertraline* 25 MG TAB PO SCH (08:46)
[2018-12-17] MEDS: Cephalexin CAP* 500 MG PO SCH (08:46)
[2018-12-17] MEDS: Insulin GLARGINE(*) 1 UNITS UNIT SUBCUT SCH (08:46)
[2018-12-17] MEDS: Furosemide TAB* 40 MG PO SCH (08:46)
[2018-12-17] MEDS: Baclofen TAB* 10 MG PO SCH (08:46)
--- NOTE | 2018-12-17 09:32 | PN ---
Progress Note - Progress Note Date of Service: 12/17/18 Note: POD #11 s/p left lower leg wound debridement: Patient resting comfortably in bed. Responds appropriately to verbal commands. Denies pain, fever or chills. LLE: Anterior wound without purulence, odor or erythema. Intact crust. Xeroform changed; posterior wound without bleeding, purulent drainage, erythema or apparent necrosis. Betadine dressing applied with ABD and ivan applied. Patient tolerated well. Hospitalist discharge addresses wound care and we agree. Follow up with ortho next week for assessment and further treatment discussion. Antibiotics as per ID.
[2018-12-17 15:02] VITALS: BP 113/59
== END 2018-12-17 12:20 | DRG 628 ==
LOC: ED 11:47 → MED 17:00 → MEDTELE 12-02 14:58
PROVIDERS: ADMIT Internal Medicine; ATTEND Internal Medicine
PROC: 0QBM0ZZ Excision of Left Tarsal, Open Approach (ICD-10-PCS; principal; 2018-12-06 15:00)
DX: E11.622 Type 2 diabetes mellitus with other skin ulcer (principal); I21.4 Non-ST elevation (NSTEMI) myocardial infarction; I50.23 Acute on chronic systolic (congestive) heart failure; L97.323 Non-pressure chronic ulcer of left ankle with necrosis of muscle; R47.01 Aphasia; L03.116 Cellulitis of left lower limb; L97.423 Non-pressure chronic ulcer of left heel and midfoot with necrosis of muscle; I47.2 Ventricular tachycardia; J98.11 Atelectasis; L76.22 Postprocedural hemorrhage of skin and subcutaneous tissue following other procedure; E11.42 Type 2 diabetes mellitus with diabetic polyneuropathy; E11.51 Type 2 diabetes mellitus with diabetic peripheral angiopathy without gangrene; G31.83 Neurocognitive disorder with Lewy bodies; F02.80 Dementia in other diseases classified elsewhere, unspecified severity, without behavioral disturbance, psychotic disturbance, mood disturbance, and anxiety; I11.0 Hypertensive heart disease with heart failure; I25.10 Atherosclerotic heart disease of native coronary artery without angina pectoris; E87.5 Hyperkalemia; I48.0 Paroxysmal atrial fibrillation; L25.9 Unspecified contact dermatitis, unspecified cause; B95.61 Methicillin susceptible Staphylococcus aureus infection as the cause of diseases classified elsewhere; I95.9 Hypotension, unspecified; E66.9 Obesity, unspecified; R51 Headache; R19.7 Diarrhea, unspecified; R09.02 Hypoxemia; F10.21 Alcohol dependence, in remission; I69.320 Aphasia following cerebral infarction; Z68.31 Body mass index [BMI] 31.0-31.9, adult; Z89.511 Acquired absence of right leg below knee; Z89.422 Acquired absence of other left toe(s); Z79.84 Long term (current) use of oral hypoglycemic drugs; Z79.02 Long term (current) use of antithrombotics/antiplatelets; Z79.82 Long term (current) use of aspirin; Z79.899 Other long term (current) drug therapy; Z88.1 Allergy status to other antibiotic agents; Z95.1 Presence of aortocoronary bypass graft; Z95.4 Presence of other heart-valve replacement; Z99.3 Dependence on wheelchair
CPT/HCPCS: 36415; 71045; 71046; 80048; 80053; 80076; 82330; 82947; 83036; 83605; 83735; 84100; 84484; 85025; 85610; 85730; 86140; 87040; 87070; 87073; 87077; 87186; 87205; 87640; 87641; 90686; 93005; 93306; 96361; 96374; 97530; 99284; A9270-GY; C8929; G8978-GP-CN; G8979-GP-CL; J0690; J1630; J1644; J1650; J1940; J2250; J2270; J2543; J3010

== ENCOUNTER 2018-12-22 09:19 | Inpatient (IN) | payer MEDICARE, OTHER ==
[2018-12-22] MEDS ORDERED: Albuterol/Ipratropium NEB.SOL* Albuterol 2.5 MG/Ipratropium 0.5 MG 3 ML INH PRN (09:31)
[2018-12-22] MEDS ORDERED: methylPREDNISolone 125 MG* 2 ML VIAL IV ONE (09:33)
--- NOTE | 2018-12-22 09:35 | ED ---
Complex/Multi-Sys Presentation - HPI Summary HPI Summary: This patient is a 83 year old M presenting to [facility] by EMS with a chief complaint of numbness in chest and pain in foot since 0700. Pt is from [facility], and was originally not alert and oriented. Pt was occasionally yelling out help, and complains of foot pain. Pt has a blood sugar of 130 in the ambulance. His O2 stats were originally in 80s. Pt is alert and oriented to location and self. Patient reports SOB. Patient denies chest pain currently. Pt has a PMHx of CHF, a fib, dementia and Parkinson s. - History Of Current Complaint Chief Complaint: EDChestPainROMI Time Seen by Provider: 12/22/18 09:24 Hx Obtained From: Patient, EMS Onset/Duration: Sudden Onset, Lasting Hours Timing: Constant Severity Currently: Severe Location: Pain At: - Foot Aggravating Factor(s): Nothing Alleviating Factor(s): Nothing Associated Signs And Symptoms: Positive: Decreased Responsiveness, SOB, Cough, Other - Pain in foot. Negative: Chest Pain - Allergies/Home Medications Allergies/Adverse Reactions: Allergies Allergy/AdvReac Type Severity Reaction Status Date / Time vancomycin Allergy Rash Verified 12/22/18 10:03 Home Medications: Home Medications Collagenase 250 UNITS/GM OINT* [Santyl 250 UNITS/GM Oint*] 1 applic TOPICAL DAILY 12/22/18 [History Confirmed 12/22/18] Melatonin [Meladox] 3 mg PO BEDTIME 12/22/18 [History Confirmed 12/22/18] PMH/Surg Hx/FS Hx/Imm Hx Endocrine/Hematology History: Reports: Hx Diabetes Denies: Hx Thyroid Disease Cardiovascular History: Reports: Hx Angina, Hx Angioplasty - several, Hx Coronary Artery Disease, Hx Hypertension, Hx Peripheral Vascular Disease, Hx Rheumatic Fever, Hx Valvular Heart Disease - Valve replacement, Other Cardiovascular Problems/Disorders - PAD Denies: Hx Aneurysm, Hx Pacemaker/ICD Respiratory History: Denies: Hx Chronic Obstructive Pulmonary Disease (COPD) History: Reports: Other Problems/Disorders - baseline incontinence Denies: Hx Dialysis Musculoskeletal History: Reports: Hx Arthritis - KNEES, Other Musculoskeletal History - osteomyelitis Sensory History: Reports: Hx Contacts or Glasses Denies: Hx Hearing Aid Opthamlomology History: Reports: Hx Contacts or Glasses Neurological History: Reports: Hx Dementia, Hx Nerve Disease - peripheral neuropathy, Hx Transient Ischemic Attacks (TIA), Other Neuro Impairments/ Disorders - Parkinsons/dementia Denies: Hx Seizures Psychiatric History: Reports: Hx Substance Abuse - hx of alcoholism, 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 Denies: Hx Depression, Hx Panic Disorder - Cancer History Cancer Type, Location and Year: prostate - Surgical History Surgery Procedure, Year, and Place: 2-heart bypass, prostate, aortic valve replacement 2006, appy, left leg stent [id number] mm x 100 mm Terumo Misago self-expanding stent in the proximal to mid left superficial femoral artery ( CONDITIONAL 5- MUST BE SCANNED IN NORMAL MODE, MRI SAFETY INFO SCANNED INTO PT' S CHART), BELOW THE RT KNEE AMPUTATION, Hx Anesthesia Reactions: No Infectious Disease History: No Infectious Disease History: Reports: Hx of Known/Suspected MRSA Denies: Traveled Outside the [place] in Last 30 Days - Family History Known Family History: Positive: Cardiac Disease, Diabetes - Social History Alcohol Use: None Alcohol Amount: 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 GENERAL: Patient elderly male who is lying comfortable in the stretcher. Patient is not in any acute respiratory distress. HEAD AND FACE: No signs of trauma. No ecchymosis, hematomas or skull depressions. No sinus tenderness. EYES: PERRLA, EOMI x 2, No injected conjunctiva, no nystagmus. EARS: Hearing grossly intact. Ear canals and tympanic membranes are within normal limits. MOUTH: Oropharynx within normal limits. NECK: Supple, trachea is midline, no adenopathy, no JVD, no carotid bruit, no c- spine tenderness, neck with full ROM. CHEST: Symmetric, no tenderness at palpation. LUNGS: Bilateral diffuse wheezing; decreased breath sounds bilaterally CVS: Regular rate and rhythm, S1 and S2 present, no murmurs or gallops appreciated. ABDOMEN: Soft, non-tender. No signs of distention. No rebound, no guarding, and no masses palpated. Bowel sounds are normal. EXTREMITIES:amputation of right leg and below the knee; On left leg he has 2 amputations and wound in the heel in which we can see muscles and tendons, with no acute discharge. NEURO: Alert but not oriented. No acute neurological deficits. Speech is normal and follows commands. SKIN: Dry and warm Triage Information Reviewed: Yes Vital Signs On Initial Exam: Initial Vitals Temp Pulse Resp BP Pulse Ox 97.4 F 60 20 94/53 98 12/22/18 09:20 12/22/18 09:20 12/22/18 09:20 12/22/18 09:20 12/22/18 09:20 Vital Signs Reviewed: Yes Procedures - Sedation Patient Received Moderate/Deep Sedation with Procedure: No Diagnostics - Vital Signs Vital Signs Temp Pulse Resp BP Pulse Ox 12/22/18 09:20 97.4 F 60 20 94/53 98 - Laboratory Result Diagrams: 12/22/18 10:31 12/22/18 09:56 Lab Statement: Any lab studies that have been ordered have been reviewed, and results considered in the medical decision making process. - Radiology CXR Radiology Interpretation Completed By: Radiologist Summary of Radiographic Findings: CXR reveals, per radiologist, IMPRESSION: Chest x-ray findings are most consistent with cardiogenic pulmonary edema likely with bibasilar pleural effusions. ED physician has reviewed this radiology report. - EKG 0925 EKG Rhythm: Atrial Fibrillation Summary of EKG Findings: An EKG at 0925 reveals atrial fibrillation 48 bpm, No ST-elevations. ED physician has interpreted this EKG. Complex Multi-Symp Course/Dx Assessment/Plan: This patient is an 83-year-old male who presents to the emergency department via ambulance after he was transferred from [facility]. Patients chief complaint was lethargy, hypertension, chest pain, and left ankle pain. Patient was recently discharged from [facility] on December,. Patients diagnosis was necrotic left posterior ankle with exposed Achilles tendon and associated cellulitis status post debridement, Non- ST elevation myocardial infarction and new onset of atrial fibrillation with persistent bleeding and no anticoagulation. The patient has also positive medical history significant for Parkinsons, dementia, hypertension, coronary artery disease, peripheral artery disease, diabetes mellitus type 2, and CVA. In the physical exam the patient has diffuse wheezing, decreased breath sounds, he reports no chest pain in the ED, and he has left ankle wound which shows no discharge or signs of cellulitis. Blood work without any significant abnormality except for is slight anemia with a hemoglobin of 8.4, hematocrit 27 , INR 1.29 and fibrinogen 493.7. Glucose is 102, calcium is 8.4, CRP is 9.12. Chest x-ray impression: Findings are most consistent with cardiogenic pulmonary edema likely with the bystander pleural effusion. Initially in the ED course the patient was given IV fluids since the patient is on antihypertensive, he was started on DuoNebs and Solu-Medrol for the COPD exacerbation. Patients ABG shows a pH of 7.35, PCO2 of 70, PO2 170, and O2 sat 99.3 and 5 L of oxygen. I will wait to see if the patient needs BiPAP to improve and with a PCO2 since the patient is compensating well with a pH of 7.35. I will decreased the oxygen to 3 L to see if the patient improves. I discussed my physical exam and findings with Dr. Muse from the hospital services who accepted the patient for admission. - Diagnoses Provider Diagnoses: COPD exacerbation, Chest pain, Hypotension, CHF (congestive heart failure) - Physician Notifications Discussed Care Of Patient With: Liang Muse Time Discussed With Above Provider: 11:36 Instructed by Provider To: Other - Discussed case with Dr. Muse who accepts pt for admission Discharge ED - Sign-Out/Discharge Documenting (check all that apply): Patient Departure - Admit - Discharge Plan Condition: Stable Disposition: ADMITTED TO [facility] - Billing Disposition and Condition Condition: STABLE Disposition: Admitted to [facility] - Attestation Statements Document Initiated by Sterling: Yes Documenting Scribe: Vera Arias Provider For Whom Sterling is Documenting (Include Credential): Sixto Avendaño MD Scribe Attestation: Vera Sears, scribed for Sixto Avendaño MD on 12/22/18 at 1840. Scribe Documentation Reviewed: Yes Provider Attestation: The documentation as recorded by the Vera dodson accurately reflects the service I personally performed and the decisions made by , Sixto Avendaño MD Status of Scribe Document: Viewed
[2018-12-22] MEDS ORDERED: Albuterol/Ipratropium NEB.SOL* Albuterol 2.5 MG/Ipratropium 0.5 MG 3 ML ONE (10:12)
[2018-12-22 10:27] LABS: Activated Partial Thrombo Time 34.2 seconds (26.0-38.0); Fibrinogen 493.7 mg/dL (110.8-404.3); INR 1.29 (0.82-1.09)
[2018-12-22 10:28] LABS: Albumin 3.3 g/dL (3.2-5.2); BUN/Creatinine Ratio 27.8 (8-20); C Reactive Protein 9.12 mg/L (<8.01); Calcium 8.4 mg/dL (8.6-10.3); EGFR African American 126.8 (>60); EGFR Non-African American 104.8 (>60); Globulin 3.2 g/dL (2-4); Potassium 4.8 mmol/L (3.5-5.0); Total Bilirubin 0.3 mg/dL (0.2-1.0); Total Protein 6.5 g/dL (6.4-8.9)
[2018-12-22] MEDS: NS 0.9% 1000 ML** 1,000 ML IV SCH ×2 (10:28→16:50)
[2018-12-22 10:29] LABS: Troponin I 0.02 ng/mL (<0.04)
[2018-12-22 10:48] LABS: ABS Eosinophils 0.4 10^3/ul (0-0.6); ABS Lymphocytes 1.1 10^3/ul (1.0-4.8); ABS Monocytes 0.6 10^3/ul (0-0.8); ABS Neutrophils 5.9 10^3/ul (1.5-7.7); Eosinophil % 4.5 %; Hematocrit 27 % (42-52); Hemoglobin 8.4 g/dL (14.0-18.0); Mean Corpuscular HGB Conc 31 g/dL (31-36); Mean Corpuscular Hemoglobin 28 pg (27-31); Mean Corpuscular Volume 90 fL (80-94); Mean Platelet Volume 7.3 fL (7.4-10.4); Platelet Count 269 10^3/uL (150-450); Red Cell Distribution Width 16 % (10-15); White Blood Count 8.1 10^3/uL (3.5-10.8)
[2018-12-22 11:26] LABS: Urine Appearance Clear; Urine Color Yellow; Urine Specific Gravity 1.015 (1.010-1.030)
[2018-12-22 11:27] LABS: Urine Bilirubin Negative (Negative); Urine Blood Negative (Negative); Urine Glucose Negative (Negative); Urine Ketones Negative (Negative); Urine Nitrite Negative (Negative); Urine Protein Negative (Negative); Urine Urobilinogen Negative (Negative)
[2018-12-22] MEDS ORDERED: Ondansetron INJ* 2 MG/ML VIAL IV PRN (12:25)
[2018-12-22] MEDS ORDERED: Acetaminophen TAB* 325 MG PO PRN (12:25)
[2018-12-22] MEDS ORDERED: Senna TAB 8.6 mg* TAB PO PRN (12:32)
[2018-12-22] MEDS ORDERED: Dextrose 50% VIAL 50 ml IV PUSH PRN (12:47)
[2018-12-22 13:01] LABS: Urine Bacteria Absent (Absent); Urine Red Blood Cell Absent (Absent); Urine White Blood Cell Trace(0-5/hpf) (Absent)
[2018-12-22] MEDS ORDERED: Heparin VIAL(*) 5000 UNITS/ML VIAL (FIVE THOUSAND) SUBCUT SCH (14:00)
--- NOTE | 2018-12-22 15:11 | HP ---
CC: Dr. Jonny Gunn * MEDICINE HISTORY AND PHYSICAL: DATE OF ADMISSION: 12/22/18 PRIMARY CARE PROVIDER: Dr. Jonny Gunn. PROVIDER: Mecca Bright NP ATTENDING PHYSICIAN: Dr. Liang Muse (dictated by Mecca Bright NP). CHIEF COMPLAINT: Chest numbness and foot pain. HISTORY OF PRESENT ILLNESS: Mr. Cedillo is an 83-year-old male who was [place] [facility] [place]18 for necrotic left posterior ankle wound, NSTEMI and new onset atrial fibrillation. He was subsequently discharged to [facility] for subacute rehab. This morning, the patient was assessed by nursing at the facility and reported that he was having chest pain. He was noted to have 85% oxygen saturation on 1 L nasal cannula. EMS services were activated. In review of the EMS notes, it was reported Mr. Cedillo was semi-responsive, pale, diaphoretic, and short of breath with weak radial pulses. At that time, he reported "chest numbness" and he was noted to have atrial fibrillation with rate of 56 and 82% oxygen saturation on 2 L nasal cannula. His fingerstick was 119 at the time. He was taken to the ER for further evaluation. Here in the ER, Mr. Cedillo denied having any chest pain. His chest x-ray revealed concern for cardiogenic pulmonary edema likely with bibasilar pleural effusion. His EKG also showed atrial fibrillation with rate of 48 beats per minute, but no ST elevations. He had an ABG done that showed pH of 7.35, pCO2 of 70, pO2 170, and O2 sat 99.3 on 5 L of oxygen. Given all these findings, Hospital Medicine was consulted for admission. PAST MEDICAL HISTORY: Significant for: 1. Recent NSTEMI and coronary artery disease. 2. New onset atrial fibrillation, persistent, not on anticoagulation due to persistent bleeding after wound VAC change. 3. Necrotic left posterior ankle wound with exposed Achilles tendon and associated cellulitis, on antibiotics. 4. Parkinsonism. 5. Dementia. 6. Hypertension. 7. Peripheral vascular disease. 8. 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 9. Type 2 diabetes. 10. History of stroke. HOME MEDICATIONS: 1. Melatonin 3 mg at bedtime. 2. Santyl 1 application topical daily to left anterior foot wound. 3. Sertraline 25 mg daily. 4. Senna 8.6 mg 1 tablet at bedtime p.r.n. 5. Metoprolol tartrate 25 mg b.i.d. 6. Insulin glargine 20 units q.a.m. and 15 units in the evening. 7. Furosemide 40 mg daily. 8. Donepezil 5 mg at bedtime. 9. Clopidogrel 75 mg daily. 10. Keflex 500 mg t.i.d. 11. Baclofen 10 mg t.i.d. 12. Atorvastatin 10 mg at bedtime. 13. Aspirin 81 mg daily. 14. Ascorbic acid 500 mg daily. 15. Acetaminophen 650 q.4 hours p.r.n. ALLERGIES: Include VANCOMYCIN. FAMILY HISTORY: Attempted to obtain. Patient is a poor historian secondary to dementia and is unable to offer history. SOCIAL HISTORY: He is not a current smoker. He has not had alcohol recently and reports occasional alcohol use historically. He was previously living with his , Aaliyah, in [place], but is currently at subacute rehab at [facility]. REVIEW OF SYSTEMS: A 14-point review of systems was attempted. Mr. Cedillo is unable to contribute much to the history. Review of the recent health with the patient, his , and the nurse at [facility], he apparently has not had any fevers or chills. He is currently denying any chest pain or feeling short of breath. He has not had flu or cold symptoms. He has not been coughing. He denies abdominal pain, nausea, vomiting, and diarrhea. Denies dysuria. Weight loss or gain is unclear, and the rest of the systems is unobtainable secondary to inability to get firm responses from patient. PHYSICAL EXAMINATION GENERAL: This is an elderly male, who is lying in the ED stretcher, in no acute distress. He appears sleepy but does awaken to verbal and tactile stimuli. VITAL SIGNS: Temperature 97.4, heart rate 60, respiratory rate 17, blood pressure 103/67, and O2 sats is 98% on 3 L nasal cannula. HEENT: Head is atraumatic, normocephalic. Pupils are equal, round, and reactive to light and accommodation. Extraocular movements are intact. Sclerae are anicteric. Oral mucosa is moist. There are no oropharyngeal erythema or exudates. NECK: Supple with full range of motion. No lymphadenopathy appreciated. No JVD noted. LUNGS: Chest is nontender to palpation. Lungs decreased throughout. Expiratory crackles appreciated in the bases. There is occasional wheezing. CARDIAC: Irregularly irregular rate and rhythm. S1, S2 are present. No murmurs appreciated. Rate is bradycardic. No peripheral edema noted. ABDOMEN: Soft, nontender, nondistended with normoactive bowel sounds. MUSCULOSKELETAL: No clubbing or cyanosis. There was an amputation of the right leg below the knee. The left lower extremity has 2 amputations with a left heel wound that is only partially visualized as the dressing is stuck to it. I am able to peel back part of the dressing and visualize muscle and tendon. There is no odor. There is no purulent drainage. There is no lymphangitic streaking. There is no warmth or erythema. NEUROLOGIC: He is alert, oriented to self. Does follow commands. Speech is clear. No other focal deficits. DIAGNOSTIC STUDIES/LAB DATA: CBC: WBC 8.1, hemoglobin 8.4, hematocrit 27, platelet count 269. INR is 1.29. CMP: Sodium 138, potassium 4.8, chloride 102 , carbon dioxide 31, BUN 20, creatinine 0.72, glucose 102, lactic acid 0.6, calcium 8.4. Total bilirubin 0.3, AST 15, ALT 9, alk phos 64, troponin 0.02. CRP 9.12. BNP 1005. Total protein 6.5, albumin 3.3. Chest x-ray and EKG as per above. Old medical records were reviewed. ASSESSMENT AND PLAN: This is an 83-year-old male with a past medical history significant for recent non-ST elevation myocardial infarction, systolic heart failure, new onset atrial fibrillation, type 2 diabetes with necrotic left posterior ankle wound, hypertension, coronary artery disease, and peripheral arterial disease, presenting today with concern for chest pain and altered mental status with associated hypoxia and found to have pulmonary edema while in the ER. He will be admitted under observation status to the telemetry floor. Plans as follows: 1. Chest pain: His initial troponin was 0.02. He is currently denying chest pain. We will continue to trend his troponins x3 or until it peaks. He does have an associated BNP of 1005, which in review of his previous BNPs, this is markedly elevated. Suspect acute on chronic systolic congestive heart failure exacerbation. He did receive his morning medications at [facility], which did include 40 of Lasix. He does have some crackles but he is not in any respiratory distress and has been weaned down from the previous 15 L that he presented on to the ER. At this point in time, I will hold on any additional Lasix but would consider adding on additional IV dose should his pressure allow. We will monitor his I's and O's and respiratory status and decide further from there. He did recently have an echo on 12/02/18, which showed an estimated ejection fraction of 30% to 35%. He will be ordered daily weights. Again, we will monitor I's and O's and further determine plan of care from there. 2. Dvexp-zk-opwhqhi hypoxic respiratory failure: Mr. Cedillo was previously discharged on 1 L nasal cannula, now up to 3 L, previously required 15 L upon arrival to the ER. He appears to have had flash pulmonary edema, etiology unclear, although may be related to his bradycardia that is seen on the monitor currently. In any event, we will continue to try and wean down his oxygen. He did receive steroids in the ER. He does not have any significant wheezing. I will hold on additional steroids at this time. We will add on breathing treatments to use p.r.n. Suspect that this is secondary to the pulmonary edema. He has no known history of chronic obstructive pulmonary disease. He continued to monitor. 3. Atrial fibrillation: He has persistently atrial fibrillation. I do note during the course of my assessment that his heart rate has dipped down into the 40s, although he did not report chest pain at the time that I did so, however, in review of his previous admission, vital signs, I do note that he was typically in the 60s to 80s and I do note that there were many heart rates noted in the 40s and 50s. Currently, he is maintaining between 50 and 62 and without symptoms. He is a poor historian but he is able to indicate when he is having chest pain. At this point and time, he is on metoprolol 25 mg b.i.d. In review of previous admission, I do note that he was previously on 50 mg b.i.d. and this was decreased due to his pressures and heart rate. Would recommend that we continue to follow him on telemetry, and I will cut his metoprolol down to 12.5 mg b.i.d. starting with his evening dose and further monitor his rate on tele. He is not anticoagulated secondary to concerns for bleeding from his chronic wound. He remains on aspirin and Plavix at this time. 4. Type 2 diabetes with left lower extremity ulcer. We will maintain him on his previous diabetic regimen. He was maintained last admission on Lantus and lispro and discharged on the same Lantus regimen of 20 units in the morning and 15 units at bedtime and was continued on this at [facility]. He appears to be stable on this, and we will continue this dosing at this time and I will add on lispro sliding scale if needed during mealtime. He will be on a consistent carbohydrate diet. 5. In regard to the associated wound, we will continue the dressing orders from discharge in [facility], which include Santyl to the dorsal aspect of the left foot and Betadine dressings to posterior heel wound. I will notify Ortho that the patient is here so that the team can continue rounding on the patient while he is here in the hospital and then he will continue outpatient followup with them as scheduled. He also is on Keflex 500 mg t.i.d. that is to continue until 12/28/18. Currently, his CBC and CRP remain stable. His CRP is actually improved from previous, and there is no purulent drainage, erythema, streaking, or edema to suggest acute infection. At this point in time, we will continue the Keflex and dressings and monitor the wound closely. 6. Hypertension: He is on furosemide and we have cut his metoprolol dose as per above. 7. Peripheral vascular disease: Continue aspirin, statin, and Plavix. 8. Anemia: This appears to be chronic and actually is within his baseline. Continue to monitor. 9. Parkinson's disease: He is not on any Parkinson's medications. He does take Baclofen, which we will continue. 10. DVT prophylaxis: Previously was concern for bleeding from his wound. He is on aspirin and Plavix, which we will continue. I will hold on ordering subcu heparin until discussed with the ortho team as this was a recurrent issue during his last admission. 11. Code status: He is a full code. This was reviewed with his , Aaliyah Cedillo, who is also his healthcare proxy. TIME SPENT: Approximately 65 minutes was spent on this admission with more than half that time spent [id number] with the patient and family obtaining history and physical, performing physical examination, and reviewing the plan of care. Plan of care was also reviewed with my attending, Dr. Muse, who is in agreement. MECCA BRIGHT, RACEBOOK WRITER [id number]/CPS #: [id number] WIL
[2018-12-22] MEDS: Collagenase 250 UNITS/GM OINT* 1 APPLIC OINT TOPICAL SCH (15:55)
[2018-12-22] MEDS: Cephalexin CAP* 500 MG PO SCH ×2 (15:55→21:19)
[2018-12-22] MEDS: Baclofen TAB* 10 MG PO SCH ×2 (15:55→21:19)
[2018-12-22] MEDS: Insulin LISPRO* 1 UNITS UNIT SUBCUT SCH ×2 (17:13→21:18)
[2018-12-22] MEDS ORDERED: Donepezil TAB* 5 MG PO SCH (21:00)
[2018-12-22] MEDS: Insulin GLARGINE(*) 1 UNITS UNIT SUBCUT SCH (21:17)
[2018-12-22] MEDS: Melatonin 3 MG TAB PO SCH (21:19)
[2018-12-22] MEDS: Atorvastatin* 10 MG TAB PO SCH (21:19)
[2018-12-22] MEDS: Metoprolol Tartrate TAB* 25 MG PO SCH (21:20)
[2018-12-23] MEDS ORDERED: Haloperidol INJ IV/IM* 5 MG/ML AMP IM ONE (04:47)
[2018-12-23 06:18] LABS: ABS Basophils 0.1 10^3/ul (0-0.2); ABS Lymphocytes 0.8 10^3/ul (1.0-4.8); ABS Monocytes 0.5 10^3/ul (0-0.8); ABS Neutrophils 7.7 10^3/ul (1.5-7.7); Eosinophil % 0.1 %; Hematocrit 27 % (42-52); Hemoglobin 8.5 g/dL (14.0-18.0); Lymphocyte % 8.7 %; Mean Corpuscular HGB Conc 32 g/dL (31-36); Mean Corpuscular Hemoglobin 28 pg (27-31); Mean Corpuscular Volume 88 fL (80-94); Mean Platelet Volume 7.4 fL (7.4-10.4); Platelet Count 288 10^3/uL (150-450); Red Blood Count 3.02 10^6 /uL (4.18-5.48); Red Cell Distribution Width 16 % (10-15)
[2018-12-23 06:32] LABS: BUN/Creatinine Ratio 34.2 (8-20); Calcium 8.4 mg/dL (8.6-10.3); EGFR African American 119.1 (>60); EGFR Non-African American 98.4 (>60); Potassium 4.7 mmol/L (3.5-5.0)
--- NOTE | 2018-12-23 08:21 | PN ---
Subjective Date of Service: 12/23/18 Interval History: HD 2 on 12/23 83M PMH Parkinsons dementia w/behavioral disturbance, s/p MCA CVA, CAD w/ recent NSTEMI and new onset PAF, HFrEF (EF 30-35%), IDDM, chronic DM wounds admitted in Nov 2018 for necrotic ankle wounds (L) with debridement and s/p BKA (R) who was d/c to [facility] at who presented 12/22 with acute onset CP, hypoxic resp failure likely from CHF exacerbation CXR: Pulm edema, EKG Slow fib? Block? Overnight, confused got Haldol-- VSS Labs:CO2 @ 34 This morning oriented to self, frequently crying out "help" but has no acute complaints, denying CP, SOB, belly complaints, some MSK complaint with L foot pain. Tolerating diet, voiding freely, BM today, needs pedro lift. Objective Active Medications: Acetaminophen (Tylenol Tab*) 650 mg PO Q4H PRN PRN Reason: MILD PAIN or TEMP > 100.4 Ascorbic Acid (Vitamin C Tab*) 500 mg PO DAILY [facility] Aspirin (Aspirin Ec Tab*) 81 mg PO DAILY [facility] Atorvastatin Calcium (Lipitor*) 10 mg PO BEDTIME [facility] Last Admin: 12/22/18 21:19 Dose: 10 mg Baclofen (Lioresal Tab*) 10 mg PO TID [facility] Last Admin: 12/22/18 21:19 Dose: 10 mg Cephalexin HCl (Keflex Cap*) 500 mg PO TID [facility] Last Admin: 12/22/18 21:19 Dose: 500 mg Clopidogrel Bisulfate (Plavix Tab*) 75 mg PO DAILY [facility] Collagenase (Santyl 250 Units/Gm Oint*) 1 applic TOPICAL DAILY [facility] Last Admin: 12/22/18 15:55 Dose: 1 applic Dextrose (Dextrose 50% Vial 50 Ml*) 25 ml IV PUSH .FOR FS < 60 - SS PRN PRN Reason: FS < 60 Donepezil HCl (Aricept Tab*) 5 mg PO BEDTIME [facility] Last Admin: 12/22/18 21:19 Dose: 5 mg Furosemide (Lasix Tab*) 40 mg PO DAILY [facility] Insulin Glargine (Lantus(*)) 15 units SUBCUT 2100 [facility] Last Admin: 12/22/18 21:17 Dose: 15 units Insulin Glargine (Lantus(*)) 20 units SUBCUT QAM [facility] Insulin Human Lispro (Humalog*) 0 units SUBCUT ACHS [facility]; Protocol Last Admin: 12/22/18 21:18 Dose: 4 unit Melatonin (Melatonin) 3 mg PO BEDTIME [facility] Last Admin: 12/22/18 21:19 Dose: 3 mg Metoprolol Tartrate (Lopressor Tab*) 12.5 mg PO Q12HR [facility] Last Admin: 12/22/18 21:20 Dose: 12.5 mg Ondansetron HCl (Zofran Inj*) 4 mg IV Q6H PRN PRN Reason: NAUSEA/VOMITING Senna (Senokot 8.6 Mg Tab*) 1 tab PO BEDTIME PRN PRN Reason: CONSTIPATION Sertraline HCl (Zoloft*) 25 mg PO DAILY [facility] Vital Signs - 8 hr 12/23/18 12/23/18 12/23/18 03:15 05:11 07:15 Temperature 97.7 F 97.5 F 97.5 F Pulse Rate 60 58 79 Respiratory 20 24 20 Rate Blood Pressure 110/60 118/70 124/60 (mmHg) O2 Sat by Pulse 95 98 96 Oximetry Oxygen Devices in Use Now: Nasal Cannula Appearance: Awake and alert man crying out non sensically Ears/Nose/Mouth/Throat: Mucous Membranes Moist Respiratory: - - Crackles to blt lung bases Cardiovascular: - - irreg irreg Abdominal: NL Sounds; No Tenderness; No Distention, No Hepatosplenomegaly Lymphatic: No Cervical Adenopathy Extremities: - - s/p R BKA, L foot wrapped, warm and well perfused Skin: No Rash or Ulcers Neurological: - - Oriented to self Lines/Tubes/Other Access: Clean, Dry and Intact Peripheral IV Result Diagrams: 12/23/18 06:06 12/23/18 06:06 Microbiology and Other Data: Microbiology 12/22/18 12:38 Nasal Screen MRSA (PCR) - Final Nasal Mrsa Not Detected Assess/Plan/Problems-Billing Assessment: 83M PMH parkinsons dementia, s/p CVA, CAD recent NSTEMI and new onset PAF, HFrEF (EF 30-35% in 11/2018), IDDM, chronic DM wounds admitted in Nov 2018 for necrotic ankle wounds (L) and s/p BKA (R) who was d/c [facility] who presented 12/22 with acute onset CP, hypoxic resp failure likely from CHF exacerbation - Patient Problems (1) Acute on chronic systolic CHF (congestive heart failure) Current Visit: No Status: Acute Code(s): I50.23 - ACUTE ON CHRONIC SYSTOLIC (CONGESTIVE) HEART FAILURE SNOMED Code(s): 657758712 Comment: - EF 30-35% Nov 2018, likely 2/2 to ischemic cardiomyopathy, recently O2 dependent since last hospitlizatoin - IV Lasix 40mg IV x 2 on 12/22, 12/23, incontinent of urine making strict I/O difficult - Weight on admission 217lbs - CAD: Metoprolol 12.5mg BID, DAPT, statin (2) Afib Current Visit: No Status: Acute Code(s): I48.91 - UNSPECIFIED ATRIAL FIBRILLATION SNOMED Code(s): 17079157 Comment: - EKG on admission more c/w Mobitz II block vs fib, apparently last hospitlization documented fib - Continue metoprolol low dose - [id number] score of 8. Would benefit from long term AC. However, while patient was on therapeutic lovenox he had extensive bleeding from the heel at the debridement site. - Concern that the risk for bleeding outweighs the benefit of stroke prevention. Patient's , his healthcare proxy, is agreeable to no AC at this time given bleed risk (3) Non healing left heel wound Current Visit: No Status: Acute Code(s): S91.302A - UNSPECIFIED OPEN WOUND, LEFT FOOT, INITIAL ENCOUNTER SNOMED Code(s): 062556156 Comment: - MRI without osteo in Nov - continue keflex 500mg TID, will get an additional 2 weeks, end date around the - Dr. Frederick 12/06/18 offered BKA and patient declined - Continue daily dressing changes (4) CAD (coronary artery disease) Current Visit: No Status: Chronic Code(s): I25.10 - ATHSCL HEART DISEASE OF [place] CORONARY ARTERY W/O ANG PCTRS SNOMED Code(s): 25881639 Comment: - Asymptomatic, chest pain from volume - Acute NSTEMI in 02/2018 - Continue metoprolol, DAPT, statin (5) Parkinson disease Current Visit: No Status: Chronic Priority: Medium Onset Date: 01/29/15 Code(s): G20 - PARKINSON'S DISEASE SNOMED Code(s): 68328981 Comment: - On baclofen, no sinemet - Supportive care (6) Dementia with behavioral disturbance Current Visit: Yes Status: Acute Code(s): F03.91 - UNSPECIFIED DEMENTIA WITH BEHAVIORAL DISTURBANCE SNOMED Code(s): 4236665000945 Comment: - Decline in the last 2 months with more behaviroal distrubances, likely superimposed delerium from hospital stays(in Nov and now) and placement for [facility] in [place]. - Offer PRN Seroqeul 25mg up to BID - Stop Donepezil, no indication for advanced dementia, continue sertraline. (7) Peripheral vascular disease Current Visit: No Status: Chronic Code(s): I73.9 - PERIPHERAL VASCULAR DISEASE, UNSPECIFIED SNOMED Code(s): 250837714 Comment: - Hx of unsuccessful angioplasty on in 2015 - Continue statin, ASA. (8) Type 2 diabetes mellitus Current Visit: No Status: Chronic Comment: - BGs with relatively good control - Continue lispro SSI coverage, lantus 20 units AM, lantus 15 units PM - A1c 8.4 (9) Anemia Current Visit: Yes Status: Acute Code(s): D64.9 - ANEMIA, UNSPECIFIED SNOMED Code(s): 979777664 Comment: -ACD, Hgb ~8, CTM (10) DVT prophylaxis Current Visit: No Status: Acute Priority: Medium Code(s): VRG8630 - SNOMED Code(s): 417538678 Comment: - Start SQH low dose Q12, choosing this b/c of prior wound bleeding though this was during TREATMENT dose for new onset afib not PPX dose. (11) DNR (do not resuscitate) Current Visit: Yes Status: Acute Comment: - GOC discussion with Edna Cedillo, documented in blank note Status and Disposition: -Likely needs 1 to 2 days of acute diuresis, possibly d/c back to [facility] 12/23 or pending clinical status -PT/OT (unable to participate, not ordered) -Lines and tubes: PIV only, no cath incontinent of stool and urine
[2018-12-23] MEDS ORDERED: Furosemide IV* 10 MG/ML VIAL (40 MG) IV ONE (08:28)
[2018-12-23] MEDS ORDERED: Furosemide TAB* 40 MG PO SCH (09:00)
[2018-12-23] MEDS: Insulin LISPRO* 1 UNITS UNIT SUBCUT SCH ×4 (09:25→21:47)
[2018-12-23] MEDS: Insulin GLARGINE(*) 1 UNITS UNIT SUBCUT SCH ×2 (09:26→21:47)
[2018-12-23] MEDS: Ascorbic Acid TAB* 500 MG PO SCH (09:27)
[2018-12-23] MEDS: Cephalexin CAP* 500 MG PO SCH ×3 (09:27→19:54)
[2018-12-23] MEDS: Clopidogrel TAB* 75 MG PO SCH (09:27)
[2018-12-23] MEDS: Aspirin EC TAB* 81 MG TAB.EC PO SCH (09:27)
[2018-12-23] MEDS: Metoprolol Tartrate TAB* 25 MG PO SCH ×2 (09:28→19:55)
[2018-12-23] MEDS: Collagenase 250 UNITS/GM OINT* 1 APPLIC OINT TOPICAL SCH (09:29)
[2018-12-23] MEDS: Sertraline* 25 MG TAB PO SCH (09:29)
[2018-12-23] MEDS: Baclofen TAB* 10 MG PO SCH ×3 (09:29→19:55)
[2018-12-23] MEDS: Heparin VIAL(*) 5000 UNITS/ML VIAL (FIVE THOUSAND) SUBCUT SCH ×2 (11:57→19:55)
--- NOTE | 2018-12-23 11:57 | PN ---
Hospitalist Progress Note Date of Service: 12/23/18 [facility] Discussion Spoke with Aaliyah Cedillo, number in chart, about Jaime's most recent admission to hospital. She understands that Jaime has the following problems. 1) Non healing L ankle wound-currently on abx in setting on R BKA-aware and knows L heel may never heal 2) HFrEF of 30-35% with CURRENT CHF exacerbation-this is news to her, she was not aware of heart failure dx, we discuss etiology (prior CAD) 3) Dementia from Parkinson's and possibly stroke with new behavioral distrubances-she is aware of this and concurs it is worsening with AOx1 as his baseline mostly. 4) IDDM-aware, well controlled 5) A fib not on AC- aware She knows his behaviors have worsened and she understands that at this time he can not make decisions for himself, she is the health care proxy. She met with Dr. Medina last hospitalization and alluded that he is not really eligible for hospice which may be true but we also discussed the philosophy of palliative care and that he has numerous co-morbidities at this time and may shuffle back and forth from [facility] and hospital numerous times which will overall worsen his behavioral conditions. She understands that she and she alone given his capacity is responsible for documenting his medical orders for life sustaining treatment and we re discuss the following interventions 1) CPR: Initially pt had elected for CPR and was full code at last hospitalization. Aaliyah thinks he does not understand what this means and she was unaware that CPR had a slim to low (likely <5% chance of ROSC in EF 30%) and thinks that in this case he would not want heroic measures 2) Intubation: Would not want ventilatory support as percieved as "life support " 3) Would want trials of IVF and abx but not TF She is planning on coming to the hospital later today for in person discussion and also I will update her son at that time on the phone with her in the room. DANY completed, consider ongoing palliative discussion or re consulting to palliative in the future. At this time, not ready for [facility] on hospice ( and as per Dr. Medinas note, perhaps doesnt meet DRG code) but if CHF continues to exacerbate or frequent bounce backs they may accept this is in a downward spiral.
--- NOTE | 2018-12-23 15:23 | PN ---
Progress Note - Progress Note Date of Service: 12/23/18 SOAP: Subjective: [Patient see lying in bed. Denies left foot pain but is somewhat confused. Denies CP, SOB, f/c, n/v. Patient admitted over the weekend for CP/AMS. ] Objective: [General: NAD. ALert LLE: Dressing changed. Non-healing ulcer posterior ankle and anterior skin blister previous unroofed appears black but intact with no active drainage. Small amount of SS drainage on dressing. Calf soft and nontender. NVI. ] Assessment: [L heal ucler, non-healing.] Plan: [Patient is a candidate for L BKA but does not want surgery. Ortho will follow for dressing changes Vital Signs Temp Pulse Resp BP Pulse Ox 98 F 69 20 110/56 98 12/23/18 12:11 12/23/18 12:11 12/23/18 12:11 12/23/18 12:11 12/23/18 12:11 Laboratory Last Values WBC 9.0 10^3/uL (3.5-10.8) 12/23/18 06:06 RBC 3.02 10^6 /uL (4.18-5.48) L 12/23/18 06:06 Hgb 8.5 g/dL (14.0-18.0) L 12/23/18 06:06 Hct 27 % (42-52) L 12/23/18 06:06 MCV 88 fL (80-94) 12/23/18 06:06 MCH 28 pg (27-31) 12/23/18 06:06 MCHC 32 g/dL (31-36) 12/23/18 06:06 RDW 16 % (10-15) H 12/23/18 06:06 Plt Count 288 10^3/uL (150-450) 12/23/18 06:06 MPV 7.4 fL (7.4-10.4) 12/23/18 06:06 Neut % (Auto) 85.4 % 12/23/18 06:06 Lymph % (Auto) 8.7 % 12/23/18 06:06 [place] % (Auto) 5.2 % 12/23/18 06:06 Eos % (Auto) 0.1 % 12/23/18 06:06 Baso % (Auto) 0.6 % 12/23/18 06:06 Absolute Neuts (auto) 7.7 10^3/ul (1.5-7.7) 12/23/18 06:06 Absolute Lymphs (auto) 0.8 10^3/ul (1.0-4.8) L 12/23/18 06:06 Absolute Monos (auto) 0.5 10^3/ul (0-0.8) 12/23/18 06:06 Absolute Eos (auto) 0.0 10^3/ul (0-0.6) 12/23/18 06:06 Absolute Basos (auto) 0.1 10^3/ul (0-0.2) 12/23/18 06:06 Absolute Nucleated RBC 0.0 10^3/ul 12/23/18 06:06 Nucleated RBC % 0.0 12/23/18 06:06 ESR 75 mm/Hr (0-19) H 12/22/18 11:11 INR (Anticoag Therapy) 1.29 (0.82-1.09) H 12/22/18 09:56 APTT 34.2 seconds (26.0-38.0) 12/22/18 09:56 Fibrinogen 493.7 mg/dL (110.8-404.3) H 12/22/18 09:56 Patient Temperature Not Reportable 12/22/18 13:12 ABG pH 7.41 (7.35-7.45) 12/22/18 13:12 ABG pH (Temp Correct) Not Reportable 12/22/18 13:12 ABG pCO2 58 mmHg (35-45) H 12/22/18 13:12 ABG pCO2 (Temp Corrct Not Reportable 12/22/18 13:12 ABG pO2 102 mmHg (80-100) H 12/22/18 13:12 ABG pO2 (Temp Correct Not Reportable 12/22/18 13:12 ABG HCO3 32.6 mmol/L (19-31) H 12/22/18 13:12 ABG O2 Saturation 99.2 % (94.0-98.0) H 12/22/18 13:12 ABG Base Excess 9.9 mmol/L (-2.0-2.0) H 12/22/18 13:12 Respiration Rate Not Reportable 12/22/18 13:12 O2 Delivery Device 3 lpm nc 12/22/18 13:12 Ventilator Type Not Reportable 12/22/18 13:12 Vent Mode Not Reportable 12/22/18 13:12 FiO2 Not Reportable 12/22/18 13:12 Inspiratory Time Not Reportable 12/22/18 13:12 PEEP Not Reportable 12/22/18 13:12 Pressure Support Not Reportable 12/22/18 13:12 Pressure Control Not Reportable 12/22/18 13:12 EPAP Not Reportable 12/22/18 13:12 IPAP Not Reportable 12/22/18 13:12 BiPAP Not Reportable 12/22/18 13:12 Sodium 139 mmol/L (135-145) 12/23/18 06:06 Potassium 4.7 mmol/L (3.5-5.0) 12/23/18 06:06 Chloride 102 mmol/L (101-111) 12/23/18 06:06 Carbon Dioxide 34 mmol/L (22-32) H 12/23/18 06:06 Anion Gap 3 mmol/L (2-11) 12/23/18 06:06 BUN 26 mg/dL (6-24) H 12/23/18 06:06 Creatinine 0.76 mg/dL (0.67-1.17) 12/23/18 06:06 Est GFR ( Amer) 119.1 (>60) 12/23/18 06:06 Est GFR (Non-Af Amer) 98.4 (>60) 12/23/18 06:06 BUN/Creatinine Ratio 34.2 (8-20) H 12/23/18 06:06 Glucose 137 mg/dL (70-100) H 12/23/18 06:06 POC Glucose (mg/dL) 213 mg/dL (70-100) H 12/23/18 10:58 Lactic Acid 0.6 mmol/L (0.5-2.0) 12/22/18 10:31 Calcium 8.4 mg/dL (8.6-10.3) L 12/23/18 06:06 Total Bilirubin 0.30 mg/dL (0.2-1.0) 12/22/18 09:56 AST 15 U/L (13-39) 12/22/18 09:56 ALT 9 U/L (7-52) 12/22/18 09:56 Alkaline Phosphatase 64 U/L (34-104) 12/22/18 09:56 Troponin I 0.01 ng/mL (<0.04) 12/22/18 16:22 C-Reactive Protein 9.12 mg/L (<8.01) H 12/22/18 09:56 B-Natriuretic Peptide 1005 pg/mL (<=100) H 12/22/18 10:31 Total Protein 6.5 g/dL (6.4-8.9) 12/22/18 09:56 Albumin 3.3 g/dL (3.2-5.2) 12/22/18 09:56 Globulin 3.2 g/dL (2-4) 12/22/18 09:56 Albumin/Globulin Ratio 1.0 (1-3) 12/22/18 09:56 Urine Color Yellow 12/22/18 10:50 Urine Appearance Clear 12/22/18 10:50 Urine pH 5 (5-9) 12/22/18 10:50 Ur Specific [place] 1.015 (1.010-1.030) 12/22/18 10:50 Urine Protein Negative (Negative) 12/22/18 10:50 Urine Ketones Negative (Negative) 12/22/18 10:50 Urine Blood Negative (Negative) 12/22/18 10:50 Urine Nitrate Negative (Negative) 12/22/18 10:50 Urine Bilirubin Negative (Negative) 12/22/18 10:50 Urine Urobilinogen Negative (Negative) 12/22/18 10:50 Ur Leukocyte Esterase Negative (Negative) 12/22/18 10:50 Urine WBC (Auto) Trace(0-5/hpf) (Absent) 12/22/18 10:50 Urine RBC (Auto) Absent (Absent) 12/22/18 10:50 Urine Bacteria Absent (Absent) 12/22/18 10:50 Hyaline Casts Present (Absent) A 12/22/18 10:50 Urine Glucose Negative (Negative) 12/22/18 10:50 ]
[2018-12-23] MEDS: Atorvastatin* 10 MG TAB PO SCH (19:54)
[2018-12-23] MEDS: Melatonin 3 MG TAB PO SCH (19:55)
[2018-12-23] MEDS: Acetaminophen TAB* 325 MG PO PRN (19:57)
[2018-12-23] MEDS: QUEtiapine TAB* 25 MG PO PRN (20:10)
[2018-12-24 05:17] LABS: Calcium 8.1 mg/dL (8.6-10.3); EGFR African American 113.9 (>60); EGFR Non-African American 94.1 (>60); Potassium 4.2 mmol/L (3.5-5.0)
[2018-12-24] MEDS: Insulin LISPRO* 1 UNITS UNIT SUBCUT SCH ×4 (08:02→20:45)
[2018-12-24] MEDS: Aspirin EC TAB* 81 MG TAB.EC PO SCH (08:56)
[2018-12-24] MEDS: Cephalexin CAP* 500 MG PO SCH ×3 (08:56→20:43)
[2018-12-24] MEDS: Clopidogrel TAB* 75 MG PO SCH (08:56)
[2018-12-24] MEDS: Ascorbic Acid TAB* 500 MG PO SCH (08:56)
[2018-12-24] MEDS: Collagenase 250 UNITS/GM OINT* 1 APPLIC OINT TOPICAL SCH (08:56)
[2018-12-24] MEDS: Baclofen TAB* 10 MG PO SCH ×3 (08:56→20:43)
[2018-12-24] MEDS: Sertraline* 25 MG TAB PO SCH (08:57)
[2018-12-24] MEDS: Heparin VIAL(*) 5000 UNITS/ML VIAL (FIVE THOUSAND) SUBCUT SCH ×2 (08:57→20:44)
[2018-12-24] MEDS: Metoprolol Tartrate TAB* 25 MG PO SCH ×2 (08:57→20:43)
[2018-12-24] MEDS: Insulin GLARGINE(*) 1 UNITS UNIT SUBCUT SCH ×2 (08:57→20:45)
[2018-12-24] MEDS ORDERED: Furosemide IV* 10 MG/ML VIAL (40 MG) IV SCH (09:00)
[2018-12-24] MEDS: Acetaminophen TAB* 325 MG PO PRN (13:28)
--- NOTE | 2018-12-24 14:02 | PN ---
Progress Note - Progress Note Date of Service: 12/24/18 Note: Patient resting comfortably in chair. He denies pain. He is SOB at baseline. Dressing is C/D/I. Dressing taken down- posterior wound is well defined with scant serosanquinous drainage, no odor. Anterior wound is firm with eschar without drainage. Betadine dressing with cling and KARSON applied. Ortho will follow.
--- NOTE | 2018-12-24 15:45 | PN ---
Progress Note - Progress Note Date of Service: 12/24/18 Note: Called x2 left message.
--- NOTE | 2018-12-24 16:49 | PN ---
Subjective Date of Service: 12/24/18 Interval History: Patient seen and examined. Unreliable ROS 2/2 dementia. Overall appears comfortable. Does spend a good amount of time yelling mixed with quiet periods. Chart reviewed. Objective Active Medications: Acetaminophen (Tylenol Tab*) 650 mg PO Q4H PRN PRN Reason: MILD PAIN or TEMP > 100.4 Last Admin: 12/24/18 13:28 Dose: 650 mg Ascorbic Acid (Vitamin C Tab*) 500 mg PO DAILY [facility] Last Admin: 12/24/18 08:56 Dose: 500 mg Aspirin (Aspirin Ec Tab*) 81 mg PO DAILY [facility] Last Admin: 12/24/18 08:56 Dose: 81 mg Atorvastatin Calcium (Lipitor*) 10 mg PO BEDTIME [facility] Last Admin: 12/23/18 19:54 Dose: 10 mg Baclofen (Lioresal Tab*) 10 mg PO TID [facility] Last Admin: 12/24/18 13:28 Dose: 10 mg Cephalexin HCl (Keflex Cap*) 500 mg PO TID [facility] Last Admin: 12/24/18 13:28 Dose: 500 mg Clopidogrel Bisulfate (Plavix Tab*) 75 mg PO DAILY [facility] Last Admin: 12/24/18 08:56 Dose: 75 mg Collagenase (Santyl 250 Units/Gm Oint*) 1 applic TOPICAL DAILY [facility] Last Admin: 12/24/18 08:56 Dose: 1 applic Dextrose (Dextrose 50% Vial 50 Ml*) 25 ml IV PUSH .FOR FS < 60 - SS PRN PRN Reason: FS < 60 Heparin Sodium (Porcine) (Heparin Vial(*)) 5,000 units SUBCUT Q12HR [facility] Last Admin: 12/24/18 08:57 Dose: 5,000 units Insulin Glargine (Lantus(*)) 15 units SUBCUT 2100 [facility] Last Admin: 12/23/18 21:47 Dose: 15 units Insulin Glargine (Lantus(*)) 20 units SUBCUT QAM [facility] Last Admin: 12/24/18 08:57 Dose: 20 unit Insulin Human Lispro (Humalog*) 0 units SUBCUT ACHS [facility]; Protocol Last Admin: 12/24/18 11:59 Dose: 2 unit Melatonin (Melatonin) 3 mg PO BEDTIME [facility] Last Admin: 12/23/18 19:55 Dose: 3 mg Metoprolol Tartrate (Lopressor Tab*) 12.5 mg PO Q12HR [facility] Last Admin: 12/24/18 08:57 Dose: 12.5 mg Ondansetron HCl (Zofran Inj*) 4 mg IV Q6H PRN PRN Reason: NAUSEA/VOMITING Quetiapine Fumarate (Seroquel Tab*) 25 mg PO BID PRN PRN Reason: AGITATION Last Admin: 12/23/18 20:10 Dose: 25 mg Senna (Senokot 8.6 Mg Tab*) 1 tab PO BEDTIME PRN PRN Reason: CONSTIPATION Sertraline HCl (Zoloft*) 25 mg PO DAILY [facility] Last Admin: 12/24/18 08:57 Dose: 25 mg Vital Signs - 8 hr 12/24/18 12/24/18 11:15 15:15 Temperature 97.7 F 98.7 F Pulse Rate 68 70 Respiratory 20 14 Rate Blood Pressure 105/56 111/62 (mmHg) O2 Sat by Pulse 95 93 Oximetry Oxygen Devices in Use Now: Nasal Cannula Appearance: alert, NAD Eyes: PERRLA Ears/Nose/Mouth/Throat: Mucous Membranes Moist Neck: NL Appearance and Movements; NL JVP Respiratory: Symmetrical Chest Expansion and Respiratory Effort, Clear to Auscultation Cardiovascular: NL Sounds; No Murmurs; No JVD, RRR Neurological: - - confused, alert to name/self Nutrition: Taking PO's Result Diagrams: 12/23/18 06:06 12/24/18 04:21 Microbiology and Other Data: Microbiology 12/22/18 12:38 Nasal Screen MRSA (PCR) - Final Nasal Mrsa Not Detected Assess/Plan/Problems-Billing Assessment: 83M PM parkinsons dementia, s/p CVA, CAD recent NSTEMI and new onset PAF, HFrEF (EF 30-35% in 11/2018), IDDM, chronic DM wounds admitted in Nov 2018 for necrotic ankle wounds (L) and s/p BKA (R) who was d/c to [facility] at who presented 12/22 with acute onset CP, hypoxic resp failure likely from CHF exacerbation. - Patient Problems (1) Acute on chronic systolic CHF (congestive heart failure) Code(s): I50.23 - ACUTE ON CHRONIC SYSTOLIC (CONGESTIVE) HEART FAILURE SNOMED Code(s): 595528430 Comment: - EF 30-35% Nov 2018, likely 2/2 to ischemic cardiomyopathy, recently O2 dependent since last hospitlizatoin - IV Lasix 40mg IV x 2 on 12/22, 12/23, incontinent of urine making strict I/O difficult - Weight on admission 217lbs - Continue BB and gentle diuresis and monitor daily weights, no respiratory distress noted today (2) Non healing left heel wound Code(s): S91.302A - UNSPECIFIED OPEN WOUND, LEFT FOOT, INITIAL ENCOUNTER SNOMED Code(s): 341451172 Comment: - MRI without osteo in Nov - continue keflex 500mg TID, will get an additional 2 weeks, end date around the - Dr. Frederick 12/06/18 offered BKA and patient declined - Continue daily dressing changes - Ortho following and managing dressings (3) Dementia with behavioral disturbance Code(s): F03.91 - UNSPECIFIED DEMENTIA WITH BEHAVIORAL DISTURBANCE SNOMED Code (s): 3376183025598 Comment: - Decline in the last 2 months with more behavioral disturbances, likely superimposed delerium from hospital stays (in Nov and now) and placement for [facility] - Offer PRN Seroqeul 25mg up to BID - Continue sertraline (4) Afib Code(s): I48.91 - UNSPECIFIED ATRIAL FIBRILLATION SNOMED Code(s): 48871353 Comment: - EKG on admission more c/w Mobitz II block vs fib, apparently last hospitlization documented fib - Continue metoprolol low dose, currently rate controlled - [id number] score of 8. Would benefit from intermediate AC. However, while patient was on therapeutic lovenox he had extensive bleeding from the heel at the debridement site. - Concern that the risk for bleeding outweighs the benefit of stroke prevention. Patient's , his healthcare proxy, is agreeable to no AC at this time given bleed risk (5) CAD (coronary artery disease) Code(s): I25.10 - ATHSCL HEART DISEASE OF [place] CORONARY ARTERY W/O ANG PCTRS SNOMED Code(s): 70949807 Comment: - Hx of STEMI and ACS this year - Continue metoprolol, DAPT, statin - Asymptomatic (6) Parkinson disease Code(s): G20 - PARKINSON'S DISEASE SNOMED Code(s): 33165945 Comment: - On baclofen, no sinemet - Supportive care (7) Type 2 diabetes mellitus Comment: - Continue lispro SSI coverage, lantus 20 units AM, lantus 15 units PM - A1c 8.4 (8) DVT prophylaxis Code(s): SMG7218 - SNOMED Code(s): 617827128 Comment: - Low dose HSQ (had bleeding on therapeutic lovenox and heparin in the past) (9) DNR (do not resuscitate) Comment: - MOL[facility] updated with Dr. Quintana 12/23/18 - Palliative reconsulted Status and Disposition: Reconsult pall care, back to [facility] likely tomorrow.
[2018-12-24] MEDS ORDERED: Furosemide IV* 10 MG/ML VIAL (40 MG) IV ONE (16:56)
[2018-12-24] MEDS: Atorvastatin* 10 MG TAB PO SCH (20:43)
[2018-12-24] MEDS: Melatonin 3 MG TAB PO SCH (20:43)
[2018-12-25] MEDS: Acetaminophen TAB* 325 MG PO PRN ×2 (00:46→08:26)
[2018-12-25] MEDS: QUEtiapine TAB* 25 MG PO PRN (02:20)
[2018-12-25] MEDS: Insulin LISPRO* 1 UNITS UNIT SUBCUT SCH (07:24)
[2018-12-25] MEDS: Clopidogrel TAB* 75 MG PO SCH (08:26)
[2018-12-25] MEDS: Cephalexin CAP* 500 MG PO SCH (08:26)
[2018-12-25] MEDS: Aspirin EC TAB* 81 MG TAB.EC PO SCH (08:26)
[2018-12-25] MEDS: Insulin GLARGINE(*) 1 UNITS UNIT SUBCUT SCH (08:26)
[2018-12-25] MEDS: Ascorbic Acid TAB* 500 MG PO SCH (08:26)
[2018-12-25] MEDS: Heparin VIAL(*) 5000 UNITS/ML VIAL (FIVE THOUSAND) SUBCUT SCH (08:26)
[2018-12-25] MEDS: Baclofen TAB* 10 MG PO SCH (08:26)
[2018-12-25] MEDS: Sertraline* 25 MG TAB PO SCH (08:26)
[2018-12-25 08:46] VITALS: BP 112/48
[2018-12-25] MEDS: Collagenase 250 UNITS/GM OINT* 1 APPLIC OINT TOPICAL SCH (09:00)
[2018-12-25] MEDS: Metoprolol Tartrate TAB* 25 MG PO SCH (09:00)
--- NOTE | 2018-12-25 10:56 | DS ---
CC: Dr. Jonny Gunn; Dr. Ana Medina, Palliative Care; Dr. Aster Kay, [facility] * DATE OF ADMISSION: 12/22/2018. DATE OF DISCHARGE: 12/25/2018. PRIMARY CARE PHYSICIAN: Dr. Jonny Gunn. ATTENDING PHYSICIAN: Dr. Marcos Griffin * (dictated by Brandyn Fields, CHRIS). HOSPITAL COURSE: Please refer to admitting history and physical on 12/22/2018. In short, Mr. Cedillo is an 83-year-old male patient with a complicated medical history including necrotic posterior ankle wounds, NSTEMI, atrial fibrillation, chronic heart failure, hypoxic respiratory failure, type 2 diabetes mellitus, hypertension, and peripheral vascular disease who presented to the emergency department after being discharged to [facility] after his last hospitalization, but returned with complaints of chest pain. It should be noted that the patient is a poor historian secondary to his dementia; however, he had some complaints of chest pain and given his recent history of a non-ST- segment FL and systolic heart failure, along with atrial fibrillation, he was sent to the ER by the [facility] for work-up. There was concern that he was having an acute coronary syndrome. In the ED, the patient was noted to have an elevated BNP of 1005 which is above his baseline, so it is apparent he had acute on chronic systolic congestive heart failure exacerbation. He was also having an increased oxygen requirement. He had been placed on 15 liters non- rebreather prior to his arrival in the ED and appeared to be having a flash pulmonary edema. He was also somewhat bradycardic with a rate in the 50s. During the patient's admission, he was given IV Lasix and diuresed on the , , and 18th with 40 mg of IV Lasix. His Metoprolol was titrated down, however, because of lower blood pressures and lower heart rates. It was thought that some of his bradycardia may have been contributing to his acute on chronic heart failure. Metoprolol was decreased to 12.5 mg p.o. b.i.d. He was continued on his dual antiplatelet therapy and his statin. His ejection fraction is noted to be low. He does have ischemic cardiomyopathy with an EF of 30 to 35 percent. That was noted on his most recent hospitalization, so his echo was not repeated. In terms of the rest of his cardiac status, he is in a chronic A-fib. It was questionable whether he was having a Mobitz II versus A- fib; however, because of his chronic A-fib, there were also some issues with anticoagulation for this patient. He does have a CHADS-VASc score of 8 which would indicate he would benefit from anticoagulation; however, his course is complicated because of lower extremity wounds that have a tendency to bleed. Because of his chronic bleeding wounds that are not inoperable, however, Orthopedics did recommend amputation which the patient and his declined. The bleeding risk outweighs the stroke prophylaxis risks, so it was determined that the patient would not stay on systemic anticoagulation because of the bleeding risk. In terms of his nonhealing wounds of the left heel, he is followed by Orthopedics. Orthopedics was consulted during this admission as well. Again, it should be noted that back on December 06, Dr. Frederick did recommend a below the knee amputation which the patient and his declined. They have continued with dressing changes and Keflex three times a day. The Keflex should be continued until the of this month. The MRI back in November did not show any osteo; however, these are complex wounds that are likely not to heal very well. The patient does have dementia with behavioral disturbance secondary to his Parkinson's disease which does seem to wax and wane. Supportive care has been provided. We have placed him on Seroquel as needed. We have stopped his Donepezil as his dementia is now advanced. Donepezil would not be indicated at this time. We are continuing him on his Sertraline. There may be some acute delirium because of acute hospitalizations. The hope would be that acute delirium would resolve and that his behavior may continue to become more manageable when he is no longer hospitalized. In the terms of the patient's diabetes, he was placed on Lispro sliding scale coverage with Lantus for long-acting in the morning and in the evening. His A1c is 8.4. He seems to have good control at this time. He does have anemia of chronic disease. His hemoglobin is usually in the range of 8 to 9, that has been maintained. Overall, the patient's shortness of breath has resolved. His O2 requirement is back down to 4 liters nasal cannula. I do expect once the patient is back on his normal course of Lasix orally, oxygen can continue to be weaned to somewhere around 2 liters if tolerated. His oxygen goal would be greater than 92 percent. He is currently anywhere from 94 to 99 percent on 4 liters. I suspect that the patient would tolerate 2 to 3 liters very well after he is discharged. It should also be noted that Dr. Yris Quintana, who was following the patient early in his admission, did have a family meeting with the patient's healthcare proxy who is his on 12/23/2018. The results of that meeting were some changes in goals of care. The discussion with Aaliyah at that time was regarding CPR and in particular intubation. Up until this last admission, the patient was still full code and wishes were still that the patient would be intubated and mechanical ventilation. This has been changed and the MOLST has been updated, so at this time the patient is now DNR and DNI. The patient and his , she believes, would want antibiotics and regular treatment. Dr. Medina has also met with the patient and his numerous times regarding palliative care. At this time he really is a candidate for hospice being that he has declined surgery for his wound. His heart failure is very advanced and he has had rapid decline in his dementia over the last two months. This should be an ongoing discussion for hospice sign on at some point when he is discharged back to [facility]. We do highly recommend that [facility] be involved with this patient to provide additional support for this patient and his during this time, so we recommend [facility] and evaluate the patient further. This should be coordinated after the patient is discharged. On the morning of 12/25/2018, the patient is essentially back to his baseline. His review of systems is difficult to obtain secondary to his dementia, but he is comfortable. He is not complaining of shortness of breath or chest pains. He has had an uneventful evening. He does have periods where he is shouting, but he is otherwise comfortable. PHYSICAL EXAMINATION TODAY: Vital Signs: Blood pressure 112/48, heart rate 62 , respiratory rate 20, O2 saturation 97 percent on 4 liters nasal cannula with a temperature at 97.0. HEENT: The patient is atraumatic, normocephalic. PERRLA. Nonicteric sclerae. Oral mucosa is moist. Tongue is midline. Neck: Supple, nontender. No JVD noted and no carotid bruit auscultated. Cardiovascular: S1, S2 present. Rate is irregular. Lungs: Somewhat crackly at the bases and overall diminished, but he has good air entry, no wheezing or rhonchi noted. Abdomen: Soft, nontender, nondistended. No organomegaly noted. Musculoskeletal: He has a right BKA. Left foot dressing is clean, dry, and intact. Otherwise skin is dry and intact. Neurologic: He is alert to self only. At this time he is currently appropriate. LABORATORY DATA: WBC 9.0, RBC 3.02, hemoglobin 8.5, hematocrit 27, platelets 288; sodium 136, potassium 4.2, chloride 100, CO2 33, BUN 30, creatinine 0.79, glucose 107, calcium 8.1. IMAGING STUDIES: Chest x-ray at admission on 12/22/2018 showed findings most consistent with cardiogenic pulmonary edema and likely bibasilar pleural effusions. DISCHARGE DIAGNOSES: 1. Acute on chronic systolic heart failure. 2. Chronic atrial fibrillation. 3. 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 4. Coronary artery disease. 5. Ischemic cardiomyopathy. 6. History of Parkinson's disease with Parkinson's dementia. 7. Peripheral vascular disease. 8. Insulin dependent diabetes mellitus. 9. Anemia of chronic disease. 10. Hypertension. DISCHARGE MEDICATIONS: 1. Melatonin 3 mg at bedtime. 2. Santyl 250 units/gm daily. 3. Sertraline 25 mg p.o. daily. 4. Senna one tab p.o. at bedtime. 5. Metoprolol Tartrate 12.5 mg p.o. b.i.d. 6. Lantus 20 units in the morning, 15 units in the evening. 7. Lasix 40 mg p.o. daily. 8. Plavix 75 mg p.o. daily. 9. Keflex 500 mg p.o. b.i.d. until 12/29/2018. 10. Baclofen 10 mg p.o. t.i.d. 11. Atorvastatin 10 mg in the evening. 12. Aspirin 81 mg daily. 13. Vitamin C 500 mg p.o. daily. 14. Tylenol 650 mg q.4 hours as needed. 15. Seroquel 25 mg p.o. b.i.d. as needed for anxiety or agitation. DISPOSITION: The patient will be discharged by ambulance transport to [facility]. He is in stable condition. DIET: Heart-healthy, diabetic as tolerated. ACTIVITY: Progressive activity as tolerated. FOLLOW-UP: The patient should follow-up with his PCP, Dr. Gunn in the next one to two weeks. May also follow-up with Orthopedics, Dr. Frederick on an as needed basis for his wounds in the next one to two weeks. Should also follow -up with [facility] in the next one to three days to determine if the patient will be signing on to hospice. WOUND CARE: Wound care to left heel: Anterior wound should be dressed with Santyl and cling; posterior wound should be dressed with Betadine, nonadherent dressing and cling on a daily basis. CONDITION ON DISCHARGE: The patient was discharged in stable condition. Case Management has communicated with the patient's regarding discharge plan. TIME SPENT: Forty-five minutes on discharge planning. BRANDYN FIELDS NP [id number]/CPS #: [id number] WIL
== END 2018-12-25 10:50 | DRG 280 ==
LOC: ED 09:19 → MEDTELE 12:25 → OBSVTOIN 12-23 11:55
PROVIDERS: ADMIT Internal Medicine; ATTEND Internal Medicine
DX: I11.0 Hypertensive heart disease with heart failure (principal); I21.4 Non-ST elevation (NSTEMI) myocardial infarction; J96.21 Acute and chronic respiratory failure with hypoxia; F02.81 Dementia in other diseases classified elsewhere, unspecified severity, with behavioral disturbance; I48.19 Other persistent atrial fibrillation; L97.423 Non-pressure chronic ulcer of left heel and midfoot with necrosis of muscle; I50.23 Acute on chronic systolic (congestive) heart failure; D63.8 Anemia in other chronic diseases classified elsewhere; G20 Parkinson's disease; E11.42 Type 2 diabetes mellitus with diabetic polyneuropathy; E11.621 Type 2 diabetes mellitus with foot ulcer; I25.5 Ischemic cardiomyopathy; Z66 Do not resuscitate; I25.10 Atherosclerotic heart disease of native coronary artery without angina pectoris; Z89.511 Acquired absence of right leg below knee; Z79.4 Long term (current) use of insulin; Z86.73 Personal history of transient ischemic attack (TIA), and cerebral infarction without residual deficits; Z79.1 Long term (current) use of non-steroidal anti-inflammatories (NSAID); Z79.82 Long term (current) use of aspirin; Z79.899 Other long term (current) drug therapy; Z88.1 Allergy status to other antibiotic agents; Z99.81 Dependence on supplemental oxygen
CPT/HCPCS: 36415; 71045; 80048; 80053; 81003; 82803; 83605; 83880; 84484; 85025; 85384; 85610; 85652; 85730; 86140; 87040; 87086; 87641; 93005; 96361; 96374; 99284; A9270-GY; G0378; G8978-GP-CL; G8979-GP-CI; J1644; J1940; J2930

== ENCOUNTER 2019-01-14 18:34 | Inpatient (IN) | payer MEDICARE, OTHER ==
--- NOTE | 2019-01-14 19:14 | ED ---
Complex/Multi-Sys Presentation - HPI Summary HPI Summary: This pt is an 83 y/o male presenting to [facility] via EMS from [facility] for increased confusion and SOB. reports pt has hx of dementia, Parkinson's, DM. states pt has been more confused in the past 3 days and more SOB than at baseline. Per EMS, upon their arrival to scene pt was saturating at 83% on 3L of oxygen. notes pt has been acting different and pt "was out of it" last night. Pt states he feels "terrible." Per , pt has fallen out of bed twice, most recently a couple of weeks ago. states pt has had an ulcer on left foot for the past 3-5 months and the wound opened up approx 6 weeks ago. Per , patient does not want left foot amputated. Dr. Frederick has done debridement on left foot and has another appointment on 03/07/19 for a follow up. Pt has also seen Dr. Wheat. reports pt has not walked for 2-3 years, even though pt had prosthesis he never learned how to use them. His PCP is in [facility]. HPI IS LIMITED DUE TO LEVEL 5 CAVEAT - pt with confusion - History Of Current Complaint Chief Complaint: EDRespiratoryDistress Time Seen by Provider: 01/14/19 18:44 Hx Obtained From: Patient, Family/Creative Lead - , EMS Hx From Patient Unobtainable Due To: Altered Mental Status Onset/Duration: Lasting Days, Still Present Timing: Days Severity Initially: Moderate Aggravating Factor(s): nothing Alleviating Factor(s): nothing Associated Signs And Symptoms: Positive: Confusion, SOB, Chest Pain. Negative: Fever - Allergies/Home Medications Allergies/Adverse Reactions: Allergies Allergy/AdvReac Type Severity Reaction Status Date / Time vancomycin Allergy Rash Verified 12/22/18 10:03 PMH/Surg Hx/FS Hx/Imm Hx Endocrine/Hematology History: Reports: Hx Diabetes Denies: Hx Thyroid Disease Cardiovascular History: Reports: Hx Angina, Hx Angioplasty - several, Hx Congestive Heart Failure, Hx Coronary Artery Disease, Hx Hypertension, Hx Peripheral Vascular Disease, Hx Rheumatic Fever, Hx Valvular Heart Disease - Valve replacement, Other Cardiovascular Problems/Disorders - PAD Denies: Hx Aneurysm, Hx Pacemaker/ICD Respiratory History: Denies: Hx Chronic Obstructive Pulmonary Disease (COPD) History: Reports: Other Problems/Disorders - baseline incontinence Denies: Hx Dialysis Musculoskeletal History: Reports: Hx Arthritis - KNEES, Other Musculoskeletal History - osteomyelitis Sensory History: Reports: Hx Contacts or Glasses Denies: Hx Hearing Aid Opthamlomology History: Reports: Hx Contacts or Glasses Neurological History: Reports: Hx Dementia, Hx Nerve Disease - peripheral neuropathy, Hx Transient Ischemic Attacks (TIA), Other Neuro Impairments/ Disorders - Parkinsons/dementia Denies: Hx Seizures Psychiatric History: Reports: Hx Substance Abuse - hx of alcoholism, not recent Denies: Hx Depression, Hx Panic Disorder - Cancer History Cancer Type, Location and Year: prostate - Surgical History Surgery Procedure, Year, and Place: 2-heart bypass, prostate, aortic valve replacement 2006, appy, left leg stent [id number] mm x 100 mm Terumo Misago self-expanding stent in the proximal to mid left superficial femoral artery ( CONDITIONAL 5- MUST BE SCANNED IN NORMAL MODE, MRI SAFETY INFO SCANNED INTO PT' S CHART), BELOW THE RT KNEE AMPUTATION, Hx Anesthesia Reactions: No Infectious Disease History: No Infectious Disease History: Reports: Hx of Known/Suspected MRSA Denies: Traveled Outside the [place] in Last 30 Days - Family History Known Family History: Positive: Cardiac Disease, Diabetes - Social History Alcohol Use: None Alcohol Amount: 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 (-) Distressed Skin: Warm, Dry HENT: Normocephalic; Atraumatic Eyes: Conjunctiva normal Neck: Musculoskeletal ROM normal neck. (-) JVD, (-) Stridor, (-) Tracheal deviation Cardio: Rhythm regular, rate normal, Heart sounds normal; Intact distal pulses; The pedal pulses are 2+ and symmetric. Radial pulses are 2+ and symmetric. (-) Murmur Pulmonary/Chest wall: Effort normal. (-) Respiratory distress. Crackles. Abd: Soft, (-) tenderness, (-) Distension, (-) Guarding, (-) Rebound Musculoskeletal: Left arm with mild edema just distal to the elbow but moving it normal. Right stump is edematous. The left remnant has open wound with tendons exposed in the dorsal aspect down to the heel. Lymph: (-) Cervical adenopathy Neuro: Alert, Oriented x3 Psych: Mood and affect Normal Triage Information Reviewed: Yes Vital Signs On Initial Exam: Initial Vitals Temp Pulse Resp BP Pulse Ox 98.2 F 87 24 129/69 98 01/14/19 18:41 01/14/19 18:41 01/14/19 18:41 01/14/19 18:41 01/14/19 18:41 Vital Signs Reviewed: Yes Completion Of Physical Exam Limited Due To: Level 5 - pt with confusion Procedures - Sedation Patient Received Moderate/Deep Sedation with Procedure: No Diagnostics - Vital Signs Vital Signs Temp Pulse Resp BP Pulse Ox 01/14/19 18:42 83 24 129/69 99 01/14/19 18:41 98.2 F 89 35 129/69 100 - Laboratory Result Diagrams: 01/14/19 19:11 01/14/19 19:11 Lab Statement: Any lab studies that have been ordered have been reviewed, and results considered in the medical decision making process. - Radiology chest xr Radiology Interpretation Completed By: Radiologist Summary of Radiographic Findings: pending official radiology report. - EKG 19:26 Cardiac Rate: NL - at 90 bpm EKG Rhythm: Atrial Fibrillation Summary of EKG Findings: EKG at 1926 shows atrial fibrillation at a rate of 90 bpm. Septoantero Q waves. New T wave inversions in leads V5 and V6. No STEMI. Complex Multi-Symp Course/Dx Assessment/Plan: Pt is an 83 y/o male presenting to [facility] via EMS from [facility] for increased confusion and SOB. reports pt has hx of dementia, Parkinson's, DM. states pt has been more confused in the past 3 days and more SOB than at baseline. Per EMS, upon their arrival to scene pt was saturating at 83% on 3L of oxygen. notes pt has been acting different and pt "was out of it" last night. Pt states he feels "terrible.". Lab results remarkable for WBC of 15.1, hemoglobin of 8, hematocrit of 26, potassium of 5.3 , chloride of 100, glucose of 146, BNP of 1006, total protein of 6, albumin of 3.1. In the ED course the pt was given Lasix, Ciprofloxacin, and Cefepime. Discussed the case with Dr. Flores, hospitalist, who accepted the pt for admission. - Diagnoses Provider Diagnoses: Foot ulcer, Healthcare-associated pneumonia, CHF exacerbation - Physician Notifications Discussed Care Of Patient With: Isabel Flores - hospitalist Time Discussed With Above Provider: 21:01 Instructed by Provider To: Admit As Inpatient Discharge ED - Sign-Out/Discharge Documenting (check all that apply): Patient Departure - Admit to [facility] [place] - Discharge Plan Condition: Stable Disposition: ADMITTED TO [facility] Referrals: Aster Kay, [Primary Care Provider] - - Attestation Statements Document Initiated by Scribe: Yes Documenting Scribe: Sadia Whelan Provider For Whom Scribe is Documenting (Include Credential): Charanjit Thomas MD Scribe Attestation: Sadia Sears, scribed for Charanjit Thomas MD on 01/14/19 at 222. Status of Scribe Document: Ready
[2019-01-14 19:25] LABS: ABS Basophils 0.1 10^3/ul (0-0.2); ABS Eosinophils 0.3 10^3/ul (0-0.6); ABS Lymphocytes 0.9 10^3/ul (1.0-4.8); ABS Monocytes 1.5 10^3/ul (0-0.8); ABS Neutrophils 12.3 10^3/ul (1.5-7.7); Eosinophil % 1.9 %; Hematocrit 26 % (42-52); Lymphocyte % 6.1 %; Mean Corpuscular HGB Conc 31 g/dL (31-36); Mean Corpuscular Hemoglobin 25 pg (27-31); Mean Corpuscular Volume 83 fL (80-94); Mean Platelet Volume 6.9 fL (7.4-10.4); Platelet Count 379 10^3/uL (150-450); Red Blood Count 3.16 10^6 /uL (4.18-5.48); Red Cell Distribution Width 17 % (10-15); White Blood Count 15.1 10^3/uL (3.5-10.8)
[2019-01-14 19:38] LABS: Albumin 3.1 g/dL (3.2-5.2); Albumin/Globulin Ratio 1.1 (1-3); BUN/Creatinine Ratio 30.1 (8-20); Calcium 8.4 mg/dL (8.6-10.3); EGFR African American 124.8 (>60); EGFR Non-African American 103.1 (>60); Globulin 2.9 g/dL (2-4); Total Bilirubin 0.3 mg/dL (0.2-1.0)
[2019-01-14 19:40] LABS: Troponin I 0.01 ng/mL (<0.03)
[2019-01-14] MEDS ORDERED: Ciprofloxacin 400MG IVPREMIX(* 400 MG/200 ML BAG IVPB ONE (19:43)
--- OUTSIDE RECORDS SUMMARY | 2019-01-14 19:43 | XMS REPORT | Continuity of Care Document ---
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 Onset: 06/20/2013 Pressure ulcer of left heel, stage 1 Maxwell Sheth M.D. Onset: 08/25/2015 Localized superficial swelling of skin Maxwell Sheth M.D. Onset: 12/08/2015 Type 2 diabetes mellitus with ulcer Delroy Frederick MD Onset: 11/29/2018 Cellulitis of left lower limb Delroy Frederick MD Onset: 12/04/2018 Social History Type Date Description Comments Sex Unknown Smokeless Tobacco Never Used Smokeless Tobacco ETOH Use Denies alcohol use Tobacco Use Start: Unknown Patient has never smoked Smoking Status Reviewed: 12/28/18 Patient has never smoked Exercise Type/Frequency Does not exercise Allergies, Adverse Reactions, Alerts Active Allergies Reaction Severity Comments Date NKDA 11/09/2011 "Anesthesia" Rash Severe 04/20/2015 Medications Active Medications SIG Qnty Indications Ordering Provider Date Wheelchair for daily use 1units Juliette Markham NP 11/21/2014 Misc Metoprolol Succinate 1 by mouth every 90tabs Russ Avendaño, 12/14/2012 ER day M.DDaisy 50mg Tablets ER 24HR Aspirin 81 by [...] by mouth every Unknown 10mg Tablets day Metformin HCL ER 1 by [...] CPT Code Status Date Vaccine Lot # [id number] Given 12/22/2014 Influenza Virus Vaccine, Quadrivalent, Split, Preservative Free Vital Signs Date Vital Result Comment 12/28/2018 11:02am Height 69 inches 5'9" Weight 212.00 lb BP Systolic 120 mmHg BP Diastolic 60 mmHg Body Temperature 97.1 F BMI (Body Mass Index) 31.3 kg/m2 10/17/2018 2:21pm Height 72 inches 6'0" Weight 182.00 lb Heart Rate 78 /min BP Systolic Sitting 130 mmHg BP Diastolic Sitting 72 mmHg Respiratory Rate 18 /min BMI (Body Mass Index) 24.7 kg/m2 Results Test Acquired Date Facility Test Result H/L Range Note CBC Auto 10/17/2018 [facility] White Blood 8.5 10^3/uL Normal 3.5-10.[address] Count [place], [place] [id number] [phone] Red Blood Count 4.25 10^6/uL Normal 4.18-5.48 Hemoglobin 12.4 g/dL Low 14.0-18.0 Hematocrit 37 % Low 42-52 Mean Corpuscular Volume 86 fL Normal 80-94 Mean Corpuscular Hemoglobin 29 pg Normal 27-31 Mean Corpuscular HGB Conc 34 g/dL Normal 31-36 Red Cell Distribution Width 14 % Normal 10-15 Platelet Count 260 10^3/uL Normal 150-450 Mean Platelet Volume 7.6 fL Normal 7.4-10.4 Abs Neutrophils 5.3 10^3/uL Normal 1.5-7.7 Abs Lymphocytes 1.9 10^3/uL Normal 1.0-4.8 Abs Monocytes 0.8 10^3/uL Normal 0-0.8 Abs Eosinophils 0.4 10^3/uL Normal 0-0.6 Abs Basophils 0.1 10^3/uL Normal 0-0.2 Abs Nucleated RBC 0.0 10^3/uL Granulocyte % 62.6 % Lymphocyte % 22.7 % Monocyte % 8.9 % Eosinophil % 4.9 % Basophil % 0.9 % Nucleated Red Blood Cells % 0.0 Comp Metabolic 10/17/2018 [facility] Sodium 138 mmol/L Normal 135-[address] [place] [address] [phone] Potassium 5.0 mmol/L Normal 3.5-5.0 Chloride 101 mmol/L Normal 101-111 Co2 Carbon Dioxide 30 mmol/L Normal 22-32 Anion Gap 7 mmol/L Normal 2-11 Glucose 144 mg/dL High 70-100 Blood Urea Nitrogen 22 mg/dL Normal 6-24 Creatinine 0.95 mg/dL Normal 0.67-1.17 BUN/Creatinine Ratio 23.2 High 8-20 Calcium 9.0 mg/dL Normal 8.6-10.3 Total Protein 6.4 g/dL Normal 6.4-8.9 Albumin 4.0 g/dL Normal 3.2-5.2 Globulin 2.4 g/dL Normal 2-4 Albumin/Globulin Ratio 1.7 Normal 1-3 Total Bilirubin 0.40 mg/dL Normal 0.2-1.0 Alkaline Phosphatase 91 U/L Normal 34-104 Alt 10 U/L Normal 7-52 Ast 10 U/L Low 13-39 Egfr Non- 76.1 >60 Egfr 92.1 >60 1 Vitamin B12 10/17/2018 [facility] Vitamin B12 721 pg/mL Normal 180-914 [address] [place] [address] [phone] Folate > 20.00 ng/mL >3.99 Laboratory test 10/17/2018 [facility] Methylmalonic Acid 0.23 <=0.40 [address] Mma nmol/[place] [address] [phone] Hemoglobin A1c 7.7 % High 4.0-5.6 4 1 Because ethnic data is not always readily available, this report includes an eGFR for both -Americans and non- Americans. The National Kidney Disease Education Program (NKDEP) does not endorse the use of the MDRD equation for patients that are not between the ages of 18 and 70, are , have extremes of body size, muscle mass, or nutritional status, or are non- or non-. According to the National Kidney Foundation, irrespective of diagnosis, the stage of the disease is based on the level of kidney function: Stage Description GFR(mL/min/1.73 m(2)) 1 Kidney damage with normal or decreased GFR 90 2 Kidney damage with mild decrease in GFR 60-89 3 Moderate decrease in GFR 30-59 4 Severe decrease in GFR 15-29 5 Kidney failure <15 (or dialysis) 2 Normal Range 180 to 914 Indeterminate Range 145 to 180 Deficient Range <145 3 ADDITIONAL INFORMATION This test was developed and its performance characteristics determined by [facility] in a manner consistent with CLIA requirements. This test has not been cleared or approved by the U.S. Food and Drug Administration. Test Performed by: [facility] - [address] [address] Balloon Dipper: Jimmy Worrell M.D. Ph.D.; CLIA# [id number] 4 Therapeutic target for the treatment of diabetes mellitus patients is <7% HBA1C, and in selective patients <6.0%. Please refer to [place] [employer] diabetic care guidelines for further information. Procedures Date Code Description Status 12/06/2018 08252 Negative Pressure Wound Therapy Less Than 50 Square CM Completed 12/06/2018 67475 Negative Pressure Wound Therapy Less Than 50 Square CM Completed 12/06/2018 53037 Partial Excision Bone Talus/Calcaneus Completed 12/06/2018 53365 Partial Excision Bone Talus/Calcaneus Completed 12/06/2018 21984 Debridement,Bone,Epidermis/Dermis/Tissue/Muscle, Addtl 20 Completed SQ CM 12/06/2018 75937 Debridement,Bone,Epidermis/Dermis/Tissue/Muscle, Addtl 20 Completed SQ CM 12/06/2018 38849 Debridement Tissue/Muscle/Bone Completed 12/06/2018 29314 Debridement Tissue/Muscle/Bone Completed 12/03/2018 64943 ECHO Transthorasic Realtime 2D W Doppler & Color Flow Hosp Completed 12/03/2018 49658 ECHO Transthorasic Realtime 2D W Doppler & Color Flow Hosp Completed Medical Devices Description No Information Available Encounters Type Date Location Provider Dx Diagnosis Office Visit 12/17/2018 [facility] Sierra Holland, I21.4 Non-St elevation 10:17a sumaya Morales PA-C ([facility]) Hospitalists myocardial infarction I48.19 Other persistent atrial fibrillation B95.61 Methicillin suscep staph infct causing dis classd elswhr F03.90 Unspecified dementia without behavioral disturbance G20 Parkinson's disease I10 Essential (primary) hypertension I73.9 Peripheral vascular disease, unspecified E11.51 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) Z89.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 Z79.4 intermediate (current) use of insulin Z79.84 intermediate (current) use of oral hypoglycemic drugs Office Visit 12/16/2018 [facility] Sierra F03.90 Unspecified 10:16a sumaya Morales PA-C dementia without Hospitalists behavioral disturbance G20 Parkinson's disease I10 Essential (primary) hypertension Office Visit 12/15/2018 [facility] Sierra F03.90 Unspecified 10:14a sumaya Morales PA-C dementia without Hospitalists behavioral disturbance G20 Parkinson's disease I10 Essential (primary) hypertension Office Visit 12/14/2018 10:26a [place] Jeyson Melara E11.621 Type 2 Infectious Jen Cheung diabetes Diseases mellitus with foot ulcer 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 L03.116 Cellulitis of left lower limb Office Visit 12/14/2018 [facility] F03.90 Unspecified 10:10a Assoc,sumaya Holland PA-C dementia without Hospitalists behavioral disturbance G20 Parkinson's disease I10 Essential (primary) hypertension Office Visit 12/13/2018 [facility] F03.90 Unspecified 10:09a Asssumaya charles PA-C dementia without Hospitalists behavioral disturbance G20 Parkinson's disease I10 Essential (primary) hypertension Z79.4 intermediate (current) use of insulin Office Visit 12/12/2018 [facility] F03.90 Unspecified 10:09a sumaya Morales PA dementia without Hospitalists behavioral disturbance G20 Parkinson's disease I10 Essential (primary) hypertension Z79.4 intermediate (current) use of insulin Office Visit 12/11/2018 10:25a [facility] Sloane Montejo E11.621 Type 2 For Infectious CHRIS Hooker diabetes Diseases mellitus with foot ulcer 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 L03.116 Cellulitis of left lower limb L02.612 Cutaneous abscess of left foot Office Visit 12/11/2018 [facility] F03.90 Unspecified 10:09a Asssumaya charles PA dementia without Hospitalists behavioral disturbance G20 Parkinson's disease I10 Essential (primary) hypertension Office Visit 12/10/2018 10:24a [facility] Milo Melara L97.429 Non- prs Infectious Jen Cheung chronic ulcer Diseases of left heel and midfoot w unsp severt L03.116 Cellulitis of left lower limb L02.612 Cutaneous abscess of left foot Office Visit 12/10/2018 10:08a [facility] Ana L97.829 Non- pressure Services Of Martin Medina MD chronic ulcer oth prt l low leg w unsp severity B95.61 Methicillin suscep staph infct causing dis classd elswhr I21.29 Stemi involving oth sites Office Visit 12/10/2018 [facility] F03.90 Unspecified 10:08a Assoc,pc Timur, PA dementia without Hospitalists behavioral disturbance G20 Parkinson's disease I10 Essential (primary) hypertension Office Visit 12/09/2018 [facility] F03.90 Unspecified 10:08a Assoc,pc Ding, PA dementia without Hospitalists behavioral disturbance G20 Parkinson's disease I10 Essential (primary) hypertension [facility] F03.90 Unspecified 10:07a Assoc,pc O'libra, PA-C dementia without Hospitalists behavioral disturbance L25.9 Unspecified contact dermatitis, unspecified cause G20 Parkinson's disease I10 Essential (primary) hypertension Office Visit 12/07/2018 [facility] F03.90 Unspecified 10:06a Assoc,pc O'libra, PA-C dementia without Hospitalists behavioral disturbance G20 Parkinson's disease I10 Essential (primary) hypertension Office Visit 12/06/2018 [facility] F03.90 Unspecified 10:05a Assoc,pc O'libra, PA-C dementia without Hospitalists behavioral disturbance G20 Parkinson's disease I10 Essential (primary) hypertension Office Visit 12/05/2018 [facility] F03.90 Unspecified 10:05a Assoc,pc O'libra, PA-C dementia without Hospitalists behavioral disturbance G20 Parkinson's disease I10 Essential (primary) hypertension Office Visit 12/05/2018 12:54p [facility] E11.621 Type 2 For Infectious Hooker, [employer] diabetes Diseases mellitus with foot ulcer 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 L03.116 Cellulitis of left lower limb E11.51 Type 2 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 Office Visit 12/04/2018 11:32a [facility] Laura Fowler, R79.89 Other specified Of [employer] abnormal findings of blood chemistry I25.5 Ischemic cardiomyopathy Z95.2 Presence of prosthetic heart valve I48.91 Unspecified atrial fibrillation Office Visit 12/04/2018 [facility] F03.90 Unspecified 10:05a Assoc,pc O'libra, PA-C dementia without Hospitalists behavioral disturbance G20 Parkinson's disease I10 Essential (primary) hypertension Office Visit 12/04/2018 8:50a [facility] Mary Ellen Nunez L97.429 Non-prs chronic at [place] RPA-C ulcer of left heel and midfoot w unsp severt Office Visit 12/03/2018 1:07p [facility] Laura Fowler, R79.89 Other specified Of [employer] abnormal findings of blood chemistry I25.2 Old myocardial infarction I25.10 Athscl heart disease of [place] coronary artery w/o ang pctrs I48.0 Paroxysmal atrial fibrillation Z95.2 Presence of prosthetic heart valve I25.5 Ischemic cardiomyopathy Office Visit 12/03/2018 [facility] Sierra F03.90 Unspecified 10:04a sumaya Morales PA-C dementia without Hospitalists behavioral disturbance I10 Essential (primary) hypertension G20 Parkinson's disease Office Visit 12/03/2018 8:48a [facility] Lashell Mata L97.429 Non-prs chronic at [place] PA ulcer of left heel and midfoot w unsp severt Office Visit 12/03/2018 12:52p [facility] Milo Melara E11.621 Type 2 diabetes Al Cheung M.D. mellitus with Diseases foot ulcer L97.429 Non-prs chronic ulcer of left heel and midfoot w [facility] severt L03.116 Cellulitis of left lower limb E11.51 Type 2 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 Office Visit 12/02/2018 10:03a [facility] Edith Theodore, F03.90 Unspecified Assoc,pc N.P. dementia without Hospitalists behavioral disturbance G20 Parkinson's disease I10 Essential (primary) hypertension Office Visit 12/01/2018 10:03a [facility] Edith Theodore, F03.90 Unspecified Assoc,pc N.P. dementia without Hospitalists behavioral disturbance I10 Essential (primary) hypertension G20 Parkinson's disease E11.9 Type 2 diabetes mellitus without complications Office Visit 11/30/2018 [facility] Shannon F03.90 Unspecified 10:02a Assoc,sumaya Fields, dementia without Hospitalists [employer] behavioral disturbance I10 Essential (primary) hypertension G20 Parkinson's disease E11.9 Type 2 diabetes mellitus without complications Office Visit 11/30/2018 12:51p [facility] Sloane Montejo E11.621 Type 2 For Infectious CHRIS Hooker diabetes Diseases mellitus with foot ulcer 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 L03.116 Cellulitis of left lower limb D72.829 Elevated white blood cell count, unspecified E11.51 Type 2 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 Office Visit 11/29/2018 [facility] Shannon F03.90 Unspecified 10:01a sumaya Morales, dementia without Hospitalists [employer] behavioral disturbance I10 Essential (primary) hypertension G20 Parkinson's disease E11.9 Type 2 diabetes mellitus without complications Office Visit 11/29/2018 8:27a [facility] Lucas, E11.621 Type 2 diabetes at [facility] mellitus with foot ulcer 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 part of left lower leg with unspecified severity 12/21/2018 E11.621 Type 2 diabetes mellitus with foot Tammy Lynn.Ravinder. ulcer 12/21/2018 I73.9 Peripheral vascular disease, Tammy Lynn.O. unspecified 12/21/2018 F01.50 Vascular dementia without behavioral Tammy Lynn.O. disturbance 12/21/2018 I48.0 Paroxysmal atrial fibrillation Tammy Lynn.Ravinder. 12/19/2018 F03.91 Unspecified dementia with behavioral Thi Davis, [employer] disturbance 12/17/2018 I21.4 Non-St elevation (Nstemi) myocardial Sierra Holland PA-C infarction 12/17/2018 I48.19 Other persistent atrial fibrillation Sierra Holland PA-C 12/17/2018 B95.61 Methicillin susceptible Sierra Holland PA-C Staphylococcus aureus infection as the cause of diseases classified elsewhere 12/17/2018 F03.90 Unspecified dementia without Sierra Ravinder'libra, PA-C behavioral disturbance 12/17/2018 G20 Parkinson's disease Sierra Holland, PA-C 12/17/2018 I10 Essential (primary) hypertension Sierra Holland, PA-C 12/17/2018 I73.9 Peripheral vascular disease, Sierra Holland, PA-C unspecified 12/17/2018 E11.51 Type 2 diabetes mellitus with Sierra Holland PA-C diabetic peripheral angiopathy without gangrene 12/17/2018 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) Sierra Holland, PA -C 12/17/2018 Z89.511 Acquired absence of right leg below Sierra Holland PA-C knee 12/17/2018 Z79.4 intermediate (current) use of insulin Sierra Holland, PA-C 12/17/2018 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 ulcer 12/14/2018 F03.90 Unspecified dementia without Sierra Ravinder'libra, PA-C behavioral disturbance 12/14/2018 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 Cuba Cheung M.D. heel and midfoot with unspecified severity 12/14/2018 G20 Parkinson's disease Sierra Holland, PA-C 12/14/2018 L03.116 Cellulitis of left lower limb Cuba Cheung M.D. 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 KAYLA CullenC 12/12/2018 F03.90 Unspecified dementia without MADY [place] behavioral disturbance 12/12/2018 Z48.89 Encounter for other specified MADY Cox surgical aftercare 12/12/2018 G20 Parkinson's disease MADY [place] 12/12/2018 I10 Essential (primary) hypertension MADY [place] 12/12/2018 Z79.4 intermediate (current) use of insulin MADY [place] 12/11/2018 E11.621 Type 2 diabetes mellitus with foot Sloane Hooker, [employer] ulcer 12/11/2018 F03.90 Unspecified dementia without MADY [place] behavioral disturbance 12/11/2018 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 Sloane Hooker, [employer] heel and midfoot with unspecified severity 12/11/2018 Z48.89 Encounter for other specified MADY Cox surgical aftercare 12/11/2018 L03.116 Cellulitis of left lower limb Sloane Hooker, FEEDER C[employer]ER TOBACCO 12/11/2018 G20 Parkinson's disease MADY [place] 12/11/2018 L02.612 Cutaneous abscess of left foot Sloane Hooker, FEED[employer] C[employer]BACCO 12/11/2018 I10 Essential (primary) hypertension MADY [place] 12/10/2018 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 Cuba Cheung M.D. heel and midfoot with unspecified severity 12/10/2018 Z47.89 Encounter for other orthopedic Chin Barnes MD aftercare 12/10/2018 L03.116 Cellulitis of left lower limb Cuba Cheung M.D. 12/10/2018 L97.829 Non-pressure chronic ulcer of other Ana Medina MD part of left lower leg with unspecified severity 12/10/2018 L02.612 Cutaneous abscess of left foot Cuba Cheung M.D. 12/10/2018 B95.61 Methicillin susceptible Ana Medina MD Staphylococcus aureus infection as the cause of diseases classified elsewhere 12/10/2018 F03.90 Unspecified dementia without MADY [place] behavioral disturbance 12/10/[address] elevation (Stemi) myocardial Ana Medina MD infarction involving other sites 12/10/2018 Z48.89 Encounter for other specified MADY Cox surgical aftercare 12/10/2018 G20 Parkinson's disease MADY [place] 12/10/2018 I10 Essential (primary) hypertension MADY [place] 12/09/2018 F03.90 Unspecified dementia without MADY [place] behavioral disturbance 12/09/2018 Z48.89 Encounter for other specified MADY Daugherty surgical aftercare 12/09/2018 G20 Parkinson's disease MADY [place] 12/09/2018 I10 Essential (primary) hypertension MADY [place] 12/08/2018 F03.90 Unspecified dementia without Sierra Amalia PA-C behavioral disturbance 12/08/2018 Z48.89 Encounter for other specified MADY Daugherty surgical aftercare 12/08/2018 L25.9 Unspecified contact dermatitis, Sierra O'libra, PA-C unspecified cause 12/08/2018 G20 Parkinson's disease Sierra Holland PA-C 12/08/2018 I10 Essential (primary) hypertension Sierra Amalia, PA-C 12/07/2018 F03.90 Unspecified dementia without Sierra Amalia, PA-C behavioral disturbance 12/07/2018 Z48.89 Encounter for other specified MADY Daugherty surgical aftercare 12/07/2018 G20 Parkinson's disease Sierra Holland PA-C 12/07/2018 I10 Essential (primary) hypertension Sierra Holland PA-C 12/06/2018 F03.90 Unspecified dementia without Sierra Ravinder'libra, PA-C behavioral disturbance 12/06/2018 E11.621 Type 2 diabetes mellitus with foot MADY Cox ulcer 12/06/2018 G20 Parkinson's disease Sierra Holland PAOmairaC 12/06/2018 E11.621 Type 2 diabetes mellitus with foot Delroy Frederick MD ulcer 12/06/2018 I10 Essential (primary) hypertension Sierra Holland PA-C 12/06/2018 L03.116 Cellulitis of left lower limb Delroy Frederick MD 12/06/2018 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, 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 12/06/2018 L03.116 Cellulitis of left lower limb MADY Cox 12/05/2018 F03.90 Unspecified dementia without Sierra O'libra, PA-C behavioral disturbance 12/05/2018 E11.621 Type 2 diabetes mellitus with foot Sloane Hooker, [employer] ulcer 12/05/2018 G20 Parkinson's disease Sierra Holland, PA-C 12/05/2018 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 [place]loane Hooker, FEED[employer] C[employer] heel and midfoot with unspecified severity 12/05/2018 I10 Essential (primary) hypertension Sierra O'libra, PA-C 12/05/2018 L03.116 Cellulitis of left lower limb Sloane Hooker, FEEDER C[employer]ER TOBACCO 12/05/2018 E11.51 Type 2 diabetes mellitus with Sloane Hooker, FEED[employer] C[employer] diabetic peripheral angiopathy without gangrene 12/04/2018 F03.90 Unspecified dementia without Sierra Ravinder'libra, PA-C behavioral disturbance 12/04/2018 R79.89 Other specified abnormal findings of Laura Fowler NP blood chemistry 12/04/2018 G20 Parkinson's disease Sierra Holland, PA-C 12/04/2018 I25.5 Ischemic cardiomyopathy Laura Fowler NP 12/04/2018 I10 Essential (primary) hypertension Sierra Holland, PA-C 12/04/2018 Z95.2 Presence of prosthetic heart valve Laura Fowler NP 12/04/2018 I48.91 Unspecified atrial fibrillation Laura Fowler NP 12/04/2018 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 Mary Ellen Hamshire, RPA-C heel and midfoot with unspecified severity 12/04/2018 E11.621 Type 2 diabetes mellitus with foot Delroy Frederick MD ulcer 12/04/2018 L03.116 Cellulitis of left lower limb Delroy Frederick MD 12/03/2018 F03.90 Unspecified dementia without Sierra O'libra, PA-C behavioral disturbance 12/03/2018 R79.89 Other specified abnormal findings of Laura Fowler NP blood chemistry 12/03/2018 I10 Essential (primary) hypertension Sierra Holland, PA-C 12/03/2018 I25.2 Old myocardial infarction Laura Fowler NP 12/03/2018 G20 Parkinson's disease Sierra Holland PA-C 12/03/2018 I25.10 Atherosclerotic heart disease of Laura TorresCHRIS [place] coronary artery without angina pectoris 12/03/2018 I48.0 Paroxysmal atrial fibrillation Laura Malcolm, CHRIS 12/03/2018 Z95.2 Presence of prosthetic heart valve Lauralilia Fowler, CHRIS 12/03/2018 I25.5 Ischemic cardiomyopathy Lauralilia Fowler NP 12/03/2018 I25.2 Old myocardial infarction Russ Avendaño M.D. 12/03/2018 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 MADY Cox heel and midfoot with unspecified severity 12/03/2018 E11.621 Type 2 diabetes mellitus with foot Cuba Cheung M.D. 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 heel and midfoot with unspecified severity 12/03/2018 L03.116 Cellulitis of left lower limb Cuba Cheung M.D. 12/03/2018 E11.51 Type 2 diabetes mellitus with Cuba Cheung M.D. diabetic peripheral angiopathy without gangrene 12/02/2018 F03.90 Unspecified dementia without Edith Theodore, N.P. behavioral disturbance 12/02/2018 G20 Parkinson's disease Edith Theodore, N.P. 12/02/2018 I10 Essential (primary) hypertension Edith Theodore, N.P. 12/01/2018 F03.90 Unspecified dementia without Edith Theodore, N.P. behavioral disturbance 12/01/2018 I10 Essential (primary) hypertension Edith Theodore, N.P. 12/01/2018 G20 Parkinson's disease Edith Theodore, N.P. 12/01/2018 E11.9 Type 2 diabetes mellitus without Edith Theodore, N.P. 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 with unspecified severity 11/30/2018 G20 Parkinson's disease Shannon Fields NP 11/30/2018 L03.116 Cellulitis of left lower limb Sloane Hooker, [employer] 11/30/2018 E11.9 Type 2 diabetes mellitus without Shannon Fields NP complications 11/30/2018 D72.829 Elevated white blood cell count, Sloane Hooker , [employer] unspecified 11/30/2018 E11.51 Type 2 diabetes mellitus with Sloane Gustabo Hooker NP diabetic peripheral angiopathy without gangrene 11/29/2018 F03.90 Unspecified dementia without Shannon Fields NP behavioral disturbance 11/29/2018 E11.621 Type 2 diabetes mellitus with foot Jean Carlos Rosano, PA-C ulcer 11/29/2018 I10 Essential (primary) hypertension Shannon Fields NP 11/29/2018 E11.621 Type 2 diabetes mellitus with foot Cuba Cheung M.D. 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 heel and midfoot with unspecified severity 11/29/2018 L03.116 Cellulitis of left lower limb Cuba Cheung M.D. 11/29/2018 D72.829 Elevated white blood cell count, Cuba Cheung M.D. unspecified 11/29/2018 E11.51 Type 2 diabetes mellitus with Cuba Cheung M.D. diabetic peripheral angiopathy without gangrene 11/28/2018 L97.829 Non-pressure chronic ulcer of other Fransico Moussallem, M.D. part of left lower leg with unspecified severity 11/28/2018 E11.621 Type 2 diabetes mellitus with foot Fransico Salazar M.D. ulcer 11/28/2018 E87.5 Hyperkalemia Fransico Salazar M.D. 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 Fabio Kurtz NP disturbance Plan of Treatment Future Appointment(s):02/04/2019 1:30 pm - Delroy Frederick MD at [facility] [id number]/28/2018 - Delroy Frederick MDE11.621 Type 2 diabetes mellitus with foot ulcerReferral:Wound Clinic, Clinic/CenterFollow up:Follow Up : 1 month Functional Status Description No Information Available Mental Status Description No Information Available Referrals Refer to Reason for Referral Status Appt Date Wound Clinic Left foot wounds Created [address] [place] [address] [phone] [facility] for Speech Therapy phone Closed [phone] fax [phone] Has difficulty swallowing; episodes of dysphagia. [address] [place] [address] [phone]
--- OUTSIDE RECORDS SUMMARY | 2019-01-14 19:43 | XMS REPORT | Continuity of Care Document ---
:1935 External Reference #:[id number] Author Name Jefferson Tiwari M.D. 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 Tooth Gear Generator Operator [phone] Medicine Problems Active Problems Provider Date Coronary [...] Ordering Provider Date Wheelchair for daily use 1unulisses Markham NP 11/21/2014 Misc Metoprolol Succinate 1 [...] CPT Code Status Date Vaccine Lot # [id number] Given 12/22/2014 Influenza Virus Vaccine, Quadrivalent, Split, [...] BMI (Body Mass Index) 23.1 kg/m2 Results Test Acquired Date Facility Test Result H/L Range Note CBC Auto 10/17/2018 [facility] White Blood 8.5 10^3/uL Normal 3.5-10.[address] [place] [address] [phone] Red Blood Count 4.25 10^6/uL Normal 4.18-5.48 [...] Blood Cells % 0.0 Comp Metabolic 10/17/2018 [facility] Sodium 138 mmol/L Normal 135-[address] [place] [address] [phone] Potassium 5.0 mmol/L Normal 3.5-5.0 Chloride 101 [...] Egfr 92.1 >60 1 Vitamin B12 10/17/2018 [facility] Vitamin B12 721 pg/mL Normal 180-914 [address] [place] [place] [address] [phone] Folate > 20.00 ng/mL >3.99 Laboratory test 10/17/2018 [facility] Methylmalonic Acid 0.23 <=0.40 [address] Mma nmol/mL [place], [place] [id number] [phone] Hemoglobin A1c 7.7 % High 4.0-5.6 4 [...] developed and its performance characteristics determined by [facility] in a manner consistent with CLIA requirements. This test has not been cleared or approved by the U.S. Food and Drug Administration. Test Performed by: [facility] [address] [address] Environmental Services Worker: Jimmy Worrell M.D. Ph.D.; CLIA# [id number] 4 Therapeutic target for the treatment of diabetes mellitus patients is <7% HBA1C, and in selective patients <6.0%. Please refer to [place] [employer] diabetic care guidelines for further information. Procedures Date Code Description Status 12/06/2018 01742 Negative Pressure Wound Therapy Less Than 50 Square CM Completed 12/06/2018 20100 Negative Pressure Wound Therapy Less Than 50 Square CM Completed 12/06/2018 52559 Partial Excision Bone Talus/Calcaneus Completed 12/06/2018 41673 Partial Excision Bone Talus/Calcaneus Completed 12/06/2018 94990 Debridement,Bone,Epidermis/Dermis/Tissue/Muscle, Addtl 20 Completed SQ CM 12/06/2018 84097 Debridement,Bone,Epidermis/Dermis/Tissue/Muscle, Addtl 20 Completed SQ CM 12/06/2018 15614 Debridement Tissue/Muscle/Bone Completed 12/06/2018 53606 Debridement Tissue/Muscle/Bone Completed 12/03/2018 59914 ECHO Transthorasic Realtime 2D W Doppler & Color Flow Hosp Completed 12/03/2018 32077 ECHO Transthorasic Realtime 2D W Doppler & Color Flow Hosp Completed Medical Devices Description No Information Available Encounters Type Date Location Provider Dx Diagnosis Office Visit 12/17/2018 [facility] Sierra Holland, I21.4 Non-St elevation 10:17a sumaya [...] absence of right leg below knee Z79.4 long term care social worker (current) use of insulin Z79.84 long term care social worker (current) use of oral hypoglycemic drugs Office Visit 12/16/2018 [facility] Sierra F03.90 Unspecified 10:16a sumaya Morales PA-C dementia without Hospitalists behavioral disturbance G20 Parkinson's disease I10 Essential (primary) hypertension Office Visit 12/15/2018 [facility] Sierra F03.90 Unspecified 10:14a sumaya Morales PA-C dementia without Hospitalists behavioral disturbance G20 Parkinson's disease I10 Essential (primary) hypertension Office Visit 12/14/2018 [facility] F03. Unspecified 10:10a sumaya Morales PA-Anne dementia without Hospitalists behavioral disturbance G20 Parkinson's disease I10 Essential (primary) hypertension Office Visit 12/13/2018 [facility] F03. Unspecified 10:09a sumaya Morales PA-C dementia without Hospitalists behavioral disturbance G20 Parkinson's disease I10 Essential (primary) hypertension Z79.4 long term care social worker (current) use of insulin Office Visit 12/12/2018 [facility] F03. Unspecified 10:09a sumaya Morales PA dementia without Hospitalists behavioral disturbance G20 Parkinson's disease I10 Essential (primary) hypertension Z79.4 long term care social worker (current) use of insulin Office Visit 12/11/2018 [facility] F03. 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 Unspecified 10:08a sumaya Morales PA dementia without Hospitalists behavioral disturbance G20 Parkinson's disease I10 Essential (primary) hypertension Office Visit 12/09/2018 [facility] F03. Unspecified 10:08a sumaya Morales PA dementia without Hospitalists behavioral disturbance G20 Parkinson's disease I10 Essential (primary) hypertension Office Visit 12/08/2018 [facility] F03. Unspecified 10:07a sumaya Morales PA-C dementia without Hospitalists behavioral disturbance L25.9 Unspecified contact dermatitis, unspecified cause G20 Parkinson's disease I10 Essential (primary) hypertension Office Visit 12/07/2018 [facility] F03. Unspecified 10:06a sumaya Morales PA-C dementia without Hospitalists behavioral disturbance G20 Parkinson's disease I10 Essential (primary) hypertension Office Visit 12/06/2018 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 Sierra F03.90 Unspecified 10:05a Asssumaya charles PA-C dementia without Hospitalists behavioral disturbance G20 Parkinson's disease I10 Essential (primary) hypertension Office Visit 12/04/2018 [facility] Mary Ellen Nunez, L97.429 Non-prs chronic 8:50a at [place] RPA-C ulcer of left heel and midfoot w unsp severt Office Visit 12/04/2018 [facility] Sierra F03.90 Unspecified 10:05a sumaya Morales PA-C dementia without Hospitalists behavioral disturbance G20 Parkinson's disease I10 Essential (primary) hypertension Office Visit 12/04/2018 11:32a [facility], R79.89 Other specified Of [employer] LOTTERIES AGENT abnormal findings of blood chemistry I25.5 Ischemic cardiomyopathy Z95.2 Presence of prosthetic heart valve I48.91 Unspecified atrial fibrillation Office Visit 12/03/2018 [facility] Sierra F03.90 Unspecified 10:04a Assocsumaya PA-C dementia without Hospitalists behavioral disturbance I10 Essential (primary) hypertension G20 Parkinson's disease Office Visit 12/03/2018 1:07p [facility], R79.89 Other specified Of [employer] LOTTERIES AGENT abnormal findings of blood chemistry I25.2 Old myocardial infarction I25.10 Athscl heart disease of [place] coronary artery w/o ang pctrs I48.0 Paroxysmal atrial fibrillation Z95.2 Presence of prosthetic heart valve I25.5 Ischemic cardiomyopathy Office Visit 12/03/2018 8:48a [facility] Lashell Mata, L97.429 Non-prs chronic at [place] PA ulcer of left heel and midfoot w unsp severt Office Visit 12/03/2018 12:52p [facility] Milo Melara E11.621 Type 2 diabetes Infectious Jen Cheung mellitus with Diseases foot ulcer 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 Edith Theodore, F03.90 Unspecified Assoc,pc N.P. dementia without Hospitalists behavioral disturbance G20 Parkinson's disease I10 Essential (primary) hypertension Office Visit 12/01/2018 10:03a [facility] Edith Theodore, F03.90 Unspecified Assoc,pc N.P. dementia without Hospitalists behavioral disturbance I10 Essential (primary) hypertension G20 Parkinson's disease E11.9 Type 2 diabetes mellitus without complications Office Visit 11/30/2018 [facility] F03.90 Unspecified 10:02a Assoc,sumaya Fields, dementia without Hospitalists LOTTERIES AGENT behavioral disturbance I10 Essential (primary) hypertension G20 Parkinson's disease E11.9 Type 2 diabetes mellitus without complications Office Visit 11/30/2018 12:51p [facility] Sloane Montejo E11.621 Type 2 For Infectious CHRIS Hooker diabetes Diseases mellitus with foot ulcer 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 L03.116 Cellulitis of left lower limb D72.829 Elevated white blood cell count, unspecified E11.51 Type 2 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 Office Visit 11/29/2018 [facility] F03.90 Unspecified 10:01a Assoc,pc Maxim Fields, dementia without Hospitalists LOTTERIES AGENT behavioral disturbance I10 Essential (primary) hypertension G20 Parkinson's disease E11.9 Type 2 diabetes mellitus without complications Office Visit 11/29/2018 12:49p [facility] Milo Melara E11.621 Type 2 Infectious Jen Cheung diabetes Diseases mellitus with foot ulcer 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 part of left lower leg with unspecified severity 12/21/2018 E11.621 Type 2 diabetes mellitus with foot Aster Rahul, D.O. ulcer 12/21/2018 I73.9 Peripheral vascular disease, Aster Rahul, D.O. 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 disturbance 12/21/2018 I48.0 Paroxysmal atrial fibrillation Aster Kay D.O. 12/19/2018 F03.91 Unspecified dementia with behavioral Thi Davis, CHRIS disturbance 12/17/2018 I21.4 Non-St elevation (Nstemi) myocardial Sierra Holland PA-C infarction 12/17/2018 I48.19 Other persistent atrial fibrillation Sierra Holland PA-C 12/17/2018 B95.61 Methicillin susceptible Sierra O'libra, PA-C Staphylococcus aureus infection as the cause of diseases classified elsewhere 12/17/2018 F03.90 Unspecified dementia without Sierra O'libra, PA-C behavioral disturbance 12/17/2018 G20 Parkinson's disease Sierra O'libra, PA-C 12/17/2018 I10 Essential (primary) hypertension Sierra O'libra, PA-C 12/17/2018 I73.9 Peripheral vascular disease, Sierra O'libra, PA-C unspecified 12/17/2018 E11.51 Type 2 diabetes mellitus with Sierra O'libra, PA-C diabetic peripheral angiopathy without gangrene 12/17/2018 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) Sierra O'libra, PA -C 12/17/2018 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, PA-C knee 12/17/2018 Z79.4 long term care social worker (current) use of insulin Sierra O'libra, PA-C 12/17/2018 Z79.84 long term care social worker (current) use of oral Sierra O'libra, PA-C hypoglycemic drugs 12/16/2018 F03.90 Unspecified dementia without Sierra O'libra, PA-C behavioral disturbance 12/16/2018 G20 Parkinson's disease Sierra O'libra, PA-C 12/16/2018 I10 Essential (primary) hypertension Sierra O'libra, PA-C 12/15/2018 F03.90 Unspecified dementia without Sierra O'libra, PA-C behavioral disturbance 12/15/2018 G20 Parkinson's disease Sierra O'libra, PA-C 12/15/2018 I10 Essential (primary) hypertension Sierra O'libra, PA-C 12/14/2018 F03.90 Unspecified dementia without Sierra O'libra, PA-C behavioral disturbance 12/14/2018 G20 Parkinson's disease Sierra O'libra, PA-C 12/14/2018 I10 Essential (primary) hypertension Sierra O'libra, PA-C 12/13/2018 F03.90 Unspecified dementia without Sierra O'libra, PA-C behavioral disturbance 12/13/2018 Z48.89 Encounter for other specified MADY Cox surgical aftercare 12/13/2018 G20 Parkinson's disease Sierra Holland PA-C 12/13/2018 I10 Essential (primary) hypertension Sierra Holland PA-C 12/13/2018 Z79.4 jail (current) use of insulin Sierra Holland PA-C 12/12/2018 F03.90 Unspecified dementia without MADY [place] behavioral disturbance 12/12/2018 Z48.89 Encounter for other specified MADY Cox surgical aftercare 12/12/2018 G20 Parkinson's disease MADY [place] 12/12/2018 I10 Essential (primary) hypertension MADY [place] 12/12/2018 Z79.4 long term care social worker (current) use of insulin MADY [place] 12/11/2018 F03.90 Unspecified dementia without MADY [place] behavioral disturbance 12/11/2018 Z48.89 Encounter for other specified MADY Cox surgical aftercare 12/11/2018 G20 Parkinson's disease MADY [place] 12/11/2018 I10 Essential (primary) hypertension MADY [place] 12/10/2018 Z47.89 Encounter for other orthopedic Chin Barnes MD aftercare 12/10/2018 L97.829 Non-pressure chronic ulcer of other Ana Medina MD part of left lower leg with unspecified severity 12/10/2018 B95.61 Methicillin susceptible Ana Medina MD Staphylococcus aureus infection as the cause of diseases classified elsewhere 12/10/2018 F03.90 Unspecified dementia without MDAY [place] behavioral disturbance 12/10/[address] elevation [...] [place] 12/08/2018 F03.90 Unspecified dementia without Sierra O'libra, PA-C behavioral disturbance 12/08/2018 Z48.89 Encounter for other specified MADY Daugherty surgical aftercare 12/08/2018 L25.9 Unspecified contact dermatitis, Sierra O'libra, PA-C unspecified cause 12/08/2018 G20 Parkinson's disease Sierra Ravinder'libra, PA-C 12/08/2018 I10 Essential (primary) hypertension Sierra O'libra, PA-C 12/07/2018 F03.90 Unspecified dementia without Sierra O'libra, PA-C behavioral disturbance 12/07/2018 Z48.89 Encounter for other specified MADY Daugherty surgical aftercare 12/07/2018 G20 Parkinson's disease Sierra Ravinder'libra, PA-C 12/07/2018 I10 Essential (primary) hypertension Sierra Ravinder'libra, PA-C 12/06/2018 F03.90 Unspecified dementia without Sierra O'libra, PA-C behavioral disturbance 12/06/2018 E11.621 Type 2 diabetes mellitus with foot MADY Cox ulcer 12/06/2018 G20 Parkinson's disease Sierra Holland PA-C 12/06/2018 E11.621 Type 2 diabetes mellitus with foot Delroy Frederick MD ulcer 12/06/2018 I10 Essential (primary) hypertension Sierra Castellon'libra PA-C 12/06/2018 L03.116 Cellulitis of left lower limb Delroy Frederick MD 12/06/2018 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, 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 12/06/2018 L03.116 Cellulitis of left lower limb MADY Cox 12/05/2018 F03.90 Unspecified dementia without Sierra Ravinder'libra, PA-C behavioral disturbance 12/05/2018 E11.621 Type 2 diabetes mellitus with foot [place] Hooker, LOTTERIES AGENT ulcer 12/05/2018 G20 Parkinson's disease KAYLA CullenC 12/05/2018 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 [place] Hooker, LOTTERIES AGENT heel and midfoot with unspecified severity 12/05/2018 I10 Essential (primary) hypertension MADY Cullen-C 12/05/2018 L03.116 Cellulitis of left lower limb [place] Hooker, LOTTERIES AGENT 12/05/2018 E11.51 Type 2 diabetes mellitus with [place] Hooker, LOTTERIES AGENT diabetic peripheral angiopathy without gangrene 12/04/2018 F03.90 Unspecified dementia without MADY Cullen-C behavioral disturbance 12/04/2018 R79.89 Other specified abnormal findings of Laura Fowler NP blood chemistry 12/04/2018 G20 Parkinson's disease KAYLA CullenC 12/04/2018 I25.5 Ischemic cardiomyopathy Laura Fowler NP 12/04/2018 I10 Essential (primary) hypertension MADY Cullen-C 12/04/2018 Z95.2 Presence of prosthetic heart valve Laura Fowler NP 12/04/2018 I48.91 Unspecified atrial fibrillation Laura Fowler NP 12/04/2018 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 Mary Ellen [place], RPA-C heel and midfoot with unspecified severity 12/04/2018 E11.621 Type 2 diabetes mellitus with foot Delroy Frederick MD ulcer 12/04/2018 L03.116 Cellulitis of left lower limb Delroy Frederick MD 12/03/2018 F03.90 Unspecified dementia without KAYLA CullenC behavioral disturbance 12/03/2018 R79.89 Other specified abnormal findings of Laura Fowler NP blood chemistry 12/03/2018 I10 Essential (primary) hypertension Sierra Holland PA-C 12/03/2018 I25.2 Old myocardial infarction Laura Fowler NP 12/03/2018 G20 Parkinson's disease Sierra Holland PA-C 12/03/2018 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 12/03/2018 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 MADY Cox heel and midfoot with unspecified severity 12/03/2018 E11.621 Type 2 diabetes mellitus with foot Cuba Cheung M.D. 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 heel and midfoot with unspecified severity 12/03/2018 L03.116 Cellulitis of left lower limb uCba Cheung M.D. 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 [place] Hooker, LOTTERIES AGENT heel and midfoot with unspecified severity 11/30/2018 G20 Parkinson's disease Shannon Maxim Fields NP 11/30/2018 L03.116 Cellulitis of left lower limb [place] Hooker, LOTTERIES AGENT 11/30/2018 E11.9 Type 2 diabetes mellitus without Shannon Fields NP complications 11/30/2018 D72.829 Elevated white blood cell count, [place] Hooker , LOTTERIES AGENT unspecified 11/30/2018 E11.51 Type 2 diabetes mellitus with [place] Gustabo Hooker NP diabetic peripheral angiopathy without gangrene 11/29/2018 F03.90 Unspecified dementia without Shannon Maxim Fields NP behavioral disturbance 11/29/2018 E11.621 Type 2 diabetes mellitus with foot Jean Carlos Rosano, PA-C ulcer 11/29/2018 I10 Essential (primary) hypertension Shannon Fields NP 11/29/2018 E11.621 Type 2 diabetes mellitus with foot Cuba Cheung M.D. ulcer 11/29/2018 G20 Parkinson's disease Shannonmary kate Fields LOTTERIES AGENT 11/29/2018 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 [...] E87.5 Hyperkalemia Fransico Salazar M.D. 11/28/2018 Z79.84 long term care social worker (current) use of oral Fransico Salazar M.D. 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 Fabio Kurtz NP disturbance Plan of Treatment Future Appointment(s):12/28/2018 10:30 am - Delroy Frederick MD at [facility] at [facility]12/21/2018 - Aster Kay D.O.L97.829 Non-pressure chronic ulcer of other part of left lower leg with unspecified diopzcxzC12.621 Type 2 diabetes mellitus with foot kxpfrU11.9 Peripheral vascular disease, eyzmaohkrsfE62.50 Vascular dementia without behavioral fjwyrshlxlpA22.0 Paroxysmal atrial fibrillation Functional Status Description No Information Available Mental Status Description No Information Available Referrals Refer to Reason for Referral Status Appt Date Lifetime Care Lifetime Home Nurse Service for Speech Therapy phone Closed [phone] fax [phone] Has difficulty swallowing; episodes of dysphagia. [address] [place] [address] [phone]
[2019-01-14] MEDS ORDERED: Cefepime 2 GM in Dextrose(*) 2 GM/50 ML BAG IV ONE (19:44)
[2019-01-14] MEDS ORDERED: Furosemide IV* 10 MG/ML VIAL (40 MG) IV SLOW PU ONE (19:45)
[2019-01-14 19:53] LABS: Potassium 5.3 mmol/L (3.5-5.0)
[2019-01-14] MEDS ORDERED: Dextrose 50% VIAL 50 ml IV PUSH PRN (23:31)
[2019-01-14] MEDS ORDERED: Zosyn per Pharmacy* NOTE FOLLOW UP SCH (23:45)
[2019-01-15 00:03] LABS: C Reactive Protein 122.24 mg/L (<8.01)
[2019-01-15 03:30] LABS: Urine Appearance Clear; Urine Bilirubin Negative (Negative); Urine Blood 1+ (Negative); Urine Color Straw; Urine Glucose Negative (Negative); Urine Ketones Negative (Negative); Urine Nitrite Negative (Negative); Urine Protein Negative (Negative); Urine Specific Gravity 1.008 (1.010-1.030); Urine Urobilinogen Negative (Negative)
[2019-01-15 03:37] LABS: Urine Bacteria 1+ (Absent); Urine Granular Casts Present (Absent); Urine Red Blood Cell 3+(>10/hpf) (Absent); Urine White Blood Cell Trace(0-5/hpf) (Absent)
[2019-01-15] MEDS: Insulin GLARGINE(*) 1 UNITS UNIT SUBCUT SCH ×3 (04:20→21:06)
--- NOTE | 2019-01-15 06:04 | HP ---
History of Present Illness - History of Present Illness Reason for Visit: confusion History of Present Illness: 83 yo male with hx of chronic wound, CHF, resident of [facility], brought in by with concerns of increased confusion and shortness of breath. He arrived saturating in the 80s and was put on 3L NC. CXR shows pulmonary edema. Pt was given a dose of lasix in the ER. He has a chronic wound on his left foot that is being followed by orthopedic surgery for occasional debridement. He was last seen 1 month ago. Pt chronically takes antibiotics outpatient for this wound. Was offered amputation in the past but family refused. Family prefers consevative management. Had an MRI done in oct which did not show evidence of osteomyelitis, but the wound had gotten much worse since. Pt is confused above baseline, no fever, but has increased white count. His urine is neg for infection. CXR shows pulmonary edema. said he has not been coughing at all. - Past Medical History Cardiac: CAD, CHF, HTN, Hyperlipidemia Pulmonary: COPD MANAGER TRAVEL: Dementia - Past Surgical History Past Surgical History: CABG - Past Family History Family History: CAD, DM, Hyperlipidemia - Past Social History Smoke: No Alcohol: None - recovering alcoholic Drugs: None Lives: [facility] Domestic Violence: Negative Review of Systems - Measurements Intake and Output: Intake and Output Last 24 Hours 01/12/19 01/13/19 01/14/19 01/15/19 06:59 06:59 06:59 06:59 Intake Total 70 Output Total 1000 Balance -930 Weight 234 lb Intake: IV Fluids 70 Output: Urine 1000 Other: # Bowel Movements 1 Estimated Stool Amount Medium - Review of Systems General Comments: ROS not obtained due to dementia Pulmonary: Positive: Respiratory Distress, Shortness of Breath Objective Active Medications: Aspirin (Aspirin Ec Tab*) 81 mg PO DAILY [facility] Atorvastatin Calcium (Lipitor*) 10 mg PO BEDTIME [facility] Clopidogrel Bisulfate (Plavix Tab*) 75 mg PO DAILY [facility] Dextrose (Dextrose 50% Vial 50 Ml*) 25 ml IV PUSH .FOR FS < 60 - SS PRN PRN Reason: FS < 60 Insulin Glargine (Lantus(*)) 15 units SUBCUT 2100 [facility] Last Admin: 01/15/19 04:20 Dose: 15 units Insulin Human Lispro (Humalog*) 0 units SUBCUT ACHS [facility]; Protocol Metoprolol Tartrate (Lopressor Tab*) 12.5 mg PO Q12HR [facility] Quetiapine Fumarate (Seroquel Tab*) 25 mg PO BID PRN PRN Reason: AGITATION Sertraline HCl (Zoloft*) 25 mg PO DAILY [facility] Vital Signs - 8 hr 01/14/19 01/14/19 01/14/19 22:11 22:41 22:56 Temperature Pulse Rate 90 93 Respiratory 19 35 16 Rate Blood Pressure 108/80 127/103 (mmHg) O2 Sat by Pulse 98 96 Oximetry 01/14/19 01/14/19 01/14/19 23:00 23:11 23:41 Temperature Pulse Rate 105 99 Respiratory 27 20 30 Rate Blood Pressure 127/81 130/95 (mmHg) O2 Sat by Pulse 87 98 Oximetry 01/15/19 01/15/19 01/15/19 00:00 00:09 00:11 Temperature 97.9 F Pulse Rate 102 101 104 Respiratory 23 22 36 Rate Blood Pressure 118/64 120/81 (mmHg) O2 Sat by Pulse 100 93 100 Oximetry 01/15/19 01/15/19 01:19 03:15 Temperature 98.9 F 98.6 F Pulse Rate 93 95 Respiratory 22 16 Rate Blood Pressure 125/68 101/63 (mmHg) O2 Sat by Pulse 100 89 Oximetry Oxygen Devices in Use Now: Nasal Cannula Appearance: confused Eyes: No Scleral Icterus, PERRLA Neck: NL Appearance and Movements; NL JVP, Trachea Midline Respiratory: - - crackles Cardiovascular: - - 2+ edema Abdominal: NL Sounds; No Tenderness; No Distention, No Hepatosplenomegaly Skin: - - chronic wound, left ext with surrounding erythema that says is worse Neurological: - - alert Result Diagrams: 01/15/19 05:55 01/14/19 19:11 Microbiology and Other Data: Microbiology 01/15/19 02:10 Nasal Screen MRSA (PCR) - Final Nasal Mrsa Not Detected Assess/Plan/Problems-Billing Assessment: - Patient Problems (1) Altered mental status Current Visit: Yes Status: Acute Code(s): R41.82 - ALTERED MENTAL STATUS, UNSPECIFIED SNOMED Code(s): 608782425 Comment: per , pt has been more confused x 3 days likely an infectious etiology. Im thinking it is his chronic wound getting worse (2) Acute hypoxemic respiratory failure Current Visit: Yes Status: Acute Code(s): J96.01 - ACUTE RESPIRATORY FAILURE WITH HYPOXIA SNOMED Code(s): 532038382 Comment: on 3L NC (baseline 1-2) sec to CHF exacerbation CXR shows pulmonary edema lasix (3) Acute on chronic systolic CHF (congestive heart failure) Current Visit: No Status: Acute Code(s): I50.23 - ACUTE ON CHRONIC SYSTOLIC (CONGESTIVE) HEART FAILURE SNOMED Code(s): 240045185 Comment: EF 30-35% Nov 2018, likely 2/2 to ischemic cardiomyopathy. he has been O2 dependent for a month, but was on 1-2L, now on 3L - IV Lasix 40mg strict I/O daily weight (4) DNR (do not resuscitate) Current Visit: No Status: Acute Comment: - MOLST (5) DVT prophylaxis Current Visit: No Status: Acute Priority: Medium Code(s): OTZ3990 - SNOMED Code(s): 694294920 Comment: heparin sc (6) Dementia with behavioral disturbance Current Visit: No Status: Acute Code(s): F03.91 - UNSPECIFIED DEMENTIA WITH BEHAVIORAL DISTURBANCE SNOMED Code(s): 5923465686642 Comment: has been declining for months. noted even more confusion X 3 days Likely from his wound infection - Continue sertraline (7) Non healing left heel wound Current Visit: No Status: Acute Code(s): S91.302A - UNSPECIFIED OPEN WOUND, LEFT FOOT, INITIAL ENCOUNTER SNOMED Code(s): 467065506 Comment: - MRI without osteo in Nov - Pt has been on keflex outpatient and per the wound looks worse - Dr. Frederick 12/06/18 offered BKA and patient declined. He has been following outpatient for debridement - team to consult ortho - ESR, CRP, MRI to r/o osteo -wound consult - pt not septic, holding abx until appropriate workup and cultures completed. (8) Parkinson disease Current Visit: No Status: Chronic Priority: Medium Onset Date: 01/29/15 Code(s): G20 - PARKINSON'S DISEASE SNOMED Code(s): 56403191 Comment: - On baclofen, no sinemet - Supportive care (9) Peripheral vascular disease Current Visit: No Status: Chronic Code(s): I73.9 - PERIPHERAL VASCULAR DISEASE, UNSPECIFIED SNOMED Code(s): 047357355 Comment: - Hx of unsuccessful angioplasty on in 2016 - Continue statin, ASA. (10) Type 2 diabetes mellitus Current Visit: No Status: Chronic Comment: - Continue lispro SSI coverage, lantus 15 units PM
[2019-01-15 06:26] LABS: Hematocrit 24 % (42-52); Hemoglobin 7.7 g/dL (14.0-18.0); Mean Corpuscular HGB Conc 32 g/dL (31-36); Mean Corpuscular Hemoglobin 26 pg (27-31); Mean Corpuscular Volume 82 fL (80-94); Mean Platelet Volume 6.8 fL (7.4-10.4); Platelet Count 373 10^3/uL (150-450); Red Blood Count 2.95 10^6 /uL (4.18-5.48); Red Cell Distribution Width 17 % (10-15)
[2019-01-15 06:45] LABS: Calcium 8.3 mg/dL (8.6-10.3); Potassium 4.6 mmol/L (3.5-5.0)
[2019-01-15 06:50] LABS: BUN/Creatinine Ratio 27.5 (8-20); EGFR African American 133.2 (>60)
[2019-01-15] MEDS: Insulin LISPRO* 1 UNITS UNIT SUBCUT SCH ×4 (09:49→21:06)
[2019-01-15] MEDS: Heparin VIAL(*) 5000 UNITS/ML VIAL (FIVE THOUSAND) SUBCUT SCH ×2 (09:50→21:07)
[2019-01-15] MEDS: metroNIDAZOLE IV 500 MG/100ML* 500 MG/100 ML BAG IVPB SCH ×2 (09:54→17:57)
[2019-01-15] MEDS ORDERED: Nitroglycerin TAB 0.4 MG* 0.4 MG TAB SL ONE (10:07)
--- NOTE | 2019-01-15 10:39 | PN ---
Subjective Date of Service: 01/15/19 Interval History: HOSPITALIST PROGRESS NOTE Patient seen and examined at bedside. Care reviewed and d/w Augustina Norwood RN. He had c/o severe dyspnea earlier today, improved after IV Furosemide. At the time of my re-evaluation he's much more comfortable. Family History: Unchanged from Admission Social History: Unchanged from Admission Past Medical History: Unchanged from Admission Objective Active Medications: Albuterol (Ventolin 2.5 Mg/3 Ml Neb.Vale*) 2.5 mg INH Q4H PRN PRN Reason: SOB/WHEEZING Aspirin (Aspirin Ec Tab*) 81 mg PO DAILY [facility] Atorvastatin Calcium (Lipitor*) 10 mg PO BEDTIME [facility] Baclofen (Lioresal Tab*) 10 mg PO TID [facility] Clopidogrel Bisulfate (Plavix Tab*) 75 mg PO DAILY [facility] Dextrose (Dextrose 50% Vial 50 Ml*) 25 ml IV PUSH .FOR FS < 60 - SS PRN PRN Reason: FS < 60 Furosemide (Lasix Iv*) 40 mg IV SLOW PU ONCE ONE Stop: 01/16/19 09:01 Heparin Sodium (Porcine) (Heparin Vial(*)) 5,000 units SUBCUT Q12HR [facility] Last Admin: 01/15/19 09:50 Dose: 5,000 units Cefepime HCl (Maxipime 2 Gm In Dextrose Duplex (*)) 2 gm in 50 mls @ 100 mls/ hr IV Q12H [facility] Metronidazole/Sodium Chloride (Flagyl 500 Mg Ivpb*) 500 mg in 100 mls @ 100 mls /hr IVPB Q8H [facility] Last Admin: 01/15/19 09:54 Dose: 100 mls/hr Insulin Glargine (Lantus(*)) 15 units SUBCUT 2100 [facility] Last Admin: 01/15/19 04:20 Dose: 15 units Insulin Glargine (Lantus(*)) 20 units SUBCUT QAM [facility] Last Admin: 01/15/19 09:49 Dose: 20 units Insulin Human Lispro (Humalog*) 0 units SUBCUT ACHS [facility]; Protocol Last Admin: 01/15/19 09:49 Dose: 3 units Metoprolol Tartrate (Lopressor Tab*) 12.5 mg PO Q12HR [facility] Quetiapine Fumarate (Seroquel Tab*) 25 mg PO BID PRN PRN Reason: AGITATION Sertraline HCl (Zoloft*) 25 mg PO DAILY [facility] Vital Signs - 8 hr 01/15/19 03:15 Temperature 98.6 F Pulse Rate 95 Respiratory 16 Rate Blood Pressure 101/63 (mmHg) O2 Sat by Pulse 89 Oximetry Oxygen Devices in Use Now: Nasal Cannula Appearance: Elderly gentleman sitting up in bed in NAD Eyes: No Scleral Icterus Ears/Nose/Mouth/Throat: Mucous Membranes Moist Neck: Trachea Midline Respiratory: Symmetrical Chest Expansion and Respiratory Effort, - - BS+ bilaterally diminished with bibasilar crackles Cardiovascular: RRR - Normal S1 and S2 Abdominal: NL Sounds; No Tenderness; No Distention Extremities: - - Severe bilateral LE pitting edema. S/p right BKA and left TMA with CDI and foul smell Neurological: - - AAOx2 (self and place), POLANCO Result Diagrams: 01/15/19 05:55 01/15/19 05:55 Assess/Plan/Problems-Billing Assessment: Mr Cedillo is an 83yo M with PMH of Parkinsonism, dementia, HTN, CAD, PVD, s/p right BKA, s/p left TMA, type 2 diabetes, who presented to ED with c/o confusion and dyspnea. - Patient Problems (1) Altered mental status Comment: - Multifactorial in the setting of infection and hypoxia. - Improving. (2) Acute hypoxemic respiratory failure Comment: - Secondary to CHF exacerbation. - Continue diuresis with Furosemide. (3) Acute on chronic systolic CHF (congestive heart failure) Comment: - EF 30-35% Nov 2018, likely secondary to ischemic cardiomyopathy. - Suspect decompensation in the setting of LLE worsening infection. (4) Non healing left heel wound Comment: - Repeat MRI shows ostemyelitis. - Dr. Frederick 12/06/18 offered BKA and patient declined. On Keflex as outpatient, but infection has progressed. - ID consult requested. - Cefepime and metronidazole added (no MRSA on prior wound culture). (5) Type 2 diabetes mellitus Comment: - Continue Lantus and Lispro SS. - Last A1c was 8.4 in November 2018. (6) Dysphagia Comment: - Probably associated with Parkisonism. - Speech pathology input appreacited - pureed diet with nectar thick liquids. (7) DVT prophylaxis Comment: - SQ heparin. (8) DNR (do not resuscitate)
[2019-01-15] MEDS: Albuterol 2.5 MG/3 ML NEB.SOL* (0.083%) INH PRN ×2 (10:46→18:18)
[2019-01-15 11:45] LABS: Troponin I 0.03 ng/mL (<0.03)
[2019-01-15] MEDS: Cefepime 2 GM in Dextrose(*) 2 GM/50 ML BAG IV SCH ×2 (13:18→21:54)
[2019-01-15] MEDS: Aspirin EC TAB* 81 MG TAB.EC PO SCH (13:55)
[2019-01-15] MEDS: Clopidogrel TAB* 75 MG PO SCH (13:55)
[2019-01-15] MEDS: Sertraline* 25 MG TAB PO SCH (13:55)
[2019-01-15] MEDS: Baclofen TAB* 10 MG PO SCH ×3 (13:55→21:07)
[2019-01-15] MEDS: Metoprolol Tartrate TAB* 25 MG PO SCH ×2 (13:55→21:08)
[2019-01-15] MEDS: QUEtiapine TAB* 25 MG PO PRN ×2 (15:00→21:07)
[2019-01-15 15:16] LABS: Troponin I 0.04 ng/mL (<0.03)
[2019-01-15] MEDS ORDERED: Acetaminophen TAB* 325 MG PO PRN (15:25)
[2019-01-15 17:28] LABS: Troponin I 0.05 ng/mL (<0.03)
--- NOTE | 2019-01-15 18:54 | CONS ---
CONSULTATION REPORT: DATE OF CONSULT: 01/15/19 REQUESTING PHYSICIAN: Dr. Josue. CONSULTING SERVICE: Infectious Disease. REASON FOR CONSULT: Cellulitis. IMPRESSION: 1. Chronic left lower extremity wound in the setting of vascular insufficiency , he has been unable to heal the wound and now has some gangrene and a cellulitis extending up his leg. He has encephalopathy due to the infection. An MRI done last night shows what appears to be diffuse osteomyelitis through his calcaneus and distal tibia to the level of the transmetatarsal amputation. Given the findings on exam that may actually be the case. 2. VANCOMYCIN allergy. 3. Dementia. 4. Parkinson's disease. RECOMMENDATIONS: Continue broad-spectrum antibiotics. I discussed with the patient's that we could try to treat the cellulitis, but there is really nothing for these wounds to cure them. HISTORY OF PRESENT ILLNESS: This is an 83-year-old man who had a left foot transmetatarsal amputation in 2016 and then a left calcaneus ulcer and cellulitis. He had a debridement and wound VAC placement on 12/06/18. Cultures from that episode grew Staph aureus. He had refused amputation which was recommended. He had been at [facility]. He had a course of IV antibiotics and has been on suppressive Keflex since then. His noted that in the last 2 or 3 days he has been more and more sleepy to the point of not waking up, having increased oxygen requirement, and redness spreading up his leg. He came to the ER yesterday with oxygen saturation in the 80s, redness up his leg. He was started on cefepime and Flagyl. MRI as above. Blood cultures are pending. He is not awake and cannot give any history, which was obtained instead from the review of the medical record and discussion with the patient's . PAST MEDICAL HISTORY: 1. Parkinson's disease. 2. Right below the knee amputation. 3. Left transmetatarsal amputation and calcaneus debridement. 4. Dementia. 5. Coronary artery disease, status post coronary artery bypass. 6. Hyperlipidemia. 7. Congestive heart failure. ALLERGIES: VANCOMYCIN. MEDICATIONS: 1. Tylenol. 2. Aspirin. 3. Lipitor. 4. Baclofen. 5. Cefepime 2 g every 12 hours. 6. Flagyl 500 mg every 8 hours. 7. Furosemide. 8. Insulin glargine. 9. Insulin Lispro. 10. Metoprolol. 11. Seroquel. 12. Sertraline. SOCIAL HISTORY: He has been living at [facility]. He is . FAMILY HISTORY: Coronary artery disease and hyperlipidemia. REVIEW OF SYSTEMS: Unobtainable. PHYSICAL EXAM: Vital Signs: Temperature 37, heart rate 90, respiratory rate 20 , blood pressure 116/64, oxygen saturation 93% on 3 L via nasal cannula. In general, he is sleeping, not in distress. Neurologic: Not arousable, does withdraw his limb to pain. HEENT: There is no conjunctival hemorrhage. Oropharynx without lesions. Neck is supple without mass. Heart is regular rate and rhythm without murmurs, rubs, or gallops. Lungs are clear to auscultation bilaterally. Abdomen: Soft, nontender, nondistended. There are bowel sounds present. Skin: There is no rash or splinter hemorrhage. Musculoskeletal: Left leg, there is erythema and warmth prison up to the knee with a large calcaneus ulcer with eschar, dry gangrene, surrounding erythema, and then the dorsal surface of the mid foot, there is a big open wound with purulent fluid and exposed tendon, surrounding erythema. LABORATORY DATA: Creatinine 0.7. White blood cell count 15, hemoglobin 7, platelets 373. Please see impression and recommendations outlined above. Thanks for asking me to see Mr. Cedillo in consultation. [id number]/[facility] #: [id number] WIL
[2019-01-15] MEDS ORDERED: Atorvastatin* 10 MG TAB PO SCH (21:00)
[2019-01-16 00:26] LABS: Troponin I 0.08 ng/mL (<0.03)
[2019-01-16] MEDS: metroNIDAZOLE IV 500 MG/100ML* 500 MG/100 ML BAG IVPB SCH ×3 (01:51→20:36)
[2019-01-16 08:40] LABS: BUN/Creatinine Ratio 28.8 (8-20); Blood Urea Nitrogen 21 mg/dL (6-24); CO2 Carbon Dioxide 34 mmol/L (22-32); Calcium 8.4 mg/dL (8.6-10.3); Chloride 102 mmol/L (101-111); EGFR African American 124.8 (>60); EGFR Non-African American 103.1 (>60); Glucose 51 mg/dL (70-100); Potassium 4.5 mmol/L (3.5-5.0); Sodium 136 mmol/L (135-145)
[2019-01-16] MEDS ORDERED: Furosemide IV* 10 MG/ML VIAL (40 MG) IV SLOW PU ONE ×2 (09:00→09:43)
[2019-01-16] MEDS: Insulin LISPRO* 1 UNITS UNIT SUBCUT SCH ×4 (10:17→20:45)
[2019-01-16] MEDS: Metoprolol Tartrate TAB* 25 MG PO SCH (10:32)
[2019-01-16] MEDS: Clopidogrel TAB* 75 MG PO SCH (10:32)
[2019-01-16] MEDS: Baclofen TAB* 10 MG PO SCH ×2 (10:32→16:50)
[2019-01-16] MEDS: Sertraline* 25 MG TAB PO SCH (10:32)
[2019-01-16] MEDS: Cefepime 2 GM in Dextrose(*) 2 GM/50 ML BAG IV SCH ×2 (10:33→22:40)
[2019-01-16] MEDS: Insulin GLARGINE(*) 1 UNITS UNIT SUBCUT SCH (10:34)
[2019-01-16] MEDS: Heparin VIAL(*) 5000 UNITS/ML VIAL (FIVE THOUSAND) SUBCUT SCH (10:34)
[2019-01-16] MEDS: Aspirin EC TAB* 81 MG TAB.EC PO SCH (10:35)
--- NOTE | 2019-01-16 13:15 | PN ---
Subjective Date of Service: 01/16/19 Interval History: HOSPITALIST PROGRESS NOTE Patient seen and examined at bedside. Care reviewed and d/w Augustina Norwood RN. He is more lethargic today, opens eyes, but does not answer questions. Family History: Unchanged from Admission Social History: Unchanged from Admission Past Medical History: Unchanged from Admission Objective Active Medications: Acetaminophen (Tylenol Tab*) 650 mg PO Q6H PRN PRN Reason: MILD PAIN or TEMP > 100.4 Albuterol (Ventolin 2.5 Mg/3 Ml Neb.Vale*) 2.5 mg INH Q4H PRN PRN Reason: SOB/WHEEZING Last Admin: 01/15/19 18:18 Dose: 2.5 mg Aspirin (Aspirin Ec Tab*) 81 mg PO DAILY [facility] Last Admin: 01/16/19 10:35 Dose: 81 mg Atorvastatin Calcium (Lipitor*) 10 mg PO BEDTIME [facility] Last Admin: 01/15/19 21:07 Dose: 10 mg Baclofen (Lioresal Tab*) 10 mg PO TID [facility] Last Admin: 01/16/19 10:32 Dose: 10 mg Clopidogrel Bisulfate (Plavix Tab*) 75 mg PO DAILY [facility] Last Admin: 01/16/19 10:32 Dose: 75 mg Dextrose (Dextrose 50% Vial 50 Ml*) 25 ml IV PUSH .FOR FS < 60 - SS PRN PRN Reason: FS < 60 Heparin Sodium (Porcine) (Heparin Vial(*)) 5,000 units SUBCUT Q12HR [facility] Last Admin: 01/16/19 10:34 Dose: 5,000 units Cefepime HCl (Maxipime 2 Gm In Dextrose Duplex (*)) 2 gm in 50 mls @ 100 mls/ hr IV Q12H [facility] Last Admin: 01/16/19 10:33 Dose: 100 mls/hr Metronidazole/Sodium Chloride (Flagyl 500 Mg Ivpb*) 500 mg in 100 mls @ 100 mls /hr IVPB Q8H [facility] Last Admin: 01/16/19 11:58 Dose: 100 mls/hr Insulin Glargine (Lantus(*)) 15 units SUBCUT 2100 [facility] Last Admin: 01/15/19 21:06 Dose: 15 units Insulin Glargine (Lantus(*)) 20 units SUBCUT QAM [facility] Last Admin: 12/11/19 10:34 Dose: 20 units Insulin Human Lispro (Humalog*) 0 units SUBCUT ACHS [facility]; Protocol Last Admin: 01/16/19 10:17 Dose: Not Given Metoprolol Tartrate (Lopressor Tab*) 12.5 mg PO Q12HR [facility] Last Admin: 01/16/19 10:32 Dose: 12.5 mg Quetiapine Fumarate (Seroquel Tab*) 25 mg PO BID PRN PRN Reason: AGITATION Last Admin: 01/15/19 21:07 Dose: 25 mg Sertraline HCl (Zoloft*) 25 mg PO DAILY [facility] Last Admin: 01/16/19 10:32 Dose: 25 mg Vital Signs - 8 hr 01/16/19 01/16/19 01/16/19 06:28 08:00 08:21 Temperature 96.4 F 99.3 F Pulse Rate 93 92 Respiratory 22 19 20 Rate Blood Pressure 100/74 129/64 (mmHg) O2 Sat by Pulse 97 100 Oximetry Oxygen Devices in Use Now: Nasal Cannula Appearance: Elderly gentleman lying in bed in NAD Eyes: No Scleral Icterus Ears/Nose/Mouth/Throat: Mucous Membranes Moist Neck: Trachea Midline Respiratory: Symmetrical Chest Expansion and Respiratory Effort, - - BS+ bilaterally with bibasilar crackles Cardiovascular: RRR - Normal S1 and S2 Abdominal: NL Sounds; No Tenderness; No Distention Extremities: - - Bilateral LE pitting edema, with left LE erythema, foul smell. S/p right BKA and left TMA Neurological: - - Lethargic, opens eyes when called, doesn't follow commands Result Diagrams: 01/15/19 05:55 01/16/19 08:19 Assess/Plan/Problems-Billing Assessment: Mr Cedillo is an 83yo M with PMH of Parkinsonism, dementia, HTN, CAD, PVD, s/p right BKA, s/p left TMA, type 2 diabetes, who presented to ED with c/o confusion and dyspnea. - Patient Problems (1) Altered mental status Comment: - Multifactorial in the setting of infection and hypoxia. - Worse today - check ABG to r/o CO2 retention, but suspect metabolic encephalopathy in the setting of sepsis and known Parkisons. (2) Acute hypoxemic respiratory failure Comment: - Secondary to CHF exacerbation. - Continue diuresis with Furosemide as BP tolerates. (3) Acute on chronic systolic CHF (congestive heart failure) Comment: - EF 30-35% Nov 2018, likely secondary to ischemic cardiomyopathy. - Suspect decompensation in the setting of LLE worsening infection and sepsis. (4) Non healing left heel wound Comment: - Repeat MRI shows ostemyelitis and clinically he also has cellulitis. - Dr. Frederick 12/06/18 offered BKA and patient declined. On Keflex as outpatient, but infection has progressed. - ID consult appreciated - continue Cefepime and metronidazole. (5) Type 2 diabetes mellitus Comment: - Hypoglycemic this AM - will d/c Lantus and continue Lispro SS. - Last A1c was 8.4 in November 2018. (6) Dysphagia Comment: - Probably associated with Parkisonism. - Speech pathology input appreacited - pureed diet with nectar thick liquids as tolerated. (7) DVT prophylaxis Comment: - SQ heparin. (8) DNR (do not resuscitate) Status and Disposition: Inpatient. Family meeting with patient's , son, and CARROLL to discuss plan of care - amputation vs comfort care. After they talked to Dr Medina, decision is to pursue Hospice. Transition to comfort care.
--- NOTE | 2019-01-16 19:22 | PN ---
Progress Note - Progress Note Date of Service: 01/16/19 Note: Asked to see family(, son and 's sister) who are known to me from previous hospitalization. Pt has been declining since I last saw him. They have elected to pursue hospice instead of surgery. Their first choice is the hospice residence if no bed then they are interested in hospice at [facility]. Dr Matthews updated. Will let case management know about sending hospice referral. would like to be notified about hospice status. Explained if he goes back to [facility] they will have to let staff know about sending the hospice referral.
[2019-01-16] MEDS ORDERED: LORazepam TAB(*) 1 MG SL PRN (20:29)
[2019-01-16] MEDS ORDERED: Atropine 1% (ORAL/SL)* 15 ML BTL SL PRN (20:29)
[2019-01-17] MEDS: metroNIDAZOLE IV 500 MG/100ML* 500 MG/100 ML BAG IVPB SCH ×3 (03:13→22:23)
[2019-01-17] MEDS ORDERED: metroNIDAZOLE IV 500 MG/100ML* 500 MG/100 ML BAG IVPB SCH (04:00)
[2019-01-17] MEDS ORDERED: fentaNYL* 50 MCG/ML 2 ML VIAL (100 MCG VIAL) IV ONE (04:47)
[2019-01-17] MEDS: Morphine ORAL CONCENTRATE* 5 MG/0.25 ML ORAL.SYRIN SL PRN ×3 (06:08→16:38)
--- NOTE | 2019-01-17 08:36 | PN ---
Progress Note - Progress Note Date of Service: 01/17/19 SOAP: Subjective: CC: cellulitis HPI: 83 year old man with PAD and left foot tma, recent I&D now open wounds and cellulitis involving lower leg. Redness is improved since admission. He has dementia and a decline in mental status leading to admission, but more awake since arrival. He can't provide any history. Objective: Vital Signs Temp 36.2 C 01/17/19 03:15 Pulse 81 01/17/19 03:15 Resp 16 01/17/19 07:40 BP 97/54 01/17/19 03:15 Pulse Ox 99 01/17/19 03:15 Intake & Output 01/16/19 01/17/19 01/17/19 18:59 06:59 18:59 Intake Total 270 197 Output Total 800 1350 Balance -530 -1153 Weight 230 lb Intake: IV Fluids 150 ABX 100 ABX - CEFEPIME 50 IVPB 197 ABX 197 Oral 120 0 Output: Urine 0 Prince 800 1350 Gen:no distress Neuro: awake, does not regard or answer questionss HEENT:no thrush Heart:RRR no murmur Lungs:CTA BL Abd:+BS NTND soft Skin: no rash MSK: L TMA site healed, dorsal midfoot ulcer with exposed tendon, calcaneous dry gangrene; erythema receding Laboratory Results - last 24 hr 01/16/19 01/16/19 01/16/19 12:06 15:37 16:11 ABG pH 7.36 ABG pCO2 60 H ABG pO2 104 H ABG HCO3 30.0 ABG O2 Saturation 98.9 H ABG Base Excess 6.5 H POC Glucose (mg/dL) 139 H 92 01/16/19 01/17/19 20:44 07:19 ABG pH ABG pCO2 ABG pO2 ABG HCO3 ABG O2 Saturation ABG Base Excess POC Glucose (mg/dL) 75 91 Assessment: 1. Left leg cellulitis, improving; due to left foot ulcer. Acute osteomyelitis by MRI. 2. non healing ulcer left foot, PAD 3. encephalopathy, present on admission, improving 4. dementia Plan: 1. decrease flagyl to twice daily, will change cefepime to ceftriaxone, day 3; eventual plan for hospice, can change to augmentin 500 mg po twice daily when taking oral medications to complete 7 day course. I do not recommend long course of antibiotics for osteomyelitis as it is futile and likely will complicate end of life care.
[2019-01-17] MEDS ORDERED: cefTRIAXone(*) 1 GM in NS 0.9% 50 ML* 50 ML IVPB SCH (09:00)
[2019-01-17] MEDS ORDERED: Furosemide IV* 10 MG/ML VIAL (40 MG) IV SLOW PU ONE (10:00)
--- NOTE | 2019-01-17 10:08 | PN ---
Subjective Date of Service: 01/17/19 Interval History: HOSPITALIST PROGRESS NOTE Patient seen and examined at bedside. Care reviewed and d/w Codi GUERRA. He is more awake today. Opens eyes, answer simple yes/no questions. Family History: Unchanged from Admission Social History: Unchanged from Admission Past Medical History: Unchanged from Admission Objective Active Medications: Acetaminophen (Tylenol Supp*) 650 mg IL Q4H PRN PRN Reason: MILD PAIN or TEMP > 100.4 Last Admin: 01/17/19 01:18 Dose: 650 mg Albuterol (Ventolin 2.5 Mg/3 Ml Neb.Vale*) 2.5 mg INH Q4H PRN PRN Reason: SOB/WHEEZING Last Admin: 01/15/19 18:18 Dose: 2.5 mg Atropine Sulfate (Atropine 1% (Oral/Sl)*) 2 drop SL Q2H PRN PRN Reason: Terminal secretions Dextrose (Dextrose 50% Vial 50 Ml*) 25 ml IV PUSH .FOR FS < 60 - SS PRN PRN Reason: FS < 60 Furosemide (Lasix Iv*) 40 mg IV SLOW PU ONCE ONE Stop: 01/17/19 10:01 Metronidazole/Sodium Chloride (Flagyl 500 Mg Ivpb*) 500 mg in 100 mls @ 100 mls /hr IVPB Q12H SAAD Ceftriaxone Sodium 1 gm/ (Sodium Chloride) 50 mls @ 100 mls/hr IVPB Q24H SAAD Insulin Human Lispro (Humalog*) 0 units SUBCUT ACHS SAAD; Protocol Last Admin: 01/16/19 20:45 Dose: Not Given Lorazepam (Ativan Tab(*)) 1 mg SL Q4H PRN PRN Reason: Anxiety/Agitation Last Admin: 01/17/19 06:09 Dose: 1 mg Morphine Sulfate (Morphine Oral Concentrate*) 5 mg SL Q2H PRN PRN Reason: Pain/Tachypnea RR>24 Last Admin: 01/17/19 06:08 Dose: 5 mg Vital Signs - 8 hr 01/17/19 01/17/19 01/17/19 03:15 05:13 06:08 Temperature 97.1 F Pulse Rate 81 Respiratory 20 20 18 Rate Blood Pressure 97/54 (mmHg) O2 Sat by Pulse 99 Oximetry 01/17/19 01/17/19 01/17/19 06:09 07:40 09:59 Temperature Pulse Rate Respiratory 18 16 28 Rate Blood Pressure (mmHg) O2 Sat by Pulse Oximetry Oxygen Devices in Use Now: Nasal Cannula - 4.5 liters Appearance: Elderly gentleman lying in bed in NAD Eyes: No Scleral Icterus Ears/Nose/Mouth/Throat: Mucous Membranes Moist Neck: Trachea Midline Respiratory: Symmetrical Chest Expansion and Respiratory Effort, - - BS+ bilaterally with bibasilar crackles Cardiovascular: RRR - Normal S1 and S2 Abdominal: NL Sounds; No Tenderness; No Distention - obese Extremities: - - Bilateral LE pitting edema, s/p right BKA, s/p left TMA. Area of erythema on left lower leg is subsiding Neurological: - - Opens eyes when called, POLANCO Result Diagrams: 01/15/19 05:55 01/16/19 08:19 Assess/Plan/Problems-Billing Assessment: Mr Cedillo is an 83yo M with PMH of Parkinsonism, dementia, HTN, CAD, PVD, s/p right BKA, s/p left TMA, type 2 diabetes, who presented to ED with c/o confusion and dyspnea. - Patient Problems (1) Altered mental status Comment: - Multifactorial in the setting of sepsis, hypoxia, metabolic encephalopathy and known Parkisons. (2) Acute hypoxemic respiratory failure Comment: - Secondary to CHF exacerbation. - Continue diuresis with Furosemide as BP tolerates. (3) Acute on chronic systolic CHF (congestive heart failure) Comment: - EF 30-35% Nov 2018, likely secondary to ischemic cardiomyopathy. - Suspect decompensation in the setting of LLE worsening infection and sepsis. (4) Non healing left heel wound Comment: - Repeat MRI shows ostemyelitis and clinically he also has cellulitis. - Dr. Frederick 12/06/18 offered BKA and patient declined. On Keflex as outpatient, but infection has progressed. - ID consult appreciated - continue Cefepime and metronidazole. (5) Type 2 diabetes mellitus Comment: - On Lispro SS only as glucose on the lower side. - Last A1c was 8.4 in November 2018. (6) Dysphagia Comment: - Probably associated with Parkisonism. - Speech pathology input appreacited - pureed diet with nectar thick liquids as tolerated. (7) DVT prophylaxis Comment: - SQ heparin. (8) DNR (do not resuscitate) (9) Need for comfort care Comment: - Lengthy conversation with , son, and CARROLL yesterday. Decision was not to pursue amputation and they're interested in Hospice. - They want to continue antibiotics for now. Status and Disposition: Inpatient.
[2019-01-17] MEDS ORDERED: Sertraline* 25 MG TAB PO SCH (11:00)
[2019-01-17] MEDS ORDERED: Aspirin EC TAB* 81 MG TAB.EC PO SCH (11:00)
[2019-01-17] MEDS ORDERED: Clopidogrel TAB* 75 MG PO SCH (11:00)
[2019-01-17] MEDS: Insulin LISPRO* 1 UNITS UNIT SUBCUT SCH (11:20)
[2019-01-17] MEDS ORDERED: Baclofen TAB* 10 MG PO SCH (14:00)
[2019-01-17] MEDS ORDERED: Morphine INJ* 4 MG/ML 1 ML SYRINGE (NEW SYRINGE VERSION) ONE (17:54)
[2019-01-17] MEDS ORDERED: Morphine INJ* 4 MG/ML 1 ML SYRINGE (NEW SYRINGE VERSION) IV ONE (18:30)
--- NOTE | 2019-01-17 20:35 | PN ---
Hospitalist Progress Note Date of Service: 01/17/19 HOSPITALIST ADDENDUM Called to bedside by RN at 6PM. Patient's was feeding him and he aspirated. On arrival patient was in respiratory distress, diaphoretic. very emotional at bedside. We talked about his condition, poor prognosis, and his wishes re: no intubation. Patient received 4mg IV Morphine and had some symptomatic improvement, but still had high oxygen requirements. After discussion with , decision was made to transfer to ICU for Vapotherm for comfort, and to continue Morphine. BiPAP not indicated in the setting of aspiration and I don't believe he would tolerate it anyway. Overall prognosis is very poor.
[2019-01-17] MEDS ORDERED: Morphine 4 MG/ML VIAL (1 ml) 4 MG/ML VIAL IV PRN (20:36)
[2019-01-17] MEDS ORDERED: Atorvastatin* 10 MG TAB PO SCH (21:00)
[2019-01-17] MEDS: Morphine INJ* 4 MG/ML 1 ML SYRINGE (NEW SYRINGE VERSION) IV PRN (22:04)
[2019-01-18] MEDS ORDERED: LORazepam INJ* 2 MG/ML 1 ML VIAL IV PUSH PRN (02:37)
[2019-01-18] MEDS ORDERED: Lorazepam PYXIS KEY PRN (02:37)
[2019-01-18] MEDS: Morphine INJ* 2 MG/ML 1 ML SYRINGE (TWO MG - NEW SYRINGE VERSION) IV PRN ×2 (02:59→04:50)
[2019-01-18 03:09] VITALS: BP 85/52
[2019-01-18] MEDS: Morphine INJ* 4 MG/ML 1 ML SYRINGE (NEW SYRINGE VERSION) IV PRN (03:53)
[2019-01-18] MEDS ORDERED: Insulin LISPRO* 1 UNITS UNIT SUBCUT SCH (09:00)
[2019-01-18] MEDS: Morphine ORAL CONCENTRATE* 5 MG/0.25 ML ORAL.SYRIN SL PRN ×2 (09:08→11:06)
--- NOTE | 2019-01-18 12:30 | PN ---
Subjective Date of Service: 01/18/19 Interval History: HOSPITALIST PROGRESS NOTE Patient seen and examined at bedside. Care reviewed and d/w Stacy Mcbride. Last night events noted. He is now comfortable after receiving Morphine. Family History: Unchanged from Admission Social History: Unchanged from Admission Past Medical History: Unchanged from Admission Objective Active Medications: Acetaminophen (Tylenol Supp*) 650 mg [place] Q4H PRN PRN Reason: MILD PAIN or TEMP > 100.4 Last Admin: 01/17/19 01:18 Dose: 650 mg Albuterol (Ventolin 2.5 Mg/3 Ml Neb.Vale*) 2.5 mg INH Q4H PRN PRN Reason: SOB/WHEEZING Last Admin: 01/15/19 18:18 Dose: 2.5 mg Atropine Sulfate (Atropine 1% (Oral/Sl)*) 2 drop SL Q2H PRN PRN Reason: Terminal secretions Last Admin: 01/18/19 03:25 Dose: 2 drp Lorazepam (Ativan Tab(*)) 1 mg SL Q4H PRN PRN Reason: Anxiety/Agitation Last Admin: 01/17/19 06:09 Dose: 1 mg Lorazepam (Ativan Inj*) 1 mg IV PUSH Q6H PRN PRN Reason: ANXIETY Last Admin: 01/18/19 02:59 Dose: 1 mg Miscellaneous (Ativan Pyxis Hurd) 1 ea N/A .ATIVAN IV HURD PRN PRN Reason: PYXIS HURD Morphine Sulfate (Morphine Oral Concentrate*) 5 mg SL Q2H PRN PRN Reason: Pain/Tachypnea RR>24 Last Admin: 01/18/19 11:06 Dose: 5 mg Morphine Sulfate (Morphine Inj (Syringe)*) 4 mg IV Q4H PRN PRN Reason: Pain / Tachypnea RR>24 Last Admin: 01/18/19 03:53 Dose: 4 mg Vital Signs - 8 hr 01/18/19 01/18/19 04:50 08:00 Respiratory 25 21 Rate Oxygen Devices in Use Now: None Appearance: Elderly gentleman lying in bed in NAD Eyes: No Scleral Icterus Result Diagrams: 01/15/19 05:55 01/16/19 08:19 Microbiology and Other Data: Microbiology 01/15/19 02:10 Nasal Screen MRSA (PCR) - Final Nasal Mrsa Not Detected Assess/Plan/Problems-Billing Assessment: Mr Cedillo is an 83yo M with PMH of Parkinsonism, dementia, HTN, CAD, PVD, s/p right BKA, s/p left TMA, type 2 diabetes, who presented to ED with c/o confusion and dyspnea. - Patient Problems (1) Altered mental status Comment: - Multifactorial in the setting of sepsis, hypoxia, metabolic encephalopathy and known Parkisons. (2) Acute hypoxemic respiratory failure Comment: - Secondary to CHF exacerbation. - Continue diuresis with Furosemide as BP tolerates. (3) Acute on chronic systolic CHF (congestive heart failure) Comment: - EF 30-35% Nov 2018, likely secondary to ischemic cardiomyopathy. - Suspect decompensation in the setting of LLE worsening infection and sepsis. (4) Non healing left heel wound Comment: - Repeat MRI shows ostemyelitis and clinically he also has cellulitis. - Dr. Frederick 12/06/18 offered BKA and patient declined. On Keflex as outpatient, but infection has progressed. - ID consult appreciated - continue Cefepime and metronidazole. (5) Type 2 diabetes mellitus Comment: - On Lispro SS only as glucose on the lower side. - Last A1c was 8.4 in November 2018. (6) Dysphagia Comment: - Probably associated with Parkisonism. - Speech pathology input appreacited - pureed diet with nectar thick liquids as tolerated. (7) DVT prophylaxis Comment: - SQ heparin. (8) DNR (do not resuscitate) (9) Need for comfort care Comment: - Lengthy conversation with , son, and CARROLL yesterday. Decision was not to pursue amputation and they're interested in Hospice. - They want to continue antibiotics for now. Status and Disposition: Inpatient.
--- NOTE | 2019-01-18 23:01 | DS ---
CC: Dr. Aster Kay; Dr. Gunn DISCHARGE SUMMARY/ NOTE: DATE OF ADMISSION: DATE OF DISCHARGE/: PRIMARY CARE PROVIDER: Dr. Aster Kay. HOSPITAL COURSE: Mr. Cedillo was an 83-year-old male with a complex medical history that included Park insonism; dementia; hypertension; CAD; peripheral vascular disease, status post right BKA; status pos t left TMA; type 2 diabetes, who presented to the emergency room with confusion and dyspnea. The patient had been admitted to [facility] from 11/28/18 to 12/17/18. At that point, he had a necrotic lef t posterior ankle ulcer with exposed Achilles tendon and associated cellulitis, a [id number] my ocardial infarction, a new-onset atrial fibrillation. He was being treated with antibiotics and he w as seen by Orthopedics (Dr. Frederick) who performed I and D and debridement. He was discharged on an tibiotics and returned on 12/22/18 through 12/25/18. At that point, he had congestive heart failure exacerbation and because of his wound worsening, he was offered an amputation that the patient and hi s family declined it. MRI at that time had not shown osteomyelitis, but at that point, the impressio n was made that his wounds were very complex and would likely not heal very well. He was discharged to [facility] and at that point, there was some conversation about palliative care and hospice invo lvement, but the patient's was too resistant to it. He returned to [facility] on 01/14/19 with complaints of shortness of breath, confusion, edema, and on arriv al, the patient's saturation was 83% on his usual 3 L. He was admitted for further workup and his MRI showed findings suspicious for osteomyelitis involving the calcaneal tuberosity at the depth of the soft tissue ulcer. Despite diuresis and antibiotic use, the patient's condition continued to decline. He was also found to have dysphagia and aspiration. He was seen by Speech Pathology, and on 01/17/19, he had a severe episode of aspiration. He had already had multiple conversations with his family regarding his condi tion and poor prognosis and they were considering transition to comfort care. At that point, when he got worse, the was very clear that he would not want to be intubated and he was transferred to the intensive care unit to be on Vapotherm for comfort. Overnight, his condition continued to worsen and he was made comfort care. Vapotherm was withdrawn and he received morphine as needed for comfort. The patient on 01/18/19 at 12:34 p.m. DISCHARGE DIAGNOSES: 1. Multifactorial metabolic encephalopathy in the setting of hypoxia, sepsis, and Parkinsonism. 2. Acute hypoxemic respiratory failure. 3. Acute systolic congestive heart failure exacerbation. 4. Aspiration pneumonitis. 5. Left foot ulcer, cellulitis, and osteomyelitis. 6. Dysphagia, likely associated with Parkinson's disease. SECONDARY DIAGNOSES: 1. Parkinson's disease. 2. Dementia. 3. Hypertension. 4. Coronary artery disease. 5. Peripheral vascular disease. 6. Status post right below-knee amputation. 7. Status post left transmetatarsal amputation. 8. Type 2 diabetes. Please keep in mind this is a summarized version of this patient's multiple and complex hospital stay . If you need more information, please do not hesitate to call me at [phone] or please obtain t he full medical records. TIME SPENT: Approximately 40 minutes was spent to complete this discharge. [id number]/[facility] #: [id number]
== END 2019-01-18 12:34 | disposition expired | DRG 70 ==
LOC: ED 18:34 → MEDTELE 23:19 → ICU 01-17 18:55
PROVIDERS: ADMIT Student in an Organized Health Care Education/Training Program; ATTEND Internal Medicine
PROC: 3E0F7GC Introduction of Other Therapeutic Substance into Respiratory Tract, Via Natural or Artificial Opening (ICD-10-PCS; principal; 2019-01-17)
DX: G93.41 Metabolic encephalopathy (principal); A41.9 Sepsis, unspecified organism; J96.01 Acute respiratory failure with hypoxia; J69.0 Pneumonitis due to inhalation of food and vomit; I50.23 Acute on chronic systolic (congestive) heart failure; M86.8X7 Other osteomyelitis, ankle and foot; E11.52 Type 2 diabetes mellitus with diabetic peripheral angiopathy with gangrene; I96 Gangrene, not elsewhere classified; L03.116 Cellulitis of left lower limb; E11.69 Type 2 diabetes mellitus with other specified complication; Z66 Do not resuscitate; L89.152 Pressure ulcer of sacral region, stage 2; G20 Parkinson's disease; F02.80 Dementia in other diseases classified elsewhere, unspecified severity, without behavioral disturbance, psychotic disturbance, mood disturbance, and anxiety; I11.0 Hypertensive heart disease with heart failure; E11.42 Type 2 diabetes mellitus with diabetic polyneuropathy; I25.5 Ischemic cardiomyopathy; I25.10 Atherosclerotic heart disease of native coronary artery without angina pectoris; J44.9 Chronic obstructive pulmonary disease, unspecified; R13.10 Dysphagia, unspecified; E78.5 Hyperlipidemia, unspecified; F10.21 Alcohol dependence, in remission; Z89.511 Acquired absence of right leg below knee; Z99.3 Dependence on wheelchair; Z95.1 Presence of aortocoronary bypass graft; Z79.82 Long term (current) use of aspirin; Z79.4 Long term (current) use of insulin; Z79.899 Other long term (current) drug therapy; Z88.1 Allergy status to other antibiotic agents; Z89.432 Acquired absence of left foot; Z82.49 Family history of ischemic heart disease and other diseases of the circulatory system; Z83.438 Family history of other disorder of lipoprotein metabolism and other lipidemia; Z83.3 Family history of diabetes mellitus
CPT/HCPCS: 36415; 36600; 71045; 80048; 80053; 81003; 81015; 82803; 83605; 83880; 84484; 85025; 85027; 85652; 86140; 87040; 87086; 87641; 93005; 94640; 99285; A9270-GY; J0692; J0696; J0744; J1644; J1940; J2060; J2270; J3010